=== PATIENT | female | born 1945 | race Caucasian/White ===

== ENCOUNTER → 2017-04-03 | Outpatient (CLI) | payer OTHER ==
[~2017-04-03] MED LIST: AMLO2.5T PO; ASCO10003 PO; ASPI81TA21 PO; ATOR-26 PO; CHOL20005 PO; CLOP1TAB15 PO; DOCU1TAB6 PO; FERR325T51 PO; IBAN150T7 PO; ISOS60TA25 PO; LEVO88TA3 PO; LINA1CAP PO; LISI-461 PO; MAGN250T8 PO; METF500T PO; METO25TA56 PO; NTRGSL/4 UT; OMEG10007 PO; OXYC5TAB PO; POTA20TA16 PO; PRLSR20 PO; QUET1TAB32 PO; SERT50TA PO; SUCR5SUS PO
[2017-04-03 13:03] LABS: ESTIMATED AVERAGE GLUCOSE 108 mg/dl; HA1C FLAG Normal (Normal)
[2017-04-03 13:04] LABS: CALCIUM 10.3 mg/dl (8.5-10.1)
[2017-04-03 13:05] LABS: ALT/SGPT 24 U/L (12-78); AST/SGOT 9 U/L (15-37); BLOOD UREA NITROGEN 41 mg/dl (7-18); BUN/CREATININE RATIO 31.5 (10-20); CARBON DIOXIDE 23 mmol/L (21-32); CHLORIDE 112 mmol/L (98-107); GLUCOSE 104 mg/dl (70-99); POTASSIUM 4.4 mmol/L (3.5-5.1); SODIUM 146 mmol/L (136-145)
[2017-04-03 13:15] LABS: ALB/GLOB RATIO 1.2 (0.9-2); ALKALINE PHOSPHATASE 47 U/L (45-117); THYROID STIMULATING HORMONE 0.936 uIu/ml (0.300-4.500)
== END | disposition home or self-care (01) ==
LOC: C.LABBFT 08:43
PROVIDERS: ATTEND Family Medicine
DX: E11.9 Type 2 diabetes mellitus without complications (principal); E83.42 Hypomagnesemia; E03.9 Hypothyroidism, unspecified; I10 Essential (primary) hypertension

== ENCOUNTER → 2017-12-10 | Outpatient (CLI) | payer OTHER ==
[2017-12-10 17:47] LABS: BASO % 0.4 %; BASO ABS # 0.04 K/uL (0-0.2); EOS % 11.1 %; EOS ABS # 1.12 K/uL (0-0.5); HEMATOCRIT 36.9 % (37-47); HEMOGLOBIN 12.4 g/dL (12.0-16.0); IG# 0.03 K/uL (0.00-0.02); LYMPH % 29.4 %; LYMPH ABS # 2.97 K/uL (1.2-3.4); MEAN CELL VOLUME 88.9 fL (80-100); MEAN CORPUSCULAR HEMOGLOBIN 29.9 pg (25-34); MEAN CORPUSCULAR HGB CONC 33.6 g/dl (32-36); MEAN PLATELET VOLUME 9.9 fL (7.4-10.4); MONO % 5.8 %; MONO ABS # 0.59 K/uL (0.11-0.59); NEUT ABS # 5.34 K/uL (1.4-6.5); PLATELET COUNT 264 K/uL (130-400); RED CELL DISTRIBUTION WIDTH CV 13.9 % (11.5-14.5); RED CELL DISTRIBUTION WIDTH SD 45.3 fL (36.4-46.3); WHITE BLOOD COUNT 10.09 K/uL (4.8-10.8)
[2017-12-10 18:03] LABS: ALBUMIN 3.6 gm/dl (3.4-5.0); ALT/SGPT 23 U/L (12-78); AST/SGOT 11 U/L (15-37); BLOOD UREA NITROGEN 26 mg/dl (7-18); CALCIUM 10.3 mg/dl (8.5-10.1); CARBON DIOXIDE 25 mmol/L (21-32); CREATININE 1.33 mg/dl (0.60-1.20); GLUCOSE 106 mg/dl (70-99); POTASSIUM 4.5 mmol/L (3.5-5.1); SODIUM 144 mmol/L (136-145)
[2017-12-10 18:13] LABS: ALKALINE PHOSPHATASE 67 U/L (45-117); CHOLESTEROL 165 mg/dl (0-200); LDL CHOLESTEROL CALCULATED 69 mg/dl; TOTAL PROTEIN 7.2 gm/dl (6.4-8.2)
[2017-12-11 06:15] LABS: HEMOGLOBIN A1C 5.4 % (4.5-5.6)
== END | disposition home or self-care (01) ==
LOC: C.LABBFT 12:27
PROVIDERS: ATTEND Internal Medicine
DX: G47.33 Obstructive sleep apnea (adult) (pediatric) (principal); E83.52 Hypercalcemia; D64.9 Anemia, unspecified; E11.9 Type 2 diabetes mellitus without complications; M81.0 Age-related osteoporosis without current pathological fracture; E78.5 Hyperlipidemia, unspecified; E83.42 Hypomagnesemia

== ENCOUNTER → 2017-12-11 | Outpatient (CLI) | payer OTHER | LOC: C.LABBFT 07:27 | PROVIDERS: ATTEND Internal Medicine | DX: E11.9 Type 2 diabetes mellitus without complications (principal) ==

== ENCOUNTER → 2017-12-26 | Outpatient (CLI) | payer OTHER ==
--- NOTE | 2017-12-26 16:08 | DIAGNOSTIC IMAGING REPORT ---
CHEST 2 VIEWS ROUTINE CLINICAL HISTORY: Shortness of breath. Dyspnea on exertion. COMPARISON STUDY: January 19, 2016 FINDINGS: The cardiac and mediastinal contours are normal. There is no evidence of focal pulmonary consolidation. There is no evidence of failure. No pleural effusions are visualized.[ Surgical clips are again identified at the left anteromedial base. IMPRESSION: No active disease in the chest. Electronically signed by: Casey Brown M.D. 12/26/2017 4:06 PM Dictated Date/Time: 12/26/2017 4:06 PM
== END | disposition home or self-care (01) ==
LOC: C.RAD1850 15:49
PROVIDERS: ATTEND Internal Medicine
DX: R06.09 Other forms of dyspnea (principal)

== ENCOUNTER → 2018-03-04 | Outpatient (CLI) | payer OTHER ==
[~2018-03-04] MED LIST changes: +ASPI-319 PO; -ASPI81TA21 PO; +POTA-639 PO; -POTA20TA16 PO
== END | disposition home or self-care (01) ==
LOC: C.LABBFT 13:45
PROVIDERS: ATTEND Internal Medicine Endocrinology, Diabetes & Metabolism
DX: E83.52 Hypercalcemia (principal)

== ENCOUNTER → 2018-03-11 | Outpatient (CLI) | payer OTHER | END | disposition home or self-care (01) | LOC: C.LABBFT 12:36 | PROVIDERS: ATTEND Internal Medicine Endocrinology, Diabetes & Metabolism | DX: E83.52 Hypercalcemia (principal) ==

== ENCOUNTER → 2018-03-18 | Outpatient (CLI) | payer OTHER | END | disposition home or self-care (01) | LOC: C.LABBFT 12:42 | PROVIDERS: ATTEND Internal Medicine Endocrinology, Diabetes & Metabolism | DX: E83.52 Hypercalcemia (principal) ==

== ENCOUNTER → 2018-05-20 | Outpatient (CLI) | payer OTHER ==
--- NOTE | 2018-05-20 11:37 | DIAGNOSTIC IMAGING REPORT ---
RENAL ULTRASOUND CLINICAL HISTORY: Stage III chronic kidney disease. COMPARISON STUDY: CT of the abdomen and pelvis January 19, 2016. TECHNIQUE: Sonography of the kidneys and the urinary bladder was performed. FINDINGS: The right kidney measures 10.1 x 4.8 x 4.3 cm and the left measures 9 x 4.5 x 4.3 cm. There is no hydronephrosis. No calculi or masses are identified by sonography. A few subcentimeter bilateral renal cysts are noted. There is mild renal cortical thinning. Neither ureteral jet was identified. IMPRESSION: 1. No hydronephrosis. 2. Mild renal cortical thinning. Electronically signed by: Jason Cooper M.D. 05/20/2018 11:35 AM Dictated Date/Time: 05/20/2018 11:34 AM
== END | disposition home or self-care (01) ==
LOC: C.ULTR 10:55
PROVIDERS: ATTEND Internal Medicine
DX: N18.3 Chronic kidney disease, stage 3 (moderate) (principal)

== ENCOUNTER → 2018-05-22 | Outpatient (CLI) | payer OTHER | END | disposition home or self-care (01) | LOC: C.LABSPEC 10:51 | PROVIDERS: ATTEND Internal Medicine | DX: N18.3 Chronic kidney disease, stage 3 (moderate) (principal) ==

== ENCOUNTER 2020-01-12 12:19 | Inpatient (IN) ==
[2020-01-12] MEDS ORDERED: DEXAMETHASONE SOD PHOSPHATE 10 MG in SYRINGE 0 ML IV STA (12:52)
[2020-01-12] MEDS ORDERED: ALBUT/IPRATROP 3MG/0.5MG NEB 3 ML VIAL NEB ONE (12:52)
[2020-01-12] MEDS ORDERED: PIPERACILLIN/TAZOBACTAM 4.5 GM/120 ML BAG IV ONE (12:55)
[2020-01-12] MEDS ORDERED: PIPERACILL/TAZOBAC CONSULT ACTIVE PRN (12:55)
--- NOTE | 2020-01-12 13:03 | Emergency Department Note ---
ED Provider Note NAME: NIRAJ WILKINSON AGE: 74 SEX: F ARRIVES VIA: Ambulance INFORMANT: [Patient][, ] ED PROVIDER(S): Teodoro Delgadillo MD CHIEF COMPLAINT: Cough, SOB, feverish MEDICAL DECISION MAKING: The patient is a pleasant 74-year-old woman with a past medical history of CKD, diabetes, hypothyroidism, CAD who presents emergency department from her [facility] at [facility] with cough congestion and shortness of breath with feverishness with yellow sputum over the past week progressively worsening found to be significantly short of breath by visiting friend who called EMS. On arrival the patient is ill-appearing with increased work of breathing on BiPAP by EMS. She is hypertensive 200s/100s, tachypneic in the upper 20s and tachycardic with heart rate in the 100s. On exam the patient has scattered rhonchi with underlying wheezes. She appears clinically dry. EKG without overt acute ischemia. Chest x-ray negative for focal infiltrates. WBC within normal limits. Platelets within normal limits. H/H 11.9/35.0 approxim ately prior range of values. Chemistry without acidosis. Lactate 1.6. Magnesium 1.0 with repletion provided. LFTs unremarkable. Troponin negative/undetectable. BNP within normal limits. Procalcitonin undetectable. Influenza A positive. Given the patient's ill appearance upon arrival she was treated empirically with IV Zosyn. Upon flu PCR results order for Tamiflu. Upon re-evaluation respiratory status was improved on BiPAP with steroids, DuoNeb. However given the patient's respiratory failure we will proceed with admission. Patient is agreeable with this. Case was discussed with Dr. Clarke, [facility] hospitalist, who evaluate the patient for admission. Triage Nursing notes reviewed and agree them. [Additional history obtained from] [] [Prior medical records reviewed] [] Vital Signs: reviewed and remarkable for hypertension, tachypnea, tachycardia Differential diagnosis: Reactive airway disease, pneumonia, pneumothorax, COPD, CHF, infections, cardiac ischemia, pulmonary embolism, musculoskeletal, gastrointestinal, as well as other pathologies. ER treatment provided: See below. Diagnostics interpreted by me: ECG: EKG demonstrates sinus rhythm at 76 with evidence of right ventricular conduction delay. ST and T wave abnormality similar to prior, April 04, 2016. No overt ST elevations. QTc 454, QRS 90. Cardiac Monitoring: Normal sinus rhythm, 76 bpm. No ectopy. Laboratory studies: [See below] [] Imaging studies: [See below] [] Consultation(s): [none] HPI: The patient is a pleasant 74-year-old woman with a past medical history of CKD, diabetes, hypothyroidism, CAD who presents emergency department from her independent living facility at [facility] with gradual progression of cough congestion and shortness of breath with feverishness with yellow sputum over the past week progressively worsening found to be significantly short of breath by visiting friend who called EMS. Reports bodyaches and n/v this morning where she vomited her BP medications. Denies diarrhea or urinary symptoms. ROS: See above HPI for pertinent positives & negatives. A total of [10] systems reviewed and were otherwise negative. PAST MEDICAL HISTORY:[See Below] PAST SURGICAL HISTORY:[See Below] FAMILY HISTORY:[See Below] SOCIAL HISTORY:[See Below] HOME MEDICATIONS:[See Below] ALLERGIES:[See Below] VITALS:[See Below] PHYSICAL EXAMINATION: GENERAL: Awake, alert, Ill-appearing, in no distress HENT: Normocephalic, atraumatic. Oropharynx with dry mucous membranes and otherwise unremarkable. EYES: Normal conjunctiva. Sclera non-icteric. NECK: Supple. No nuchal rigidity. FROM. No JVD. RESPIRATORY: Increased work of breathing and tachypneic with scattered rhonchi and underlying wheezes. CARDIAC: Tachycardic rate, normal rhythm. Extremities warm and well perfused. Pulses equal. ABDOMEN: Soft, non-distended. No tenderness to palpation. No rebound or guarding. No masses. RECTAL: Deferred. MUSCULOSKELETAL: Chest examination reveals no tenderness. The back is symmetrical on inspection without obvious abnormality. There is no CVA tenderness to palpation. No joint edema. LOWER EXTREMITIES: Calves are equal size bilaterally and non-tender. No edema. No discoloration. NEURO: Normal sensorium. No sensory or motor deficits noted. SKIN: No rash or jaundice noted. ED COURSE: [Critical Care:] I have personally spent greater than 65 minutes of critical care time in the direct management of this patient. This includes bedside care, interpretation of diagnostic studies, and testing, discussion with consultants, patient, and family members, and other required patient management activities. This 65 minutes is in excess of all separately billable procedures. Teodoro Delgadillo MD Impression & Plan Acute respiratory failure with hypoxia, Influenza A, Hypomagnesemia, Hypertension, Acute hypokalemia Past Med/Surg History Medical History Asthma (Inactive) Coronary artery disease (Inactive) DKA (diabetic ketoacidosis) (Resolved) DM (diabetes mellitus) (Chronic) History of heart disease Hypothyroidism (Chronic) Urinary incontinence Surgical History History of hysterectomy (Resolved) S/P CABG x 4 (Resolved) Family History Denies family history of Kidney disease Social History Current Living Situation: Other Current Living Situation Comment: [facility] Independent living Other Information That Helps Us Care for You: No Feels Safe at Home: Yes Safety Concerns: Feels Safe At This Time Smoking Status: Unknown if ever smoked Hx Alcohol Use: No Hx Substance Use: No Results & Data Vital Signs Vital Signs - 24 hr 01/12/20 12:41 01/12/20 12:52 01/12/20 13:04 Temperature 37.3 C Temperature Source Oral Pulse Rate 105 H 78 Pulse Rate [Left] 78 Respiratory Rate 29 H 26 H Respiratory Effort / Characteristics Labored Short of Breath SOB on Exertion Spontaneous Labored Respiratory Depth Normal Respiratory Pattern Regular Blood Pressure 209/104 H Blood Pressure [Right Arm] Blood Pressure Mean 139 Blood Pressure Mean [Right Arm] Pulse Oximetry 99 98 Oxygen Delivery Method BiPAP BiPAP BiPAP Oxygen Flow Rate 10 Fraction of Inspired Oxygen 40 40 Sepsis Recent Fever Within 48 Hours Yes Sepsis New/Unexplained Change in Mental Status No Sepsis Action Taken by Nursing No Action Required 01/12/20 13:34 01/12/20 14:19 Temperature Temperature Source Pulse Rate Pulse Rate [Left] 92 H 120 H Respiratory Rate 22 28 H Respiratory Effort / Characteristics SOB on Exertion Respiratory Depth Respiratory Pattern Blood Pressure Blood Pressure [Right Arm] 205/80 H Blood Pressure Mean Blood Pressure Mean [Right Arm] 121 Pulse Oximetry 100 94 Oxygen Delivery Method BiPAP BiPAP Oxygen Flow Rate Fraction of Inspired Oxygen Sepsis Recent Fever Within 48 Hours Sepsis New/Unexplained Change in Mental Status Sepsis Action Taken by Nursing Laboratory Data Result diagrams: 01/12/20 12:25 01/12/20 12:25 Lab Results 01/12/20 01/12/20 01/12/20 Range/Units 12:10 12:25 12:25 WBC 10.16 (4.8-10.8) K/uL RBC 3.92 L (4.2-5.4) M/uL Hgb 11.9 L (12.0-16.0) g/dL Hct 35.0 L (37-47) % MCV 89.3 (80-100) fL MCH 30.4 (25-34) pg MCHC 34.0 (32-36) g/dL RDW Std Deviation 45.6 (36.4-46.3) fL RDW Coeff of Nathan 13.8 (11.5-14.5) % Plt Count 156 (130-400) K/uL MPV 10.2 (7.4-10.4) fL Immature Gran % (Auto) 0.2 % Neut % (Auto) 71.5 % Lymph % (Auto) 18.5 % Zavala % (Auto) 9.3 % Eos % (Auto) 0.3 % Baso % (Auto) 0.2 % Immature Gran # (Auto) 0.02 (0.00-0.02) K/uL Neut # (Auto) 7.27 H (1.4-6.5) K/uL Lymph # (Auto) 1.88 (1.2-3.4) K/uL Zavala # (Auto) 0.94 H (0.11-0.59) K/uL Eos # (Auto) 0.03 (0-0.5) K/uL Baso # (Auto) 0.02 (0-0.2) K/uL PT 11.0 (9.0-12.0) Seconds INR 1.0 (0.9-1.1) APTT 34.2 H (21.0-31.0) Seconds PTT Ratio 1.2 VBG pH (7.36-7.41) VBG pCO2 (38-50) mmHg VBG pO2 mmHg VBG HCO3 mmol/L VBG O2 Saturation % VBG Base Excess mEq/L Barometric Pressure mm/Hg Sodium (136-145) mmol/L Potassium (3.5-5.1) mmol/L Chloride (98-107) mmol/L Carbon Dioxide (21-32) mmol/L Anion Gap (3-11) BUN (7-18) mg/dl Creatinine (0.6-1.2) mg/dl Est Cr Clr Drug Dosing ml/min Est GFR ( Amer) Est GFR (Non-Af Amer) BUN/Creatinine Ratio (10-20) Glucose (70-99) mg/dl Lactate (0.4-2.0) mmol/L Calcium (8.5-10.1) mg/dl Phosphorus (2.5-4.9) mg/dl Magnesium (1.8-2.4) mg/dl Total Bilirubin (0.2-1) mg/dl AST (15-37) U/L ALT (12-78) U/L Alkaline Phosphatase (45-117) U/L Troponin I (0-0.045) ng/ml NT-Pro-B Natriuret Pep (0-900) pg/ml Total Protein (6.4-8.2) gm/dl Albumin (3.4-5.0) gm/dl Globulin (2.5-4.0) gm/dl Albumin/Globulin Ratio (0.9-2) Procalcitonin (0-0.5) ng/ml Influenza Type A (PCR) Pos for Influ A A* (Neg) Influenza Type B (PCR) Neg for Influ B (Neg) 01/12/20 01/12/20 01/12/20 Range/Units 12:25 12:25 13:05 WBC (4.8-10.8) K/uL RBC (4.2-5.4) M/uL Hgb (12.0-16.0) g/dL Hct (37-47) % MCV (80-100) fL MCH (25-34) pg MCHC (32-36) g/dL RDW Std Deviation (36.4-46.3) fL RDW Coeff of Nathan (11.5-14.5) % Plt Count (130-400) K/uL MPV (7.4-10.4) fL Immature Gran % (Auto) % Neut % (Auto) % Lymph % (Auto) % Zavala % (Auto) % Eos % (Auto) % Baso % (Auto) % Immature Gran # (Auto) (0.00-0.02) K/uL Neut # (Auto) (1.4-6.5) K/uL Lymph # (Auto) (1.2-3.4) K/uL Zavala # (Auto) (0.11-0.59) K/uL Eos # (Auto) (0-0.5) K/uL Baso # (Auto) (0-0.2) K/uL PT (9.0-12.0) Seconds INR (0.9-1.1) APTT (21.0-31.0) Seconds PTT Ratio VBG pH (7.36-7.41) VBG pCO2 (38-50) mmHg VBG pO2 mmHg VBG HCO3 mmol/L VBG O2 Saturation % VBG Base Excess mEq/L Barometric Pressure mm/Hg Sodium 141 (136-145) mmol/L Potassium 3.4 L (3.5-5.1) mmol/L Chloride 110 H (98-107) mmol/L Carbon Dioxide 23 (21-32) mmol/L Anion Gap 8.0 (3-11) BUN 14 (7-18) mg/dl Creatinine 1.15 (0.6-1.2) mg/dl Est Cr Clr Drug Dosing 38.4 ml/min Est GFR ( Amer) 54.7 Est GFR (Non-Af Amer) 47.2 BUN/Creatinine Ratio 11.9 (10-20) Glucose 118 H (70-99) mg/dl Lactate 1.6 (0.4-2.0) mmol/L Calcium 8.4 L (8.5-10.1) mg/dl Phosphorus 2.4 L (2.5-4.9) mg/dl Magnesium 1.0 L (1.8-2.4) mg/dl Total Bilirubin 0.4 (0.2-1) mg/dl AST 13 L (15-37) U/L ALT 20 (12-78) U/L Alkaline Phosphatase 60 (45-117) U/L Troponin I < 0.015 (0-0.045) ng/ml NT-Pro-B Natriuret Pep 741 (0-900) pg/ml Total Protein 7.1 (6.4-8.2) gm/dl Albumin 3.5 (3.4-5.0) gm/dl Globulin 3.6 (2.5-4.0) gm/dl Albumin/Globulin Ratio 1.0 (0.9-2) Procalcitonin < 0.05 (0-0.5) ng/ml Influenza Type A (PCR) (Neg) Influenza Type B (PCR) (Neg) 01/12/20 Range/Units 13:05 WBC (4.8-10.8) K/uL RBC (4.2-5.4) M/uL Hgb (12.0-16.0) g/dL Hct (37-47) % MCV (80-100) fL MCH (25-34) pg MCHC (32-36) g/dL RDW Std Deviation (36.4-46.3) fL RDW Coeff of Nathan (11.5-14.5) % Plt Count (130-400) K/uL MPV (7.4-10.4) fL Immature Gran % (Auto) % Neut % (Auto) % Lymph % (Auto) % Zavala % (Auto) % Eos % (Auto) % Baso % (Auto) % Immature Gran # (Auto) (0.00-0.02) K/uL Neut # (Auto) (1.4-6.5) K/uL Lymph # (Auto) (1.2-3.4) K/uL [place]ala # (Auto) (0.11-0.59) K/uL Eos # (Auto) (0-0.5) K/uL Baso # (Auto) (0-0.2) K/uL PT (9.0-12.0) Seconds INR (0.9-1.1) APTT (21.0-31.0) Seconds PTT Ratio VBG pH 7.51 H (7.36-7.41) VBG pCO2 32 L (38-50) mmHg VBG pO2 24 mmHg VBG HCO3 25 mmol/L VBG O2 Saturation < 60.0 % VBG Base Excess 2.7 mEq/L Barometric Pressure 734.5 mm/Hg Sodium (136-145) mmol/L Potassium (3.5-5.1) mmol/L Chloride (98-107) mmol/L Carbon Dioxide (21-32) mmol/L Anion Gap (3-11) BUN (7-18) mg/dl Creatinine (0.6-1.2) mg/dl Est Cr Clr Drug Dosing ml/min Est GFR ( Amer) Est GFR (Non-Af Amer) BUN/Creatinine Ratio (10-20) Glucose (70-99) mg/dl Lactate (0.4-2.0) mmol/L Calcium (8.5-10.1) mg/dl Phosphorus (2.5-4.9) mg/dl Magnesium (1.8-2.4) mg/dl Total Bilirubin (0.2-1) mg/dl AST (15-37) U/L ALT (12-78) U/L Alkaline Phosphatase (45-117) U/L Troponin I (0-0.045) ng/ml NT-Pro-B Natriuret Pep (0-900) pg/ml Total Protein (6.4-8.2) gm/dl Albumin (3.4-5.0) gm/dl Globulin (2.5-4.0) gm/dl Albumin/Globulin Ratio (0.9-2) Procalcitonin (0-0.5) ng/ml Influenza Type A (PCR) (Neg) Influenza Type B (PCR) (Neg) Administered Medications Ascorbic Acid (Vitamin C) 1,000 mg PO PM JANELLE Stop: 02/11/20 20:59 Last Admin: 01/12/20 20:04 Dose: 1,000 mg Documented by: [id number] Atorvastatin Calcium (Lipitor) 80 mg PO HS JANELLE Stop: 02/11/20 20:59 Last Admin: 01/12/20 20:04 Dose: 80 mg Documented by: [id number] Clopidogrel Bisulfate (Plavix) 75 mg PO PM JANELLE Stop: 02/11/20 20:59 Last Admin: 01/12/20 20:05 Dose: 75 mg Documented by: [id number] Enoxaparin Sodium (Lovenox) 40 mg SQ Q24H JANELLE Stop: 02/11/20 20:59 Last Admin: 01/12/20 20:05 Dose: 40 mg Documented by: [id number] Ferrous Sulfate (Feosol) 325 mg PO HS JANELLE Stop: 02/11/20 20:59 Last Admin: 01/12/20 20:07 Dose: 325 mg Documented by: [id number] Fish Oil ([place]-3 (Purified Fish Oil)) 1 gm PO BID JANELLE Stop: 02/11/20 20:59 Last Admin: 01/12/20 20:06 Dose: 1 gm Documented by: [id number] Sodium Chloride (Nss 1000ml) 1,000 mls @ 100 mls/hr IV .Q10H [facility] Stop: 02/11/20 18:59 Last Admin: 01/12/20 19:58 Dose: 100 mls/hr Documented by: [id number] Piperacillin Sod/Tazobactam (Sod 3.375 gm/ Dextrose) 115 mls @ 28.75 mls/hr IV Q8H [facility] [place]; Protocol Stop: 01/19/20 19:59 Last Admin: 01/12/20 19:59 Dose: 28.8 mls/hr Documented by: [id number] Lisinopril (Zestril) 20 mg PO [facility] Stop: 02/11/20 20:59 Last Admin: 01/12/20 20:05 Dose: 20 mg Documented by: [id number] Magnesium Oxide (Mag-Ox) 200 mg PO [facility] Stop: 02/11/20 20:59 Last Admin: 01/12/20 20:05 Dose: 200 mg Documented by: [id number] Oseltamivir Phosphate (Tamiflu) 30 mg PO BID [facility] [place]; Protocol Stop: 01/17/20 20:59 Last Admin: 01/12/20 20:03 Dose: 30 mg Documented by: [id number] Pantoprazole Sodium (Protonix) 40 mg PO BID [facility] Stop: 02/11/20 20:59 Last Admin: 01/12/20 20:07 Dose: 40 mg Documented by: [id number] Potassium Chloride (Klor-Con M20) 20 meq PO [facility] Stop: 02/11/20 20:59 Last Admin: 01/12/20 20:06 Dose: 20 meq Documented by: [id number] Trazodone HCl (Desyrel) 150 mg PO [facility] Stop: 02/11/20 20:59 Last Admin: 01/12/20 20:06 Dose: 150 mg Documented by: [id number] Discontinued Medications Albuterol (Duoneb) 12 ml NEB ONE ONE Stop: 01/12/20 12:53 Last Admin: 01/12/20 13:02 Dose: 12 ml Documented by: [id number] Dexamethasone Sodium Phosphate (Decadron Pf) Confirm Administered Dose 10 mg .ROUTE .STK-MED ONE Stop: 01/12/20 13:26 Last Admin: 03/17/20 13:30 Dose: 10 mg Documented by: [id number] Hydralazine HCl (Hydralazine Hcl) 10 mg IV NOW STA Stop: 01/12/20 16:11 Last Admin: 01/12/20 17:08 Dose: 10 mg Documented by: [id number] Dexamethasone Sodium Phosphate (10 mg/ Syringe) 2.5 mls @ 1 mls/min IV NOW STA Stop: 01/12/20 12:54 Last Admin: 01/12/20 13:30 Dose: Not Given Documented by: [id number] Piperacillin Sod/Tazobactam Sod (Zosyn) 4.5 gm in 120 mls @ 240 mls/hr IV NOW ONE Stop: 01/12/20 13:24 Last Infusion: 01/12/20 14:30 Dose: 0 mls/hr Documented by: [id number] Admin: 01/12/20 13:30 Dose: 240 mls/hr Documented by: [id number] Magnesium Sulfate/Dextrose (Magnesium Sulfate / D5w) 1 gm in 100 mls @ 100 mls/hr IV Q1H JANELLE Stop: 01/12/20 16:14 Last Infusion: 01/12/20 17:04 Dose: 0 mls/hr Documented by: [id number] Admin: 01/12/20 16:03 Dose: 100 mls/hr Documented by: [id number] Infusion: 01/12/20 16:00 Dose: 0 mls/hr Documented by: [id number] Admin: 01/12/20 14:32 Dose: 100 mls/hr Documented by: [id number] Sodium Chloride (Nss) 500 mls @ 999 mls/hr IV .Q31M ONE Stop: 01/12/20 14:34 Last Infusion: 01/12/20 14:40 Dose: 0 mls/hr Documented by: [id number] Admin: 01/12/20 14:32 Dose: 999 mls/hr Documented by: [id number] Isosorbide Mononitrate (Imdur Extended Rel) 120 mg PO NOW ONE Stop: 01/12/20 14:41 Last Admin: 01/12/20 15:05 Dose: 120 mg Documented by: [id number] Metoprolol Tartrate (Lopressor) 12.5 mg PO NOW STA Stop: 01/12/20 14:41 Last Admin: 01/12/20 15:06 Dose: 12.5 mg Documented by: [id number] Oseltamivir Phosphate (Tamiflu) 75 mg PO NOW STA; Protocol Stop: 01/12/20 14:48 Last Admin: 01/12/20 15:06 Dose: 75 mg Documented by: [id number] Imaging Data Radiologist's Impression: XR chest 1V portable CLINICAL HISTORY: SEPSIS dyspnea COMPARISON STUDY: 01/19/2016 FINDINGS: The bones soft tissues and hemidiaphragms are normal. The cardiomediastinal silhouette is normal. The lungs are clear. The pulmonary vasculature is normal. IMPRESSION: Negative chest. Blood Pressure Blood Pressure Findings: Elevated blood pressure Blood Pressure Disposition: further management by hospitalist Discharge Plan Visit Data *Final* Discharge Date/Time: 01/12/20 18:58 Chief Complaint: Cough Stated Complaint: COUGH ED Provider: Teodoro Delgadillo Discharge Problem: Acute respiratory failure with hypoxia, Influenza A, Hypomagnesemia, Hypertension, Acute hypokalemia Patient Disposition: Admitted As Inpatient Discharge Instructions Interventions: ED Discharge Assessment Last Done: 01/12/20 18:57 Meds Home Medications and Allergies Home Medications Medication Instructions Recorded Confirmed Type albuterol sulfate 90 mcg/actuation 2 puffs INHALATION .COMPLEX gm 06/18/19 01/12/20 History aerosol inhaler ascorbic acid (vitamin C) 1,000 mg 1 gm PO PM tab 06/18/19 01/12/20 History tablet cinacalcet 60 mg tablet 60 mg PO QAM #90 tab 06/18/19 01/12/20 History magnesium 250 mg tablet 250 mg PO HS 06/18/19 01/12/20 History nitroglycerin 0.4 mg sublingual 0.4 mg SL Q5M PRN #25 tab 06/18/19 01/12/20 History tablet omega-3 acid ethyl esters 1 gram 1 cap PO BID cap 06/18/19 01/12/20 History capsule potassium chloride 20 mEq 20 meq PO HS #30 tab 06/18/19 01/12/20 History tablet,extended release omeprazole 20 mg capsule,delayed 20 mg PO BID cap 07/08/19 01/12/20 History release cetirizine 10 mg tablet 5 mg PO QAM 09/07/19 01/12/20 History melatonin 10 mg capsule 10 mg PO HS cap 10/16/19 01/12/20 History aspirin 81 mg PO QAM 01/12/20 01/12/20 History atorvastatin 80 mg PO HS 01/12/20 01/12/20 History calcitriol 0.25 mcg PO QAM 01/12/20 01/12/20 History cholecalciferol (vitamin D3) 4,000 units PO QAM 01/12/20 01/12/20 History clopidogrel 75 mg PO PM 01/12/20 01/12/20 History ferrous sulfate 325 mg PO HS 01/12/20 01/12/20 History isosorbide mononitrate 120 mg PO QAM 01/12/20 01/12/20 History levothyroxine 75 mcg PO QAM 01/12/20 01/12/20 History lisinopril 20 mg PO HS 01/12/20 01/12/20 History metoprolol succinate 12.5 mg PO QAM 01/12/20 01/12/20 History sertraline 100 mg PO QAM 01/12/20 01/12/20 History trazodone 150 mg PO HS 01/12/20 01/12/20 History Allergies Allergy/AdvReac Type Severity Reaction Status Date / Time nickel Allergy Unknown RASH Verified 01/12/20 13:05 salicylates AdvReac Mild GI UPSET Verified 01/12/20 13:05 adhesive AdvReac Unknown ITCHING Verified 01/12/20 13:05 Discharge Problem: Hypertension Qualifiers: Hypertension type: unspecified Qualified Code(s): I10 - Essential (primary) hypertension
[2020-01-12 13:14] LABS: Hemoglobin 11.9 g/dL (12.0-16.0); Mean Corpuscular Hemoglobin 30.4 pg (25-34); Mean Corpuscular Volume 89.3 fL (80-100); Mean Platelet Volume 10.2 fL (7.4-10.4); Platelet Count 156 K/uL (130-400); RDW Coefficient of Variation 13.8 % (11.5-14.5); RDW Standard Deviation 45.6 fL (36.4-46.3); Red Blood Count 3.92 M/uL (4.2-5.4); White Blood Count 10.16 K/uL (4.8-10.8)
[2020-01-12 13:16] LABS: Base Excess VBG 2.7 mEq/L; HCO3 VBG 25 mmol/L; PCO2 VBG 32 mmHg (38-50); PO2 VBG 24 mmHg; pH VBG 7.51 (7.36-7.41)
[2020-01-12 13:17] LABS: Oxygen Saturation VBG < 60.0 %
--- NOTE | 2020-01-12 13:18 | XRay Report ---
XR chest 1V portable CLINICAL HISTORY: SEPSIS dyspnea COMPARISON STUDY: 01/19/2016 FINDINGS: The bones soft tissues and hemidiaphragms are normal. The cardiomediastinal silhouette is n ormal. The lungs are clear. The pulmonary vasculature is normal. IMPRESSION: Negative chest. ACT 112: Negative or not required by law. The above report was generated using voice recognition software. It may contain grammatical, syntax or spelling errors. Electronically signed by: Gokul Reese M.D. 01/12/2020 1:17 PM
[2020-01-12 13:23] LABS: Alanine Aminotransferase 20 U/L (12-78); Albumin Level 3.5 gm/dl (3.4-5.0); Aspartate Aminotransferase 13 U/L (15-37); BUN Creatinine Ratio 11.9 (10-20); Blood Urea Nitrogen 14 mg/dl (7-18); Calcium 8.4 mg/dl (8.5-10.1); Carbon Dioxide 23 mmol/L (21-32); Chloride 110 mmol/L (98-107); Creatinine Clr Calc Pharmacy 38.4 ml/min; Est GFR (African American) 54.7; Est GFR (Non-African American) 47.2; Glucose 118 mg/dl (70-99); Potassium 3.4 mmol/L (3.5-5.1); Sodium 141 mmol/L (136-145)
[2020-01-12 13:25] LABS: Partial Thromboplastin Ratio 1.2; Partial Thromboplastin Time 34.2 Seconds (21.0-31.0)
[2020-01-12] MEDS ORDERED: DEXAMETHASONE **PF** INJ 10 MG/ML VIAL ONE (13:25)
[2020-01-12 13:26] LABS: Influenza B virus by PCR Neg for Influ B (Neg)
[2020-01-12 13:28] LABS: Alkaline Phosphatase 60 U/L (45-117); Bilirubin,Total 0.4 mg/dl (0.2-1); Globulin 3.6 gm/dl (2.5-4.0); NT Pro B Type Natriuretic Pept 741 pg/ml (0-900); Phosphorus 2.4 mg/dl (2.5-4.9); Total Protein 7.1 gm/dl (6.4-8.2); Troponin I < 0.015 ng/ml (0-0.045)
[2020-01-12 13:36] LABS: Basophils # (auto) 0.02 K/uL (0-0.2); Basophils % (auto) 0.2 %; Eosinophils # (auto) 0.03 K/uL (0-0.5); Eosinophils % (auto) 0.3 %; Immature Granulocytes # (auto) 0.02 K/uL (0.00-0.02); Immature Granulocytes % (auto) 0.2 %; Lymphocytes # (auto) 1.88 K/uL (1.2-3.4); Lymphocytes % (auto) 18.5 %; Monocytes # (auto) 0.94 K/uL (0.11-0.59); Monocytes % (auto) 9.3 %; Neutrophils # (auto) 7.27 K/uL (1.4-6.5); Neutrophils % (auto) 71.5 %
[2020-01-12] MEDS ORDERED: SODIUM CHLORIDE 0.9% 500 ML IV ONE (14:04)
[2020-01-12] MEDS: MAGNESIUM SULFATE / D5W 1 GM/100 ML BAG IV SCH ×2 (14:32→16:03)
[2020-01-12] MEDS ORDERED: ISOSORBIDE MONO EXTENDED REL 30 MG TABCR PO ONE (14:40)
[2020-01-12] MEDS ORDERED: METOPROLOL TARTRATE 50 MG TAB PO STA (14:40)
[2020-01-12] MEDS ORDERED: OSELTAMIVIR PHOSPHATE 75 MG CAP PO STA (14:47)
--- NOTE | 2020-01-12 15:58 | History & Physical Report ---
Date of Service January 12, 2020 Assessment & Plan (1) Influenza A: Patient likely has viral pneumonia secondary to influenza A. Patient was started on Tamiflu in the emergency room and now has been on BiPAP with good results. Zosyn was also administered but I do not feel this needs to be co ntinued. Check blood and sputum cultures for evidence of bacterial infection. Symptomatic relief as tolerated including Zofran for nausea. Wean BiPAP as able. We will ask pulmonology to evaluate for further recommendations. (2) DM (diabetes mellitus): Diabetic medications noted patient medication was. She did receive steroids in the emergency room, will place on a sliding scale with an ADA diet once patient is back to taking p.o.'s. (3) Coronary artery disease: Patient is on aspirin and Plavix along with high intensity atorvastatin. We will continue his as per outpatient regimen. (4) Hypomagnesemia: Patient was given 1 g magnesium IV in the emergency room, I will recheck levels and replete further as necessary. (5) Hypertension: Patient's blood pressure significantly uncontrolled., Patient was given Lopressor 12.5 mg p.o. along with Imdur PO 120 mg x 1 now. If blood pressure remains elevated, will give hydralazine 10 mg IV x1. Patient may need further IV medications depending on if she can tolerate p.o. medications. History of Present Illness Primary Care Provider: Tye Sneed MD There is a 74-year-old female with past medical history of CAD, diabetes, CKD that presents today complaining of significant fever and shortness of breath. Patient is limited historian as she is currently on BiPAP with difficulty with understand. Patient apparently started having symptoms on 01/06, this started with mild cough and some myalgias. It progressed into dyspnea on exertion and shortness of breath at rest. Patient slowly worsening, was eventually seen by a friend earlier today and EMS was called to bring the patient to the emergency room. Of note, patient says that her appetite is been poor but she had no nausea or vomiting until earlier today. Currently she took her antihypertensive and vomited up the pills. At time of presentation, patient was on BiPAP per EMS. She is responded well with O2 sat in the 94-100% range. Blood pressures been extremely elevated at 205/80 with a heart rate of 120. Patient was afebrile at presentation. Allergies Allergy/AdvReac Type Severity Reaction Status Date / Time nickel Allergy Unknown RASH Verified 01/12/20 13:05 salicylates AdvReac Mild GI UPSET Verified 01/12/20 13:05 adhesive AdvReac Unknown ITCHING Verified 01/12/20 13:05 Home Medications Home Medications Medication Instructions Recorded Confirmed Type albuterol sulfate 90 mcg/actuation 2 puffs INHALATION .COMPLEX gm 06/18/19 01/12/20 History aerosol inhaler ascorbic acid (vitamin C) 1,000 mg 1 gm PO PM tab 06/18/19 01/12/20 History tablet cinacalcet 60 mg tablet 60 mg PO QAM #90 tab 06/18/19 01/12/20 History magnesium 250 mg tablet 250 mg PO HS 06/18/19 01/12/20 History nitroglycerin 0.4 mg sublingual 0.4 mg SL Q5M PRN #25 tab 06/18/19 01/12/20 History tablet omega-3 acid ethyl esters 1 gram 1 cap PO BID cap 06/18/19 01/12/20 History capsule potassium chloride 20 mEq 20 meq PO HS #30 tab 06/18/19 01/12/20 History tablet,extended release omeprazole 20 mg capsule,delayed 20 mg PO BID cap 07/08/19 01/12/20 History release cetirizine 10 mg tablet 5 mg PO QAM 09/07/19 01/12/20 History ondansetron 4 mg disintegrating 4 mg TRANSLINGUAL TID PRN #60 tab 10/05/19 01/12/20 Rx tablet melatonin 10 mg capsule 10 mg PO HS cap 10/16/19 01/12/20 History aspirin 81 mg PO QAM 01/12/20 01/12/20 History atorvastatin 80 mg PO HS 01/12/20 01/12/20 History calcitriol 0.25 mcg PO QAM 01/12/20 01/12/20 History cholecalciferol (vitamin D3) 4,000 units PO QAM 01/12/20 01/12/20 History clopidogrel 75 mg PO PM 01/12/20 01/12/20 History ferrous sulfate 325 mg PO HS 01/12/20 01/12/20 History isosorbide mononitrate 120 mg PO QAM 01/12/20 01/12/20 History levothyroxine 75 mcg PO QAM 01/12/20 01/12/20 History lisinopril 20 mg PO HS 01/12/20 01/12/20 History metoprolol succinate 12.5 mg PO QAM 01/12/20 01/12/20 History sertraline 100 mg PO QAM 01/12/20 01/12/20 History trazodone 150 mg PO HS 01/12/20 01/12/20 History Past Med/Surg History Social History Feels Safe at Home: Yes Smoking Status: Former smoker Tobacco Type: cigarettes ; Age Started Using Tobacco: 31 ; Age Quit Using Tobacco: 54 ; packs per day: 4 ; Cigarettes Per Day: 80 ; Number of Years Since Quit: 20 ; Second Hand Exposure: No ; Review of Systems Constitutional: + fever, + chills, + body aches and + weakness; no weight loss and no weight gain Eyes: as per Subjective / HPI Respiratory: + cough, + chest congestion, + dyspnea and + dyspnea on exertion; no hemoptysis and no wheezing Cardiovascular: no chest pain, no orthopnea, no palpitations, no lightheadedness and no edema Gastrointestinal: + nausea and + vomiting; no abdominal pain, no constipation and no diarrhea/loose stools Genitourinary: no dysuria, no difficulty urinating, no urinary frequency, no urinary hesitancy, no urinary urgency and no flank pain Musculoskeletal: + stiffness; no back pain, no neck pain, no joint pain, no myalgia and no muscle weakness Integumentary: no rash Neurologic: no gait abnormality, no unsteadiness, no falls and no generalized weakness Physical Exam Constitutional: cooperative; no acute distress On BiPAP Neck: trachea midline, no thyromegaly Respiratory: normal respiratory effort Auscultation: + diminished lung sounds and + rhonchi; no crackles, no rales and no wheezes Cardiovascular: Rate/Rhythm: regular rhythm and + tachycardic Heart Sounds: normal S1 and normal S2 Gastrointestinal (Abdomen): Inspection/Auscultation: abdomen normal to inspection Percussion/Palpation: abdomen soft; abdomen nontender, no guarding, abdomen not rigid and no hepatosplenomegaly Skin: no rashes, warm and dry Results & Data Vital Signs (Past 12 Hours) Vital Signs Temp Pulse Pulse Resp BP BP Pulse Ox 01/12/20 14:19 120 H 28 H 205/80 H 94 01/12/20 13:34 92 H 22 100 01/12/20 13:04 78 78 26 H 98 01/12/20 12:41 37.3 C 105 H 29 H 209/104 H 99 Laboratory Results WBCs of 10.1, hemoglobin 11.9, hematocrit 35, platelets 156. INR is 1. VBG shows a CO2 of 32 with a pH of 7.51. Sodium 141, potassium 3.4 chloride of 110, dioxide 23 BUN is 14 and creatinine is 1.15 which appears to be her baseline. Glucose of 118. Calcium is 8.4, phosphorus 2.4, mag of 1. Procalcitonin is nondetectable. Influenza swab is positive for influenza A. Diagnostic Findings XR chest 1V portable CLINICAL HISTORY: SEPSIS dyspnea COMPARISON STUDY: 01/19/2016 FINDINGS: The bones soft tissues and hemidiaphragms are normal. The cardiomediastinal silhouette is normal. The lungs are clear. The pulmonary vasculature is normal. IMPRESSION: Negative chest. PG Care Time/CCT Total # of Minutes Spent Total Time Spent with Patient: Total time spent is greater than 50% in coordination of care (as documented) at patient's floor/unit and/or counseling patient: Coding Level of Care Code 25382 Initial Inpt Care Lvl 3 Diagnoses Influenza A J10.1 DM (diabetes mellitus) E11.9 Coronary artery disease I25.10 Hypomagnesemia E83.42 Hypertension I10
[2020-01-12] MEDS ORDERED: HydrALAZINE HCL 20 MG/ML VIAL IV STA (16:10)
[2020-01-12] MEDS ORDERED: ALBUTEROL 0.5% NEB SOLN 2.5 MG/0.5 ML VIAL NEB PRN (17:56)
[2020-01-12] MEDS: SODIUM CHLORIDE 0.9% 1000ML 1,000 ML IV SCH (19:58)
[2020-01-12] MEDS: PIPERACILLIN/TAZOBACTAM 3.375 GM in DEXTROSE 5% 100 ML IV SCH (19:59)
[2020-01-12] MEDS: OSELTAMIVIR PHOSPHATE SUSP 30 MG/5 ML UDP PO SCH (20:03)
[2020-01-12] MEDS: ASCORBIC ACID 500 MG TAB PO SCH (20:04)
[2020-01-12] MEDS: ATORVASTATIN 40 MG TAB PO SCH (20:04)
[2020-01-12] MEDS: ENOXAPARIN INJ 40 MG/0.4 ML SYR SQ SCH (20:05)
[2020-01-12] MEDS: CLOPIDOGREL BISULFATE 75 MG TAB PO SCH (20:05)
[2020-01-12] MEDS: lisinopriL 20 MG TAB PO SCH (20:05)
[2020-01-12] MEDS: MAGNESIUM OXIDE 400 MG TAB PO SCH (20:05)
[2020-01-12] MEDS: POTASSIUM CHLORIDE 20 MEQ TABCR PO SCH (20:06)
[2020-01-12] MEDS: OMEGA-3 (PURIFIED FISH OIL) 1 GM CAP PO SCH (20:06)
[2020-01-12] MEDS: TRAZODONE HCL 100 MG TAB PO SCH (20:06)
[2020-01-12] MEDS: PANTOprazole 40 MG TAB PO SCH (20:07)
[2020-01-12] MEDS: FERROUS SULFATE 325 MG TAB PO SCH (20:07)
--- NOTE | 2020-01-12 23:02 | Electrocardiogram Report ---
Test Reason : Blood Pressure : / mmHG Vent. Rate : 076 BPM Atrial Rate : 076 BPM P-R Int : 168 ms QRS Dur : 090 ms QT Int : 404 ms P-R-T Axes : 064 061 106 degrees QTc Int : 454 ms Poor data quality, interpretation may be adversely affected Normal sinus rhythm RSR' or QR pattern in V1 suggests right ventricular conduction delay Abnormal ECG When compared with ECG of 04-APR-2016 16:06, QT has lengthened Confirmed by Kenneth Pastrana ([id number]) on 01/12/2020 11:02:23 PM Referred By: REFERRED SELF Confirmed By:Kenneth Pastrana
[2020-01-13] MEDS: CINACALCET: ORDER AWAITING ACTION SCH ×4 (00:13→23:01)
[2020-01-13] MEDS: PIPERACILLIN/TAZOBACTAM 3.375 GM in DEXTROSE 5% 100 ML IV SCH (04:55)
[2020-01-13] MEDS: LEVOTHYROXINE SODIUM 75 MCG TABLET PO SCH (06:31)
[2020-01-13] MEDS: SODIUM CHLORIDE 0.9% 1000ML 1,000 ML IV SCH (06:31)
[2020-01-13 07:22] LABS: Hematocrit (blood only) 32.2 % (37-47); Hemoglobin 10.8 g/dL (12.0-16.0); Mean Corpuscular Hemoglobin 30.5 pg (25-34); Mean Corpuscular Hgb Conc 33.5 g/dL (32-36); Platelet Count 150 K/uL (130-400); RDW Standard Deviation 47.4 fL (36.4-46.3); Red Blood Count 3.54 M/uL (4.2-5.4); White Blood Count 10.66 K/uL (4.8-10.8)
[2020-01-13 07:54] LABS: BUN Creatinine Ratio 14.5 (10-20); Calcium 8.1 mg/dl (8.5-10.1); Creatinine Clr Calc Pharmacy 39.7 ml/min; Est GFR (African American) 62.5; Est GFR (Non-African American) 53.9; Magnesium 1.6 mg/dl (1.8-2.4); Potassium 3.6 mmol/L (3.5-5.1)
[2020-01-13 08:01] LABS: Immature Granulocytes # (auto) 0.03 K/uL (0.00-0.02); Immature Granulocytes % (auto) 0.3 %; Lymphocytes # (auto) 1.56 K/uL (1.2-3.4); Lymphocytes % (auto) 14.6 %; Monocytes # (auto) 0.87 K/uL (0.11-0.59); Monocytes % (auto) 8.2 %; Neutrophils % (auto) 76.9 %
[2020-01-13] MEDS: ASPIRIN 81 MG ECTAB PO SCH (08:47)
[2020-01-13] MEDS: MAGNESIUM SULFATE / D5W 1 GM/100 ML BAG IV SCH ×2 (08:47→09:59)
[2020-01-13] MEDS: CHOLECALCIFEROL 1,000 UNITS 25 MCG TAB PO SCH (08:48)
[2020-01-13] MEDS: SERTRALINE HCL 100 MG TABLET PO SCH (08:48)
[2020-01-13] MEDS: ISOSORBIDE MONO EXTENDED REL 60 MG TABCR PO SCH (08:48)
[2020-01-13] MEDS: PANTOprazole 40 MG TAB PO SCH ×2 (08:48→20:28)
[2020-01-13] MEDS: CALCITRIOL 0.25 MCG CAPSULE PO SCH (08:48)
[2020-01-13] MEDS: CETIRIZINE HCL 10 MG TABLET PO SCH (08:48)
[2020-01-13] MEDS: OMEGA-3 (PURIFIED FISH OIL) 1 GM CAP PO SCH ×2 (08:49→20:28)
[2020-01-13] MEDS ORDERED: METOPROLOL SUCC 25MG EXT REL TAB PO SCH (09:00)
[2020-01-13] MEDS: OSELTAMIVIR PHOSPHATE SUSP 30 MG/5 ML UDP PO SCH ×2 (09:03→20:27)
[2020-01-13] MEDS: ONDANSETRON INJ 2 MG/ML 2 ML VIAL IV PRN (09:12)
[2020-01-13] MEDS: LACTATED RINGER'S 1,000 ML IV SCH ×2 (09:59→23:49)
[2020-01-13] MEDS ORDERED: guaiFENesin 600 MG TABCR PO ONE (10:00)
[2020-01-13] MEDS: ALBUT/IPRATROP 3MG/0.5MG NEB 3 ML VIAL NEB SCH ×4 (11:01→22:29)
--- NOTE | 2020-01-13 15:32 | Electrocardiogram Report ---
Test Reason : Blood Pressure : / mmHG Vent. Rate : 099 BPM Atrial Rate : 099 BPM P-R Int : 190 ms QRS Dur : 096 ms QT Int : 388 ms P-R-T Axes : 059 065 120 degrees QTc Int : 497 ms Normal sinus rhythm Incomplete right bundle branch block Septal infarct , age undetermined Abnormal ECG When compared with ECG of 12-JAN-2020 12:36, Septal infarct is now Present Confirmed by Kenneth Pastrana ([id number]) on 01/13/2020 3:32:11 PM Referred By: REFERRED SELF Confirmed By:Kenneth Pastrana
[2020-01-13] MEDS: HydrALAZINE HCL 20 MG/ML VIAL IV PRN (17:00)
--- NOTE | 2020-01-13 18:14 | Hospitalist Progress Note ---
Date of Service January 13, 2020 Assessment & Plan (1) Influenza A: Tamiflu 30mg BID renal dosing for 5 day course. Procalcitonin negative. No evidence of PNA on CXR or auscultation therefore antibiotics discontinued at this time. (2) Asthma exacerbation: Albuterol PRN only as outpatient but suspect she has undertreated persistent asthma given how much she requires this. Therefore will start Breo Ellipta. Duonebs QID while here. If still wheezing despite this will start her back on steroids given in the ER however given risk of secondary bacterial PNA in setting of influenza will avoid for now. (3) Coronary artery disease: Patient is on aspirin and Plavix along with high intensity atorvastatin. We will continue his as per outpatient regimen. Troponins serial negative. (4) Hypomagnesemia: Patient was given 1 g magnesium IV in the emergency room, I will recheck levels and replete further as necessary. (5) Hypertension: Unclear if uncontrolled chronically or due to acute illness. Increase home dose metoprolol to 25mg PO daily Continue Imdur 120mg daily Added Hydralazine 10mg IV q6H PRN for sBP > 180. (6) Sinus tachycardia: Dehydration in setting of albuterol use. Will continue LR. Low risk of PE given alternative etiology. Well's core 1.5. (7) Hypothyroidism: TSH WNL in March. No need to repeat during acute illness as not practice representative of baseline. Continue levothyroxine 75 mcg PO daily (8) CKD (chronic kidney disease): Stable. Monitor BMP with IV fluids. (9) DVT prophylaxis: Lovenox 40mg SQ daily Admission and Anticipated Discharge Date Admission Date: January 12, 2020 Subjective Patient reports improvement since admission of her shortness of breath. No fever or chills. Still significantly short of breath. Audibly wheezing. Chest tightness which was helped by nebulizer on admission but now starting to get worse again. She did get her influenza vaccination. She reports recent introduction of albuterol PRN has helped her exercise tolerance and chest tightness significantly. She uses albuterol usually every other day when well. No prior PFTs but presumed asthma diagnosis. Not on any maintenance inhalers. She reports her appetite has decreased a lot and she has not been eating or drinking well. Review of Systems Review of Systems: All systems reviewed & are unremarkable except as noted in HPI & below Physical Exam Constitutional: well developed; no acute distress Eyes: + anicteric sclerae; normal pupil size ENMT: external ear and nose normal, oropharynx normal Neck: trachea midline Respiratory: + respiratory distress, + uses accessory muscles and + audible wheezes; + not able to speak in complete sentence, normal respiratory pattern and not tachypneic Auscultation: + wheezes (b/l moderate exp); no diminished lung sounds, no crackles, no rales and no rhonchi Cardiovascular: Rate/Rhythm: regular rhythm and + tachycardic Heart Sounds: no murmur Extremities: normal capillary refill; no calf tenderness and no pedal edema Gastrointestinal (Abdomen): Inspection/Auscultation: normal bowel sounds Percussion/Palpation: abdomen soft; abdomen nontender, no guarding and abdomen not rigid Musculoskeletal: no cyanosis or clubbing, extremities motor strength 5/5 Skin: no rashes, warm and dry Neurologic: moves all extremities and awake; no focal motor deficits and not confused Psychiatric: A+Ox3, euthymic affect Lymphatic: no cervical or axillary lymphadenopathy Results & Data ([facility]) Vital Signs (Past 12 Hours) Vital Signs Temp Pulse Pulse Resp BP Pulse Ox 01/13/20 15:49 96 H 194/80 H 01/13/20 15:32 37.0 C 108 H 20 205/75 H 96 01/13/20 15:30 96 H 01/13/20 15:22 94 H 18 97 01/13/20 11:50 37.0 C 111 H 22 168/74 H 94 01/13/20 11:06 92 H 18 96 01/13/20 08:00 91 H 01/13/20 07:41 36.5 C 100 H 18 129/74 97 PG Care Time/CCT Total # of Minutes Spent Total Time Spent with Patient: Total time spent is greater than 50% in coordination of care (as documented) at patient's floor/unit and/or counseling patient: Coding Level of Care Code 05469 Subseq Hosp Care Lvl 3 Diagnoses Influenza A J10.1 Asthma exacerbation J45.31 Asthma severity: mild Asthma persistence: persistent Coronary artery disease I25.10 Coronary Disease-Associated Artery/Lesion type: deering artery [place] vs. transplanted heart: deering heart Associated angina: without angina Hypomagnesemia E83.42 Hypertension I10 Hypertension type: unspecified Sinus tachycardia R00.0 Hypothyroidism E03.9 Hypothyroidism type: acquired CKD (chronic kidney disease) N18.3 Chronic kidney disease stage: stage 3 (moderate) DVT prophylaxis Z29.9 (1) Asthma exacerbation Asthma severity: mild Asthma persistence: persistent Qualified Code(s): J45.31 - Mild persistent asthma with (acute) exacerbation (2) Coronary artery disease Coronary Disease-Associated Artery/Lesion type: de[place] artery [place] vs. transplanted heart: deering heart Associated angina: without angina Qualified Code(s): I25.10 - Atherosclerotic heart disease of de[place] coronary artery without angina pectoris (3) Hypertension Hypertension type: unspecified Qualified Code(s): I10 - Essential (primary) hypertension (4) Hypothyroidism Hypothyroidism type: acquired Qualified Code(s): E03.9 - Hypothyroidism, uns pecified (5) CKD (chronic kidney disease) Chronic kidney disease stage: stage 3 (moderate) Qualified Code(s): N18.3 - Chronic kidney disease, stage 3 (moderate)
[2020-01-13] MEDS: MAGNESIUM OXIDE 400 MG TAB PO SCH (20:25)
[2020-01-13] MEDS: ENOXAPARIN INJ 40 MG/0.4 ML SYR SQ SCH (20:26)
[2020-01-13] MEDS: POTASSIUM CHLORIDE 20 MEQ TABCR PO SCH (20:26)
[2020-01-13] MEDS: ASCORBIC ACID 500 MG TAB PO SCH (20:27)
[2020-01-13] MEDS: TRAZODONE HCL 100 MG TAB PO SCH (20:27)
[2020-01-13] MEDS: ATORVASTATIN 40 MG TAB PO SCH (20:27)
[2020-01-13] MEDS: guaiFENesin 600 MG TABCR PO SCH (20:28)
[2020-01-13] MEDS: CLOPIDOGREL BISULFATE 75 MG TAB PO SCH (20:28)
[2020-01-13] MEDS: FERROUS SULFATE 325 MG TAB PO SCH (20:28)
[2020-01-13] MEDS: lisinopriL 20 MG TAB PO SCH (20:28)
[2020-01-13] MEDS: FLUTICASONE/VILANTEROL 200/25MCG 14 PUFFS/INHALER INH SCH (20:47)
[2020-01-13] MEDS: ACETAMINOPHEN 325 MG TAB PO PRN (20:47)
[2020-01-13] MEDS ORDERED: OPTIRAY 320 125ml IV PRN (21:23)
--- NOTE | 2020-01-13 22:07 | CT Scan Report ---
CT angio chest PE protocol CT DOSE: 251.99 mGy.cm HISTORY: 74 years-old Female with Concern for PE. Acute shortness of breath with concern for pulmon kathleen embolus TECHNIQUE: Multiple CTA images of the chest were obtained after the intravenous administration of 119 ml Optiray 320. Coronal and sagittal MIPS were obtained from the axial data set and were submitted for review. All measurements were obtained according to NASCET criteria. A dose lowering technique w as utilized adhering to the principles of ALARA. COMPARISON: Chest radiograph of same day, CTA chest 06/27/2015 FINDINGS: CTA: Mild to moderate cardiomegaly. No pericardial effusion. Prior median sternotomy and CABG. Extensive n ative coronary artery calcifications. No thoracic aortic aneurysm or dissection. Moderate to extensiv e mixed plaque of the thoracic aorta and proximal great vessels which appear patent. The pulmonary ar terial tree is opacified to the level of the subsegmental branches and demonstrates no filling defect s to suggest pulmonary thromboembolic disease. Respiratory motion artifact mildly limits evaluation o f the lung bases. CT CHEST: Unremarkable thyroid. No adenopathy by CT size criteria. No pneumothorax or pleural effusion. Depende nt bibasilar consolidation is noted with mild biapical pleural-parenchymal scarring. Patchy groundgla ss opacities are also noted within a multilobar distribution bilaterally. A nondependent 1.8 cm groun dglass opacity involves the apical segment right upper lobe, image 182 series 4. Central airways appe ar patent. Layering hyperdense material is noted within the stomach. Partially imaged hypodense 2.8 cm lesion of the left hepatic lobe suggestive of cyst. Additional scattered hepatic hypodensities are indetermina te and appear similar from comparison and possibly may reflect additional cysts. Calcifications are n oted throughout the bilateral breasts, left greater than right. Degenerative changes of the shoulders and spine. IMPRESSION: 1. Cardiomegaly without acute aortic pathology or evidence of pulmonary thromboembolic disease. 2. Dependent bibasilar predominantly linear consolidative opacities suggest probable atelectasis. Add itionally, there are patchy multilobar groundglass densities bilaterally which may reflect additional atelectasis versus a nonspecific infectious or inflammatory pneumonitis. 3. Nondependent 1.8 cm groundglass nodular opacity of the apical segment right upper lobe. 3 month fo llow-up chest CT recommended to exclude a groundglass pulmonary nodule. 4. No adenopathy. Please refer to below summary of Fleischner criteria recommendations for follow-up of incidental CT n odules (Polly Carmona, Guidelines for management of small pulmonary nodules detected on CT scans: A sta tement from the Fleischner Society, Radiology 237: [phone].) Note: newly detected indeterminate nodule in persons 35 years of age or older. * Low risk patients: minimal or absent history of smoking and/or other known risk factors * high risk patients: history of smoking or of other known risk factors (e.g. first degree relative with lung cancer, or exposure to asbestos, radon, uranium) * if a nodule up to 8 mm is partly solid or is ground glass further follow-up is required after 24 m onths to exclude possible slow growing adenocarcinoma (VINCE) SUBSOLID NODULES Solitary pure ground-glass nodule * nodule size <6 mm - no CT follow-up required * nodule size >=6 mm - follow-up CT at 6-12 months, then every 2 years until 5 years ACT 112: Negative or not required by law. The above report was generated using voice recognition software. It may contain grammatical, syntax o r spelling errors. Electronically signed by: Trell Ortiz M.D. 01/13/2020 10:06 PM
[2020-01-13] MEDS ORDERED: METOPROLOL SUCC 50MG EXT REL TAB PO STA (23:25)
[2020-01-14] MEDS: ALBUT/IPRATROP 3MG/0.5MG NEB 3 ML VIAL NEB SCH ×6 (03:31→23:33)
[2020-01-14 04:22] LABS: Appearance Urine Clear (Clear); Bacteria Urine Automated Negative (Negative); Bilirubin Urine Negative (Negative); Blood Urine 1+ (Negative); Cast Urine Automated 0 /lpf (0-5); Color Urine Yellow; Glucose Urine UA Negative (Negative); Ketones Urine Negative (Negative); Leukocyte Esterase Urine Negative (Negative); Nitrite Urine Negative (Negative); Protein Urine Trace (Negative); Urobilinogen Urine Negative (Negative)
[2020-01-14] MEDS: LEVOTHYROXINE SODIUM 75 MCG TABLET PO SCH (05:59)
[2020-01-14 06:05] LABS: Basophils # (auto) 0.01 K/uL (0-0.2); Basophils % (auto) 0.1 %; Hemoglobin 10.1 g/dL (12.0-16.0); Immature Granulocytes # (auto) 0.06 K/uL (0.00-0.02); Immature Granulocytes % (auto) 0.6 %; Lymphocytes # (auto) 1.77 K/uL (1.2-3.4); Mean Corpuscular Hemoglobin 29.6 pg (25-34); Mean Corpuscular Hgb Conc 32.6 g/dL (32-36); Mean Corpuscular Volume 90.9 fL (80-100); Mean Platelet Volume 10.2 fL (7.4-10.4); Monocytes # (auto) 0.74 K/uL (0.11-0.59); Monocytes % (auto) 7.9 %; Neutrophils # (auto) 6.76 K/uL (1.4-6.5); Neutrophils % (auto) 72.4 %; Platelet Count 145 K/uL (130-400); RDW Coefficient of Variation 14.3 % (11.5-14.5); RDW Standard Deviation 47.7 fL (36.4-46.3); Red Blood Count 3.41 M/uL (4.2-5.4); White Blood Count 9.34 K/uL (4.8-10.8)
[2020-01-14 06:39] LABS: BUN Creatinine Ratio 11.4 (10-20); Calcium 8.2 mg/dl (8.5-10.1); Creatinine Clr Calc Pharmacy 45.4 ml/min; Est GFR (African American) 73.5; Est GFR (Non-African American) 63.4; Magnesium 1.7 mg/dl (1.8-2.4); Potassium 3.5 mmol/L (3.5-5.1)
[2020-01-14] MEDS: ONDANSETRON INJ 2 MG/ML 2 ML VIAL IV PRN (08:06)
[2020-01-14] MEDS: MAGNESIUM OXIDE 400 MG TAB PO SCH ×3 (08:09→20:33)
[2020-01-14] MEDS: MAGNESIUM SULFATE / D5W 1 GM/100 ML BAG IV SCH ×2 (08:09→10:09)
[2020-01-14] MEDS: FLUTICASONE/VILANTEROL 200/25MCG 14 PUFFS/INHALER INH SCH (08:09)
[2020-01-14] MEDS: CINACALCET: ORDER AWAITING ACTION SCH ×2 (08:09→16:38)
[2020-01-14] MEDS: CHOLECALCIFEROL 1,000 UNITS 25 MCG TAB PO SCH (08:10)
[2020-01-14] MEDS: CETIRIZINE HCL 10 MG TABLET PO SCH (08:10)
[2020-01-14] MEDS: ASPIRIN 81 MG ECTAB PO SCH (08:11)
[2020-01-14] MEDS: OMEGA-3 (PURIFIED FISH OIL) 1 GM CAP PO SCH ×2 (08:12→20:34)
[2020-01-14] MEDS: ISOSORBIDE MONO EXTENDED REL 60 MG TABCR PO SCH (08:13)
[2020-01-14] MEDS: PANTOprazole 40 MG TAB PO SCH ×2 (08:13→20:34)
[2020-01-14] MEDS: SERTRALINE HCL 100 MG TABLET PO SCH (08:13)
[2020-01-14] MEDS: guaiFENesin 600 MG TABCR PO SCH ×2 (08:13→20:34)
[2020-01-14] MEDS: CALCITRIOL 0.25 MCG CAPSULE PO SCH (08:13)
[2020-01-14] MEDS: OSELTAMIVIR PHOSPHATE SUSP 30 MG/5 ML UDP PO SCH ×2 (08:36→21:47)
[2020-01-14] MEDS ORDERED: METOPROLOL SUCC 25MG EXT REL TAB PO SCH (09:00)
--- NOTE | 2020-01-14 09:40 | Electrocardiogram Report ---
Test Reason : Blood Pressure : / mmHG Vent. Rate : 127 BPM Atrial Rate : 127 BPM P-R Int : 122 ms QRS Dur : 094 ms QT Int : 338 ms P-R-T Axes : 058 070 103 degrees QTc Int : 491 ms Sinus tachycardia Incomplete right bundle branch block Septal infarct (cited on or before 12-JAN-2020) Abnormal ECG When compared with ECG of 12-JAN-2020 18:26, No significant change was found Confirmed by Kenneth Pastrana ([id number]) on 01/14/2020 9:39:57 AM Referred By: REFERRED SELF Confirmed By:Kenneth Pastrana
[2020-01-14] MEDS: D5W AND 1/2NSS + 20MEQ KCL 20 MEQ/1,000 ML BAG IV SCH ×3 (11:40→23:27)
[2020-01-14] MEDS ORDERED: AZITHROMYCIN 250 MG TAB PO ONE (15:12)
[2020-01-14] MEDS: cefTRIAXone SODIUM 2,000 MG in DEXTROSE 5% 50 ML IV SCH (15:57)
[2020-01-14] MEDS: METOPROLOL SUCC 25MG EXT REL TAB PO SCH (16:39)
--- NOTE | 2020-01-14 17:12 | Hospitalist Progress Note ---
Date of Service January 14, 2020 Assessment & Plan (1) Influenza A: Tamiflu 30mg BID renal dosing for 5 day course. (2) Community acquired pneumonia: Based on CT findings, lack of improvement, chills, bibasal crackles on auscultation. Start ceftriaxone + azithromycin (3) Asthma exacerbation: Albuterol PRN only as outpatient but suspect she has undertreated persistent asthma given how much she requires this. No wheezing today therefore will avoid steroids in setting of asthma. Continue duonebs QID (4) Coronary artery disease: Patient is on aspirin and Plavix along with high intensity atorvastatin. We will continue his as per outpatient regimen. Troponins serial negative. (5) Hypomagnesemia: Mg. 1.7 - replace as necessary (6) Hypertension: Unclear if uncontrolled chronically or due to acute illness. Increase home dose metoprolol to 25mg PO daily Continue Imdur 120mg daily Added Hydralazine 10mg IV q6H PRN for sBP > 180. (7) Sinus tachycardia: Dehydration in addition to albuterol use. Will continue LR. Low risk of PE given alternative etiology. Well's core 1.5. (8) Hypothyroidism: TSH WNL in March. No need to repeat during acute illness as not software support representative of baseline. Continue levothyroxine 75 mcg PO daily (9) CKD (chronic kidney disease): Stable. Monitor BMP with IV fluids. (10) DVT prophylaxis: Lovenox 40mg SQ daily Admission and Anticipated Discharge Date Admission Date: January 12, 2020 Subjective No significant improvement since yesterday. No measured fever but patient noted to be having chills. Ongoing shortness of breath. No cough. Having some diarrhea but not watery. Review of Systems Review of Systems: All systems reviewed & are unremarkable except as noted in HPI & below Physical Exam Constitutional: well developed; no acute distress Eyes: + anicteric sclerae; normal pupil size ENMT: external ear and nose normal, oropharynx normal Neck: trachea midline Respiratory: + respiratory distress, + uses accessory muscles and + audible wheezes; + not able to speak in complete sentence, normal respiratory pattern and not tachypneic Auscultation: + wheezes (b/l moderate exp); no diminished lung sounds, no crackles, no rales and no rhonchi Cardiovascular: Rate/Rhythm: regular rhythm and + tachycardic Heart Sounds: no murmur Extremities: normal capillary refill; no calf tenderness and no pedal edema Gastrointestinal (Abdomen): Inspection/Auscultation: normal bowel sounds Percussion/Palpation: abdomen soft; abdomen nontender, no guarding and abdomen not rigid Musculoskeletal: no cyanosis or clubbing, extremities motor strength 5/5 Skin: no rashes, warm and dry Neurologic: moves all extremities and awake; no focal motor deficits and not confused Psychiatric: A+Ox3, euthymic affect Lymphatic: no cervical or axillary lymphadenopathy Results & Data ([facility]) Vital Signs (Past 12 Hours) Vital Signs Temp Pulse Pulse Pulse Resp BP Pulse Ox 01/14/20 15:40 37.0 C 85 18 152/73 H 96 01/14/20 15:00 85 01/14/20 14:56 86 18 95 01/14/20 12:07 36.7 C 85 20 154/77 H 95 01/14/20 10:55 93 H 20 97 01/14/20 08:00 109 H 01/14/20 07:10 110 H 20 95 01/14/20 07:05 36.6 C 109 H 22 191/83 H 97 01/14/20 06:00 103 H 172/80 H PG Care Time/CCT Total # of Minutes Spent Total Time Spent with Patient: Total time spent is greater than 50% in coordination of care (as documented) at patient's floor/unit and/or counseling patient: Coding Level of Care Code 14581 Subseq Hosp Care Lvl 2 Diagnoses Influenza A J10.1 Community acquired pneumonia J18.9 Laterality: unspecified laterality Asthma exacerbation J45.31 Asthma persistence: persistent Asthma severity: mild Coronary artery disease I25.10 Associated angina: without angina Coronary Disease-Associated Artery/Lesion type: eek artery [place] vs. transplanted heart: eek heart Hypomagnesemia E83.42 Hypertension I10 Hypertension type: unspecified Sinus tachycardia R00.0 Hypothyroidism E03.9 Hypothyroidism type: acquired CKD (chronic kidney disease) N18.3 Chronic kidney disease stage: stage 3 (moderate) DVT prophylaxis Z29.9 (1) Asthma exacerbation Asthma persistence: persistent Asthma severity: mild Qualified Code(s): J45.31 - Mild persistent asthma with (acute) exacerbation (2) Coronary artery disease Associated angina: without angina Coronary Disease-Associated Artery/Lesion type: eek artery [place] vs. transplanted heart: eek heart Qualified Code(s): I25.10 - Atherosclerotic heart disease of eek coronary artery without angina pectoris (3) Hypothyroidism Hypothyroidism type: acquired Qualified Code(s): E03.9 - Hypothyroidism, unspecified (4) Community acquired pneumonia Laterality: unspecified laterality Qualified Code(s): J18.9 - Pneumonia, unspecified organism (5) CKD (chronic kidney disease) Chronic kidney disease stage: stage 3 (moderate) Qualified Code(s): N18.3 - Chronic kidney disease, stage 3 (moderate) (6) Hypertension Hypertension type: unspecified Qualified Code(s): I10 - Essential (primary) hypertension
[2020-01-14] MEDS: FERROUS SULFATE 325 MG TAB PO SCH (20:31)
[2020-01-14] MEDS: TRAZODONE HCL 100 MG TAB PO SCH (20:31)
[2020-01-14] MEDS: ENOXAPARIN INJ 40 MG/0.4 ML SYR SQ SCH (20:32)
[2020-01-14] MEDS: ATORVASTATIN 40 MG TAB PO SCH (20:32)
[2020-01-14] MEDS: POTASSIUM CHLORIDE 20 MEQ TABCR PO SCH (20:32)
[2020-01-14] MEDS: lisinopriL 20 MG TAB PO SCH (20:34)
[2020-01-14] MEDS: CLOPIDOGREL BISULFATE 75 MG TAB PO SCH (20:34)
[2020-01-14] MEDS: ASCORBIC ACID 500 MG TAB PO SCH (20:34)
[2020-01-14] MEDS: ACETAMINOPHEN 325 MG TAB PO PRN (23:24)
[2020-01-14] MEDS: HydrALAZINE HCL 20 MG/ML VIAL IV PRN (23:24)
[2020-01-15] MEDS: CINACALCET: ORDER AWAITING ACTION SCH ×3 (00:24→16:04)
[2020-01-15] MEDS: ALBUT/IPRATROP 3MG/0.5MG NEB 3 ML VIAL NEB SCH ×5 (03:17→19:04)
[2020-01-15] MEDS: HydrALAZINE HCL 20 MG/ML VIAL IV PRN ×2 (05:57→16:30)
[2020-01-15] MEDS: LEVOTHYROXINE SODIUM 75 MCG TABLET PO SCH (05:58)
[2020-01-15] MEDS: D5W AND 1/2NSS + 20MEQ KCL 20 MEQ/1,000 ML BAG IV SCH (05:58)
[2020-01-15] MEDS: ACETAMINOPHEN 325 MG TAB PO PRN (05:58)
[2020-01-15 06:35] LABS: Calcium 8.9 mg/dl (8.5-10.1); Creatinine Clr Calc Pharmacy 49.8 ml/min; Est GFR (African American) 82.3; Magnesium 1.8 mg/dl (1.8-2.4); Potassium 4.1 mmol/L (3.5-5.1)
[2020-01-15] MEDS: cefTRIAXone SODIUM 2,000 MG in DEXTROSE 5% 50 ML IV SCH (07:53)
[2020-01-15] MEDS: FLUTICASONE/VILANTEROL 200/25MCG 14 PUFFS/INHALER INH SCH (10:43)
[2020-01-15] MEDS: ISOSORBIDE MONO EXTENDED REL 60 MG TABCR PO SCH (10:45)
[2020-01-15] MEDS: ASPIRIN 81 MG ECTAB PO SCH (10:45)
[2020-01-15] MEDS: guaiFENesin 600 MG TABCR PO SCH ×2 (10:46→20:03)
[2020-01-15] MEDS: MAGNESIUM OXIDE 400 MG TAB PO SCH ×3 (10:46→20:04)
[2020-01-15] MEDS: METOPROLOL SUCC 25MG EXT REL TAB PO SCH (10:47)
[2020-01-15] MEDS: PANTOprazole 40 MG TAB PO SCH ×2 (10:47→20:03)
[2020-01-15] MEDS: CHOLECALCIFEROL 1,000 UNITS 25 MCG TAB PO SCH (10:47)
[2020-01-15] MEDS: AZITHROMYCIN 250 MG TAB PO SCH (10:47)
[2020-01-15] MEDS: OMEGA-3 (PURIFIED FISH OIL) 1 GM CAP PO SCH ×2 (10:47→20:03)
[2020-01-15] MEDS: CALCITRIOL 0.25 MCG CAPSULE PO SCH (10:47)
[2020-01-15] MEDS: SERTRALINE HCL 100 MG TABLET PO SCH (10:48)
[2020-01-15] MEDS: CETIRIZINE HCL 10 MG TABLET PO SCH (10:48)
[2020-01-15] MEDS: OSELTAMIVIR PHOSPHATE SUSP 30 MG/5 ML UDP PO SCH ×2 (10:48→20:13)
[2020-01-15] MEDS: ONDANSETRON INJ 2 MG/ML 2 ML VIAL IV PRN (14:07)
[2020-01-15] MEDS: TRAZODONE HCL 100 MG TAB PO SCH (20:01)
[2020-01-15] MEDS: ENOXAPARIN INJ 40 MG/0.4 ML SYR SQ SCH (20:02)
[2020-01-15] MEDS: ASCORBIC ACID 500 MG TAB PO SCH (20:03)
[2020-01-15] MEDS: POTASSIUM CHLORIDE 20 MEQ TABCR PO SCH (20:03)
[2020-01-15] MEDS: lisinopriL 20 MG TAB PO SCH (20:03)
[2020-01-15] MEDS: ATORVASTATIN 40 MG TAB PO SCH (20:04)
[2020-01-15] MEDS: CLOPIDOGREL BISULFATE 75 MG TAB PO SCH (20:04)
[2020-01-15] MEDS: FERROUS SULFATE 325 MG TAB PO SCH (20:05)
--- NOTE | 2020-01-15 23:59 | Hospitalist Progress Note ---
Date of Service January 15, 2020 Assessment & Plan (1) Influenza A: Continue Tamiflu 30mg BID renal dosing for 5 day course. (2) Community acquired pneumonia: Based on CT findings, lack of improvement, chills, bibasal crackles on auscultation. Continue ceftriaxone + azithromycin (3) Asthma exacerbation: Albuterol PRN only as outpatient but suspect she has undertreated persistent asthma given how much she requires this. Started on Breo Ellipta BID. No wheezing today therefore will continue to avoid steroids in setting of asthma. Continue duonebs QID (4) Coronary artery disease: Patient is on aspirin and Plavix along with high intensity atorvastatin. We will continue his as per outpatient regimen. Troponins serial negative. (5) Hypomagnesemia: Mg. 1.8 - continue Mg Ox 400mg BID (6) Hypertension: Unclear if uncontrolled chronically or due to acute illness. Increase home dose metoprolol to 25mg PO daily Continue Imdur 120mg daily Added Hydralazine 10mg IV q6H PRN for sBP > 180. (7) Sinus tachycardia: Dehydration in addition to albuterol use. Stop IV fluids as patient appears much improved. (8) Hypothyroidism: TSH WNL in March. No need to repeat during acute illness as not market survey representative of baseline. Continue levothyroxine 75 mcg PO daily (9) CKD (chronic kidney disease): Stable. Monitor BMP. (10) Diarrhea: ?antibiotic associated vs. magnesium replacement vs. c. diff C. diff pending. (11) DVT prophylaxis: Lovenox 40mg SQ daily Admission and Anticipated Discharge Date Admission Date: January 12, 2020 Initially planned on discharge but patient now wishes for rehab at [facility] but unable to take until off of Tamiflu. Subjective No significant improvement since yesterday. No measured fever but patient noted to be having chills. Ongoing shortness of breath. Review of Systems Review of Systems: All systems reviewed & are unremarkable except as noted in HPI & below Physical Exam Constitutional: well developed; no acute distress Eyes: + anicteric sclerae; normal pupil size ENMT: external ear and nose normal, oropharynx normal Neck: trachea midline Respiratory: normal respiratory effort; does not use accessory muscles, + not able to speak in complete sentence, normal respiratory pattern, not tachypneic and no audible wheezes Auscultation: + crackles (bibasal); no diminished lung sounds, no rales, no rhonchi and no wheezes Cardiovascular: Rate/Rhythm: regular rhythm and + tachycardic Heart Sounds: no murmur Extremities: normal capillary refill and + pedal edema (trace b/l); no calf tenderness Gastrointestinal (Abdomen): Inspection/Auscultation: normal bowel sounds Percussion/Palpation: abdomen soft; abdomen nontender, no guarding and abdomen not rigid Musculoskeletal: no cyanosis or clubbing, extremities motor strength 5/5 Skin: no rashes, warm and dry Neurologic: moves all extremities and awake; no focal motor deficits and not confused Psychiatric: A+Ox3, euthymic affect Results & Data ([facility]) Vital Signs (Past 12 Hours) Vital Signs Temp Pulse Resp BP BP Pulse Ox 01/15/20 23:48 37.3 C 99 H 25 H 194/70 H 92 01/15/20 19:12 104 H 18 94 01/15/20 18:45 175/73 H 01/15/20 15:49 37.1 C 103 H 20 186/91 H 94 01/15/20 15:29 98 H 18 94 PG Care Time/CCT Total # of Minutes Spent Total Time Spent with Patient: Total time spent is greater than 50% in coordination of care (as documented) at patient's floor/unit and/or counseling patient: Coding Level of Care Code 57816 Subseq Hosp Care Lvl 2 Diagnoses Influenza A J10.1 Community acquired pneumonia J18.9 Laterality: unspecified laterality Asthma exacerbation J45.31 Asthma severity: mild Asthma persistence: persistent Coronary artery disease I25.10 Coronary Disease-Associated Artery/Lesion type: [place] artery [place] vs. transplanted heart: [place] heart Associated angina: without angina Hypomagnesemia E83.42 Hypertension I10 Hypertension type: unspecified Sinus tachycardia R00.0 Hypothyroidism E03.9 Hypothyroidism type: acquired CKD (chronic kidney disease) N18.3 Chronic kidney disease stage: stage 3 (moderate) Diarrhea R19.7 Diarrhea type: unspecified type DVT prophylaxis Z29.9 (1) Community acquired pneumonia Laterality: unspecified laterality Qualified Code(s): J18.9 - Pneumonia, unspecified organism (2) Asthma exacerbation Asthma severity: mild Asthma persistence: persistent Qualified Code(s): J45.31 - Mild persistent asthma with (acute) exacerbation (3) Coronary artery disease Coronary Disease-Associated Artery/Lesion type: [place] artery [place] vs. transplanted heart: [place] heart Associated angina: without angina Qualified Code(s): I25.10 - Atherosclerotic heart disease of [place] coronary artery without angina pectoris (4) Hypertension Hypertension type: unspecified Qualified Code(s): I10 - Essential (primary) hypertension (5) Hypothyroidism Hypothyroidism type: acquired Qualified Code(s): E03.9 - Hypothyroidism, unspecified (6) CKD (chronic kidney disease) Chronic kidney disease stage: stage 3 (moderate) Qualified Code(s): N18.3 - Chronic kidney disease, stage 3 (moderate) (7) Diarrhea Diarrhea type: unspecified type Qualified Code(s): R19.7 - Diarrhea, unspecified
[2020-01-16] MEDS: HydrALAZINE HCL 20 MG/ML VIAL IV PRN (00:02)
[2020-01-16] MEDS: ALBUT/IPRATROP 3MG/0.5MG NEB 3 ML VIAL NEB SCH ×7 (00:04→23:25)
[2020-01-16] MEDS: CINACALCET: ORDER AWAITING ACTION SCH ×3 (00:59→15:08)
[2020-01-16] MEDS ORDERED: HydrALAZINE HCL 20 MG/ML VIAL IV STA (03:08)
[2020-01-16] MEDS: LEVOTHYROXINE SODIUM 75 MCG TABLET PO SCH (05:40)
[2020-01-16] MEDS: ONDANSETRON INJ 2 MG/ML 2 ML VIAL IV PRN (05:54)
[2020-01-16] MEDS: ACETAMINOPHEN 325 MG TAB PO PRN (08:22)
[2020-01-16] MEDS: cefTRIAXone SODIUM 2,000 MG in DEXTROSE 5% 50 ML IV SCH (08:23)
[2020-01-16] MEDS: OSELTAMIVIR PHOSPHATE SUSP 30 MG/5 ML UDP PO SCH ×2 (08:23→20:23)
[2020-01-16] MEDS: PANTOprazole 40 MG TAB PO SCH ×2 (08:23→20:21)
[2020-01-16] MEDS: MAGNESIUM OXIDE 400 MG TAB PO SCH ×3 (08:24→20:20)
[2020-01-16] MEDS: METOPROLOL SUCC 25MG EXT REL TAB PO SCH (08:24)
[2020-01-16] MEDS: ASPIRIN 81 MG ECTAB PO SCH (08:24)
[2020-01-16] MEDS: ISOSORBIDE MONO EXTENDED REL 60 MG TABCR PO SCH (08:26)
[2020-01-16] MEDS: AZITHROMYCIN 250 MG TAB PO SCH (08:26)
[2020-01-16] MEDS: CETIRIZINE HCL 10 MG TABLET PO SCH (08:26)
[2020-01-16] MEDS: CALCITRIOL 0.25 MCG CAPSULE PO SCH (08:26)
[2020-01-16] MEDS: CHOLECALCIFEROL 1,000 UNITS 25 MCG TAB PO SCH (08:26)
[2020-01-16] MEDS: FLUTICASONE/VILANTEROL 200/25MCG 14 PUFFS/INHALER INH SCH (08:27)
[2020-01-16] MEDS: SERTRALINE HCL 100 MG TABLET PO SCH (08:27)
[2020-01-16] MEDS: OMEGA-3 (PURIFIED FISH OIL) 1 GM CAP PO SCH ×2 (08:27→20:20)
[2020-01-16] MEDS: guaiFENesin 600 MG TABCR PO SCH ×2 (08:27→20:19)
[2020-01-16 08:32] LABS: Hemoglobin 11.3 g/dL (12.0-16.0); Mean Corpuscular Hemoglobin 30.2 pg (25-34); Mean Corpuscular Hgb Conc 33.2 g/dL (32-36); Mean Corpuscular Volume 90.9 fL (80-100); Mean Platelet Volume 9.7 fL (7.4-10.4); Platelet Count 205 K/uL (130-400); RDW Coefficient of Variation 14.2 % (11.5-14.5); RDW Standard Deviation 47.4 fL (36.4-46.3); Red Blood Count 3.74 M/uL (4.2-5.4)
[2020-01-16 08:53] LABS: Basophils # (auto) 0.03 K/uL (0-0.2); Basophils % (auto) 0.3 %; Eosinophils # (auto) 0.04 K/uL (0-0.5); Eosinophils % (auto) 0.4 %; Immature Granulocytes % (auto) 2.1 %; Lymphocytes # (auto) 1.96 K/uL (1.2-3.4); Lymphocytes % (auto) 20.2 %; Monocytes # (auto) 0.74 K/uL (0.11-0.59); Monocytes % (auto) 7.6 %; Neutrophils # (auto) 6.73 K/uL (1.4-6.5); Neutrophils % (auto) 69.4 %
[2020-01-16 09:04] LABS: Albumin Level 2.7 gm/dl (3.4-5.0); BUN Creatinine Ratio 8.4 (10-20); Calcium 9.7 mg/dl (8.5-10.1); Creatinine Clr Calc Pharmacy 48.1 ml/min; Est GFR (African American) 78.8; Magnesium 1.5 mg/dl (1.8-2.4); Potassium 4.1 mmol/L (3.5-5.1)
[2020-01-16 09:06] LABS: Albumin Globulin Ratio 0.8 (0.9-2); Bilirubin,Total 0.4 mg/dl (0.2-1); Globulin 3.6 gm/dl (2.5-4.0); Phosphorus 2.2 mg/dl (2.5-4.9); Total Protein 6.3 gm/dl (6.4-8.2)
[2020-01-16] MEDS ORDERED: AMLODIPINE BESYLATE 5 MG TAB PO ONE (11:15)
--- NOTE | 2020-01-16 11:38 | XRay Report ---
XR chest 1V portable HISTORY: shortness of breath COMPARISON: Chest 01/12/2020. Chest CTA 01/13/2020. FINDINGS: No pneumothorax. Suspect trace bilateral pleural effusions. Patchy bibasilar densities pers ist. There is mild central pulmonary vascular congestion without overt edema. The heart remains mildl y enlarged. IMPRESSION: 1. No significant change from the recent chest CTA. 2. Cardiomegaly with mild central pulmonary vascular congestion. 3. Patchy bibasilar densities persist. This could represent atelectasis or pneumonia. ACT 112: Negative or not required by law. Electronically signed by: Quentin Caldwell M.D. 01/16/2020 11:37 AM
[2020-01-16] MEDS ORDERED: FUROSEMIDE 20 MG in SYRINGE 0 ML IV ONE (13:00)
[2020-01-16] MEDS: MAGNESIUM SULFATE / D5W 1 GM/100 ML BAG IV SCH ×2 (13:35→16:26)
[2020-01-16] MEDS: ENOXAPARIN INJ 40 MG/0.4 ML SYR SQ SCH (20:18)
[2020-01-16] MEDS: CLOPIDOGREL BISULFATE 75 MG TAB PO SCH (20:20)
[2020-01-16] MEDS: TRAZODONE HCL 100 MG TAB PO SCH (20:21)
[2020-01-16] MEDS: POTASSIUM CHLORIDE 20 MEQ TABCR PO SCH (20:21)
[2020-01-16] MEDS: ASCORBIC ACID 500 MG TAB PO SCH (20:21)
[2020-01-16] MEDS: ATORVASTATIN 40 MG TAB PO SCH (20:21)
[2020-01-16] MEDS: lisinopriL 40 MG TAB PO SCH (20:23)
[2020-01-16] MEDS: FERROUS SULFATE 325 MG TAB PO SCH (21:17)
[2020-01-17] MEDS: CINACALCET: ORDER AWAITING ACTION SCH ×3 (00:02→16:39)
[2020-01-17] MEDS: ALBUT/IPRATROP 3MG/0.5MG NEB 3 ML VIAL NEB SCH ×5 (03:34→19:25)
[2020-01-17] MEDS: HydrALAZINE HCL 20 MG/ML VIAL IV PRN (04:24)
[2020-01-17] MEDS: LEVOTHYROXINE SODIUM 75 MCG TABLET PO SCH (06:00)
[2020-01-17] MEDS: ACETAMINOPHEN 325 MG TAB PO PRN (06:12)
[2020-01-17] MEDS ORDERED: FUROSEMIDE 20 MG in SYRINGE 0 ML IV ONE (07:30)
[2020-01-17 08:29] LABS: BUN Creatinine Ratio 12.6 (10-20); Calcium 10.2 mg/dl (8.5-10.1); Creatinine Clr Calc Pharmacy 41.7 ml/min; Est GFR (African American) 66.3; Est GFR (Non-African American) 57.2; Magnesium 1.7 mg/dl (1.8-2.4)
--- NOTE | 2020-01-17 08:40 | Hospitalist Progress Note ---
Date of Service January 16, 2020 Assessment & Plan (1) Influenza A: Continue Tamiflu 30mg BID renal dosing for 5 day course. (2) Community acquired pneumonia: Based on CT findings, lack of improvement, chills, continued bibasal crackles on auscultation. Continue ceftriaxone + azithromycin (3) Asthma exacerbation: Albuterol PRN only as outpatient but suspect she has undertreated persistent asthma given how much she requires this. Continue Breo Ellipta BID (newly started this admission). No wheezing today therefore will continue to avoid steroids in setting of asthma. Continue duonebs QID. (4) Coronary artery disease: Patient is on aspirin and Plavix along with high intensity atorvastatin. We will continue his as per outpatient regimen. Troponins serial negative. (5) Hypomagnesemia: Mg. 1.5 - continue Mg Ox 400mg BID Additional Mg sulphate 2g IV (6) Hypertension: Continues to be uncontrolled with frequent hydralazine use Continue on increased dose metoprolol Given IV fluids given earlier in the admission and mildly hypervolemia on exam will give lasix to see if this helps her blood pressure in addition to amlodipine 5mg ONE dose now. Continue Imdur 120mg daily Increase lisinopril from 20 -> 40 mg HS Continue PRN Hydralazine 10mg IV q6H for sBP > 180. (7) Sinus tachycardia: Suspect secondary to albuterol use given intermittent (8) Hypothyroidism: TSH WNL in March. 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 Continue levothyroxine 75 mcg PO daily (9) CKD (chronic kidney disease): Stable. Monitor BMP. (10) Diarrhea: ?antibiotic associated vs. magnesium replacement vs. c. diff C. diff uncollected, although only having a few BM a day therefore c. diff unlikely. (11) DVT prophylaxis: Lovenox 40mg SQ daily Admission and Anticipated Discharge Date Admission Date: January 12, 2020 Subjective Generalized muscles aches and fatigue this morning in relation to fever. No more shortness of breath but she is generally feeling much worse. No chest pain. No orthopnea, PND or palpitations. Review of Systems Review of Systems: All systems reviewed & are unremarkable except as noted in HPI & below Physical Exam Constitutional: well developed; no acute distress Eyes: + anicteric sclerae; normal pupil size ENMT: external ear and nose normal, oropharynx normal Neck: trachea midline Respiratory: normal respiratory effort; no respiratory distress Auscu ltation: + crackles (bibasal); no diminished lung sounds, no rales, no rhonchi and no wheezes Cardiovascular: Rate/Rhythm: regular rhythm and + tachycardic Heart Sounds: no murmur Extremities: normal capillary refill and + pedal edema (1+ b/l); no calf tenderness Gastrointestinal (Abdomen): Inspection/Auscultation: normal bowel sounds Percussion/Palpation: abdomen soft; abdomen nontender, no guarding and abdomen not rigid Musculoskeletal: no cyanosis or clubbing, extremities motor strength 5/5 Skin: no rashes, warm and dry Neurologic: moves all extremities and awake; no focal motor deficits and not confused Psychiatric: A+Ox3, euthymic affect Results & Data ([facility]) Vital Signs (Past 12 Hours) Vital Signs Temp Pulse Resp BP BP Pulse Ox 01/17/20 07:43 89 16 95 01/17/20 07:39 37.4 C 94 H 18 154/78 H 93 01/17/20 06:00 167/73 H 01/17/20 05:04 187/73 H 01/17/20 04:00 37.3 C 99 H 20 203/92 H 1 L 01/16/20 23:36 36.9 C 92 H 23 168/74 H 92 01/16/20 23:27 100 H 18 92 01/16/20 21:15 20 93 01/16/20 21:00 24 88 L PG Care Time/CCT Total # of Minutes Spent Total Time Spent with Patient: Total time spent is greater than 50% in coordination of care (as documented) at patient's floor/unit and/or counseling patient: Coding Level of Care Code 05722 Subseq Hosp Care Lvl 2 Diagnoses Influenza A J10.1 Community acquired pneumonia J18.9 Laterality: unspecified laterality Asthma exacerbation J45.31 Asthma severity: mild Asthma persistence: persistent Coronary artery disease I25.10 Coronary Disease-Associated Artery/Lesion type: [place] artery [place] vs. transplanted heart: [place] heart Associated angina: without angina Hypomagnesemia E83.42 Hypertension I10 Hypertension type: unspecified Sinus tachycardia R00.0 Hypothyroidism E03.9 Hypothyroidism type: acquired CKD (chronic kidney disease) N18.3 Chronic kidney disease stage: stage 3 (moderate) Diarrhea R19.7 Diarrhea type: unspecified type DVT prophylaxis Z29.9 (1) Community acquired pneumonia Laterality: unspecified laterality Qualified Code(s): J18.9 - Pneumonia, unspecified organism (2) Asthma exacerbation Asthma severity: mild Asthma persistence: persistent Qualified Code(s): J45.31 - Mild persistent asthma with (acute) exacerbation (3) Coronary artery disease Coronary Disease-Associated Artery/Lesion type: [place] artery [place] vs. transplanted heart: [place] heart Associated angina: without angina Qualified Code(s): I25.10 - Atherosclerotic heart disease of [place] coronary artery without angina pectoris (4) Hypertension Hypertension type: unspecified Qualified Code(s): I10 - Essential (primary) hypertension (5) Hypothyroidism Hypothyroidism type: acquired Qualified Code(s): E03.9 - Hypothyroidism, unspecified (6) CKD (chronic kidney disease) Chronic kidney disease stage: stage 3 (moderate) Qualified Code(s): N18.3 - Chronic kidney disease, stage 3 (moderate) (7) Diarrhea Diarrhea type: unspecified type Qualified Code(s): R19.7 - Diarrhea, unspecified
[2020-01-17] MEDS: FLUTICASONE/VILANTEROL 200/25MCG 14 PUFFS/INHALER INH SCH (08:48)
[2020-01-17] MEDS: SERTRALINE HCL 100 MG TABLET PO SCH (08:48)
[2020-01-17] MEDS: ASPIRIN 81 MG ECTAB PO SCH (08:49)
[2020-01-17] MEDS: guaiFENesin 600 MG TABCR PO SCH ×2 (08:49→20:20)
[2020-01-17] MEDS: CHOLECALCIFEROL 1,000 UNITS 25 MCG TAB PO SCH (08:49)
[2020-01-17] MEDS: OMEGA-3 (PURIFIED FISH OIL) 1 GM CAP PO SCH ×2 (08:49→20:16)
[2020-01-17] MEDS: ISOSORBIDE MONO EXTENDED REL 60 MG TABCR PO SCH (08:50)
[2020-01-17] MEDS: AZITHROMYCIN 250 MG TAB PO SCH (08:50)
[2020-01-17] MEDS: PANTOprazole 40 MG TAB PO SCH ×2 (08:50→20:19)
[2020-01-17] MEDS: MAGNESIUM OXIDE 400 MG TAB PO SCH (08:51)
[2020-01-17] MEDS: CETIRIZINE HCL 10 MG TABLET PO SCH (08:51)
[2020-01-17] MEDS: CALCITRIOL 0.25 MCG CAPSULE PO SCH (08:53)
[2020-01-17] MEDS: OSELTAMIVIR PHOSPHATE SUSP 30 MG/5 ML UDP PO SCH (08:56)
[2020-01-17] MEDS: AMLODIPINE BESYLATE 5 MG TAB PO SCH (09:57)
[2020-01-17] MEDS: CEFDINIR 300 MG CAP PO SCH ×2 (09:57→20:15)
[2020-01-17] MEDS: carvediloL 12.5 MG TAB PO SCH ×2 (09:57→20:18)
[2020-01-17] MEDS: MAGNESIUM CHLORIDE 64MG DELAYED REL TAB PO SCH ×2 (09:59→20:18)
[2020-01-17] MEDS ORDERED: predniSONE 20 MG TAB PO STA (11:36)
--- NOTE | 2020-01-17 11:39 | Hospitalist Progress Note ---
Date of Service January 17, 2020 Assessment & Plan (1) Influenza A: Continue Tamiflu 30mg BID renal dosing for 5 day course (last dose today). (2) Community acquired pneumonia: Based on CT findings, lack of improvement, chills (now resolved), continu ed bibasal crackles on auscultation. Continue azithromycin, switched ceftriaxone to cefdinir to complete 7 day course. (3) Asthma exacerbation: Albuterol PRN only as outpatient but suspect she has undertreated persistent asthma given how much she requires this. Continue Breo Ellipta BID (newly started this admission). At this point with continued cough and chest tightness will start prednisone course for 5 days as she is not having significant improvement. Unclear if lack of improvement from hypercalcemia or chest tightness but will treat for both. Continue duonebs QID. (4) Coronary artery disease: Patient is on aspirin and Plavix along with high intensity atorvastatin. We will continue his as per outpatient regimen. Troponins serial negative. (5) Hypomagnesemia: Mg. 1.5 - switch Mg Ox to Slow-Mg 256mg BID (6) Hypertension: Switch metoprolol to carvedilol for better BP control Additional dose of lasix 20mg IV although if anything she appears a little dry on exam this morning therefore will carefully watch renal function. Continue Imdur 120mg daily Increased lisinopril from 20 -> 40 mg HS Hydralazine this morning for BP 203/92. Continue PRN Hydralazine 10mg IV q6H for sBP > 180. (7) Sinus tachycardia: Suspect secondary to albuterol use given intermittent (8) Hypothyroidism: TSH WNL in March. No need to repeat during acute illness as not territory representative of baseline. Continue levothyroxine 75 mcg PO daily (9) CKD (chronic kidney disease): Stable. Monitor BMP. (10) Diarrhea: ?antibiotic associated vs. magnesium replacement c. diff now cancelled as no further watery BM Mg Ox swiched to low Mg (11) Hyperparathyroidism: Patient has not been receiving Sensipar since admission as not available on hospital formulary. Corrected calcium today is 11.2 and given trending up with fatigue suspect this may be the cause. Given dry mouth today she may be somewhat dry in addition. Will try to get her Sensipar from how but otherwise will give dose of IV pamidronate. (12) DVT prophylaxis: Lovenox 40mg SQ daily Admission and Anticipated Discharge Date Admission Date: January 12, 2020 Subjective Patient reports very feeling very tired today. Woken up multiple times last night for vital signs due to hypertension. Continued cough but feels mucus deep down she is unable to cough up. Denies significant shortness of breath. Continues to feel better with duonebs Review of Systems Review of Systems: All systems reviewed & are unremarkable except as noted in HPI & below Physical Exam Constitutional: well developed; no acute distress Eyes: + anicteric sclerae; normal pupil size ENMT: Mouth: + dry oral mucous membranes Neck: trachea midline Respiratory: normal respiratory effort; no respiratory distress Auscultation: + crackles (bibasal); no diminished lung sounds, no rales, no rhonchi and no wheezes Cardiovascular: Rate/Rhythm: regular rate and regular rhythm Heart Sounds: no murmur Extremities: normal capillary refill and + pedal edema (trace b/l); no calf tenderness Gastrointestinal (Abdomen): Inspection/Auscultation: normal bowel sounds Percussion/Palpation: abdomen soft; abdomen nontender, no guarding and abdomen not rigid Skin: no rashes, warm and dry Neurologic: moves all extremities and awake; no focal motor deficits and not confused Psychiatric: A+Ox3, euthymic affect Results & Data ([facility]) Vital Signs (Past 12 Hours) Vital Signs Temp Pulse Resp BP BP Pulse Ox 01/17/20 11:22 90 18 96 01/17/20 07:43 89 16 95 01/17/20 07:39 37.4 C 94 H 18 154/78 H 93 01/17/20 06:00 167/73 H 01/17/20 05:04 187/73 H 01/17/20 04:00 37.3 C 99 H 20 203/92 H 1 L PG Care Time/CCT Total # of Minutes Spent Total Time Spent with Patient: Total time spent is greater than 50% in coordination of care (as documented) at patient's floor/unit and/or counseling patient: Coding Level of Care Code 96895 Subseq Hosp Care Lvl 3 Diagnoses Influenza A J10.1 Community acquired pneumonia J18.9 Laterality: unspecified laterality Asthma exacerbation J45.31 Asthma persistence: persistent Asthma severity: mild Coronary artery disease I25.10 Associated angina: without angina Coronary Disease-Associated Artery/Lesion type: [place] artery [place] vs. transplanted heart: [place] heart Hypomagnesemia E83.42 Hypertension I10 Hypertension type: unspecified Sinus tachycardia R00.0 Hypothyroidism E03.9 Hypothyroidism type: acquired CKD (chronic kidney disease) N18.3 Chronic kidney disease stage: stage 3 (moderate) Diarrhea R19.7 Diarrhea type: unspecified type Hyperparathyroidism E21.3 DVT prophylaxis Z29.9 (1) Asthma exacerbation Asthma persistence: persistent Asthma severity: mild Qualified Code(s): J45.31 - Mild persistent asthma with (acute) exacerbation (2) Coronary artery disease Associated angina: without angina Coronary Disease-Associated Artery/Lesion type: [place] artery [place] vs. transplanted heart: [place] heart Qualified Code(s): I25.10 - Atherosclerotic heart disease of [place] coronary artery without angina pectoris (3) Diarrhea Diarrhea type: unspecified type Qualified Code(s): R19.7 - Diarrhea, unspecified (4) Hypothyroidism Hypothyroidism type: acquired Qualified Code(s): E03.9 - Hypothyroidism, unspecified (5) Community acquired pneumonia Laterality: unspecified laterality Qualified Code(s): J18.9 - Pneumonia, unspecified organism (6) CKD (chronic kidney disease) Chronic kidney disease stage: stage 3 (moderate) Qualified Code(s): N18.3 - Chronic kidney disease, stage 3 (moderate) (7) Hypertension Hypertension type: unspecified Qualified Code(s): I10 - Essential (primary) hypertension
[2020-01-17] MEDS ORDERED: PAMIDRONATE DISODIUM 60 MG in SODIUM CHLORIDE 0.9% 1000ML 1,000 ML IV ONE ×2 (12:44→13:30)
[2020-01-17] MEDS ORDERED: SODIUM CHLORIDE 0.9% 500 ML IV SCH (13:00)
[2020-01-17] MEDS ORDERED: Nursing to Pharmacy Communication ONE (16:07)
--- NOTE | 2020-01-17 18:28 | Electrocardiogram Report ---
Test Reason : Blood Pressure : / mmHG Vent. Rate : 092 BPM Atrial Rate : 092 BPM P-R Int : 154 ms QRS Dur : 090 ms QT Int : 376 ms P-R-T Axes : 054 037 105 degrees QTc Int : 464 ms Normal sinus rhythm RSR' or QR pattern in V1 suggests right ventricular conduction delay T wave abnormality, consider lateral ischemia Abnormal ECG Confirmed by Tye Sterling ([id number] on 01/17/2020 6:28:04 PM Referred By: REFERRED SELF Confirmed By:Mikhail Sterling
[2020-01-17] MEDS: FERROUS SULFATE 325 MG TAB PO SCH (20:15)
[2020-01-17] MEDS: POTASSIUM CHLORIDE 20 MEQ TABCR PO SCH (20:15)
[2020-01-17] MEDS: ATORVASTATIN 40 MG TAB PO SCH (20:15)
[2020-01-17] MEDS: TRAZODONE HCL 100 MG TAB PO SCH (20:16)
[2020-01-17] MEDS: CLOPIDOGREL BISULFATE 75 MG TAB PO SCH (20:16)
[2020-01-17] MEDS: lisinopriL 40 MG TAB PO SCH (20:18)
[2020-01-17] MEDS: ASCORBIC ACID 500 MG TAB PO SCH (20:19)
[2020-01-17] MEDS: ENOXAPARIN INJ 40 MG/0.4 ML SYR SQ SCH (20:20)
[2020-01-18] MEDS: HydrALAZINE HCL 20 MG/ML VIAL IV PRN (02:01)
[2020-01-18 05:37] LABS: Albumin Level 2.5 gm/dl (3.4-5.0); BUN Creatinine Ratio 18.3 (10-20); Calcium 10.3 mg/dl (8.5-10.1); Creatinine Clr Calc Pharmacy 42.1 ml/min; Est GFR (African American) 67.2; Est GFR (Non-African American) 57.9; Magnesium 1.5 mg/dl (1.8-2.4); Potassium 4.3 mmol/L (3.5-5.1)
[2020-01-18 05:40] LABS: Albumin Globulin Ratio 0.7 (0.9-2); Bilirubin,Total 0.5 mg/dl (0.2-1); Globulin 3.6 gm/dl (2.5-4.0); Total Protein 6.1 gm/dl (6.4-8.2)
[2020-01-18] MEDS: LEVOTHYROXINE SODIUM 75 MCG TABLET PO SCH (06:00)
[2020-01-18] MEDS: ACETAMINOPHEN 325 MG TAB PO PRN (06:18)
[2020-01-18] MEDS: ALBUT/IPRATROP 3MG/0.5MG NEB 3 ML VIAL NEB SCH ×4 (07:08→18:57)
[2020-01-18] MEDS: FLUTICASONE/VILANTEROL 200/25MCG 14 PUFFS/INHALER INH SCH (08:47)
[2020-01-18] MEDS: carvediloL 12.5 MG TAB PO SCH ×2 (08:48→20:30)
[2020-01-18] MEDS: ISOSORBIDE MONO EXTENDED REL 60 MG TABCR PO SCH (08:48)
[2020-01-18] MEDS: guaiFENesin 600 MG TABCR PO SCH ×2 (08:48→20:35)
[2020-01-18] MEDS: ASPIRIN 81 MG ECTAB PO SCH (08:48)
[2020-01-18] MEDS: CALCITRIOL 0.25 MCG CAPSULE PO SCH (08:49)
[2020-01-18] MEDS: CINACALCET 60 MG PO SCH (08:49)
[2020-01-18] MEDS: AMLODIPINE BESYLATE 5 MG TAB PO SCH (08:49)
[2020-01-18] MEDS: predniSONE 20 MG TAB PO SCH (08:49)
[2020-01-18] MEDS: CEFDINIR 300 MG CAP PO SCH ×2 (08:49→20:31)
[2020-01-18] MEDS: OMEGA-3 (PURIFIED FISH OIL) 1 GM CAP PO SCH ×2 (08:49→20:33)
[2020-01-18] MEDS: PANTOprazole 40 MG TAB PO SCH ×2 (08:49→20:34)
[2020-01-18] MEDS: CHOLECALCIFEROL 1,000 UNITS 25 MCG TAB PO SCH (08:50)
[2020-01-18] MEDS: AZITHROMYCIN 250 MG TAB PO SCH (08:50)
[2020-01-18] MEDS: MAGNESIUM CHLORIDE 64MG DELAYED REL TAB PO SCH ×2 (08:50→20:34)
[2020-01-18] MEDS: CETIRIZINE HCL 10 MG TABLET PO SCH (08:50)
[2020-01-18] MEDS: SERTRALINE HCL 100 MG TABLET PO SCH (08:50)
[2020-01-18] MEDS ORDERED: MAGNESIUM SULFATE / D5W 1 GM/100 ML BAG IV ONE (13:45)
[2020-01-18] MEDS: ONDANSETRON INJ 2 MG/ML 2 ML VIAL IV PRN (14:25)
--- NOTE | 2020-01-18 14:31 | Hospitalist Progress Note ---
Date of Service January 18, 2020 Assessment & Plan (1) Influenza A: Has now completed a 5-day course of Tamiflu 30mg BID at renal dosing -Remains with asthenia, fatigue, cough and mild hypoxia -Continue supportive care -Treatment for pneumonia and asthma as below -Can take off contact precautions at this time as she has completed her course of treatment and remains afebrile (2) Community acquired pneumonia: Based on CT findings, lack of improvement, chills (now resolved), with bibasal crackles on auscultation. Improving but remains on oxygen Continue azithromycin, and switched ceftriaxone to cefdinir to complete 7 day course. Follow chest x-ray to resolution in 2 to 3 weeks (3) Asthma exacerbation: Is on albuterol PRN only as outpatient but suspect she has undertreated persistent asthma given how much she requires this. Continue Breo Ellipta BID (newly started this admission). As she was having continued cough and chest tightness-she was started on prednisone 40 mg daily and continue for 5 days Continue duonebs QID. Seems to be improving today -Wean off oxygen as tolerated (4) Coronary artery disease: Patient is on aspirin and Plavix along with high intensity atorvastatin. We will continue his as per outpatient regimen. Troponins serial negative. (5) Hypomagnesemia: Mg. Continues to be low at 1.5 -Continue Mg Ox to Slow-Mg 256mg BID -Give magnesium 1 g IV x1 -Follow level in the morning (6) Hypertension: Switched metoprolol to carvedilol for better BP control-we will titrate up as tolerated Was given Lasix 20mg IV Continue Imdur 120mg daily Increased lisinopril from 20 -> 40 mg HS -Continue amlodipine 10 mg daily Continue PRN Hydralazine 10mg IV q6H for sBP > 180. (7) Sinus tachycardia: Suspect secondary to albuterol use given intermittent Improved (8) Hypothyroidism: TSH WNL in March. No need to repeat during acute illness as not quality control representative of baseline. Continue levothyroxine 75 mcg PO daily (9) CKD (chronic kidney disease): Stable. Monitor BMP. (10) Diarrhea: ?antibiotic associated vs. magnesium replacement Having 1-2 loose stools today c. diff now cancelled as no further watery BM Mg Ox switched to slow Mg (11) Hyperparathyroidism: Patient has not been receiving Sensipar since admission as not available on hospital formulary. She is now back on it as of 01/17 Corrected calcium was trending up and could have been due to to not receiving her Sensipar plus mild dehydration Calcium now improving today after receiving IV pamidronate. -Follow calcium and albumin in the morning (12) Nausea: Could be secondary to prednisone use -Continue Protonix 40 mg p.o. twice daily and add famotidine 20 mg p.o. twice daily today (13) DVT prophylaxis: Lovenox 40mg SQ daily Disposition-remain hospitalized, ongoing treatment for asthma exacerbation, pneumonia, nausea Now off precautions for influenza and can be accepted at senior care in 48 hours Admission and Anticipated Discharge Date Admission Date: January 12, 2020 Anticipated date of discharge: 01/20/20 Subjective Patient reports feeling very nauseated today, no abdominal pain. She has not vomited. She did move her bowels earlier today and feels like she has to move them again now. Still feeling very fatigued and just wants to sleep. Still coughing and feels short of breath at times. Remains on oxygen. Denies chest pain Review of Systems Review of Systems: All systems reviewed & are unremarkable except as noted in HPI & below Physical Exam Constitutional: + ill appearing and average body habitus; no acute distress Eyes: + anicteric sclerae Neck: trachea midline, no thyromegaly Respiratory: Auscultation: + wheezes (Some scattered expiratory wheezes bilaterally); no crackles and no rhonchi Cardiovascular: RRR, no murmur, no edema Chest (Breasts): Chest: normal inspection of chest Gastrointestinal (Abdomen): normal bowel sounds, soft, nontender, no hepatosplenomegaly Musculoskeletal: Extremities: extremities normal to inspection; no cyanosis and no clubbing Skin: no rashes, warm and dry Neurologic: moves all extremities and awake; no focal motor deficits Psychiatric: Orientation: alert, oriented to person, oriented to place, oriented to time and cooperative Affect: + flat affect Lymphatic: no lymphedema Results & Data ([facility]) Vital Signs (Past 12 Hours) Vital Signs Temp Pulse Resp BP Pulse Ox 01/18/20 11:28 89 20 91 01/18/20 07:10 91 H 18 97 01/18/20 06:21 37 C 95 H 20 169/77 H 93 01/18/20 05:13 85 22 91 01/18/20 04:24 82 157/74 H Laboratory Results 01/18/20 Range/Units 05:00 Sodium 139 (136-145) mmol/L Potassium 4.3 (3.5-5.1) mmol/L Chloride 108 H (98-107) mmol/L Carbon Dioxide 24 (21-32) mmol/L Anion Gap 7.0 (3-11) BUN 18 (7-18) mg/dl Creatinine 0.97 (0.6-1.2) mg/dl Est Cr Clr Drug Dosing 42.1 ml/min Est GFR ( Amer) 67.2 Est GFR (Non-Af Amer) 57.9 BUN/Creatinine Ratio 18.3 (10-20) Glucose 101 H (70-99) mg/dl Calcium 10.3 H (8.5-10.1) mg/dl Magnesium 1.5 L (1.8-2.4) mg/dl Total Bilirubin 0.5 (0.2-1) mg/dl AST 33 (15-37) U/L ALT 25 (12-78) U/L Alkaline Phosphatase 50 (45-117) U/L Total Protein 6.1 L (6.4-8.2) gm/dl Albumin 2.5 L (3.4-5.0) gm/dl Globulin 3.6 (2.5-4.0) gm/dl Albumin/Globulin Ratio 0.7 L (0.9-2) PG Care Time/CCT Total # of Minutes Spent Total Time Spent with Patient: Total time spent is greater than 50% in coordination of care (as documented) at patient's floor/unit and/or counseling patient: Coding Level of Care Code 77473 Subseq Hosp Care Lvl 3 Diagnoses Influenza A J10.1 Community acquired pneumonia J18.9 Laterality: unspecified laterality Asthma exacerbation J45.31 Asthma persistence: persistent Asthma severity: mild Coronary artery disease I25.10 Associated angina: without angina Coronary Disease-Associated Artery/Lesion type: [place] artery [place] vs. transplanted heart: [place] heart Hypomagnesemia E83.42 Hypertension I10 Hypertension type: unspecified Sinus tachycardia R00.0 Hypothyroidism E03.9 Hypothyroidism type: acquired CKD (chronic kidney disease) N18.3 Chronic kidney disease stage: stage 3 (moderate) Diarrhea R19.7 Diarrhea type: unspecified type Hyperparathyroidism E21.3 Nausea R11.0 DVT prophylaxis Z29.9 (1) Asthma exacerbation Asthma persistence: persistent Asthma severity: mild Qualified Code(s): J45.31 - Mild persistent asthma with (acute) exacerbation (2) Coronary artery disease Associated angina: without angina Coronary Disease-Associated Artery/Lesion type: [place] artery [place] vs. transplanted heart: [place] heart Qualified Code(s): I25.10 - Atherosclerotic heart disease of [place] coronary artery without angina pectoris (3) Diarrhea Diarrhea type: unspecified type Qualified Code(s): R19.7 - Diarrhea, unspecified (4) Hypothyroidism Hypothyroidism type: acquired Qualified Code(s): E03.9 - Hypothyroidism, unspecified (5) Community acquired pneumonia Laterality: unspecified laterality Qualified Code(s): J18.9 - Pneumonia, unspecified organism (6) CKD (chronic kidney disease) Chronic kidney disease stage: stage 3 (moderate) Qualified Code(s): N18.3 - Chronic kidney disease, stage 3 (moderate) (7) Hypertension Hypertension type: unspecified Qualified Code(s): I10 - Essential (primary) hypertension
[2020-01-18] MEDS: FAMOTIDINE 20 MG TAB PO SCH ×2 (15:10→20:36)
[2020-01-18] MEDS: TRAZODONE HCL 100 MG TAB PO SCH (20:30)
[2020-01-18] MEDS: ATORVASTATIN 40 MG TAB PO SCH (20:31)
[2020-01-18] MEDS: POTASSIUM CHLORIDE 20 MEQ TABCR PO SCH (20:31)
[2020-01-18] MEDS: lisinopriL 40 MG TAB PO SCH (20:32)
[2020-01-18] MEDS: ASCORBIC ACID 500 MG TAB PO SCH (20:33)
[2020-01-18] MEDS: FERROUS SULFATE 325 MG TAB PO SCH (20:35)
[2020-01-18] MEDS: CLOPIDOGREL BISULFATE 75 MG TAB PO SCH (20:35)
[2020-01-18] MEDS: ENOXAPARIN INJ 40 MG/0.4 ML SYR SQ SCH (20:36)
[2020-01-19] MEDS: HydrALAZINE HCL 20 MG/ML VIAL IV PRN ×2 (00:02→07:12)
[2020-01-19] MEDS: LEVOTHYROXINE SODIUM 75 MCG TABLET PO SCH (05:52)
[2020-01-19 06:49] LABS: Albumin Level 2.6 gm/dl (3.4-5.0); Creatinine Clr Calc Pharmacy 39.4 ml/min; Est GFR (Non-African American) 52.6; Magnesium 1.9 mg/dl (1.8-2.4); Potassium 4.1 mmol/L (3.5-5.1)
[2020-01-19 06:51] LABS: Albumin Globulin Ratio 0.8 (0.9-2); Bilirubin,Total 0.3 mg/dl (0.2-1); Globulin 3.3 gm/dl (2.5-4.0); Total Protein 5.9 gm/dl (6.4-8.2)
[2020-01-19] MEDS: ALBUT/IPRATROP 3MG/0.5MG NEB 3 ML VIAL NEB SCH ×4 (07:01→18:53)
[2020-01-19] MEDS: FLUTICASONE/VILANTEROL 200/25MCG 14 PUFFS/INHALER INH SCH (08:27)
[2020-01-19] MEDS: CETIRIZINE HCL 10 MG TABLET PO SCH (08:28)
[2020-01-19] MEDS: carvediloL 12.5 MG TAB PO SCH ×2 (08:29→20:48)
[2020-01-19] MEDS: ISOSORBIDE MONO EXTENDED REL 60 MG TABCR PO SCH (08:30)
[2020-01-19] MEDS: ASPIRIN 81 MG ECTAB PO SCH (08:30)
[2020-01-19] MEDS: guaiFENesin 600 MG TABCR PO SCH ×2 (08:31→20:55)
[2020-01-19] MEDS: CINACALCET 60 MG PO SCH (08:31)
[2020-01-19] MEDS: AMLODIPINE BESYLATE 5 MG TAB PO SCH (08:32)
[2020-01-19] MEDS: OMEGA-3 (PURIFIED FISH OIL) 1 GM CAP PO SCH ×2 (08:34→20:54)
[2020-01-19] MEDS: CEFDINIR 300 MG CAP PO SCH ×2 (08:34→20:55)
[2020-01-19] MEDS: predniSONE 20 MG TAB PO SCH (08:35)
[2020-01-19] MEDS: FAMOTIDINE 20 MG TAB PO SCH ×2 (08:35→21:00)
[2020-01-19] MEDS: CALCITRIOL 0.25 MCG CAPSULE PO SCH (08:35)
[2020-01-19] MEDS: PANTOprazole 40 MG TAB PO SCH ×2 (08:36→20:51)
[2020-01-19] MEDS: CHOLECALCIFEROL 1,000 UNITS 25 MCG TAB PO SCH (08:36)
[2020-01-19] MEDS: MAGNESIUM CHLORIDE 64MG DELAYED REL TAB PO SCH ×2 (08:36→20:52)
[2020-01-19] MEDS: SERTRALINE HCL 100 MG TABLET PO SCH (08:37)
[2020-01-19] MEDS ORDERED: carvediloL 6.25 MG TAB PO ONE (09:33)
--- NOTE | 2020-01-19 15:36 | Hospitalist Progress Note ---
Date of Service January 19, 2020 Assessment & Plan (1) Influenza A: Has now completed a 5-day course of Tamiflu 30mg BID at renal dosing -Remains with asthenia, fatigue, cough and mild hypoxia which is improving somewhat -Continue supportive care -Treatment for pneumonia and asthma as below -needs rehab, is severely deconditioned -fatigue also in part due to depressed mood (2) Community acquired pneumonia: Based on CT findings, lack of improvement, chills (now resolved), with bibasalar crackles on auscultation now improving Improving but remains on oxygen Continue azithromycin-today last day, and cefdinir to complete 7 day course. Follow chest x-ray to resolution in 2 to 3 weeks (3) Asthma exacerbation: Is on albuterol PRN only as outpatient but suspect she has undertreated persistent asthma given how much she requires this. Continue Breo Ellipta BID (newly started this admission). As she was having continued cough and chest tightness-she was started on prednisone 40 mg daily and continue for 5 days Continue duonebs QID. Seems to be improving today -Wean off oxygen as tolerated (4) Coronary artery disease: Patient is on aspirin and Plavix along with high intensity atorvastatin. Metoprolol changed to Coreg for improved BP control We will continue his as per outpatient regimen. Troponins serial negative. (5) Hypomagnesemia: Now resolved with replacement -Continue Slow-Mg 256mg BID (6) Hypertension: BPs continue to be quite elevated Switched metoprolol to carvedilol for better BP control-we will titrate up today to 18.75mg po bid Was given Lasix 20mg IV x 1 this admission Continue Imdur 120mg daily Increased lisinopril from 20 -> 40 mg HS -Continue amlodipine 10 mg daily Continue PRN Hydralazine 10mg IV q6H for sBP > 180. (7) Sinus tachycardia: Suspect secondary to albuterol use given intermittent Improved (8) Hypothyroidism: TSH WNL in March. No need to repeat during acute illness as not territory account representative of baseline. Continue levothyroxine 75 mcg PO daily (9) CKD (chronic kidney disease): Stable. Monitor BMP. (10) Diarrhea: ?antibiotic associated vs. magnesium replacement Having 1-2 loose stools today c. diff now cancelled as no further watery BM Mg Ox switched to slow Mg (11) Hyperparathyroidism: Patient had not been receiving Sensipar since admission as not available on hospital formulary. She is now back on it as of 01/17 Corrected calcium was trending up and could have been due to to not receiving her Sensipar plus mild dehydration Calcium now continues to be improving today after receiving IV pamidronate. -Follow calcium and albumin in the morning (12) Nausea: Could be secondary to prednisone use-now resolved with starting pepcid -Continue Protonix 40 mg p.o. twice daily and famotidine 20 mg p.o. twice daily (13) Depression: With mood worsened by acute illness and hospitalization, lack of ability to receive visitors due to COVID 19 pandemic -continue sertraline, trazadone follow, supportive care (14) DVT prophylaxis: Lovenox 40mg SQ daily Disposition-remain hospitalized, ongoing treatment for asthma exacerbation, pneumonia, nausea Now off precautions for influenza and can be accepted at senior care tomorrow at [facility] Admission and Anticipated Discharge Date Admission Date: January 12, 2020 Anticipated date of discharge: 01/20/20 Subjective Pt initially would not open her eyes to speak to me but would nod her head yes and no to questioning. Upon continued questioning, she did then open her eyes but was very depressed. Would not answer a lot of my questions but would follow all commands and moving all extremities. Did admit to feeling very sad and depressed about being in the hospital. Did request that I call her daughter to give an update. Her daughter reports she often gets very depressed especially in the hospital setting. Pt also not looking forward to going to rehab but is willing as per daughter. Pt reports cough is improved today. Not getting much rest at night. Denies CP or SOB, remains on O2 2L. Review of Systems Review of Systems: All systems reviewed & are unremarkable except as noted in HPI & below Physical Exam Constitutional: average body habitus; no acute distress Eyes: + anicteric sclerae ENMT: external ear and nose normal, oropharynx normal Neck: trachea midline, no thyromegaly Respiratory: Auscultation: lungs clear to auscultation bilaterally Cardiovascular: RRR, no murmur, no edema Chest (Breasts): Chest: normal inspection of chest Gastrointestinal (Abdomen): normal bowel sounds, soft, nontender, no hepatosplenomegaly Musculoskeletal: Extremities: extremities normal to inspection; no cyanosis and no clubbing Skin: no rashes, warm and dry Neurologic: moves all extremities and awake; no focal motor deficits Psychiatric: Orientation: alert and cooperative Affect: + flat affect Lymphatic: no lymphedema Results & Data ([facility]) Vital Signs (Past 12 Hours) Vital Signs Temp Pulse Resp BP BP Pulse Ox 01/19/20 15:27 36.4 C L 69 17 143/71 H 93 01/19/20 15:12 69 18 92 01/19/20 12:12 91 01/19/20 12:08 37.2 C 77 18 147/67 H 86 L 01/19/20 11:08 80 16 90 01/19/20 08:56 36.6 C 149/75 H 01/19/20 07:02 83 18 92 01/19/20 06:56 36.7 C 82 16 185/78 H 93 Laboratory Results 01/19/20 Range/Units 05:50 Sodium 140 (136-145) mmol/L Potassium 4.1 (3.5-5.1) mmol/L Chloride 109 H (98-107) mmol/L Carbon Dioxide 25 (21-32) mmol/L Anion Gap 6.0 (3-11) BUN 24 H (7-18) mg/dl Creatinine 1.05 (0.6-1.2) mg/dl Est Cr Clr Drug Dosing 39.4 ml/min Est GFR ( Amer) 61.0 Est GFR (Non-Af Amer) 52.6 BUN/Creatinine Ratio 23.0 H (10-20) Glucose 88 (70-99) mg/dl Calcium 10.0 (8.5-10.1) mg/dl Magnesium 1.9 (1.8-2.4) mg/dl Total Bilirubin 0.3 (0.2-1) mg/dl AST 26 (15-37) U/L ALT 25 (12-78) U/L Alkaline Phosphatase 42 L (45-117) U/L Total Protein 5.9 L (6.4-8.2) gm/dl Albumin 2.6 L (3.4-5.0) gm/dl Globulin 3.3 (2.5-4.0) gm/dl Albumin/Globulin Ratio 0.8 L (0.9-2) PG Care Time/CCT Total # of Minutes Spent Total Time Spent with Patient: Total time spent is greater than 50% in coordination of care (as documented) at patient's floor/unit and/or counseling patient: Coding Level of Care Code 06752 Subseq Hosp Care Lvl 2 Diagnoses Influenza A J10.1 Community acquired pneumonia J18.9 Laterality: unspecified laterality Asthma exacerbation J45.31 Asthma persistence: persistent Asthma severity: mild Coronary artery disease I25.10 Associated angina: without angina Coronary Disease-Associated Artery/Lesion type: [place] artery [place] vs. transplanted heart: [place] heart Hypomagnesemia E83.42 Hypertension I10 Hypertension type: unspecified Sinus tachycardia R00.0 Hypothyroidism E03.9 Hypothyroidism type: acquired CKD (chronic kidney disease) N18.3 Chronic kidney disease stage: stage 3 (moderate) Diarrhea R19.7 Diarrhea type: unspecified type Hyperparathyroidism E21.3 Nausea R11.0 Depression F32.9 DVT prophylaxis Z29.9 (1) Asthma exacerbation Asthma persistence: persistent Asthma severity: mild Qualified Code(s): J45.31 - Mild persistent asthma with (acute) exacerbation (2) Coronary artery disease Associated angina: without angina Coronary Disease-Associated Artery/Lesion type: [place] artery [place] vs. transplanted heart: [place] heart Qualified Code(s): I25.10 - Atherosclerotic heart disease of [place] coronary artery without angina pectoris (3) Diarrhea Diarrhea type: unspecified type Qualified Code(s): R19.7 - Diarrhea, unspecified (4) Hypothyroidism Hypothyroidism type: acquired Qualified Code(s): E03.9 - Hypothyroidism, unspecified (5) Community acquired pneumonia Laterality: unspecified laterality Qualified Code(s): J18.9 - Pneumonia, unspecified organism (6) CKD (chronic kidney disease) Chronic kidney disease stage: stage 3 (moderate) Qualified Code(s): N18.3 - Chronic kidney disease, stage 3 (moderate) (7) Hypertension Hypertension type: unspecified Qualified Code(s): I10 - Essential (primary) hypertension
[2020-01-19] MEDS: ACETAMINOPHEN 325 MG TAB PO PRN (20:47)
[2020-01-19] MEDS: ENOXAPARIN INJ 40 MG/0.4 ML SYR SQ SCH (20:50)
[2020-01-19] MEDS: ASCORBIC ACID 500 MG TAB PO SCH (20:51)
[2020-01-19] MEDS: lisinopriL 40 MG TAB PO SCH (20:52)
[2020-01-19] MEDS: POTASSIUM CHLORIDE 20 MEQ TABCR PO SCH (20:53)
[2020-01-19] MEDS: TRAZODONE HCL 100 MG TAB PO SCH (20:53)
[2020-01-19] MEDS: CLOPIDOGREL BISULFATE 75 MG TAB PO SCH (20:55)
[2020-01-19] MEDS: FERROUS SULFATE 325 MG TAB PO SCH (20:56)
[2020-01-19] MEDS: ATORVASTATIN 40 MG TAB PO SCH (20:56)
[2020-01-20] MEDS: LEVOTHYROXINE SODIUM 75 MCG TABLET PO SCH (05:59)
[2020-01-20 06:11] LABS: Albumin Level 2.5 gm/dl (3.4-5.0); BUN Creatinine Ratio 26.7 (10-20); Calcium 9.5 mg/dl (8.5-10.1); Creatinine Clr Calc Pharmacy 34.6 ml/min; Est GFR (African American) 52.4; Est GFR (Non-African American) 45.3; Potassium 4.2 mmol/L (3.5-5.1)
[2020-01-20 06:14] LABS: Albumin Globulin Ratio 0.8 (0.9-2); Bilirubin,Total 0.2 mg/dl (0.2-1); Total Protein 5.5 gm/dl (6.4-8.2)
[2020-01-20] MEDS: ALBUT/IPRATROP 3MG/0.5MG NEB 3 ML VIAL NEB SCH ×4 (07:01→19:10)
[2020-01-20] MEDS ORDERED: SODIUM CHLORIDE 0.9% 1000ML 1,000 ML IV SCH (07:15)
[2020-01-20] MEDS: HydrALAZINE HCL 20 MG/ML VIAL IV PRN (07:41)
[2020-01-20] MEDS: PANTOprazole 40 MG TAB PO SCH ×2 (08:13→20:22)
[2020-01-20] MEDS: FLUTICASONE/VILANTEROL 200/25MCG 14 PUFFS/INHALER INH SCH (08:13)
[2020-01-20] MEDS: AMLODIPINE BESYLATE 5 MG TAB PO SCH (08:14)
[2020-01-20] MEDS: carvediloL 12.5 MG TAB PO SCH ×2 (08:14→20:20)
[2020-01-20] MEDS: predniSONE 20 MG TAB PO SCH (08:14)
[2020-01-20] MEDS: CETIRIZINE HCL 10 MG TABLET PO SCH (08:15)
[2020-01-20] MEDS: ASPIRIN 81 MG ECTAB PO SCH (08:16)
[2020-01-20] MEDS: OMEGA-3 (PURIFIED FISH OIL) 1 GM CAP PO SCH ×2 (08:16→20:22)
[2020-01-20] MEDS: ISOSORBIDE MONO EXTENDED REL 60 MG TABCR PO SCH (08:16)
[2020-01-20] MEDS: CALCITRIOL 0.25 MCG CAPSULE PO SCH (08:16)
[2020-01-20] MEDS: guaiFENesin 600 MG TABCR PO SCH ×2 (08:16→20:22)
[2020-01-20] MEDS: FAMOTIDINE 20 MG TAB PO SCH ×2 (08:16→20:22)
[2020-01-20] MEDS: CINACALCET 60 MG PO SCH (08:16)
[2020-01-20] MEDS: CHOLECALCIFEROL 1,000 UNITS 25 MCG TAB PO SCH (08:17)
[2020-01-20] MEDS: MAGNESIUM CHLORIDE 64MG DELAYED REL TAB PO SCH ×2 (08:17→20:22)
[2020-01-20] MEDS: CEFDINIR 300 MG CAP PO SCH ×2 (08:17→20:22)
[2020-01-20] MEDS: SERTRALINE HCL 100 MG TABLET PO SCH (08:17)
[2020-01-20] MEDS: ONDANSETRON INJ 2 MG/ML 2 ML VIAL IV PRN (08:42)
--- NOTE | 2020-01-20 10:13 | Hospitalist Progress Note ---
Date of Service January 20, 2020 Assessment & Plan (1) Influenza A: Has now completed a 5-day course of Tamiflu 30mg BID at renal dosing -Improving asthenia, fatigue, cough and mild hypoxia now resolved -Continue supportive care -Treatment for pneumonia and asthma as below -needs rehab, is severely deconditioned -fatigue also in part due to depressed mood (2) Community acquired pneumonia: Based on CT findings, lack of improvement, chills (now resolved), with bibasilar crackles on auscultation now improving Continues to improve but remains on oxygen Completed course of azithromycin- and cefdinir continues for 1 more day Follow chest x-ray to resolution in 2 to 3 weeks (3) Asthma exacerbation: Is on albuterol PRN only as outpatient but suspect she has undertreated persistent asthma given how much she requires this. Continue Breo Ellipta BID (newly started this admission). As she was having continued cough and chest tightness-she was started on prednisone 40 mg daily --> wheezing resolved--> will now stop prednisone given worsening nausea and abd pains Continue duonebs QID. Asthma exacerbation much improved/resolved -Wean off oxygen as tolerated (4) Nausea: Persists and worsening today, with RUQ pain LFTs normal Could be secondary to prednisone use-continues and worse today with wretching despite starting pepcid and on PPI bid -Continue Protonix 40 mg p.o. twice daily and famotidine 20 mg p.o. twice daily -add Carafate 1 gm qid -continue Zofran prn -is moving bowels, no melena or hematochezia -check RUQ US--> cholelithiasis but no CBD dilation or pericholecystic fluid -follow and see if improves with IVFs hydration and carafate -will also dc home FeSO4, Vit C and see if helps -revert back to clears for diet (5) Coronary artery disease: Patient is on aspirin and Plavix along with high intensity atorvastatin. Metoprolol changed to Coreg for improved BP control We will continue his as per outpatient regimen. Troponins serial negative. (6) Hypomagnesemia: Now resolved with replacement -Continue Slow-Mg 256mg BID (7) Hypertension: BPs continue to be elevated but improved from previous since increasing Coreg dose Switched metoprolol to carvedilol for better BP control-continue 18.75mg po bid Was given Lasix 20mg IV x 1 this admission Continue Imdur 120mg daily Increased lisinopril from 20 -> 40 mg HS -Continue amlodipine 10 mg daily Continue PRN Hydralazine 10mg IV q6H for SBP > 180. (8) Sinus tachycardia: Suspect secondary to albuterol use given intermittent Improved (9) Hypothyroidism: TSH WNL in March. No need to repeat during acute illness as not senior outside sales representative of baseline. Continue levothyroxine 75 mcg PO daily (10) CKD (chronic kidney disease): Stable. Monitor BMP. BUN/Deaf Teacher slightly up today, lower UOP--> give 1L NS (11) Diarrhea: ?antibiotic associated vs. magnesium replacement Now resolved with changing to slow Mag (12) Hyperparathyroidism: Patient had not been receiving Sensipar since admission as not available on hospital formulary. She is now back on it as of 01/17 Corrected calcium was trending up and could have been due to to not receiving her Sensipar plus mild dehydration Calcium now continues to be improving today after receiving IV pamidronate. -Follow calcium and albumin in the morning (13) Depression: With mood worsened by acute illness and hospitalization, lack of ability to receive visitors due to COVID 19 pandemic -continue sertraline, trazadone follow, supportive care (14) Pancreas cyst: 9mm cyst in distal body of pancreas on RUQ US -follow as outpt (15) Cholelithiasis: asymptomatic, LFTs normal, no acute viky suspected -could consider elective lap viky in future but not necessary (16) DVT prophylaxis: Lovenox 40mg SQ daily Disposition-remain hospitalized, ongoing treatment for nausea and abd pain Now off precautions for influenza and can be accepted at half-way at [facility] once nausea is improved--> hopefully tomorrow Admission and Anticipated Discharge Date Admission Date: January 12, 2020 Anticipated date of discharge: 01/21/20 Subjective Pt reports she was feeling ok this AM and then after breakfast, she got up to walk to the bathroom and got very nauseated and had dry heaving. She does report some RUQ and epigastric pain, nonradiating. Has had a BM this AM and no melena or BRBPR as per RN and patient. Denies chest pain or SOB. Cough is much improved and she feels less congested in her chest. No h/o gallbladder issue sin the past but has had ulcers she thinks. Had low UOP overnight as per RN. Poor po intake Otherwise, pt's mood is improved today and much more awake and conversational Review of Systems 2 Review of Systems: All systems reviewed & are unremarkable except as noted in HPI & below Physical Exam Constitutional: average body habitus; no acute distress Eyes: + anicteric sclerae Neck: trachea midline, no thyromegaly Respiratory: Auscultation: lungs clear to auscultation bilaterally Cardiovascular: RRR, no murmur, no edema Chest (Breasts): Chest: normal inspection of chest Gastrointestinal (Abdomen): Inspection/Auscultation: abdomen normal to inspection and normal bowel sounds Percussion/Palpation: + abdomen tender (minimal in RUQ without guarding or rebound tenderness) and abdomen soft; abdomen not rigid and no abdominal mass Musculoskeletal: Extremities: extremities normal to inspection; no cyanosis a nd no clubbing Skin: no rashes, warm and dry Neurologic: moves all extremities and awake; no focal motor deficits Psychiatric: Orientation: alert, oriented x 3 and cooperative Affect: + flat affect Lymphatic: no lymphedema PG Care Time/CCT Total # of Minutes Spent Total Time Spent with Patient: Total time spent is greater than 50% in coordination of care (as documented) at patient's floor/unit and/or counseling patient: Coding Level of Care Code 43801 Subseq Hosp Care Lvl 3 Diagnoses Influenza A J10.1 Community acquired pneumonia J18.9 Laterality: unspecified laterality Asthma exacerbation J45.31 Asthma persistence: persistent Asthma severity: mild Nausea R11.0 Coronary artery disease I25.10 Associated angina: without angina Coronary Disease-Associated Artery/Lesion type: [place] artery [place] vs. transplanted heart: [place] heart Hypomagnesemia E83.42 Hypertension I10 Hypertension type: unspecified Sinus tachycardia R00.0 Hypothyroidism E03.9 Hypothyroidism type: acquired CKD (chronic kidney disease) N18.3 Chronic kidney disease stage: stage 3 (moderate) Diarrhea R19.7 Diarrhea type: unspecified type Hyperparathyroidism E21.3 Depression F32.9 Pancreas cyst K86.2 Cholelithiasis K80.20 DVT prophylaxis Z29.9 (1) Asthma exacerbation Asthma persistence: persistent Asthma severity: mild Qualified Code(s): J45.31 - Mild persistent asthma with (acute) exacerbation (2) Coronary artery disease Associated angina: without angina Coronary Disease-Associated Artery/Lesion type: [place] artery [place] vs. transplanted heart: [place] heart Qualified Code(s): I25.10 - Atherosclerotic heart disease of [place] coronary artery without angina pectoris (3) Diarrhea Diarrhea type: unspecified type Qualified Code(s): R19.7 - Diarrhea, unspecified (4) Hypothyroidism Hypothyroidism type: acquired Qualified Code(s): E03.9 - Hypothyroidism, unspecified (5) Community acquired pneumonia Laterality: unspecified laterality Qualified Code(s): J18.9 - Pneumonia, unspecified organism (6) CKD (chronic kidney disease) Chronic kidney disease stage: stage 3 (moderate) Qualified Code(s): N18.3 - Chronic kidney disease, stage 3 (moderate) (7) Hypertension Hypertension type: unspecified Qualified Code(s): I10 - Essential (primary) hypertension
[2020-01-20] MEDS: SUCRALFATE 1 GM/10 ML UDC PO SCH ×4 (10:51→20:19)
--- NOTE | 2020-01-20 13:34 | Ultrasound Report ---
ULTRASOUND RIGHT UPPER QUADRANT ABDOMEN CLINICAL HISTORY: Right upper quadrant abdominal pain. COMPARISON STUDY: Abdominal CT dated 01/19/2016. TECHNIQUE: Real-time, grayscale, and color flow sonography of the right upper quadrant of the abdomen was performed. Images are reviewed in the transverse and longitudinal planes. FINDINGS: Liver: The liver is normal in size and echotexture. There is no intrahepatic biliary ductal dilatatio n. The main portal vein is patent. Scattered hepatic cysts measure up to 2.9 cm. Gallbladder: There are calcified shadowing gallstones. There is no gallbladder wall thickening or per icholecystic fluid. A sonographic Angel's sign is reportedly present. The common bile duct measures up to 0.5 cm in diameter. Pancreas: There is a 9 mm cystic focus identified in the distal pancreatic body. Visualized portions of the pancreatic head and body are otherwise normal in appearance. Right kidney: Survey images of the right kidney demonstrate cortical atrophy. There is no hydronephro sis. Ascites: None. Pleural space: There is a small right pleural effusion. IMPRESSION: 1. Cholelithiasis with an otherwise normal appearing gallbladder. Although a sonographic Angel's sig n is reportedly present, findings are considered low suspicion for acute cholecystitis. If there ther e is strong clinical concern for acute cholecystitis a nuclear hepatobiliary scan should be considere d. 2. There is an 8 mm simple appearing cystic focus identified in the distal pancreatic body. This is p athologically indeterminant but typical for a small sidebranch IPMN. Nonemergent/outpatient GI follow -up is recommended. 3. Small right pleural effusion. ACT 112: Negative or not required by law. Electronically signed by: Zeferino Paula M.D. 01/20/2020 1:49 PM
[2020-01-20 15:51] LABS: Hematocrit (blood only) 32.7 % (37-47); Hemoglobin 10.7 g/dL (12.0-16.0); Mean Corpuscular Hgb Conc 32.7 g/dL (32-36); Mean Corpuscular Volume 91.6 fL (80-100); Mean Platelet Volume 9.2 fL (7.4-10.4); Platelet Count 373 K/uL (130-400); RDW Coefficient of Variation 13.9 % (11.5-14.5); RDW Standard Deviation 46.8 fL (36.4-46.3); Red Blood Count 3.57 M/uL (4.2-5.4)
[2020-01-20 16:21] LABS: Basophils # (auto) 0.03 K/uL (0-0.2); Basophils % (auto) 0.2 %; Immature Granulocytes # (auto) 1.16 K/uL (0.00-0.02); Immature Granulocytes % (auto) 7.6 %; Lymphocytes # (auto) 1.89 K/uL (1.2-3.4); Lymphocytes % (auto) 12.4 %; Monocytes # (auto) 0.63 K/uL (0.11-0.59); Monocytes % (auto) 4.1 %; Neutrophils # (auto) 11.59 K/uL (1.4-6.5); Neutrophils % (auto) 75.7 %
[2020-01-20] MEDS: TRAZODONE HCL 100 MG TAB PO SCH (20:20)
[2020-01-20] MEDS: ENOXAPARIN INJ 40 MG/0.4 ML SYR SQ SCH (20:21)
[2020-01-20] MEDS: ATORVASTATIN 40 MG TAB PO SCH (20:21)
[2020-01-20] MEDS: POTASSIUM CHLORIDE 20 MEQ TABCR PO SCH (20:21)
[2020-01-20] MEDS: CLOPIDOGREL BISULFATE 75 MG TAB PO SCH (20:22)
[2020-01-20] MEDS: lisinopriL 40 MG TAB PO SCH (20:22)
[2020-01-21 05:29] LABS: Hematocrit (blood only) 30.9 % (37-47); Mean Corpuscular Hemoglobin 29.8 pg (25-34); Mean Corpuscular Hgb Conc 32.4 g/dL (32-36); Mean Platelet Volume 8.9 fL (7.4-10.4); Platelet Count 355 K/uL (130-400); Red Blood Count 3.36 M/uL (4.2-5.4)
[2020-01-21] MEDS: LEVOTHYROXINE SODIUM 75 MCG TABLET PO SCH (05:38)
[2020-01-21 05:55] LABS: Albumin Globulin Ratio 0.8 (0.9-2); Albumin Level 2.4 gm/dl (3.4-5.0); BUN Creatinine Ratio 27.4 (10-20); Bilirubin,Total 0.2 mg/dl (0.2-1); Calcium 8.7 mg/dl (8.5-10.1); Creatinine Clr Calc Pharmacy 41.6 ml/min; Est GFR (African American) 65.5; Est GFR (Non-African American) 56.5; Globulin 2.9 gm/dl (2.5-4.0); Magnesium 1.6 mg/dl (1.8-2.4); Total Protein 5.3 gm/dl (6.4-8.2)
[2020-01-21 05:57] LABS: ALC (manual) 3.45 K/uL (1.2-3.4); ANC (manual) 8.62 K/uL (1.4-6.5); Echinocytes 1+; Lymphocytes # (manual) 3.45 K/uL (1.2-3.4); Lymphocytes % (manual) 26.3 %; Metamyelocytes # (manual) 0.12 K/uL (0-0); Metamyelocytes % (manual) 0.9 %; Monocytes # (manual) 0.58 K/uL (0.11-0.59); Monocytes % (manual) 4.4 %; Myelocytes # (manual) 0.34 K/uL (0-0); Myelocytes % (manual) 2.6 %; Neutrophils # (manual) 8.62 K/uL (1.4-6.5); Neutrophils % (manual) 65.8 %; Ovalocytes 1+
[2020-01-21] MEDS: ALBUT/IPRATROP 3MG/0.5MG NEB 3 ML VIAL NEB SCH ×2 (06:48→11:23)
[2020-01-21] MEDS: SUCRALFATE 1 GM/10 ML UDC PO SCH ×2 (09:12→12:13)
[2020-01-21] MEDS: CETIRIZINE HCL 10 MG TABLET PO SCH (09:12)
[2020-01-21] MEDS: SERTRALINE HCL 100 MG TABLET PO SCH (09:14)
[2020-01-21] MEDS: FLUTICASONE/VILANTEROL 200/25MCG 14 PUFFS/INHALER INH SCH (09:14)
[2020-01-21] MEDS: MAGNESIUM CHLORIDE 64MG DELAYED REL TAB PO SCH (09:15)
[2020-01-21] MEDS: CHOLECALCIFEROL 1,000 UNITS 25 MCG TAB PO SCH (09:15)
[2020-01-21] MEDS: PANTOprazole 40 MG TAB PO SCH (09:15)
[2020-01-21] MEDS: CALCITRIOL 0.25 MCG CAPSULE PO SCH (09:15)
[2020-01-21] MEDS: guaiFENesin 600 MG TABCR PO SCH (09:16)
[2020-01-21] MEDS: ASPIRIN 81 MG ECTAB PO SCH (09:16)
[2020-01-21] MEDS: OMEGA-3 (PURIFIED FISH OIL) 1 GM CAP PO SCH (09:16)
[2020-01-21] MEDS: AMLODIPINE BESYLATE 5 MG TAB PO SCH (09:16)
[2020-01-21] MEDS: carvediloL 12.5 MG TAB PO SCH (09:17)
[2020-01-21] MEDS: CINACALCET 60 MG PO SCH (09:18)
[2020-01-21] MEDS: FAMOTIDINE 20 MG TAB PO SCH (09:21)
[2020-01-21] MEDS ORDERED: MAGNESIUM SULFATE / D5W 1 GM/100 ML BAG IV ONE (10:30)
[2020-01-21] MEDS: ISOSORBIDE MONO EXTENDED REL 60 MG TABCR PO SCH (11:11)
--- NOTE | 2020-01-21 11:27 | Discharge Summary ---
Date of Service January 21, 2020 Admission HPI Per Admitting Provider There is a 74-year-old female with past medical history of CAD, diabetes, CKD that presents today complaining of significant fever and shortness of breath. Patient is limited historian as she is currently on BiPAP with difficulty with understand. Patient apparently started having symptoms on 01/06, this started with mild cough and some myalgias. It progressed into dyspnea on exertion and shortness of breath at rest. Patient slowly worsening, was eventually seen by a friend earlier today and EMS was called to bring the patient to the emergency room. Of note, patient says that her appetite is been poor but she had no nausea or vomiting until earlier today. Currently she took her antihypertensive and vomited up the pills. At time of presentation, patient was on BiPAP per EMS. She is responded well with O2 sat in the 94-100% range. Blood pressures been extremely elevated at 205/80 with a heart rate of 120. Patient was afebrile at presentation. Principal Diagnosis Influenza A, Pneumonia, Acute respiratory failure with hypoxia, Dyspepsia Discharge Exam Constitutional average body habitus; no acute distress Eyes + anicteric sclerae ENMT external ear and nose normal, oropharynx normal Neck trachea midline, no thyromegaly Respiratory Auscultation: + crackles (minimal at right base); no rhonchi and no wheezes Cardiovascular RRR, no murmur, no edema Chest (Breasts) Chest: normal inspection of chest Gastrointestinal (Abdomen) normal bowel sounds, soft, nontender, no hepatosplenomegaly Inspection/Auscultation: abdomen normal to inspection Musculoskeletal Extremities: extremities normal to inspection; no cyanosis and no clubbing Skin no rashes, warm and dry Neurologic moves all extremities and awake; no focal motor deficits Psychiatric Orientation: alert, oriented x 3 and cooperative Affect: euthymic affect Lymphatic no lymphedema Discharge Data Allergies Allergy/AdvReac Type Severity Reaction Status Date / Time nickel Allergy Unknown RASH Verified 01/12/20 13:05 salicylates AdvReac Mild GI UPSET Verified 01/12/20 13:05 adhesive AdvReac Unknown ITCHING Verified 01/12/20 13:05 Consultations 01/12/20 14:47 ED Decision to Admit Stat Ordered Studies 01/13/20 20:49 CT angio chest PE protocol Urgent 01/20/20 13:00 US gallbladder Urgent CXR x 2 Hospital Course (1) Influenza A: Has now completed a 5-day course of Tamiflu 30mg BID at renal dosing -Improving asthenia, fatigue, cough and mild hypoxia all much improved -Continue supportive care -Treatment for pneumonia and asthma as below -needs rehab, is severely deconditioned -fatigue also in part due to depressed mood but this is improving also (2) Community acquired pneumonia: Based on CT findings, chills (now resolved), with bibasilar crackles on auscultation now improving Continues to improve but remains on oxygen, however feel this can likely be weaned off now Completed course of azithromycin and cefdinir Follow chest x-ray to resolution in 2 to 3 weeks (3) Asthma exacerbation: Is on albuterol PRN only as outpatient but suspect she has undertreated persistent asthma given how much she requires this. Continue Breo Ellipta BID (newly started this admission). As she was having continued cough and chest tightness-she was started on p rednisone 40 mg daily --> wheezing resolved--> then stopped prednisone given worsening nausea and abd pains Continue duonebs QID. Asthma exacerbation much improved/resolved -Wean off oxygen as tolerated (4) Nausea: Was persistent, with RUQ/epigastric pain LFTs normal RUQ US ---> cholelithiasis but no CBD dilation or pericholecystic fluid--> not cause of dyspepsia and pain -is moving bowels, no melena or hematochezia Could have been stress-induced gastritis or mild PUD due to prolonged illness/hospital course Could be secondary to prednisone use and iron tablet use -Continue Protonix 40 mg p.o. twice daily and added famotidine 20 mg p.o. twice daily, carafate 1 gm po qid and stopped prednisone, stopped ferrous sulfate and Vit C---> now completely resolved -now ranjit po -recommend continue pepcid and carafate x 1 more week then stop -dc home prilosec as is on Plavix (5) Coronary artery disease: Patient is on aspirin and Plavix along with high intensity atorvastatin. Metoprolol changed to Coreg for improved BP control We will continue his as per outpatient regimen. Troponins serial negative. (6) Hypomagnesemia: Now improved with replacement and increased po intake -Continue Slow-Mg 256mg BID (changed from home mag oxide due to frequent loose stools) -check Mag level in 1 week (7) Hypertension: BPs continued to be elevated but improved from previous since increasing Coreg dose and increased home lisinopril dose Switched metoprolol to carvedilol for better BP control-continue 18.75mg po bid Was given Lasix 20mg IV x 1 this admission Continue Imdur 120mg daily Increased lisinopril from 20 -> 40 mg HS -Continue amlodipine 10 mg daily Follow after discharge (8) Sinus tachycardia: Suspect secondary to albuterol use given intermittent Resolved (9) Hypothyroidism: TSH WNL in March. No need to repeat during acute illness as not equal opportunity representative of baseline. Continue levothyroxine 75 mcg PO daily (10) CKD (chronic kidney disease): Stable. Monitor BMP. 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 magnesium replacement Now resolved with changing to slow Mag (12) Hyperparathyroidism: With mild hypercalcemia Patient had not been receiving Sensipar since admission as not available on hospital formulary. She is now back on it as of 01/17 Corrected calcium was trending up and could have been due to to not receiving her Sensipar plus mild dehydration Calcium now continues to be improving today after receiving IV pamidronate. -Follow calcium level in one week with BMP at rehab (13) Depression: With mood worsened by acute illness and hospitalization, lack of ability to receive visitors due to COVID 19 pandemic -continue sertraline, trazadone follow, supportive care (14) Pancreas cyst: 9mm cyst in distal body of pancreas on RUQ US -follow as outpt with imaging-discussed this finding with pt and daughter on phone (15) Cholelithiasis: asymptomatic, LFTs normal, no acute viky suspected -could consider elective lap viky in future but not necessary (16) DVT prophylaxis: Lovenox 40mg SQ daily was given Disposition-much improved, stable for ma to [facility] for rehab today Total Time Total Time Spent Total Time Spent (In Minutes): 45 min Total Time Includes: Examination of the Patient, Discharge Planning and Medication Reconciliation Discharge Plan Discharge Items Patient Disposition: Transfer Inpatient Rehab Fac Reason For Visit: INFLUENZA Discharge Diagnosis: Influenza A, Pneumonia, Nausea and suspected gastritis Condition on Discharge: Good Activity: As commented below Lifting: Gradually increase as tolerated Bathing: No limitations Exercise/Sports: Gradually increase as tolerated Exercise Comment: with rehab Non-emergency contact: Primary Care Provider Call non-emergency contact if: you have any medication questions, your symptoms worsen, you have a fever and your temperature is above 101 Follow-up/Referrals: Jerald Sneed MD [Primary Care Provider] - Diet: Heart Healthy Addtl Attending Provider Instructions: Ms. Bui was admitted for influenza A and developed community acquired Pneumonia and acute respiratory failure with hypoxia. She was treated with Tamiflu and a course of antibiotics for her pneumonia-both are now completed and she is off all precautions, remains afebrile for many days. She had some persistent nausea which was relieved with starting Protonix, Pep licha, and carafate, as well as with discontinuing her ferrous sulfate and Vit C supplements. The carafate and pepcid can be continued for another week and then weaned off. She should be weaned off her oxygen as well. Needs rehab. Please check CBC, BMP, and magnesium level in 3-5 days. Pending Studies at Discharge: No Stand-Alone Forms: My [facility] Skilled Items Patient informed of condition?: Yes DNR: No Discharge Level of Care: Acute rehab Communicable Disease: No Discharge Prognosis: Improving Lines: None Urinary Catheter: No Medications and DC Order Prescriptions: New lisinopril [Zestril] 40 mg Tablet 40 mg PO HS Qty: 30 RF: 0 amlodipine 10 mg tablet 10 mg PO DAILY Qty: 30 RF: 0 carvedilol 12.5 mg Tablet 18.75 mg PO BID Qty: 90 RF: 0 famotidine 20 mg Tablet 20 mg PO BID 7 Days Qty: 14 RF: 0 magnesium chloride [Mag 64] 64 mg Tablet,Delayed Release (Dr/Ec) 256 mg PO BID Qty: 60 RF: 0 sucralfate 100 mg/mL Suspension 1 gm PO QID 7 Days Qty: 280 RF: 0 Breo Ellipta 200-25 mcg/dose Blister With Device 1 puffs inhalation DAILY Qty: 28 RF: 0 guaifenesin [Mucinex] 600 mg Tablet Extended Release 12hr 600 mg PO Q12 Qty: 14 RF: 0 Continued ondansetron 4 mg tablet,disintegrating 4 mg translingual TID PRN (Reason: nausea and vomiting) Qty: 60 RF: 1 cetirizine [Zyrtec] 10 mg tablet 5 mg PO QAM RF: 0 omega-3 acid ethyl esters 1 gram capsule 1 cap PO BID RF: 0 nitroglycerin 0.4 mg tablet, sublingual 0.4 mg SL Q5M PRN (Reason: chest pain) Qty: 25 RF: 0 potassium chloride 20 mEq tablet extended release 20 meq PO HS Qty: 30 RF: 0 cinacalcet 60 mg tablet 60 mg PO QAM Qty: 90 RF: 0 omeprazole 20 mg capsule,delayed release(DR/EC) 20 mg PO BID RF: 0 melatonin 10 mg capsule 10 mg PO HS RF: 0 atorvastatin 80 mg tablet 80 mg PO HS RF: 0 sertraline 100 mg tablet 100 mg PO QAM RF: 0 clopidogrel 75 mg tablet 75 mg PO PM RF: 0 aspirin 81 mg tablet,delayed release (DR/EC) 81 mg PO QAM RF: 0 isosorbide mononitrate 120 mg tablet extended release 24 hr 120 mg PO QAM RF: 0 levothyroxine 75 mcg tablet 75 mcg PO QAM RF: 0 trazodone 150 mg tablet 150 mg PO HS RF: 0 calcitriol 0.25 mcg capsule 0.25 mcg PO QAM RF: 0 cholecalciferol (vitamin D3) 2,000 unit capsule 4,000 units PO QAM RF: 0 Changed albuterol sulfate 90 mcg/actuation HFA aerosol inhaler 2 puffs inhalation Q6 PRN (Reason: shortness of breath or wheezing) Qty: 18 RF: 0 Discontinued ascorbic acid (vitamin C) 1,000 mg tablet 1 gm PO PM RF: 0 magnesium 250 mg tablet 250 mg PO HS RF: 0 lisinopril 20 mg tablet 20 mg PO HS RF: 0 ferrous sulfate 325 mg (65 mg iron) tablet 325 mg PO HS RF: 0 metoprolol succinate 25 mg tablet extended release 24 hr 12.5 mg PO QAM RF: 0 Discharge Orders: Discharge Order (Routine); Ordered 01/21/20 Ordered By: Opal Arellano Admission Data Admit Date/Time: 01/12/20 16:10 Attending Provider: Opal Arellano Admit Provider: Phill Clarke Primary Care Provider: Jerald Sneed Other Providers: Phill Clarke ; [facility] Coding Level of Care Code D/C Day Management >30 mins Diagnoses Influenza A J10.1 Community acquired pneumonia J18.9 Laterality: unspecified laterality Asthma exacerbation J45.31 Asthma severity: mild Asthma persistence: persistent Nausea R11.0 Coronary artery disease I25.10 Coronary Disease-Associated Artery/Lesion type: minto artery [place] vs. transplanted heart: minto heart Associated angina: without angina Hypomagnesemia E83.42 Hypertension I10 Hypertension type: unspecified Sinus tachycardia R00.0 Hypothyroidism E03.9 Hypothyroidism type: acquired CKD (chronic kidney disease) N18.3 Chronic kidney disease stage: stage 3 (moderate) Diarrhea R19.7 Diarrhea type: unspecified type Hyperparathyroidism E21.3 Depression F32.9 Pancreas cyst K86.2 Cholelithiasis K80.20 DVT prophylaxis Z29.9
--- NOTE | 2020-01-25 12:07 | Coding Query ---
PRESENT ON ADMISSION QUERY To promote full compliance with coding requirements relating to pateint care, physician participation is requested in all cases of medical biller/coder uncertainty. Please assist us with the question(s) below: Please place an X within the parenthesis (x). The following diagnosis(es) listed in this patient's medical record require physician assistance to determine if they were present on admission (POA) or not. Please advise for each diagnosis whether it was present on admission, not present on admission, or if it was clinically undetermined. 1. ACUTE RESPIRATORY FAILURE WITH HYPOXIA (documented on Discharge Summary Principal Diagnosis area) ( x) Present On Admission ( ) Not Present On Admission ( ) Clinically Undetermined 2. ASTHMA EXACERBATION (documentation begins on first Progress Note on 01/13/20) ( ) Present On Admission (x ) Not Present On Admission ( ) Clinically Undetermined Thank you Emili Summers *Definition of the present on admission (POA)-Present on admission is defined as present at the time the order for inpatient admission occurs. Conditions that develop during an outpatient encounter prior to a written order for inpatient admission (including emergency department, observation, or outpatient surgery) are considered present on admission. FLOR
== END 2020-01-21 12:50 | DRG 193 ==
LOC: ED 12:19 → SUATTDRO 16:10 → 2S 16:10 → 4W 01-14 15:15 → 3E 01-18 21:05

== ENCOUNTER 2022-03-12 08:03 | Inpatient (IN) ==
[2022-03-12] MEDS ORDERED: SODIUM CHLORIDE 0.9% 500 ML IV SCH (08:30)
--- NOTE | 2022-03-12 08:35 | Emergency Department Note ---
Impression & Plan Weakness, Abdominal pain, CAROLINA (acute kidney injury), GIB (gastrointestinal bleeding) ED Provider Note NAME: NIRAJ WILKINSON AGE: 77 SEX: F : 1945 ARRIVES VIA: Ambulance INFORMANT: Patient, ED PROVIDER(S): Joel Terrazas DO CHIEF COMPLAINT: Generalized weakness HPI: The patient is a 77-year-old female who presented to the emergency department for an evaluation of generalized weakness. The patient states that she has had abdominal discomfort as well as diarrhea for the last 3 to 4 weeks. She states her symptoms have been constant and slowly worsening. She states she is scheduled for stool studies this week but they have not been done as of yet. She denies having any chest pain. She has had no difficulty breathing but states that she has generalized weakness that worsens with any exertion. She has had no recent trauma. She states she has had some loose bowel movements about 3-4 times a day and they have recently started to become mixed with blood. She denies having any fever. She denies having any changes to her medications. She states that she has been compliant with her usual outpatient medications. ROS: See above HPI for pertinent positives & negatives. A total of 10 systems reviewed and were otherwise negative. PAST MEDICAL HISTORY: See Below PAST SURGICAL HISTORY: See Below FAMILY HISTORY: See Below SOCIAL HISTORY: See Below HOME MEDICATIONS: See Below ALLERGIES: See Below VITALS: See Below PHYSICAL EXAMINATION: GENERAL: The patient is awake and alert. She is somewhat listless appearing. EYES: The conjunctivae are clear. The pupils are round and reactive. EARS, NOSE, MOUTH AND THROAT: The nose is without any evidence of any deformity. Mucous membranes are dry. NECK: The neck is nontender and supple. RESPIRATORY: Normal respiratory effort is noted there is no evidence of wheezing rhonchi or rales CARDIOVASCULAR: Regular rate and rhythm noted there no murmurs rubs or gallops normal S1 normal S2. GASTROINTESTINAL: The abdomen is soft and mildly distended. There is no specific tenderness guarding rigidity. Rectal exam revealed brown stool which was heme positive. MUSCULOSKELETAL/EXTREMITIES: There is no evidence of gross deformity full range of motion is noted in the hips and shoulders. SKIN: There is no obvious evidence of any rash. There are no petechiae, pallor or cyanosis noted. NEUROLOGIC: Patient is awake alert and oriented x3. Strength is diminished but symmetric. MEDICAL DECISION MAKING: The patient is a 77-year-old female who presented to the emergency department for evaluation of diarrhea and abdominal pain. The patient was treated with IV fluids in the emergency department. She was reevaluated multiple times. I discussed the patient's laboratory and radiographic studies with her. She was found to have signs of GI bleeding on rectal exam. For this reason I discussed her case with the on-call [facility] hospitalist. They have agreed to evaluate the patient in the emergency department for further management and disposition. The patient was not hypotensive or tachycardic. Triage Nursing notes reviewed. Prior medical records reviewed Vital Signs: reviewed and remarkable for no significant abnormalities Differential diagnosis: Diverticulosis, AVM, coagulopathy, colitis, inflammatory bowel disease, malignancy, Adriana-Lozada tear, esophagitis, peptic ulcer disease, variceal bleed, gastritis, epistaxis, fissure, hemorrhoids, as well as other pathologies. ER treatment provided: See below Diagnostics interpreted by me: ECG: EKG was obtained in the emergency department. My interpretation is sinus bradycardia 48 beats per minute. No PVCs were noted. Diffuse T wave inversions were noted. Diffuse ST segment abnormalities were noted. This was compared to a tracing from May 05, 2020. The rate has slowed however otherwise there is no significant changes. Cardiac Monitoring: An order was placed for continuous cardiac monitoring. The monitor shows a rate of 72 bpm with sinus rhythm. Laboratory studies: As stated above and show below. Imaging studies: See below Consultation(s): I discussed this case with Dr. Granger who is on-call for the [facility]. Past Med/Surg History Medical History Asthma Cholelithiasis Coronary artery disease Depression DKA (diabetic ketoacidosis) DM (diabetes mellitus) History of heart disease Hypertension Hypothyroidism Pancreas cyst Urinary incontinence Surgical History History of appendectomy History of bilateral salpingo-oophorectomy (BSO) History of hysterectomy History of tubal ligation S/P bypass graft of extremity S/P CABG x 4 S/P cataract surgery Family History Sister Myocardial infarction Emphysema, unspecified Brother Myocardial infarction Diabetes Father Cerebral artery occlusion with cerebral infarction Mother Cerebral artery occlusion with cerebral infarction Diabetes Denies family history of Ovarian cancer Prostate cancer Kidney disease Breast cancer Colorectal cancer Social History Smoking Status: Never smoker Tobacco Type: Cigarettes Age Started Using Tobacco: 31; Age Quit Using Tobacco: 54; packs per day: 4; Years Smoked: 23; Number of Years Since Quit: 20; Second Hand Exposure: No; Hx 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) Hx Substance Use: No Preferred Language: Swedish Communication Ability: Effective Visual Impairment: No Limitations Hearing Ability: Use of Hearing Aid marital status: Current Living Situation: Alone Current Living Situation Comment: [facility] current occupational status: retired 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, 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, 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 [employer] Feels Safe at Home: Yes Safety Concerns Comment: Patient is afraid of falling while home alone, has railings on bed Childhood Exposure to Second-Hand Smoke: Yes caffeine: Yes (mixes decaf and reg coffee) Dental Care, Regularly: No Physical Activity Frequency: Does not Exercise Physical Activity Frequency Comment: Exercise limited by physical condition Seatbelt Use: always Sunscreen Use: No (doesn't go outside ) Assistive Devices: Glasses, Hearing Aid - Bilateral, Walker and Wheelchair Allergies Allergies Allergy/AdvReac Type Severity Reaction Status Date / Time nickel Allergy Unknown RASH Verified 03/12/22 11:43 rosuvastatin AdvReac Mild Pain Verified 03/12/22 11:43 salicylates AdvReac Mild GI UPSET Verified 03/12/22 11:43 adhesive AdvReac Unknown ITCHING Verified 03/12/22 11:43 Home Meds Home Medications Medication Instructions Recorded Confirmed omega-3 acid ethyl esters 1 gram 1 cap PO BID cap 06/18/19 03/12/22 capsule cetirizine 10 mg tablet (Zyrtec) 5 mg PO QAM 09/07/19 03/12/22 atorvastatin 80 mg tablet 80 mg PO HS 03/12/22 03/12/22 calcitriol 0.25 mcg capsule 0.25 mcg PO Q2D 03/12/22 03/12/22 cinacalcet 60 mg tablet (Sensipar) 60 mg PO QAM 03/12/22 03/12/22 clopidogrel 75 mg tablet 75 mg PO QAM 03/12/22 03/12/22 Previous Rx's Medication Instructions Recorded hydrocortisone 2.5 % topical cream 1 appln ME DAILY PRN #30 gm 05/17/20 with perineal applicator nitroglycerin 0.4 mg sublingual 0.4 mg SL Q5M PRN #25 tab 02/10/21 tablet metoprolol succinate 25 mg 12.5 mg PO DAILY #45 tab 04/05/21 tablet,extended release 24 hr trazodone 150 mg tablet 150 mg PO HS #90 tab 04/27/21 potassium chloride 20 mEq 20 meq PO DAILY #90 tab 05/17/21 tablet,extended release(part/cryst) (Klor-Con M) ondansetron 4 mg disintegrating 4 mg TRANSLINGUAL TID PRN #60 tab 05/23/21 tablet omeprazole 20 mg capsule,delayed 20 mg PO BID #180 cap 06/16/21 release fluticasone furoate 200 1 inh INHALATION DAILY #28 ea 09/04/21 mcg-vilanterol 25 mcg/dose inhalation powder (Breo Ellipta) aspirin 81 mg tablet,delayed 81 mg PO DAILY #90 tab 09/19/21 release isosorbide mononitrate 120 mg 120 mg PO QAM #90 tab 09/26/21 tablet,extended release 24 hr sertraline 100 mg tablet 100 mg PO DAILY #90 tab MDD 150mg 11/09/21 sertraline 50 mg tablet 50 mg PO DAILY #90 tab MDD 150mg 11/09/21 cholecalciferol (vitamin D3) 50 2,000 unit PO QAM #90 cap 11/10/21 mcg (2,000 unit) capsule amlodipine 10 mg tablet 5 mg PO DAILY #30 tab 11/20/21 albuterol sulfate 90 mcg/actuation 2 puff INHALATION Q6 PRN #18 gm 12/04/21 aerosol inhaler sucralfate 1 gram tablet 1 g PO TID #90 tab 12/25/21 levothyroxine 100 mcg tablet 100 mcg PO DAILY #90 tab 01/26/22 famotidine 20 mg tablet 20 mg PO BID #60 tab 02/14/22 lisinopril 40 mg tablet (Zestril) 40 mg PO HS #90 tab 02/14/22 magnesium oxide 250 mg PO TID #180 tab 02/16/22 Results & Data (ED) Vital Signs Vital Signs - 24 hr 03/12/22 08:03 03/12/22 08:14 03/12/22 08:30 Temperature 36.5 C Temperature Source Oral Pulse Rate 50 L 48 L 52 L Pulse Rate [Apical] Pulse Rate from SpO2 Sensor 49 L Respiratory Rate 19 18 17 Respiratory Effort / Characteristics Non-Labored Respiratory Depth Normal Respiratory Pattern Regular Blood Pressure 162/51 H Blood Pressure [Left Arm] Blood Pressure Mean 88 Blood Pressure Mean [Left Arm] Pulse Oximetry 96 96 Oxygen Delivery Method Room Air Sepsis Recent Fever Within 48 Hours No Sepsis New/Unexplained Change in Mental Status No Sepsis Action Taken by Nursing No Action Required 03/12/22 08:33 03/12/22 09:00 03/12/22 09:30 Temperature Temperature Source Pulse Rate 52 L 58 L Pulse Rate [Apical] 56 L Pulse Rate from SpO2 Sensor 58 L 61 Respiratory Rate 20 14 Respiratory Effort / Characteristics Non-Labored Spontaneous Respiratory Depth Normal Respiratory Pattern Regular Blood Pressure 160/55 H Blood Pressure [Left Arm] 162/51 H Blood Pressure Mean 90 Blood Pressure Mean [Left Arm] 88 Pulse Oximetry 94 96 99 Oxygen Delivery Method Room Air Sepsis Recent Fever Within 48 Hours Sepsis New/Unexplained Change in Mental Status Sepsis Action Taken by Nursing 03/12/22 10:02 03/12/22 10:30 03/12/22 11:00 Temperature Temperature Source Pulse Rate 69 62 65 Pulse Rate [Apical] Pulse Rate from SpO2 Sensor 67 63 65 Respiratory Rate 15 16 19 Respiratory Effort / Characteristics Respiratory Depth Respiratory Pattern Blood Pressure 185/68 H 199/66 H 195/73 H Blood Pressure [Left Arm] Blood Pressure Mean 107 110 113 Blood Pressure Mean [Left Arm] Pulse Oximetry 93 98 94 Oxygen Delivery Method Room Air Room Air Sepsis Recent Fever Within 48 Hours Sepsis New/Unexplained Change in Mental Status Sepsis Action Taken by Nursing 03/12/22 11:30 03/12/22 12:00 03/12/22 12:34 Temperature Temperature Source Pulse Rate 69 70 78 Pulse Rate [Apical] Pulse Rate from SpO2 Sensor 69 70 78 Respiratory Rate 18 13 22 Respiratory Effort / Characteristics Respiratory Depth Respiratory Pattern Blood Pressure 198/105 H 205/118 H Blood Pressure [Left Arm] Blood Pressure Mean 136 147 Blood Pressure Mean [Left Arm] Pulse Oximetry 97 97 96 Oxygen Delivery Method Sepsis Recent Fever Within 48 Hours Sepsis New/Unexplained Change in Mental Status Sepsis Action Taken by Nursing 03/12/22 12:48 Temperature Temperature Source Pulse Rate 72 Pulse Rate [Apical] Pulse Rate from SpO2 Sensor 72 Respiratory Rate 17 Respiratory Effort / Characteristics Respiratory Depth Respiratory Pattern Blood Pressure 168/59 H Blood Pressure [Left Arm] Blood Pressure Mean 95 Blood Pressure Mean [Left Arm] Pulse Oximetry 98 Oxygen Delivery Method Sepsis Recent Fever Within 48 Hours Sepsis New/Unexplained Change in Mental Status Sepsis Action Taken by Residential Medications Current Medication List: was personally reviewed by me Laboratory Data Attestation: I reviewed the patient's lab results. Result diagrams: 03/12/22 08:36 03/12/22 08:36 Lab Results 03/12/22 03/12/22 03/12/22 Range/Units 08:36 08:36 08:36 WBC 11.07 H (4.8-10.8) K/uL RBC 3.90 L (4.2-5.4) M/uL Hgb 11.5 L (12.0-16.0) g/dL Hct 35.0 L (37-47) % MCV 89.7 (80-100) fL MCH 29.5 (25-34) pg MCHC 32.9 (32-36) g/dL RDW Std Deviation 52.9 H (36.4-46.3) fL RDW Coeff of Nathan 16.0 H (11.5-14.5) % Plt Count 216 (130-400) K/uL MPV 10.1 (7.4-10.4) fL Immature Gran % (Auto) 0.4 % Neut % (Auto) 77.4 % Lymph % (Auto) 14.7 % [place] % (Auto) 6.3 % Eos % (Auto) 1.1 % Baso % (Auto) 0.1 % Neut # (Auto) 8.57 H (1.4-6.5) K/uL Lymph # (Auto) 1.63 (1.2-3.4) K/uL [place] # (Auto) 0.70 H (0.11-0.59) K/uL Eos # (Auto) 0.12 (0-0.5) K/uL Baso # (Auto) 0.01 (0-0.2) K/uL Immature Gran # (Auto) 0.04 H (0.00-0.02) K/uL PT 10.2 (9.0-12.0) Seconds INR 1.0 (0.9-1.1) APTT 23.6 (21.0-31.0) Seconds PTT Ratio 0.9 Sodium 139 (136-145) mmol/L Potassium 4.5 (3.5-5.1) mmol/L Chloride 105 (98-107) mmol/L Carbon Dioxide 26 (21-32) mmol/L Anion Gap 8 (3-11) BUN 30 H (6-23) mg/dl Creatinine 1.47 H (0.6-1.2) mg/dl Est Cr Clr Drug Dosing 24.5 ml/min Est GFR ( Amer) 39.8 ml/min Est GFR (Non-Af Amer) 34.3 ml/min BUN/Creatinine Ratio 20.4 H (10-20) Glucose 108 H (70-99(Fasting)) mg/dl Calcium 8.8 (8.5-10.1) mg/dl Phosphorus Magnesium 1.8 (1.7-2.4) mg/dl Total Bilirubin 0.3 (0.2-1.0) mg/dl AST 13 (13-39) U/L ALT 10 (7-52) U/L Alkaline Phosphatase 55 (34-104) U/L Total Creatine Kinase 29 (26-192) U/L Troponin I High Sens 5.6 (0-14) pg/ml C-Reactive Protein (0-0.5) mg/dl Total Protein 6.3 (6.0-8.3) gm/dl Albumin 4.0 (3.4-5.0) gm/dl Globulin 2.3 L (2.5-4.0) gm/dl Albumin/Globulin Ratio 1.7 (0.9-2) TSH (0.300-4.500) uIu/ml Free T4 (0.61-1.60) ng/dl SARS-CoV-2, RNA, NAAT (NEGATIVE) 03/12/22 03/12/22 03/12/22 Range/Units 08:36 08:36 08:36 WBC (4.8-10.8) K/uL RBC (4.2-5.4) M/uL Hgb (12.0-16.0) g/dL Hct (37-47) % MCV (80-100) fL MCH (25-34) pg MCHC (32-36) g/dL RDW Std Deviation (36.4-46.3) fL RDW Coeff of Nathan (11.5-14.5) % Plt Count (130-400) K/uL MPV (7.4-10.4) fL Immature Gran % (Auto) % Neut % (Auto) % Lymph % (Auto) % [place] % (Auto) % Eos % (Auto) % Baso % (Auto) % Neut # (Auto) (1.4-6.5) K/uL Lymph # (Auto) (1.2-3.4) K/uL [place] # (Auto) (0.11-0.59) K/uL Eos # (Auto) (0-0.5) K/uL Baso # (Auto) (0-0.2) K/uL Immature Gran # (Auto) (0.00-0.02) K/uL PT (9.0-12.0) Seconds INR (0.9-1.1) APTT (21.0-31.0) Seconds PTT Ratio Sodium (136-145) mmol/L Potassium (3.5-5.1) mmol/L Chloride (98-107) mmol/L Carbon Dioxide (21-32) mmol/L Anion Gap (3-11) BUN (6-23) mg/dl Creatinine (0.6-1.2) mg/dl Est Cr Clr Drug Dosing ml/min Est GFR ( Amer) ml/min Est GFR (Non-Af Amer) ml/min BUN/Creatinine Ratio (10-20) Glucose (70-99(Fasting)) mg/dl Calcium (8.5-10.1) mg/dl Phosphorus Cancelled 4.6 Magnesium (1.7-2.4) mg/dl Total Bilirubin (0.2-1.0) mg/dl AST (13-39) U/L ALT (7-52) U/L Alkaline Phosphatase (34-104) U/L Total Creatine Kinase (26-192) U/L Troponin I High Sens (0-14) pg/ml C-Reactive Protein < 0.50 (0-0.5) mg/dl Total Protein (6.0-8.3) gm/dl Albumin (3.4-5.0) gm/dl Globulin (2.5-4.0) gm/dl Albumin/Globulin Ratio (0.9-2) TSH 5.458 H (0.300-4.500) uIu/ml Free T4 1.32 (0.61-1.60) ng/dl SARS-CoV-2, RNA, NAAT (NEGATIVE) 03/12/22 Range/Units 12:45 WBC (4.8-10.8) K/uL RBC (4.2-5.4) M/uL Hgb (12.0-16.0) g/dL Hct (37-47) % MCV (80-100) fL MCH (25-34) pg MCHC (32-36) g/dL RDW Std Deviation (36.4-46.3) fL RDW Coeff of Nathan (11.5-14.5) % Plt Count (130-400) K/uL MPV (7.4-10.4) fL Immature Gran % (Auto) % Neut % (Auto) % Lymph % (Auto) % [place] % (Auto) % Eos % (Auto) % Baso % (Auto) % Neut # (Auto) (1.4-6.5) K/uL Lymph # (Auto) (1.2-3.4) K/uL [place] # (Auto) (0.11-0.59) K/uL Eos # (Auto) (0-0.5) K/uL Baso # (Auto) (0-0.2) K/uL Immature Gran # (Auto) (0.00-0.02) K/uL PT (9.0-12.0) Seconds INR (0.9-1.1) APTT (21.0-31.0) Seconds PTT Ratio Sodium (136-145) mmol/L Potassium (3.5-5.1) mmol/L Chloride (98-107) mmol/L Carbon Dioxide (21-32) mmol/L Anion Gap (3-11) BUN (6-23) mg/dl Creatinine (0.6-1.2) mg/dl Est Cr Clr Drug Dosing ml/min Est GFR ( Amer) ml/min Est GFR (Non-Af Amer) ml/min BUN/Creatinine Ratio (10-20) Glucose (70-99(Fasting)) mg/dl Calcium (8.5-10.1) mg/dl Phosphorus Magnesium (1.7-2.4) mg/dl Total Bilirubin (0.2-1.0) mg/dl AST (13-39) U/L ALT (7-52) U/L Alkaline Phosphatase (34-104) U/L Total Creatine Kinase (26-192) U/L Troponin I High Sens (0-14) pg/ml C-Reactive Protein (0-0.5) mg/dl Total Protein (6.0-8.3) gm/dl Albumin (3.4-5.0) gm/dl Globulin (2.5-4.0) gm/dl Albumin/Globulin Ratio (0.9-2) TSH (0.300-4.500) uIu/ml Free T4 (0.61-1.60) ng/dl SARS-CoV-2, RNA, NAAT NEGATIVE (NEGATIVE) Administered Medications Magnesium Sulfate/Dextrose (Magnesium Sulfate / D5w) 1 gm in 100 mls @ 50 mls/hr IV Q2H JANELLE Stop: 03/12/22 17:29 Last Admin: 03/12/22 13:54 Dose: 50 mls/hr Documented by: [id number] Discontinued Medications Amlodipine Besylate (Amlodipine Besylate 5 Mg Tab) 5 mg PO NOW STA Stop: 03/12/22 12:22 Last Admin: 03/12/22 13:54 Dose: 5 mg Documented by: [id number] Sodium Chloride (Nss) 500 mls @ 999 mls/hr IV .Q31M JANELLE Stop: 03/12/22 09:00 Last Infusion: 03/12/22 09:20 Dose: 0 mls/hr Documented by: [id number] Admin: 03/12/22 08:32 Dose: 999 mls/hr Documented by: [id number] Ioversol (Optiray 320 100ml) 95 ml IV ONCE ONE Stop: 03/12/22 12:31 Last Admin: 03/12/22 12:31 Dose: 95 ml Documented by: [id number] Imaging Data Radiologist's Impression: Chest X-Ray 03/12/22 08:22 XR chest 1V portable CLINICAL HISTORY: Weakness. COMPARISON STUDY: Chest CT July 18, 2021. FINDINGS: Lung volumes are normal. Lungs are clear. There is no pneumothorax or pleural effusion. Cardiac size is stable. Mediastinal contours are normal. There is no evidence for pulmonary edema. IMPRESSION: No acute cardiopulmonary findings. No change in appearance of the chest. ACT 112: Negative or not required by law. Electronically signed by: Jason Cooper M.D. 03/12/2022 9:07 AM KUB X-Ray 03/12/22 08:22 KUB CLINICAL HISTORY: GI bleeding. FINDINGS: 2 AP supine abdominal radiographs are correlated with abdominal CT dated 01/19/2016. There is a nonobstructed abdominal bowel gas pattern. No evidence of intraperitoneal free air is seen on these supine images. There are no abnormal abdominal calcifications. Numerous phleboliths are seen in the pelvis. Surgical clips project over the right groin. The skeletal structures are osteopenic and appear intact. There is moderate lumbosacral spondylosis. IMPRESSION: No acute abnormality is identified. Electronically signed by: Zeferino Paula M.D. 03/12/2022 9:03 AM Abdomen/Pelvis CT 03/12/22 12:[address] WITH IV CONTRAST CT DOSE: 365.94 mGy.cm HISTORY: Acute right lower quadrant abdominal pain RLQ pain, diarrhea, fecal occult positive TECHNIQUE: Multiaxial CT images of the abdomen and pelvis were performed following the IV administration of 95 cc of Optiray, A dose lowering technique was utilized adhering to the principles of ALARA. COMPARISON STUDY: CT abdomen and pelvis 01/19/2016 FINDINGS: Surgical clips within the left anterior lower chest are redemonstrated. The heart is mildly enlarged. Mild subsegmental bibasilar atelectasis. No p neumatosis or pneumoperitoneum. The spleen and right adrenal gland are unremarkable. 11 mm left adrenal gland adenoma. There are a few cystic foci noted within the pancreatic body and tail measuring up to 10 mm which are indeterminate and may represent a sidebranch IPMN's, new from 2016. No pancreatic ductal dilation. Probable adenomyomatosis of the gallbladder fundus. There are numerous water attenuating lesions noted throughout the liver measuring up to 3.1 cm and the left hepatic lobe suggestive of probable cysts. Several of the foci are too small to characterize. Patency of the hepatic and portal veins. Cortical thinning of the kidneys. There are a few left-sided renal vascular calcifications noted. There is no hydronephrosis. Partial distention of the urinary bladder with moderate anterior wall thickening and mild mucosal hyperemia. Hysterectomy. No adnexal mass lesions. Extensive atherosclerosis of the abdominal aorta which appears to result in multifocal stenosis of the branch vessels. No lymphadenopathy is identified. Colonic diverticulosis without acute diverticulitis. No bowel obstruction or bow el wall thickening. The appendix is reportedly surgically absent. No ascites or mesenteric inflammation. Unremarkable soft tissues. Grade 1 anterolisthesis L4 on L5 is likely on a degenerative basis. Degenerative changes of the spine, pelvis and hips. IMPRESSION: 1. No bowel obstruction or bowel wall thickening. 2. Colonic diverticulosis without acute diverticulitis. 3. Partial distention of the urinary bladder with nonspecific wall thickening. Correlate with urinalysis. 4. Prior hysterectomy and appendectomy. 5. Additional findings as above. ACT 112: Negative or not required by law. The above report was generated using voice recognition software. It may contain grammatical, syntax or spelling errors. Electronically signed by: Sawyer Ortiz M.D. 03/12/2022 12:41 PM Discharge Plan Visit Data Chief Complaint: Weakness Stated Complaint: weakness ED Provider: Joel Terrazas Discharge Problem: Weakness, Abdominal pain, CAROLINA (acute kidney injury), GIB (gastrointestinal bleeding) Patient Disposition: Being Evaluated by Hospitalist Forms Stand Alone Forms: My [facility] [place] [employer] Prescriptions Prescriptions: No Action nitroglycerin 0.4 mg tablet, sublingual 0.4 mg SL Q5M PRN (Reason: chest pain) Qty: 25 RF: 0 metoprolol succinate 25 mg tablet extended release 24 hr 12.5 mg PO DAILY Qty: 45 RF: 3 potassium chloride [Klor-Con M20] 20 mEq tablet,ER particles/crystals 20 meq PO DAILY Qty: 90 RF: 3 ondansetron 4 mg tablet,disintegrating 4 mg translingual TID PRN (Reason: nausea and vomiting) Qty: 60 RF: 1 omeprazole 20 mg capsule,delayed release(DR/EC) 20 mg PO BID Qty: 180 RF: 3 Breo Ellipta 200-25 mcg/dose blister with device 1 inh inhalation DAILY Qty: 28 RF: 11 aspirin 81 mg tablet,delayed release (DR/EC) 81 mg PO DAILY Qty: 90 RF: 3 isosorbide mononitrate 120 mg tablet extended release 24 hr 120 mg PO QAM Qty: 90 RF: 3 sertraline 100 mg tablet 100 mg PO DAILY MDD 150mg Qty: 90 RF: 3 sertraline 50 mg tablet 50 mg PO DAILY MDD 150mg Qty: 90 RF: 3 cholecalciferol (vitamin D3) 50 mcg (2,000 unit) capsule 2,000 unit PO QAM Qty: 90 RF: 3 amlodipine 10 mg tablet 5 mg PO DAILY Qty: 30 RF: 11 albuterol sulfate 90 mcg/actuation HFA aerosol inhaler 2 puff inhalation Q6 PRN (Reason: shortness of breath or wheezing) Qty: 18 RF: 0 sucralfate 1 gram tablet 1 g PO TID Qty: 90 RF: 5 levothyroxine 100 mcg tablet 100 mcg PO DAILY Qty: 90 RF: 1 famotidine 20 mg tablet 20 mg PO BID Qty: 60 RF: 5 lisinopril [Zestril] 40 mg tablet 40 mg PO HS Qty: 90 RF: 3 magnesium oxide 250 mg magnesium tablet 250 mg PO TID Qty: 180 RF: 3 cetirizine [Zyrtec] 10 mg tablet 5 mg PO QAM RF: 0 hydrocortisone 2.5 % cream with perineal applicator 1 appln ME DAILY PRN (Reason: hemorrhoids) Qty: 30 RF: 2 omega-3 acid ethyl esters 1 gram capsule 1 cap PO BID RF: 0 trazodone 150 mg tablet 150 mg PO HS Qty: 90 RF: 3 atorvastatin 80 mg tablet 80 mg PO HS RF: 0 clopidogrel 75 mg tablet 75 mg PO QAM RF: 0 calcitriol 0.25 mcg capsule 0.25 mcg PO Q2D RF: 0 cinacalcet [Sensipar] 60 mg tablet 60 mg PO QAM RF: 0 Referrals Referrals: Tye Sneed MD [Primary Care Provider] -
[2022-03-12 08:50] LABS: Basophils # (auto) 0.01 K/uL (0-0.2); Basophils % (auto) 0.1 %; Eosinophils # (auto) 0.12 K/uL (0-0.5); Eosinophils % (auto) 1.1 %; Hemoglobin 11.5 g/dL (12.0-16.0); Immature Granulocytes # (auto) 0.04 K/uL (0.00-0.02); Immature Granulocytes % (auto) 0.4 %; Lymphocytes # (auto) 1.63 K/uL (1.2-3.4); Lymphocytes % (auto) 14.7 %; Mean Corpuscular Hemoglobin 29.5 pg (25-34); Mean Corpuscular Hgb Conc 32.9 g/dL (32-36); Mean Corpuscular Volume 89.7 fL (80-100); Mean Platelet Volume 10.1 fL (7.4-10.4); Monocytes % (auto) 6.3 %; Neutrophils # (auto) 8.57 K/uL (1.4-6.5); Neutrophils % (auto) 77.4 %; Platelet Count 216 K/uL (130-400); RDW Standard Deviation 52.9 fL (36.4-46.3); White Blood Count 11.07 K/uL (4.8-10.8)
[2022-03-12 09:01] LABS: Partial Thromboplastin Ratio 0.9; Partial Thromboplastin Time 23.6 Seconds (21.0-31.0); Prothrombin Time 10.2 Seconds (9.0-12.0)
--- NOTE | 2022-03-12 09:05 | XRay Report ---
KUB CLINICAL HISTORY: GI bleeding. FINDINGS: 2 AP supine abdominal radiographs are correlated with abdominal CT dated 01/19/2016. There i s a nonobstructed abdominal bowel gas pattern. No evidence of intraperitoneal free air is seen on the se supine images. There are no abnormal abdominal calcifications. Numerous phleboliths are seen in th e pelvis. Surgical clips project over the right groin. The skeletal structures are osteopenic and fifi ear intact. There is moderate lumbosacral spondylosis. IMPRESSION: No acute abnormality is identified. Electronically signed by: Zeferino Paula M.D. 03/12/2022 9:03 AM
--- NOTE | 2022-03-12 09:08 | XRay Report ---
XR chest 1V portable CLINICAL HISTORY: Weakness. COMPARISON STUDY: Chest CT July 18, 2021. FINDINGS: Lung volumes are normal. Lungs are clear. There is no pneumothorax or pleural effusion. Car diac size is stable. Mediastinal contours are normal. There is no evidence for pulmonary edema. IMPRESSION: No acute cardiopulmonary findings. No change in appearance of the chest. ACT 112: Negative or not required by law. Electronically signed by: Jason Cooper M.D. 03/12/2022 9:07 AM
[2022-03-12 09:19] LABS: Troponin I High Sensitivity 5.6 pg/ml (0-14)
[2022-03-12 09:20] LABS: Albumin Globulin Ratio 1.7 (0.9-2); BUN Creatinine Ratio 20.4 (10-20); Bilirubin,Total 0.3 mg/dl (0.2-1.0); Calcium 8.8 mg/dl (8.5-10.1); Creatinine Clr Calc Pharmacy 24.5 ml/min; Est GFR (African American) 39.8 ml/min; Est GFR (Non-African American) 34.3 ml/min; Globulin 2.3 gm/dl (2.5-4.0); Magnesium 1.8 mg/dl (1.7-2.4); Potassium 4.5 mmol/L (3.5-5.1); Total Protein 6.3 gm/dl (6.0-8.3)
[2022-03-12 09:27] LABS: Thyroid Stimulating Hormone 5.458 uIu/ml (0.300-4.500)
[2022-03-12 09:58] LABS: T4 Free Thyroxine 1.32 ng/dl (0.61-1.60)
[2022-03-12] MEDS ORDERED: PANTOprazole 40 MG in SYRINGE 0 ML IV ONE (11:33)
[2022-03-12] MEDS ORDERED: amLODIPine BESYLATE 5 MG TAB PO STA (12:21)
[2022-03-12] MEDS ORDERED: ISOSORBIDE MONO EXTENDED REL 60 MG TABCR PO STA (12:21)
[2022-03-12] MEDS ORDERED: OPTIRAY 320 100ml IV ONE (12:30)
--- NOTE | 2022-03-12 12:43 | CT Scan Report ---
ABDOMEN AND PELVIS CT WITH IV CONTRAST CT DOSE: 365.94 mGy.cm HISTORY: Acute right lower quadrant abdominal pain RLQ pain, diarrhea, fecal occult positive TECHNIQUE: Multiaxial CT images of the abdomen and pelvis were performed following the IV administrat ion of 95 cc of Optiray, A dose lowering technique was utilized adhering to the principles of ALARA. COMPARISON STUDY: CT abdomen and pelvis 01/19/2016 FINDINGS: Surgical clips within the left anterior lower chest are redemonstrated. The heart is mildly enlarged. Mild subsegmental bibasilar atelectasis. No pneumatosis or pneumoperitoneum. The spleen and right adrenal gland are unremarkable. 11 mm left adrenal gland adenoma. There are a fe w cystic foci noted within the pancreatic body and tail measuring up to 10 mm which are indeterminate and may represent a sidebranch IPMN's, new from 2016. No pancreatic ductal dilation. Probable adenom yomatosis of the gallbladder fundus. There are numerous water attenuating lesions noted throughout th e liver measuring up to 3.1 cm and the left hepatic lobe suggestive of probable cysts. Several of the foci are too small to characterize. Patency of the hepatic and portal veins. Cortical thinning of the kidneys. There are a few left-sided renal vascular calcifications noted. The re is no hydronephrosis. Partial distention of the urinary bladder with moderate anterior wall thicke xiang and mild mucosal hyperemia. Hysterectomy. No adnexal mass lesions. Extensive atherosclerosis of the abdominal aorta which appears to result in multifocal stenosis of the branch vessels. No lymphade nopathy is identified. Colonic diverticulosis without acute diverticulitis. No bowel obstruction or bowel wall thickening. T he appendix is reportedly surgically absent. No ascites or mesenteric inflammation. Unremarkable soft tissues. Grade 1 anterolisthesis L4 on L5 is likely on a degenerative basis. Degenerative changes of the spine, pelvis and hips. IMPRESSION: 1. No bowel obstruction or bowel wall thickening. 2. Colonic diverticulosis without acute diverticulitis. 3. Partial distention of the urinary bladder with nonspecific wall thickening. Correlate with urinaly sis. 4. Prior hysterectomy and appendectomy. 5. Additional findings as above. ACT 112: Negative or not required by law. The above report was generated using voice recognition software. It may contain grammatical, syntax o r spelling errors. Electronically signed by: Sawyer Ortiz M.D. 03/12/2022 12:41 PM
--- NOTE | 2022-03-12 13:07 | Electrocardiogram Report ---
Test Reason : Blood Pressure : / mmHG Vent. Rate : 048 BPM Atrial Rate : 048 BPM P-R Int : 184 ms QRS Dur : 104 ms QT Int : 514 ms P-R-T Axes : 043 043 102 degrees QTc Int : 459 ms Sinus bradycardia Incomplete right bundle branch block Abnormal ECG When compared with ECG of 05-MAY-2020 18:24, No significant change was found Confirmed by Tye Sterling ([id number]) on 03/12/2022 1:06:56 PM Referred By: Confirmed By:Mikhail Sterling
--- NOTE | 2022-03-12 13:29 | History & Physical Report ---
Date of Service March 12, 2022 Assessment & Plan (1) Diarrhea: Plan: Acute lasting more than a a month- with some relief in between - not associated with abdominal pain, fevers, blood in stool - with normal Bowel movements - possible IBD - infectious workup negative in January - Patient still has gallbladder with normal biliary labs- noting adenomyomatosis of gallbladder no other ambl. - liver lesions- interpreted as probably cyts - Will place on low fat and bland diet- follow symptoms- continue PPI - GI consult appreciated - was originally referred [place] [facility] [place] (2) Abdominal pain: Plan: As above- epigastric in nature following food ingestion - Hx of PUD - Remains on Carafate and PPI- continue - HGB within her baseline - GI consult for evaluation (3) Hypothyroidism: Plan: Continue with synthroid- 100mcg daily (4) CKD (chronic kidney disease): Plan: BROOK II on CKD IIIa - With diarrhea- will replete with 1 liter of ringers at 80ml/hr - Follow daily BMP - avoid further nephrotoxic medications as able (5) Coronary artery disease: Plan: Stable without symptoms endorsed - continue BB, ASA, Statin, EFE - Continue prn Nitroglycerine (6) Hypomagnesemia: Plan: Replete magnesium 2 GM IV (7) Hypertension: Plan: Follow- did not take oral medicaitons this morning- ordered am medications now- administered (8) Hyperparathyroidism: Plan: Continue cincalcet (9) Depression: Plan: Continue sertraline (10) Carotid artery stenosis: Plan: Noted in July with 70% stenosis - serial imaging was to have office visit last week with ultrasound but was cancelled - follow up in March - No Nuerological symptoms on exam or endorsed- continue asa/plavix/statin History of Present Illness Primary Care Provider: Tye Sneed MD 77 YOF with medical history of: CAD, CABG x4 (NETTLES/LAD, SVG/RI, SVG/Om2, SVG/RCA), PAD with b/l fem-pop bypass, Carotid artery stenosis, DM II, HTN, HLD, COPD, Dementia, hyperparathyroidism, obesity, hemorrhoids, LULI(non compliant- returned her CPAP). Patient comes to the EMD today for complaint of diarrhea and fatigue. The patient has been having diarrhea episodes on and off for over the past month. She was originally seeing her PCP for this, where she had a C. Diff and Ova/parasites and Shigella testing performed in January. This was all negative. The diarrhea started to improve, and patient reports that she actually had a formed stool yesterday but this morning was back with diarrhea and weakness. The patient denies any abdominal pain with this, no fevers, no chills. The stools are noted to be yellow in nature without any blood in the toilet but occasionally on the toilet paper. She reports 1-3 episodes of this daily. Reportedly she had her PPI stopped secondary to this in the past, and has resumed this but is unable to correlate symptoms. When further questioning, patient notes that she is not having much oral intake at times secondary to pain in her epigastrium that causes nausea and decrease in appetite. The patient states that after she eats, she will have onset of epigastric pain that is sharp in nature followed by nausea and then diarrhea. This pain occurs 45min to 1 hour following meals. The patient had been followed by [facility] in the past. Will admit patient, start on bland diet, follow lab markers as her biliary labs are normal. Follow H/H, consult GI for evaluation of symptoms and consider imaging as she has not had these updated. CT of the abdomen and pelvis did no reveal acute GI process although she is tender epigastrium and RLQ, cystitis- will start empiric Rocephin in light of mild elevated WBC and elevated NLR. Patient COVID test on admission is: NEGATIVE CODE: DNR/DNI Allergies Allergy/AdvReac Type Severity Reaction Status Date / Time nickel Allergy Unknown RASH Verified 03/12/22 11:43 rosuvastatin AdvReac Mild Pain Verified 03/12/22 11:43 salicylates AdvReac Mild GI UPSET Verified 03/12/22 11:43 adhesive AdvReac Unknown ITCHING Verified 03/12/22 11:43 Home Medications Medication Instructions Recorded Confirmed Type omega-3 acid ethyl esters 1 gram 1 cap PO BID cap 06/18/19 03/12/22 History capsule cetirizine 10 mg tablet (Zyrtec) 5 mg PO QAM 09/07/19 03/12/22 History hydrocortisone 2.5 % topical cream 1 appln DC DAILY PRN #30 gm 05/17/20 03/12/22 Rx with perineal applicator nitroglycerin 0.4 mg sublingual 0.4 mg SL Q5M PRN #25 tab 02/10/21 03/12/22 Rx tablet metoprolol succinate 25 mg 12.5 mg PO DAILY #45 tab 04/05/21 03/12/22 Rx tablet,extended release 24 hr trazodone 150 mg tablet 150 mg PO HS #90 tab 04/27/21 03/12/22 Rx potassium chloride 20 mEq 20 meq PO DAILY #90 tab 05/17/21 03/12/22 Rx tablet,extended release(part/cryst) (Klor-Con M) ondansetron 4 mg disintegrating 4 mg TRANSLINGUAL TID PRN #60 tab 05/23/21 03/12/22 Rx tablet omeprazole 20 mg capsule,delayed 20 mg PO BID #180 cap 06/16/21 03/12/22 Rx release fluticasone furoate 200 1 inh INHALATION DAILY #28 ea 09/04/21 03/12/22 Rx mcg-vilanterol 25 mcg/dose inhalation powder (Breo Ellipta) aspirin 81 mg tablet,delayed 81 mg PO DAILY #90 tab 09/19/21 03/12/22 Rx release isosorbide mononitrate 120 mg 120 mg PO QAM #90 tab 09/26/21 03/12/22 Rx tablet,extended release 24 hr sertraline 100 mg tablet 100 mg PO DAILY #90 tab MDD 150mg 11/09/21 03/12/22 Rx sertraline 50 mg tablet 50 mg PO DAILY #90 tab MDD 150mg 11/09/21 03/12/22 Rx cholecalciferol (vitamin D3) 50 2,000 unit PO QAM #90 cap 11/10/21 03/12/22 Rx mcg (2,000 unit) capsule amlodipine 10 mg tablet 5 mg PO DAILY #30 tab 11/20/21 03/12/22 Rx albuterol sulfate 90 mcg/actuation 2 puff INHALATION Q6 PRN #18 gm 12/04/21 03/12/22 Rx aerosol inhaler sucralfate 1 gram tablet 1 g PO TID #90 tab 12/25/21 03/12/22 Rx levothyroxine 100 mcg tablet 100 mcg PO DAILY #90 tab 01/26/22 03/12/22 Rx famotidine 20 mg tablet 20 mg PO BID #60 tab 02/14/22 03/12/22 Rx lisinopril 40 mg tablet (Zestril) 40 mg PO HS #90 tab 02/14/22 03/12/22 Rx magnesium oxide 250 mg PO TID #180 tab 02/16/22 03/12/22 Rx atorvastatin 80 mg tablet 80 mg PO HS 03/12/22 03/12/22 History calcitriol 0.25 mcg capsule 0.25 mcg PO Q2D 03/12/22 03/12/22 History cinacalcet 60 mg tablet (Sensipar) 60 mg PO QAM 03/12/22 03/12/22 History clopidogrel 75 mg tablet 75 mg PO QAM 03/12/22 03/12/22 History Past Med/Surg History Medical History Asthma Cholelithiasis Coronary artery disease Depression DKA (diabetic ketoacidosis) DM (diabetes mellitus) History of heart disease Hypertension Hypothyroidism Pancreas cyst Urinary incontinence Surgical History History of appendectomy History of bilateral salpingo-oophorectomy (BSO) History of hysterectomy History of tubal ligation S/P bypass graft of extremity S/P CABG x 4 S/P cataract surgery Family History Sister Myocardial infarction Emphysema, unspecified Brother Myocardial infarction Diabetes Father Cerebral artery occlusion with cerebral infarction Mother Cerebral artery occlusion with cerebral infarction Diabetes Denies family history of Ovarian cancer Prostate cancer Kidney disease Breast cancer Colorectal cancer Social History Smoking Status: Former smoker Tobacco Type: Cigarettes Age Started Using Tobacco: 31; Age Quit Using Tobacco: 54; packs per day: 4; Years Smoked: 23; Number of Years Since Quit: 20; Second Hand Exposure: No; Do You Dip or Chew Tobacco: No; Tobacco Cessation Education Requested by Patient: No Hx Alcohol Use: No Hx Substance Use: No Preferred Language: Sinhala Communication Ability: Effective Visual Impairment: No Limitations Hearing Ability: Use of Hearing Aid Bin Cleaner Required: No Beliefs That Will Affect Care: None marital status: Current Living Situation: Alone Current Living Situation Comment: [facility] current occupational status: retired 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, 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, 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 [employer] Other Information That Helps Us Care for You: No Feels Safe at Home: Yes Safety Concerns: Feels Safe At This Time Safety Concerns Comment: Patient is afraid of falling while home alone, has railings on bed Childhood Exposure to Second-Hand Smoke: Yes caffeine: Yes (mixes decaf and reg coffee) Dental Care, Regularly: No Physical Activity Frequency: Does not Exercise Physical Activity Frequency Comment: Exercise limited by physical condition Seatbelt Use: always Sunscreen Use: No (doesn't go outside ) Assistive Devices: Cane, Walker and Wheelchair Assistive Devices Comment: reading glasses Review of Systems Review of Systems: REVIEW OF SYSTEMS: Constitutional: (+) weak feeling without energy, No fever, sweats or chills Eyes: No diplopia, no worsening or blurred vision ENT: normal hearing, no trouble swallowing Respiratory: No cough, sputum, dyspnea at rest or on exertion Cardiovascular: No chest pain, tightness or palpitations Abdomen: (+) pain, nausea, diarrhea, NO vomiting, or constipation Musculoskeletal: No joint pain, calf pain, swelling Neurologic: No weakness, numbness/tingling, or balance problems Psychiatric: No anxiety or depression Skin: No rash or itch Physical Exam Physical Exam: PHYSICAL EXAM: General: awake, alert, no apparent distress Head: Normocephalic, atraumatic ENT: PERRL, EOMI, no pharyngeal exudate, mucous membranes moist Neuro: AAO x 3, speech clear and appropriate, strength intact bilaterally 5/5, sensation intact and equal all extremities and dermatomes, no pronator drift Chest: equal rise and fall of the chest, no accessory muscle use, no heaves or thrills, Clear to auscultation, on room air, Cardiac: Regular rate and rhythm, telemetry reviewed, skin warm dry, cap refill <3 seconds, peripheral pulses +2 no JVD, no murmur, no edema GI: NABS x 4 quadrants, soft, tender to palpation-epigastric and RLQ, no rebound, guarding or tenderness : Spontaneously voiding, no pain, no CVA tenderness, Extremities: Normal inspection, no peripheral edema or erythema, calfs nontender to palpation Psych: Normal mood and affect Skin: no rash or erythema Results & Data Results & Data ([facility]) Vital Signs (Past 12 Hours) Vital Signs Temp Pulse Pulse Resp BP BP Pulse Ox 03/12/22 12:48 72 17 168/59 H 98 03/12/22 12:34 78 22 96 03/12/22 12:00 70 13 205/118 H 97 03/12/22 11:30 69 18 198/105 H 97 03/12/22 11:00 65 19 195/73 H 94 03/12/22 10:30 62 16 199/66 H 98 03/12/22 10:02 69 15 185/68 H 93 03/12/22 09:30 99 03/12/22 09:00 58 L 14 160/55 H 96 03/12/22 08:33 52 L 56 L 20 162/51 H 94 03/12/22 08:30 52 L 17 03/12/22 08:14 48 L 18 96 03/12/22 08:03 36.5 C 50 L 19 162/51 H 96 Laboratory Results Abnormal lab results 03/12/22 03/12/22 03/12/22 Range/Units 08:36 08:36 08:36 WBC 11.07 H (4.8-10.8) K/uL RBC 3.90 L (4.2-5.4) M/uL Hgb 11.5 L (12.0-16.0) g/dL Hct 35.0 L (37-47) % RDW Std Deviation 52.9 H (36.4-46.3) fL RDW Coeff of Nathan 16.0 H (11.5-14.5) % Neut # (Auto) 8.57 H (1.4-6.5) K/uL [place] # (Auto) 0.70 H (0.11-0.59) K/uL Immature Gran # (Auto) 0.04 H (0.00-0.02) K/uL BUN 30 H (6-23) mg/dl Creatinine 1.47 H (0.6-1.2) mg/dl BUN/Creatinine Ratio 20.4 H (10-20) Glucose 108 H (70-99(Fasting)) mg/dl Globulin 2.3 L (2.5-4.0) gm/dl TSH 5.458 H (0.300-4.500) uIu/ml Diagnostic Findings Chest X-Ray 03/12/22 08:22 XR chest 1V portable CLINICAL HISTORY: Weakness. COMPARISON STUDY: Chest CT July 18, 2021. FINDINGS: Lung volumes are normal. Lungs are clear. There is no pneumothorax or pleural effusion. Cardiac size is stable. Mediastinal contours are normal. There is no evidence for pulmonary edema. IMPRESSION: No acute cardiopulmonary findings. No change in appearance of the chest. ACT 112: Negative or not required by law. Electronically signed by: Jason Cooper M.D. 03/12/2022 9:07 AM KUB X-Ray 03/12/22 08:22 KUB CLINICAL HISTORY: GI bleeding. FINDINGS: 2 AP supine abdominal radiographs are correlated with abdominal CT dated 01/19/2016. There is a nonobstructed abdominal bowel gas pattern. No evidence of intraperitoneal free air is seen on these supine images. There are no abnormal abdominal calcifications. Numerous phleboliths are seen in the pelvis. Surgical clips project over the right groin. The skeletal structures are osteopenic and appear intact. There is moderate lumbosacral spondylosis. IMPRESSION: No acute abnormality is identified. Electronically signed by: Zeferino Paula M.D. 03/12/2022 9:03 AM Abdomen/Pelvis CT 03/12/22 12:[address] WITH IV CONTRAST CT DOSE: 365.94 mGy.cm HISTORY: Acute right lower quadrant abdominal pain RLQ pain, diarrhea, fecal occult positive TECHNIQUE: Multiaxial CT images of the abdomen and pelvis were performed following the IV administration of 95 cc of Optiray, A dose lowering technique was utilized adhering to the principles of ALARA. COMPARISON STUDY: CT abdomen and pelvis 01/19/2016 FINDINGS: Surgical clips within the left anterior lower chest are redemonstrated. The heart is mildly enlarged. Mild subsegmental bibasilar atelectasis. No pneumatosis or pneumoperitoneum. The spleen and right adrenal gland are unremarkable. 11 mm left adrenal gland adenoma. There are a few cystic foci noted within the pancreatic body and tail measuring up to 10 mm which are indeterminate and may represent a sidebranch IPMN's, new from 2016. No pancreatic ductal dilation. Probable adenomyomatosis of the gallbladder fundus. There are numerous water attenuating lesions noted throughout the liver measuring up to 3.1 cm and the left hepatic lobe suggestive of probable cysts. Several of the foci are too small to characterize. Patency of the hepatic and portal veins. Cortical thinning of the kidneys. There are a few left-sided renal vascular c alcifications noted. There is no hydronephrosis. Partial distention of the urinary bladder with moderate anterior wall thickening and mild mucosal hyperemia. Hysterectomy. No adnexal mass lesions. Extensive atherosclerosis of the abdominal aorta which appears to result in multifocal stenosis of the branch vessels. No lymphadenopathy is identified. Colonic diverticulosis without acute diverticulitis. No bowel obstruction or bowel wall thickening. The appendix is reportedly surgically absent. No ascites or mesenteric inflammation. Unremarkable soft tissues. Grade 1 anterolisthesis L4 on L5 is likely on a degenerative basis. Degenerative changes of the spine, pelvis and hips. IMPRESSION: 1. No bowel obstruction or bowel wall thickening. 2. Colonic diverticulosis without acute diverticulitis. 3. Partial distention of the urinary bladder with nonspecific wall thickening. Correlate with urinalysis. 4. Prior hysterectomy and appendectomy. 5. Additional findings as above. ACT 112: Negative or not required by law. The above report was generated using voice recognition software. It may contain grammatical, syntax or spelling errors. Electronically signed by: Sawyer Ortiz M.D. 03/12/2022 12:41 PM Medications Administered Home Medications omega-3 acid ethyl esters 1 gram capsule 1 cap PO BID cap 06/18/19 [History Confirmed 03/12/22] cetirizine 10 mg tablet (Zyrtec) 5 mg PO QAM 09/07/19 [History Confirmed 03/12/22] hydrocortisone 2.5 % topical cream with perineal applicator 1 appln DC DAILY PRN #30 gm 05/17/20 [Rx Confirmed 03/12/22] nitroglycerin 0.4 mg sublingual tablet 0.4 mg SL Q5M PRN #25 tab 02/10/21 [Rx Confirmed 03/12/22] metoprolol succinate 25 mg tablet,extended release 24 hr 12.5 mg PO DAILY #45 tab 04/05/21 [Rx Confirmed 03/12/22] trazodone 150 mg tablet 150 mg PO HS #90 tab 04/27/21 [Rx Confirmed 03/12/22] potassium chloride 20 mEq tablet,extended release(part/cryst) (Klor-Con M) 20 meq PO DAILY #90 tab 05/17/21 [Rx Confirmed 03/12/22] ondansetron 4 mg disintegrating tablet 4 mg TRANSLINGUAL TID PRN #60 tab 05/23/21 [Rx Confirmed 03/12/22] omeprazole 20 mg capsule,delayed release 20 mg PO BID #180 cap 06/16/21 [Rx Confirmed 03/12/22] fluticasone furoate 200 mcg-vilanterol 25 mcg/dose inhalation powder (Breo Ellipta) 1 inh INHALATION DAILY #28 ea 09/04/21 [Rx Confirmed 03/12/22] aspirin 81 mg tablet,delayed release 81 mg PO DAILY #90 tab 09/19/21 [Rx Confirmed 03/12/22] isosorbide mononitrate 120 mg tablet,extended release 24 hr 120 mg PO QAM #90 tab 09/26/21 [Rx Confirmed 03/12/22] sertraline 100 mg tablet 100 mg PO DAILY #90 tab MDD 150mg 11/09/21 [Rx Confirmed 03/12/22] sertraline 50 mg tablet 50 mg PO DAILY #90 tab MDD 150mg 11/09/21 [Rx Confirmed 03/12/22] cholecalciferol (vitamin D3) 50 mcg (2,000 unit) capsule 2,000 unit PO QAM #90 cap 11/10/21 [Rx Confirmed 03/12/22] amlodipine 10 mg tablet 5 mg PO DAILY #30 tab 11/20/21 [Rx Confirmed 03/12/22] albuterol sulfate 90 mcg/actuation aerosol inhaler 2 puff INHALATION Q6 PRN #18 gm 12/04/21 [Rx Confirmed 03/12/22] sucralfate 1 gram tablet 1 g PO TID #90 tab 12/25/21 [Rx Confirmed 03/12/22] levothyroxine 100 mcg tablet 100 mcg PO DAILY #90 tab 01/26/22 [Rx Confirmed 03/12/22] famotidine 20 mg tablet 20 mg PO BID #60 tab 02/14/22 [Rx Confirmed 03/12/22] lisinopril 40 mg tablet (Zestril) 40 mg PO HS #90 tab 02/14/22 [Rx Confirmed 03/12/22] magnesium oxide 250 mg PO TID #180 tab 02/16/22 [Rx Confirmed 03/12/22] atorvastatin 80 mg tablet 80 mg PO HS 03/12/22 [History Confirmed 03/12/22] calcitriol 0.25 mcg capsule 0.25 mcg PO Q2D 03/12/22 [History Confirmed 03/12/22] cinacalcet 60 mg tablet (Sensipar) 60 mg PO QAM 03/12/22 [History Confirmed 03/12/22] clopidogrel 75 mg tablet 75 mg PO QAM 03/12/22 [History Confirmed 03/12/22] Active Medications Magnesium Sulfate/Dextrose (Magnesium Sulfate / D5w) 1 gm in 100 mls @ 50 mls/hr IV Q2H JANELLE Stop: 03/12/22 17:29 Ceftriaxone Sodium (Rocephin) 1,000 mg in 50 mls @ 100 mls/hr IV NOW STA Stop: 03/12/22 14:13 Ceftriaxone Sodium 1,000 mg/ (Dextrose) 60 mls @ 100 mls/hr IV DAILY JANELLE; Protocol Stop: 03/18/22 08:59 Discontinued Medications Sodium Chloride (Nss) 500 mls @ 999 mls/hr IV .Q31M JANELLE Stop: 03/12/22 09:00 Last Infusion: 03/12/22 09:20 Dose: 0 mls/hr Documented by: [id number] Admin: 03/12/22 08:32 Dose: 999 mls/hr Documented by: [id number] Ioversol (Optiray 320 100ml) 95 ml IV ONCE ONE Stop: 03/12/22 12:31 Last Admin: 03/12/22 12:31 Dose: 95 ml Documented by: [id number] ECG Additional Comments: Sinus bradycardia Incomplete right bundle branch block Abnormal ECG When compared with ECG of 05-MAY-2020 18:24, No significant change was found Confirmed by Tye Sterling ([id number]) on 03/12/2022 1:06:56 PM Code Status & VTE Plan Code Status CODE: DNR/DNI VTE: SCDS, Plavix, ASA, ambulation VTE Prophylaxis Plan VTE Prophylaxis will be ordered: Yes Supervising Physician Co-Signing Physician Notes I personally saw and examined the patient. I verified all lance points and agree with THOMAS Alejo with the following exceptions and/or additions: 77 year old female admission for diarrhea and fatigue. O/E HS1+2, RRR, no murmurs, Chest CTAB, RLQ pain on palpation without guarding or rebound tenderness A/P Diarrhea - Stool PCR pending. Consult GI for consideration of colonoscopy. Fatigue - TSH mildly elevated (doubtful contributing). Non focal neurological exam. Suspect generalized deconditioning. PT/OT. PG Care Time/CCT Total # of Minutes Spent Total Time Spent with Patient: Total time spent is greater than 50% in coordination of care (as documented) at patient's floor/unit and/or counseling patient: Coding Level of Care Code 97138 Initial Inpt Care Lvl 3 Diagnoses Diarrhea R19.7 Abdominal pain R10.9 Hypothyroidism E03.9 Hypothyroidism type: acquired CKD (chronic kidney disease) N18.3 Chronic kidney disease stage: stage 3 (moderate) Coronary artery disease I25.10 Associated angina: without angina Coronary Disease-Associated Artery/Lesion type: [place] artery [place] vs. transplanted heart: [place] heart Hypomagnesemia E83.42 Hypertension I10 Hypertension type: unspecified Hyperparathyroidism E21.3 Depression F32.9 Carotid artery stenosis I65.29 (1) Coronary artery disease Associated angina: without angina Coronary Disease-Associated Artery/Lesion type: [place] artery [place] vs. transplanted heart: [place] heart Qualified Code(s): I25.10 - Atherosclerotic heart disease of [place] coronary artery without angina pectoris (2) Hypothyroidism Hypothyroidism type: acquired Qualified Code(s): E03.9 - Hypothyroidism, unspecified (3) CKD (chronic kidney disease) Chronic kidney disease stage: stage 3 (moderate) Qualified Code(s): N18.3 - Chronic kidney disease, stage 3 (moderate) (4) Hypertension Hypertension type: unspecified Qualified Code(s): I10 - Essential (primary) hypertension
[2022-03-12] MEDS ORDERED: cefTRIAXone SODIUM 1,000 MG/50 ML BAG IV STA (13:44)
[2022-03-12] MEDS: MAGNESIUM SULFATE / D5W 1 GM/100 ML BAG IV SCH ×2 (13:54→16:14)
[2022-03-12] MEDS ORDERED: LACTATED RINGER'S 1,000 ML IV STA (14:07)
[2022-03-12 14:12] LABS: C Reactive Protein < 0.50 mg/dl (0-0.5); Phosphorus 4.6 mg/dl (2.5-4.9)
[2022-03-12 18:29] LABS: Appearance Urine Cloudy (Clear); Bacteria Urine Automated Negative (Negative); Bilirubin Urine Negative (Negative); Blood Urine Negative (Negative); Color Urine Yellow; Glucose Urine UA Negative (Negative); Ketones Urine Trace (Negative); Leukocyte Esterase Urine Negative (Negative); Nitrite Urine Negative (Negative); Protein Urine Negative (Negative); RBC Urine Automated 0-4 /hpf (0-4); Specific Gravity Urine > 1.045 (1.000-1.030); Urobilinogen Urine Negative (Negative)
[2022-03-12] MEDS ORDERED: NITROGLYCERIN SL 0.4 MG/TAB TAB SL PRN (20:17)
[2022-03-12] MEDS ORDERED: ONDANSETRON 4 MG OD TAB SL PRN (20:17)
[2022-03-12] MEDS ORDERED: ALBUTEROL HFA 8 GM INHALER INH PRN (20:17)
[2022-03-12] MEDS: ACETAMINOPHEN 325 MG TAB PO PRN (20:54)
[2022-03-12] MEDS: lisinopril 40 MG TAB PO SCH (21:54)
[2022-03-12] MEDS: SUCRALFATE 1 GM TAB PO SCH (21:55)
[2022-03-12] MEDS: PANTOprazole 40 MG TAB PO SCH (21:55)
[2022-03-12] MEDS: traZODone HCL 50 MG TAB PO SCH (21:55)
[2022-03-12] MEDS: ATORVASTATIN 40 MG TAB PO SCH (22:46)
[2022-03-13] MEDS: LEVOTHYROXINE SODIUM 100 MCG TABLET PO SCH (05:44)
[2022-03-13 07:37] LABS: Basophils # (auto) 0.01 K/uL (0-0.2); Basophils % (auto) 0.2 %; Eosinophils # (auto) 0.22 K/uL (0-0.5); Eosinophils % (auto) 3.5 %; Hematocrit (blood only) 31.7 % (37-47); Hemoglobin 10.4 g/dL (12.0-16.0); Immature Granulocytes # (auto) 0.01 K/uL (0.00-0.02); Immature Granulocytes % (auto) 0.2 %; Lymphocytes % (auto) 36.7 %; Mean Corpuscular Hemoglobin 29.3 pg (25-34); Mean Corpuscular Hgb Conc 32.8 g/dL (32-36); Mean Corpuscular Volume 89.3 fL (80-100); Monocytes # (auto) 0.43 K/uL (0.11-0.59); Monocytes % (auto) 6.9 %; Neutrophils % (auto) 52.5 %; Platelet Count 200 K/uL (130-400); RDW Coefficient of Variation 16.1 % (11.5-14.5); RDW Standard Deviation 52.8 fL (36.4-46.3); Red Blood Count 3.55 M/uL (4.2-5.4); White Blood Count 6.27 K/uL (4.8-10.8)
[2022-03-13 08:14] LABS: Calcium 8.2 mg/dl (8.5-10.1); Creatinine Clr Calc Pharmacy 40.1 ml/min; Est GFR (Non-African American) 62.1 ml/min; Magnesium 1.8 mg/dl (1.7-2.4); Potassium 3.7 mmol/L (3.5-5.1)
--- NOTE | 2022-03-13 08:57 | Hospitalist Progress Note ---
Date of Service March 13, 2022 Assessment & Plan (1) Diarrhea: Plan: Acute lasting more than a a month- with some relief in between. Prior c-scope [facility] 2 years ago, polyps, was done for routine screening Patient states watery/loose and alternating habits She was recently treated for a UTI with amoxicillin x 7 days at the end of January At that time complaints of UTI sx and diarrhea with urinary frequency/incontinence and odor (of note, had leg/back weakness and fell prior to that, reportedly hit head but refused to go to the ER at that time. Denies BRANDT/visual changes). No well water, drinks bottled water. Daughter Alexus does her medications, no new meds except abx for UTI. Stool/ova as outpatient earlier this month negative LFTs wnl Ordered stool PCR, given recent abx however requency does not indicate likely cdiff, however chart does have hx cdiff colitis listed as prior problem Continue low fat diet GI on consult -- agrees w/ stool studies, added metamucil 1tbsp daily. pending PCR, may require outpt c-scope Did have [place] on admission, likely 2nd to dehydration --> resolved following 1L IV repletion and tolerating diet without issue. Encouraged PO fluid intake at this time WBC wnl, afebrile --Of note, was given ceftriaxone x 1 for possible cystitis on admission, since discontinued as UA negative (as above, recent tx for UTI w/ amoxicillin). Monitor. Denied increased urinary symptoms at this time PT/OT consulted -- reported weakness, lives alone, may require rehab. CM following (2) Abdominal pain: Plan: As above- epigastric in nature following food ingestion with a history of PUD Reported discomfort but no need for medication at this time and had been tolerating low fat diet at lunch time during examination without issue Continued on PPI BID, carafate Hgb stable and got 1L IVF Stool PCR ordered as above GI on consult Give reports of fatigue, generalized abdominal pain, low appetite, weakness, fatigue, hypokalemia will check Cortisol in AM of note, CTAP does note 11mm L adrenal gland adenoma (3) Hypothyroidism: Plan: TSH elevated to 5.48 -- on Synthroid 100mcg daily --> consideration increase dose vs repeat with PCP outpatient in next 4-6 weeks as patient reports she does take prior to her other pills in the morning (checking cortisol level in AM as well) (4) CKD (chronic kidney disease): Plan: Acute kidney injury on CKD IIIa ,Cr was 1.47 on admission 2nd to diarrhea, 1L LR ordered Cr improved to 0.9 on repeat avoid further nephrotoxic medications as able Follow BMP in AM (5) Coronary artery disease: Plan: Stable without symptoms endorsed - continue BB, ASA, Statin, EFE - Continue prn Nitroglycerine (6) Hypomagnesemia: Plan: Mag 1.8 on admission, 2gm ordered Mag remains 1.8 on repeat -- monitor while on PPI BID (7) Hypertension: Plan: BP elevated, asymptomatic -- on metoprolol 12.5mg daily, lisinopril 40mg HS Given 1L IVF overnight Monitor (8) Hyperparathyroidism: Plan: Continue cincalcet (9) Depression: Plan: Continue sertraline (10) Carotid artery stenosis: Plan: Noted in July with 70% stenosis - serial imaging was to have office visit last week with ultrasound but was cancelled - follow up in March - No Nuerological symptoms on exam or endorsed- continue asa/plavix/statin Plan: continued inpatient stay Admission and Anticipated Discharge Date Admission Date: March 12, 2022 Supervising Physician Co-Signing Physician Notes PA Supervision Note: I did not personally see or examine the patient today, but I verified all lance points of CHANCE Cuevas's assessment and plan with the following exceptions/additions: None Subjective eval this afternoon doing well having some epigastric and lower abdominal discomfort but just finishing meal -- ate half her fish, some fruits, and some of her vegetables. Denies increase in abdominal discomfort with eating. Has some occasional blood on toilet paper when whipping but she states her butt is so raw from all the diarrhea that it is also from that. No blood in toilet bowel or dark tarry stools noted. She notes diarrhea had been ongoing for what she believes is about 5 weeks now. Watery. She buys her water bottled. Denies any sick contacts, lives alone. Daughter Alexus does her medications and she notes she does take one pill thirty minutes prior to the rest but unable to give the name of the medication. States she had one episode of loose stool this morning. Awaiting PCR stool sample, unable to be collected as was mixed with urine initially. Discussed next time she goes would like to collect sample. She notes this may be not until later tonight or the morning which is reassuring against cdiff, as she does admit she had recently taken antibiotics for a UTI. No fever/chills. No chest pain or shortness of breath. No nausea at present time. Questions/concerns addressed. Review of Systems Review of Systems: All systems reviewed & are unremarkable except as noted in HPI & below Physical Exam Physical Exam: General: WD/WN elderly female sitting up in bed eating lunch, NAD HEENT; head normocephalic, atraumatic, mmm, trachea midline without deviation Resp: CTAB, no w/c/r, on room air CV: RRR, no m/r/g, no edema or calf tenderness, cap refill wnl GI: +BS throughout, slightly tender to palpation epigastric/lower abdomen, but reports pain throughout, no guarding or rigidity, no rebound : no jon MSK/Neuro: answering questions appropriately, no facial droop or slurred speech, CN intact grossly, strength equal throughout but decreased Skin: warm, dry Psych: AOx3, pleasant and cooperative Results & Data Results & Data ([facility]) Vital Signs (Past 12 Hours) Vital Signs Temp Pulse Pulse Resp BP Pulse Ox 03/13/22 07:26 36.5 C 75 18 185/78 H 95 03/12/22 22:53 36.3 C L 58 L 18 129/71 92 Laboratory Results 03/13/22 03/13/22 03/13/22 Range/Units 07:01 07:01 07:01 WBC 6.27 (4.8-10.8) K/uL RBC 3.55 L (4.2-5.4) M/uL Hgb 10.4 L (12.0-16.0) g/dL Hct 31.7 L (37-47) % MCV 89.3 (80-100) fL MCH 29.3 (25-34) pg MCHC 32.8 (32-36) g/dL RDW Std Deviation 52.8 H (36.4-46.3) fL RDW Coeff of Nathan 16.1 H (11.5-14.5) % Plt Count 200 (130-400) K/uL MPV 10.0 (7.4-10.4) fL Immature Gran % (Auto) 0.2 % Neut % (Auto) 52.5 % Lymph % (Auto) 36.7 % [place] % (Auto) 6.9 % Eos % (Auto) 3.5 % Baso % (Auto) 0.2 % Neut # (Auto) 3.30 (1.4-6.5) K/uL Lymph # (Auto) 2.30 (1.2-3.4) K/uL [place] # (Auto) 0.43 (0.11-0.59) K/uL Eos # (Auto) 0.22 (0-0.5) K/uL Baso # (Auto) 0.01 (0-0.2) K/uL Immature Gran # (Auto) 0.01 (0.00-0.02) K/uL Sodium 140 (136-145) mmol/L Potassium 3.7 (3.5-5.1) mmol/L Chloride 107 (98-107) mmol/L Carbon Dioxide 24 (21-32) mmol/L Anion Gap 9 (3-11) BUN 18 (6-23) mg/dl Creatinine 0.90 D (0.6-1.2) mg/dl Est Cr Clr Drug Dosing 40.1 ml/min Est GFR ( Amer) 72.0 ml/min Est GFR (Non-Af Amer) 62.1 ml/min BUN/Creatinine Ratio 20.0 (10-20) Glucose 80 (70-99(Fasting)) mg/dl Calcium 8.2 L (8.5-10.1) mg/dl Magnesium 1.8 (1.7-2.4) mg/dl Lipase 6 L (11-82) U/L Urine Color Urine Appearance (Clear) Urine pH (4.5-7.5) Ur Specific [place] (1.000-1.030) Urine Protein (Negative) Urine Glucose (UA) (Negative) Urine Ketones (Negative) Urine Blood (Negative) Urine Nitrite (Negative) Urine Bilirubin (Negative) Urine Urobilinogen (Negative) Ur Leukocyte Esterase (Negative) Urine WBC (Auto) (0-5) /hpf Urine RBC (Auto) (0-4) /hpf U Hyaline Cast (Auto) (0-5) /lpf U Epithel Cells (Auto) (0-5) /lpf Urine Bacteria (Auto) (Negative) 03/12/22 Range/Units 17:45 WBC (4.8-10.8) K/uL RBC (4.2-5.4) M/uL Hgb (12.0-16.0) g/dL Hct (37-47) % MCV (80-100) fL MCH (25-34) pg MCHC (32-36) g/dL RDW Std Deviation (36.4-46.3) fL RDW Coeff of Nathan (11.5-14.5) % Plt Count (130-400) K/uL MPV (7.4-10.4) fL Immature Gran % (Auto) % Neut % (Auto) % Lymph % (Auto) % [place] % (Auto) % Eos % (Auto) % Baso % (Auto) % Neut # (Auto) (1.4-6.5) K/uL Lymph # (Auto) (1.2-3.4) K/uL [place] # (Auto) (0.11-0.59) K/uL Eos # (Auto) (0-0.5) K/uL Baso # (Auto) (0-0.2) K/uL Immature Gran # (Auto) (0.00-0.02) K/uL Sodium (136-145) mmol/L Potassium (3.5-5.1) mmol/L Chloride (98-107) mmol/L Carbon Dioxide (21-32) mmol/L Anion Gap (3-11) BUN (6-23) mg/dl Creatinine (0.6-1.2) mg/dl Est Cr Clr Drug Dosing ml/min Est GFR ( Amer) ml/min Est GFR (Non-Af Amer) ml/min BUN/Creatinine Ratio (10-20) Glucose (70-99(Fasting)) mg/dl Calcium (8.5-10.1) mg/dl Magnesium (1.7-2.4) mg/dl Lipase (11-82) U/L Urine Color Yellow Urine Appearance Cloudy A (Clear) Urine pH 5.0 (4.5-7.5) Ur Specific [place] > 1.045 H (1.000-1.030) Urine Protein Negative (Negative) Urine Glucose (UA) Negative (Negative) Urine Ketones Trace H (Negative) Urine Blood Negative (Negative) Urine Nitrite Negative (Negative) Urine Bilirubin Negative (Negative) Urine Urobilinogen Negative (Negative) Ur Leukocyte Esterase Negative (Negative) Urine WBC (Auto) 1-5 (0-5) /hpf Urine RBC (Auto) 0-4 (0-4) /hpf U Hyaline Cast (Auto) 5-10 H (0-5) /lpf U Epithel Cells (Auto) 10-20 H (0-5) /lpf Urine Bacteria (Auto) Negative (Negative) Diagnostic Findings Chest X-Ray 03/12/22 08:22 XR chest 1V portable CLINICAL HISTORY: Weakness. COMPARISON STUDY: Chest CT July 18, 2021. FINDINGS: Lung volumes are normal. Lungs are clear. There is no pneumothorax or pleural effusion. Cardiac size is stable. Mediastinal contours are normal. There is no evidence for pulmonary edema. IMPRESSION: No acute cardiopulmonary findings. No change in appearance of the chest. ACT 112: Negative or not required by law. Electronically signed by: Jason Cooper M.D. 03/12/2022 9:07 AM KUB X-Ray 03/12/22 08:22 KUB CLINICAL HISTORY: GI bleeding. FINDINGS: 2 AP supine abdominal radiographs are correlated with abdominal CT dated 01/19/2016. There is a nonobstructed abdominal bowel gas pattern. No evidence of intraperitoneal free air is seen on these supine images. There are no abnormal abdominal calcifications. Numerous phleboliths are seen in the pelvis. Surgical clips project over the right groin. The skeletal structures are osteopenic and appear intact. There is moderate lumbosacral spondylosis. IMPRESSION: No acute abnormality is identified. Electronically signed by: Zeferino Paula M.D. 03/12/2022 9:03 AM Abdomen/Pelvis CT 03/12/22 12:[address] WITH IV CONTRAST CT DOSE: 365.94 mGy.cm HISTORY: Acute right lower quadrant abdominal pain RLQ pain, diarrhea, fecal occult positive TECHNIQUE: Multiaxial CT images of the abdomen and pelvis were performed following the IV administration of 95 cc of Optiray, A dose lowering technique was utilized adhering to the principles of ALARA. COMPARISON STUDY: CT abdomen and pelvis 01/19/2016 FINDINGS: Surgical clips within the left anterior lower chest are redemonstrated. The heart is mildly enlarged. Mild subsegmental bibasilar atelectasis. No pneumatosis or pneumoperitoneum. The spleen and right adrenal gland are unremarkable. 11 mm left adrenal gland adenoma. There are a few cystic foci noted within the pancreatic body and tail measuring up to 10 mm which are indeterminate and may represent a sidebranch IPMN's, new from 2016. No pancreatic ductal dilation. Probable adenomyomatosis of the gallbladder fundus. There are numerous water attenuating lesions noted throughout the liver measuring up to 3.1 cm and the left hepatic lobe suggestive of probable cysts. Several of the foci are too small to characterize. Patency of the hepatic and portal veins. Cortical thinning of the kidneys. There are a few left-sided renal vascular calcifications noted. There is no hydronephrosis. Partial distention of the urinary bladder with moderate anterior wall thickening and mild mucosal hyperemia. Hysterectomy. No adnexal mass lesions. Extensive atherosclerosis of the abdominal aorta which appears to result in multifocal stenosis of the branch vessels. No lymphadenopathy is identified. Colonic diverticulosis without acute diverticulitis. No bowel obstruction or bowel wall thickening. The appendix is reportedly surgically absent. No ascites or mesenteric inflammation. Unremarkable soft tissues. Grade 1 anterolisthesis L4 on L5 is likely on a degenerative basis. Degenerative changes of the spine, pelvis and hips. IMPRESSION: 1. No bowel obstruction or bowel wall thickening. 2. Colonic diverticulosis without acute diverticulitis. 3. Partial distention of the urinary bladder with nonspecific wall thickening. Correlate with urinalysis. 4. Prior hysterectomy and appendectomy. 5. Additional findings as above. ACT 112: Negative or not required by law. The above report was generated using voice recognition software. It may contain grammatical, syntax or spelling errors. Electronically signed by: Sawyer Ortiz M.D. 03/12/2022 12:41 PM PG Care Time/CCT Total # of Minutes Spent Total Time Spent with Patient: Total time spent is greater than 50% in coordination of care (as documented) at patient's floor/unit and/or counseling patient: Coding Level of Care Code 33332 Subseq Hosp Care Lvl 2 Diagnoses Diarrhea R19.7 Abdominal pain R10.9 Hypothyroidism E03.9 Hypothyroidism type: acquired CKD (chronic kidney disease) N18.3 Chronic kidney disease stage: stage 3 (moderate) Coronary artery disease I25.10 Associated angina: without angina Coronary Disease-Associated Artery/Lesion type: [place] artery [place] vs. transplanted heart: [place] heart Hypomagnesemia E83.42 Hypertension I10 Hypertension type: unspecified Hyperparathyroidism E21.3 Depression F32.9 Carotid artery stenosis I65.29 (1) Coronary artery disease Associated angina: without angina Coronary Disease-Associated Artery/Lesion type: [place] artery [place] vs. transplanted heart: [place] heart Qualified Code(s): I25.10 - Atherosclerotic heart disease of [place] coronary artery without angina pectoris (2) Hypothyroidism Hypothyroidism type: acquired Qualified Code(s): E03.9 - Hypothyroidism, unspecified (3) CKD (chronic kidney disease) Chronic kidney disease stage: stage 3 (moderate) Qualified Code(s): N18.3 - Chronic kidney disease, stage 3 (moderate) (4) Hypertension Hypertension type: unspecified Qualified Code(s): I10 - Essential (primary) hypertension
[2022-03-13] MEDS: ASPIRIN 81 MG ECTAB PO SCH (09:43)
[2022-03-13] MEDS: CINACALCET HCL 30 MG TAB PO SCH (09:43)
[2022-03-13] MEDS: FAMOTIDINE 20 MG TAB PO SCH (09:43)
[2022-03-13] MEDS: CETIRIZINE HCL 10 MG TABLET PO SCH (09:43)
[2022-03-13] MEDS: amLODIPine BESYLATE 5 MG TAB PO SCH (09:43)
[2022-03-13] MEDS: CHOLECALCIFEROL 1,000 UNITS 25 MCG TAB PO SCH (09:43)
[2022-03-13] MEDS: CALCITRIOL 0.25 MCG CAPSULE PO SCH (09:43)
[2022-03-13] MEDS: CLOPIDOGREL BISULFATE 75 MG TAB PO SCH (09:43)
[2022-03-13] MEDS: FLUTICASONE/VILANTEROL 200/25MCG 14 PUFFS/INHALER INH SCH (09:44)
[2022-03-13] MEDS: ISOSORBIDE MONO EXTENDED REL 60 MG TABCR PO SCH (09:44)
[2022-03-13] MEDS: SERTRALINE HCL 100 MG TABLET PO SCH (09:44)
[2022-03-13] MEDS: POTASSIUM CHLORIDE CRTAB 20 MEQ TABCR PO SCH (09:44)
[2022-03-13] MEDS: SUCRALFATE 1 GM TAB PO SCH ×3 (09:44→21:06)
[2022-03-13] MEDS: SERTRALINE HCL 50 MG TABLET PO SCH (09:44)
[2022-03-13] MEDS: METOPROLOL SUCC 25MG EXT REL TAB PO SCH (09:44)
[2022-03-13] MEDS: PANTOprazole 40 MG TAB PO SCH ×2 (09:44→21:06)
--- NOTE | 2022-03-13 11:04 | Gastrointestinal Consultation ---
Date of Consultation March 13, 2022 Assessment & Plan (1) Diarrhea: Potential etiologies include overflow diarrhea vs infectious diarrhea vs microscopic colitis vs other. -Obtain biofire stool panel -Add Metamucil 1 TBSP daily -Pending results, may require outpatient colonoscopy -Supportive care per primary team Supervising Physician Co-Signing Physician Notes Agree with FABY Hurley as above She has had only 1 BM today thusfar. She denies any abdominal pain, blood in stools, fevers, chills, nausea or vomiting. Gen: A+Ox3, Cooperative, NAD Chest: CTA B/L, -w/r/r CVS: RRR Abd: Soft, mild tenderness RUQ, ND, +BS, -HSM Ext: -c/c/e Check stool studies now No plans for invasive workup during this hospitalization Outpatient colonoscopy, though she did just have one performed 2 years ago Discussed case with Josiane Cuevas of Hospitalist team. History of Present Illness Reason for Consultation: Diarrhea Attending Physician: Opal Arellano MD History of Present Illness Patient is a 77 yo female with PMH of carotid artery stenosis, DM2, hypothyroidism, CKD, CAD, HTN, hyperparathyroidism, depression, bilateral carotid artery stenosis & HLD. GI has been consulted for diarrhea. Patient notes that she wakes up every morning with lower abdominal cramping & an episode of diarrhea/loose stool without bleeding. She notes that it is difficult to clean up after a bowel movement. She has a history of hemorrhoids. She notes she may have one other episode during the day. Electrolytes are unremarkable. CT imaging shows diverticulosis but no acute GI concerns. No pertinent family history. She notes a history of a colonoscopy in 2019 at [facility]. Allergies Allergy/AdvReac Type Severity Reaction Status Date / Time nickel Allergy Unknown RASH Verified 03/12/22 11:43 rosuvastatin AdvReac Mild Pain Verified 03/12/22 11:43 salicylates AdvReac Mild GI UPSET Verified 03/12/22 11:43 adhesive AdvReac Unknown ITCHING Verified 03/12/22 11:43 Home Medications Medication Instructions Recorded Confirmed Type omega-3 acid ethyl esters 1 gram 1 cap PO BID cap 06/18/19 03/12/22 History capsule cetirizine 10 mg tablet (Zyrtec) 5 mg PO QAM 09/07/19 03/12/22 History hydrocortisone 2.5 % topical cream 1 appln IA DAILY PRN #30 gm 05/17/20 03/12/22 Rx with perineal applicator nitroglycerin 0.4 mg sublingual 0.4 mg SL Q5M PRN #25 tab 02/10/21 03/12/22 Rx tablet metoprolol succinate 25 mg 12.5 mg PO DAILY #45 tab 04/05/21 03/12/22 Rx tablet,extended release 24 hr trazodone 150 mg tablet 150 mg PO HS #90 tab 04/27/21 03/12/22 Rx potassium chloride 20 mEq 20 meq PO DAILY #90 tab 05/17/21 03/12/22 Rx tablet,extended release(part/cryst) (Klor-Con M) ondansetron 4 mg disintegrating 4 mg TRANSLINGUAL TID PRN #60 tab 05/23/21 03/12/22 Rx tablet omeprazole 20 mg capsule,delayed 20 mg PO BID #180 cap 06/16/21 03/12/22 Rx release fluticasone furoate 200 1 inh INHALATION DAILY #28 ea 09/04/21 03/12/22 Rx mcg-vilanterol 25 mcg/dose inhalation powder (Breo Ellipta) aspirin 81 mg tablet,delayed 81 mg PO DAILY #90 tab 09/19/21 03/12/22 Rx release isosorbide mononitrate 120 mg 120 mg PO QAM #90 tab 09/26/21 03/12/22 Rx tablet,extended release 24 hr sertraline 100 mg tablet 100 mg PO DAILY #90 tab MDD 150mg 11/09/21 03/12/22 Rx sertraline 50 mg tablet 50 mg PO DAILY #90 tab MDD 150mg 11/09/21 03/12/22 Rx cholecalciferol (vitamin D3) 50 2,000 unit PO QAM #90 cap 11/10/21 03/12/22 Rx mcg (2,000 unit) capsule amlodipine 10 mg tablet 5 mg PO DAILY #30 tab 11/20/21 03/12/22 Rx albuterol sulfate 90 mcg/actuation 2 puff INHALATION Q6 PRN #18 gm 12/04/21 03/12/22 Rx aerosol inhaler sucralfate 1 gram tablet 1 g PO TID #90 tab 02/28/22 05/16/22 Rx levothyroxine 100 mcg tablet 100 mcg PO DAILY #90 tab 01/26/22 03/12/22 Rx famotidine 20 mg tablet 20 mg PO BID #60 tab 02/14/22 03/12/22 Rx lisinopril 40 mg tablet (Zestril) 40 mg PO HS #90 tab 02/14/22 03/12/22 Rx magnesium oxide 250 mg PO TID #180 tab 02/16/22 03/12/22 Rx atorvastatin 80 mg tablet 80 mg PO HS 03/12/22 03/12/22 History calcitriol 0.25 mcg capsule 0.25 mcg PO Q2D 03/12/22 03/12/22 History cinacalcet 60 mg tablet (Sensipar) 60 mg PO QAM 03/12/22 03/12/22 History clopidogrel 75 mg tablet 75 mg PO QAM 03/12/22 03/12/22 History Patient History Medical History Asthma Cholelithiasis Coronary artery disease Depression DKA (diabetic ketoacidosis) DM (diabetes mellitus) History of heart disease Hypertension Hypothyroidism Pancreas cyst Urinary incontinence Surgical History History of appendectomy History of bilateral salpingo-oophorectomy (BSO) History of hysterectomy History of tubal ligation S/P bypass graft of extremity S/P CABG x 4 S/P cataract surgery Family History Sister Myocardial infarction Emphysema, unspecified Brother Myocardial infarction Diabetes Father Cerebral artery occlusion with cerebral infarction Mother Cerebral artery occlusion with cerebral infarction Diabetes Denies family history of Ovarian cancer Prostate cancer Kidney disease Breast cancer Colorectal cancer Social History Smoking Status: Former smoker Tobacco Type: Cigarettes Age Started Using Tobacco: 31; Age Quit Using Tobacco: 54; packs per day: 4; Years Smoked: 23; Number of Years Since Quit: 20; Second Hand Exposure: No; Do You Dip or Chew Tobacco: No; Tobacco Cessation Education Requested by Patient: No Hx Alcohol Use: No Hx Substance Use: No Preferred Language: Uzbek Communication Ability: Effective Visual Impairment: No Limitations Hearing Ability: Use of Hearing Aid Honey Processor Required: No Beliefs That Will Affect Care: None marital status: Current Living Situation: Alone Current Living Situation Comment: [place] current occupational status: retired 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, 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, 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 [employer] Other Information That Helps Us Care for You: No Feels Safe at Home: Yes Safety Concerns: Feels Safe At This Time Safety Concerns Comment: Patient is afraid of falling while home alone, has railings on bed Childhood Exposure to Second-Hand Smoke: Yes caffeine: Yes (mixes decaf and reg coffee) Dental Care, Regularly: No Physical Activity Frequency: Does not Exercise Physical Activity Frequency Comment: Exercise limited by physical condition Seatbelt Use: always Sunscreen Use: No (doesn't go outside ) Assistive Devices: Cane, Walker and Wheelchair Assistive Devices Comment: reading glasses Review of Systems Constitutional: no fever and no chills Gastrointestinal: + abdominal pain, + change in bowel habits and + diarrhea/loose stools Musculoskeletal: + back pain Integumentary: no rash Psychiatric: no problem reported Hematologic / Lymphatic: no unexplained weight loss Physical Exam Constitutional: well developed Neck: normal visual inspection Respiratory: normal respiratory effort Cardiovascular: Rate/Rhythm: regular rate Gastrointestinal (Abdomen): Inspection/Auscultation: abdomen normal to inspection Percussion/Palpation: abdomen soft; abdomen nontender Psychiatric: Orientation: alert and oriented x 3 Results & Data ([facility]) Vital Signs (Past 12 Hours) Vital Signs Temp Pulse Resp BP Pulse Ox 03/13/22 07:26 36.5 C 75 18 185/78 H 95 PG Care Time/CCT Total # of Minutes Spent Total Time Spent with Patient: Total time spent is greater than 50% in coordination of care (as documented) at patient's floor/unit and/or counseling patient: Coding Level of Care Code 54153 Initial Inpt Care Lvl 3 Diagnoses Diarrhea R19.7
[2022-03-13] MEDS: PSYLLIUM or GUAR GUM FIBER POWDER PACKET PO SCH (13:43)
[2022-03-13] MEDS ORDERED: cefTRIAXone SODIUM 1,000 MG in DEXTROSE 5% 50 ML IV SCH (14:00)
[2022-03-13 16:40] LABS: Influenza A virus by PCR Negative (Negative); Influenza B virus by PCR Negative (Negative)
[2022-03-13] MEDS: ATORVASTATIN 40 MG TAB PO SCH (21:06)
[2022-03-13] MEDS: lisinopril 40 MG TAB PO SCH (21:06)
[2022-03-13] MEDS: traZODone HCL 50 MG TAB PO SCH (21:06)
--- NOTE | 2022-03-14 02:45 | Communication Note ---
Date of Service: March 14, 2022 Notified by RN that patient complaining of lower abdominal discomfort and inability to void. Has not voided overnight. Bladder scanned for 748 mL. Order for straight cath -- subsequent 975 mL urine output.
[2022-03-14] MEDS: ACETAMINOPHEN 325 MG TAB PO PRN ×2 (03:15→08:00)
[2022-03-14] MEDS: LEVOTHYROXINE SODIUM 100 MCG TABLET PO SCH (05:41)
[2022-03-14] MEDS: amLODIPine BESYLATE 5 MG TAB PO SCH (08:02)
[2022-03-14] MEDS: METOPROLOL SUCC 25MG EXT REL TAB PO SCH (08:02)
[2022-03-14] MEDS: ISOSORBIDE MONO EXTENDED REL 60 MG TABCR PO SCH (08:02)
[2022-03-14 08:03] LABS: Basophils # (auto) 0.01 K/uL (0-0.2); Basophils % (auto) 0.1 %; Eosinophils # (auto) 0.21 K/uL (0-0.5); Eosinophils % (auto) 3.1 %; Hematocrit (blood only) 30.7 % (37-47); Hemoglobin 10.2 g/dL (12.0-16.0); Immature Granulocytes # (auto) 0.03 K/uL (0.00-0.02); Immature Granulocytes % (auto) 0.4 %; Lymphocytes # (auto) 2.95 K/uL (1.2-3.4); Lymphocytes % (auto) 43.1 %; Mean Corpuscular Hemoglobin 28.9 pg (25-34); Mean Corpuscular Hgb Conc 33.2 g/dL (32-36); Mean Platelet Volume 9.9 fL (7.4-10.4); Monocytes # (auto) 0.54 K/uL (0.11-0.59); Monocytes % (auto) 7.9 %; Neutrophils % (auto) 45.4 %; Platelet Count 217 K/uL (130-400); RDW Coefficient of Variation 16.6 % (11.5-14.5); RDW Standard Deviation 52.8 fL (36.4-46.3); Red Blood Count 3.53 M/uL (4.2-5.4); White Blood Count 6.84 K/uL (4.8-10.8)
[2022-03-14 08:23] LABS: BUN Creatinine Ratio 14.9 (10-20); Calcium 8.5 mg/dl (8.5-10.1); Creatinine Clr Calc Pharmacy 38.4 ml/min; Est GFR (African American) 68.3 ml/min; Est GFR (Non-African American) 58.9 ml/min; Magnesium 1.4 mg/dl (1.7-2.4); Potassium 3.7 mmol/L (3.5-5.1)
--- NOTE | 2022-03-14 08:58 | Hospitalist Progress Note ---
Date of Service March 14, 2022 Assessment & Plan (1) Diarrhea: Plan: Acute lasting more than a a month- with some relief in between. Prior c-scope [facility] 2 years ago, polyps, was done for routine screening Patient states watery/loose and alternating habits She was recently treated for a UTI with amoxicillin x 7 days at the end of January At that time complaints of UTI sx and diarrhea with urinary frequency/incontinence and odor (of note, had leg/back weakness and fell prior to that, reportedly hit head but refused to go to the ER at that time. Denies BRANDT/visual changes). No well water, drinks bottled water. Daughter Alexus does her medications, no new meds except abx for UTI. Stool/ova as outpatient earlier this month negative LFTs wnl Continue low fat diet -Did check lipase given epigastric discomfort. Low, 6. ?benefit from creon for insufficiency. Discussed with GI and unlikely. Monitor GI on consult -Stool PCR NEGATIVE -Metamucil 1tbsp daily -- continue, hollie while on mag ox supplementation to prevent continued diarrhea WBC wnl, afebrile Of note, was given ceftriaxone x 1 for possible cystitis on admission, since discontinued as UA negative (as above, recent tx for UTI w/ amoxicillin) --> episode of urinary retention evening 03/13, st cath for ~900cc Repeat UA/tx if needed PT/OT consulted -- reported weakness, lives alone, may require rehab. CM following (2) Abdominal pain: Plan: As above - epigastric in nature following food ingestion with a history of PUD Continued on PPI BID, carafate (likely contributing to underlying low magnesium level) Stool PCR negative GI consulted as above Cortisol level not low (CTAP noted 11mm L adrenal gland adenoma) Monitor, ?benefit from creon for low lipse level if any continued issues Improved per patient, only mild cramping , however with urinary retention last evening and repeat UA (3) Hypothyroidism: Plan: TSH elevated to 5.48 -- on Synthroid 100mcg daily --> consideration increase dose vs repeat with PCP outpatient in next 4-6 weeks as patient reports she does take prior to her other pills in the morning (checking cortisol level in AM as well) (4) CKD (chronic kidney disease): Plan: Acute kidney injury on CKD IIIa ,Cr was 1.47 on admission 2nd to diarrhea, 1L LR ordered with improvement and Cr stable 0.94 avoid further nephrotoxic medications as able Encourage PO intake BMP in AM (5) Coronary artery disease: Plan: Stable without symptoms endorsed - continue BB, ASA, Statin, EFE - Continue prn Nitroglycerine (6) Hypomagnesemia: Plan: Mag 1.8 on admission, 2gm ordered Mag low 1.4 this morning -- did report 3 episodes diarrhea --> IV replacement ordered --> review of medications with patient on Mag Ox TID, resumed --> Could be contributing to her chronic issue as well Monitor in AM (7) Hypertension: Plan: BP elevated this morning with slight headache (similar to prior headaches), improved with Tylenol BP currently 150/80 Continues on metoprolol 12.5mg daily, lisinopril 40mg HS Monitor (8) Hyperparathyroidism: Plan: Continue cincalcet (9) Depression: Plan: Continue sertraline (10) Carotid artery stenosis: Plan: Noted in July with 70% stenosis - serial imaging was to have office visit last week with ultrasound but was cancelled - follow up in March - No Neurological symptoms on exam or endorsed - continue asa/Plavix/statin Given headache, and HTN will check carotid doppler to r/o any worsening stenosis Plan: continued inpatient stay PT/OT consults pending for possible need for short term rehab. CM following Admission and Anticipated Discharge Date Admission Date: March 12, 2022 Supervising Physician Co-Signing Physician Notes CHANCE Supervision Note: I did not personally see or examine the patient today, but I verified all lance points of CHANCE Cuevas's assessment and plan with the following exceptions/additions: None Subjective Patient evaluated this afternoon. Doing well. Had three BM this morning but not diarrhea. Looser Some cramping but no abdominal pain. No nausea or vomiting. had slight headache this morning, frontal, similar to prior and improving with tylenol Discussed negative stool studies. She had episode of urinary retention overnight. Never had issues with such in the past. St cath for ~900cc. Has voided small amount since then but not feeling like she is retaining currently. Will bladder/scan/monitor. Discussed repeating UA (recently tx for UTI w/ amoxicillin last month). Discussed low magnesium and replacement -- she again conferees daughter does medications. She is to be on mag ox three times daily. Discussed this could be contributing to looser stools as well and to expect additional BMs with IV replacement. Resumed home PO dosing and will monitor. No fever/chills, no chest pain. Breathing at baseline. Has not worked with therapy yet. Review of Systems Review of Systems: All systems reviewed & are unremarkable except as noted in HPI & below Physical Exam Physical Exam: General: WD/WN elderly female sitting up, NAD HEENT; head normocephalic, atraumatic, mmm, trachea midline without deviation, +carotid bruit Resp: CTAB, diminished in the bases, no w/c/r, on room air CV: RRR, no m/r/g, no edema or calf tenderness, cap refill wnl GI: +BS throughout, non-tender (but reported cramping sensation), no guarding or rigidity : no jon MSK/Neuro: answering questions appropriately, no facial droop or slurred speech, CN intact grossly, strength equal throughout but decreased Skin: warm, dry Psych: alert and oriented to person/place/time but not regarding her medications, pleasant and cooperative Results & Data Results & Data ([facility]) Vital Signs (Past 12 Hours) Vital Signs Temp Pulse Pulse Resp BP Pulse Ox 03/14/22 07:14 36.7 C 68 18 186/80 H 91 03/14/22 04:10 66 158/76 H 03/13/22 22:49 37.0 C 69 18 175/92 H 90 03/13/22 21:05 86 171/74 H Laboratory Results 03/14/22 03/14/22 03/14/22 Range/Units 09:22 07:29 07:29 WBC (4.8-10.8) K/uL RBC (4.2-5.4) M/uL Hgb (12.0-16.0) g/dL Hct (37-47) % MCV (80-100) fL MCH (25-34) pg MCHC (32-36) g/dL RDW Std Deviation (36.4-46.3) fL RDW Coeff of Nathan (11.5-14.5) % Plt Count (130-400) K/uL MPV (7.4-10.4) fL Immature Gran % (Auto) % Neut % (Auto) % Lymph % (Auto) % [place] % (Auto) % Eos % (Auto) % Baso % (Auto) % Neut # (Auto) (1.4-6.5) K/uL Lymph # (Auto) (1.2-3.4) K/uL [place] # (Auto) (0.11-0.59) K/uL Eos # (Auto) (0-0.5) K/uL Baso # (Auto) (0-0.2) K/uL Immature Gran # (Auto) (0.00-0.02) K/uL Sodium 140 (136-145) mmol/L Potassium 3.7 (3.5-5.1) mmol/L Chloride 108 H (98-107) mmol/L Carbon Dioxide 25 (21-32) mmol/L Anion Gap 7 (3-11) BUN 14 (6-23) mg/dl Creatinine 0.94 (0.6-1.2) mg/dl Est Cr Clr Drug Dosing 38.4 ml/min Est GFR ( Amer) 68.3 ml/min Est GFR (Non-Af Amer) 58.9 ml/min BUN/Creatinine Ratio 14.9 (10-20) Glucose 81 (70-99(Fasting)) mg/dl Calcium 8.5 (8.5-10.1) mg/dl Magnesium 1.4 L (1.7-2.4) mg/dl Lipase (11-82) U/L Cortisol AM Sample 12.28 (6.2-22.6) mcg/dl Stl C. cayetanensis PCR Not Detected (NotDetected) Stool Rotavirus A PCR Not Detected (NotDetected) Stl Adenov F 40/41 PCR Not Detected (NotDetected) Stool Astrovirus (PCR) Not Detected (NotDetected) Stool Campylobacter PCR Not Detected (NotDetected) Stl C. diff Tox A/B PCR Not Detected (NotDetected) Stool Cryptosporidium PCR Not Detected (NotDetected) Stl E.coli Shiga Tox PCR Not Detected (NotDetected) Stl Enterotoxigenic E PCR Not Detected (NotDetected) Stool EPEC (PCR) Not Detected (NotDetected) Stool EAEC (PCR) Not Detected (NotDetected) Stl E. histolytica PCR Not Detected (NotDetected) Stool Giardia Lamblia PCR Not Detected (NotDetected) Stool Salmonella PCR Not Detected (NotDetected) Stool Sapovirus (PCR) Not Detected (NotDetected) Stl P. shigelloides PCR Not Detected (NotDetected) Stl Shigella/EIEC PCR Not Detected (NotDetected) St Y.enterocolitica PCR Not Detected (NotDetected) Stool Vibrio (PCR) Not Detected (NotDetected) Stl Vibrio cholerae PCR Not Detected (NotDetected) Stl Norovirus GI/GII PCR Not Detected (NotDetected) Influ A Molecular Assay (Negative) Influ B Molecular Assay (Negative) 03/14/22 03/13/22 03/13/22 Range/Units 07:29 16:15 07:01 WBC 6.84 (4.8-10.8) K/uL RBC 3.53 L (4.2-5.4) M/uL Hgb 10.2 L (12.0-16.0) g/dL Hct 30.7 L (37-47) % MCV 87.0 (80-100) fL MCH 28.9 (25-34) pg MCHC 33.2 (32-36) g/dL RDW Std Deviation 52.8 H (36.4-46.3) fL RDW Coeff of Nathan 16.6 H (11.5-14.5) % Plt Count 217 (130-400) K/uL MPV 9.9 (7.4-10.4) fL Immature Gran % (Auto) 0.4 % Neut % (Auto) 45.4 % Lymph % (Auto) 43.1 % [place] % (Auto) 7.9 % Eos % (Auto) 3.1 % Baso % (Auto) 0.1 % Neut # (Auto) 3.10 (1.4-6.5) K/uL Lymph # (Auto) 2.95 (1.2-3.4) K/uL [place] # (Auto) 0.54 (0.11-0.59) K/uL Eos # (Auto) 0.21 (0-0.5) K/uL Baso # (Auto) 0.01 (0-0.2) K/uL Immature Gran # (Auto) 0.03 H (0.00-0.02) K/uL Sodium (136-145) mmol/L Potassium (3.5-5.1) mmol/L Chloride (98-107) mmol/L Carbon Dioxide (21-32) mmol/L Anion Gap (3-11) BUN (6-23) mg/dl Creatinine (0.6-1.2) mg/dl Est Cr Clr Drug Dosing ml/min Est GFR ( Amer) ml/min Est GFR (Non-Af Amer) ml/min BUN/Creatinine Ratio (10-20) Glucose (70-99(Fasting)) mg/dl Calcium (8.5-10.1) mg/dl Magnesium (1.7-2.4) mg/dl Lipase 6 L (11-82) U/L Cortisol AM Sample (6.2-22.6) mcg/dl Stl C. cayetanensis PCR (NotDetected) Stool Rotavirus A PCR (NotDetected) Stl Adenov F 40/41 PCR (NotDetected) Stool Astrovirus (PCR) (NotDetected) Stool Campylobacter PCR (NotDetected) Stl C. diff Tox A/B PCR (NotDetected) Stool Cryptosporidium PCR (NotDetected) Stl E.coli Shiga Tox PCR (NotDetected) Stl Enterotoxigenic E PCR (NotDetected) Stool EPEC (PCR) (NotDetected) Stool EAEC (PCR) (NotDetected) Stl E. histolytica PCR (NotDetected) Stool Giardia Lamblia PCR (NotDetected) Stool Salmonella PCR (NotDetected) Stool Sapovirus (PCR) (NotDetected) Stl P. shigelloides PCR (NotDetected) Stl Shigella/EIEC PCR (NotDetected) St Y.enterocolitica PCR (NotDetected) Stool Vibrio (PCR) (NotDetected) Stl Vibrio cholerae PCR (NotDetected) Stl Norovirus GI/GII PCR (NotDetected) Influ A Molecular Assay Negative (Negative) Influ B Molecular Assay Negative (Negative) PG Care Time/CCT Total # of Minutes Spent Total Time Spent with Patient: Total time spent is greater than 50% in coordination of care (as documented) at patient's floor/unit and/or counseling patient: Coding Level of Care Code 78491 Subseq Hosp Care Lvl 2 Diagnoses Diarrhea R19.7 Abdominal pain R10.9 Hypothyroidism E03.9 Hypothyroidism type: acquired CKD (chronic kidney disease) N18.3 Chronic kidney disease stage: stage 3 (moderate) Coronary artery disease I25.10 Associated angina: without angina Coronary Disease-Associated Artery/Lesion type: [place] artery [place] vs. transplanted heart: [place] heart Hypomagnesemia E83.42 Hypertension I10 Hypertension type: unspecified Hyperparathyroidism E21.3 Depression F32.9 Carotid artery stenosis I65.29 (1) Coronary artery disease Associated angina: without angina Coronary Disease-Associated Artery/Lesion type: [place] artery [place] vs. transplanted heart: [place] heart Qualified Code(s): I25.10 - Atherosclerotic heart disease of [place] coronary artery without angina pectoris (2) Hypothyroidism Hypothyroidism type: acquired Qualified Code(s): E03.9 - Hypothyroidism, unspecified (3) CKD (chronic kidney disease) Chronic kidney disease stage: stage 3 (moderate) Qualified Code(s): N18.3 - Chronic kidney disease, stage 3 (moderate) (4) Hypertension Hypertension type: unspecified Qualified Code(s): I10 - Essential (primary) hypertension
[2022-03-14] MEDS: FAMOTIDINE 20 MG TAB PO SCH (09:48)
[2022-03-14] MEDS: SERTRALINE HCL 100 MG TABLET PO SCH (09:48)
[2022-03-14] MEDS: POTASSIUM CHLORIDE CRTAB 20 MEQ TABCR PO SCH (09:49)
[2022-03-14] MEDS: ASPIRIN 81 MG ECTAB PO SCH (09:49)
[2022-03-14] MEDS: CHOLECALCIFEROL 1,000 UNITS 25 MCG TAB PO SCH (09:50)
[2022-03-14] MEDS: CINACALCET HCL 30 MG TAB PO SCH (09:50)
[2022-03-14] MEDS: CLOPIDOGREL BISULFATE 75 MG TAB PO SCH (09:50)
[2022-03-14] MEDS: PANTOprazole 40 MG TAB PO SCH ×2 (09:51→21:47)
[2022-03-14] MEDS: SERTRALINE HCL 50 MG TABLET PO SCH (09:51)
[2022-03-14] MEDS: SUCRALFATE 1 GM TAB PO SCH ×3 (09:51→21:47)
[2022-03-14] MEDS: PSYLLIUM or GUAR GUM FIBER POWDER PACKET PO SCH (09:53)
[2022-03-14] MEDS: FLUTICASONE/VILANTEROL 200/25MCG 14 PUFFS/INHALER INH SCH (09:53)
[2022-03-14 10:50] LABS: Adenovirus F 40/41 PCR Not Detected (NotDetected); Astrovirus PCR Not Detected (NotDetected); Campylobacter PCR Not Detected (NotDetected); Clostridium diff Toxin A/B PCR Not Detected (NotDetected); Cryptosporidium PCR Not Detected (NotDetected); Cyclospora cayetanensis PCR Not Detected (NotDetected); Entamoeba histolytica PCR Not Detected (NotDetected); Enteroaggregative E.coli(EAEC) Not Detected (NotDetected); Enteropathogenic E.coli (EPEC) Not Detected (NotDetected); Enterotoxigenic E.coli (ETEC) Not Detected (NotDetected); Giardia lamblia PCR Not Detected (NotDetected); Norovirus GI/GII PCR Not Detected (NotDetected); Plesiomonas shigelloides PCR Not Detected (NotDetected); Rotavirus A PCR Not Detected (NotDetected); Salmonella PCR Not Detected (NotDetected); Sapovirus PCR Not Detected (NotDetected); Shiga-like Toxin E.coli (STEC) Not Detected (NotDetected); Shigella/Enteroinvasive E.coli Not Detected (NotDetected); Vibrio cholerae PCR Not Detected (NotDetected); Vibrio species PCR Not Detected (NotDetected); Yersinia enterocolitica PCR Not Detected (NotDetected)
[2022-03-14] MEDS ORDERED: MAGNESIUM OXIDE 400 MG TAB PO SCH (11:30)
[2022-03-14] MEDS: CETIRIZINE HCL 10 MG TABLET PO SCH (11:37)
[2022-03-14 12:33] LABS: Appearance Urine Clear (Clear); Bilirubin Urine Negative (Negative); Blood Urine Negative (Negative); Color Urine Yellow; Glucose Urine UA Negative (Negative); Ketones Urine Negative (Negative); Leukocyte Esterase Urine Negative (Negative); Nitrite Urine Negative (Negative); Protein Urine Negative (Negative); Specific Gravity Urine 1.013 (1.000-1.030); Urobilinogen Urine Negative (Negative)
[2022-03-14] MEDS: MAGNESIUM SULFATE / D5W 1 GM/100 ML BAG IV SCH ×3 (13:14→17:15)
[2022-03-14] MEDS ORDERED: MAGNESIUM SULFATE / D5W 1 GM/100 ML BAG IV ONE (17:30)
--- NOTE | 2022-03-14 20:39 | Ultrasound Report ---
ULTRASOUND OF THE CAROTID ARTERIES CLINICAL HISTORY: Carotid artery stenosis. COMPARISON STUDY: CT angiogram of the neck dated 08/16/2021. TECHNIQUE: Real-time, grayscale, and color Doppler sonography of the carotid arteries is performed. I mages are reviewed in the transverse and longitudinal planes. FINDINGS: The carotid arteries are patent bilaterally and demonstrate antegrade flow. Atherosclerotic plaque is seen bilaterally. There is blunted upstroke within the distal internal carotid artery seen bilateral ly. Velocity measurements are listed below. Common carotid peak systolic velocity (cm/sec): RIGHT: 80 LEFT: 74 ICA proximal peak systolic velocity (cm/sec): RIGHT: 219 LEFT: 277 ICA mid peak systolic velocity (cm/sec): RIGHT: 207 LEFT: 92 ICA distal peak systolic velocity (cm/sec): RIGHT: 121 LEFT: 62 ICA/CC peak systolic ratio: RIGHT: 2.7 LEFT: 3.7 Antegrade flow was shown in the vertebral arteries. The external carotid arteries are patent. IMPRESSION: 1. Atherosclerotic plaque with evidence of 50-69% stenosis of the proximal right internal carotid art yoly by velocity criteria. 2. There is evidence of greater than 70% stenosis of the proximal left internal carotid artery by robinson ocity criteria. 3. Antegrade flow is shown in the vertebral arteries. ACT 112: Negative or not required by law. Electronically signed by: Zeferino Paula M.D. 03/14/2022 8:37 PM
[2022-03-14] MEDS: ATORVASTATIN 40 MG TAB PO SCH (21:47)
[2022-03-14] MEDS: traZODone HCL 50 MG TAB PO SCH (21:47)
[2022-03-14] MEDS: lisinopril 40 MG TAB PO SCH (21:47)
[2022-03-15] MEDS: LEVOTHYROXINE SODIUM 100 MCG TABLET PO SCH (05:48)
[2022-03-15] MEDS: FLUTICASONE/VILANTEROL 200/25MCG 14 PUFFS/INHALER INH SCH (08:27)
[2022-03-15] MEDS: SUCRALFATE 1 GM TAB PO SCH ×2 (08:27→13:16)
[2022-03-15] MEDS: ASPIRIN 81 MG ECTAB PO SCH (08:28)
[2022-03-15] MEDS: PANTOprazole 40 MG TAB PO SCH (08:28)
[2022-03-15 08:29] LABS: Basophils # (auto) 0.01 K/uL (0-0.2); Basophils % (auto) 0.1 %; Eosinophils # (auto) 0.26 K/uL (0-0.5); Eosinophils % (auto) 3.8 %; Hematocrit (blood only) 31.4 % (37-47); Hemoglobin 10.5 g/dL (12.0-16.0); Immature Granulocytes # (auto) 0.02 K/uL (0.00-0.02); Immature Granulocytes % (auto) 0.3 %; Lymphocytes # (auto) 2.21 K/uL (1.2-3.4); Mean Corpuscular Hemoglobin 29.2 pg (25-34); Mean Corpuscular Hgb Conc 33.4 g/dL (32-36); Mean Corpuscular Volume 87.2 fL (80-100); Mean Platelet Volume 10.2 fL (7.4-10.4); Monocytes # (auto) 0.59 K/uL (0.11-0.59); Monocytes % (auto) 8.5 %; Neutrophils # (auto) 3.82 K/uL (1.4-6.5); Neutrophils % (auto) 55.3 %; Platelet Count 207 K/uL (130-400); RDW Coefficient of Variation 16.3 % (11.5-14.5); RDW Standard Deviation 52.4 fL (36.4-46.3); White Blood Count 6.91 K/uL (4.8-10.8)
[2022-03-15] MEDS: METOPROLOL SUCC 25MG EXT REL TAB PO SCH (08:29)
[2022-03-15] MEDS: FAMOTIDINE 20 MG TAB PO SCH (08:29)
[2022-03-15] MEDS: SERTRALINE HCL 100 MG TABLET PO SCH (08:30)
[2022-03-15] MEDS: amLODIPine BESYLATE 5 MG TAB PO SCH (08:30)
[2022-03-15] MEDS: CINACALCET HCL 30 MG TAB PO SCH (08:31)
[2022-03-15] MEDS: CALCITRIOL 0.25 MCG CAPSULE PO SCH (08:31)
[2022-03-15] MEDS: SERTRALINE HCL 50 MG TABLET PO SCH (08:31)
[2022-03-15] MEDS: CLOPIDOGREL BISULFATE 75 MG TAB PO SCH (08:31)
[2022-03-15] MEDS: POTASSIUM CHLORIDE CRTAB 20 MEQ TABCR PO SCH (08:32)
[2022-03-15] MEDS: CETIRIZINE HCL 10 MG TABLET PO SCH (08:32)
[2022-03-15] MEDS: CHOLECALCIFEROL 1,000 UNITS 25 MCG TAB PO SCH (08:33)
[2022-03-15] MEDS: PSYLLIUM or GUAR GUM FIBER POWDER PACKET PO SCH (08:34)
[2022-03-15] MEDS: ISOSORBIDE MONO EXTENDED REL 60 MG TABCR PO SCH (08:34)
[2022-03-15 08:39] LABS: BUN Creatinine Ratio 13.3 (10-20); Calcium 8.5 mg/dl (8.5-10.1); Creatinine Clr Calc Pharmacy 40.1 ml/min; Est GFR (Non-African American) 62.1 ml/min; Potassium 3.8 mmol/L (3.5-5.1)
--- NOTE | 2022-03-15 08:40 | Hospitalist Progress Note ---
Date of Service March 15, 2022 Assessment & Plan (1) Diarrhea: Plan: Acute lasting more than a a month- with some relief in between. Prior c-scope [facility] 2 years ago, polyps, was done for routine screening Patient states watery/loose and alternating habits She was recently treated for a UTI with amoxicillin x 7 days at the end of January At that time complaints of UTI sx and diarrhea with urinary frequency/incontinence and odor (of note, had leg/back weakness and fell prior to that, reportedly hit head but refused to go to the ER at that time. Denies BRANDT/visual changes). No well water, drinks bottled water. Daughter Margarita does her medications, no new meds except abx for UTI. Stool/ova as outpatient earlier this month negative LFTs wnl Continue low fat diet -Did check lipase given epigastric discomfort. Low, 6. ?benefit from creon for insufficiency. Discussed with GI and unlikely. Monitor GI on consult -Stool PCR NEGATIVE -Metamucil 1tbsp daily -- continue, hollie while on mag ox supplementation to prevent continued diarrhea WBC wnl, afebrile Of note, was given ceftriaxone x 1 for possible cystitis on admission, since discontinued as UA negative (as above, recent tx for UTI w/ amoxicillin) --> episode of urinary retention evening 03/13, st cath for ~900cc Repeat UA/tx if needed PT/OT consulted -- reported weakness, lives alone, may require rehab. CM following (2) Abdominal pain: Plan: As above - epigastric in nature following food ingestion with a history of PUD Continued on PPI BID, carafate (likely contributing to underlying low magnesium level) Stool PCR negative GI consulted as above Cortisol level not low (CTAP noted 11mm L adrenal gland adenoma) Monitor, ?benefit from creon for low lipse level if any continued issues Improved per patient, only mild cramping , however with urinary retention last evening and repeat UA (3) Hypothyroidism: Plan: TSH elevated to 5.48 -- on Synthroid 100mcg daily --> consideration increase dose vs repeat with PCP outpatient in next 4-6 weeks as patient reports she does take prior to her other pills in the morning (checking cortisol level in AM as well) (4) CKD (chronic kidney disease): Plan: Acute kidney injury on CKD IIIa ,Cr was 1.47 on admission 2nd to diarrhea, 1L LR ordered with improvement and Cr stable 0.94 avoid further nephrotoxic medications as able Encourage PO intake BMP in AM (5) Coronary artery disease: Plan: Stable without symptoms endorsed - continue BB, ASA, Statin, EFE - Continue prn Nitroglycerine (6) Hypomagnesemia: Plan: Mag 1.8 on admission, 2gm ordered Mag low 1.4 this morning -- did report 3 episodes diarrhea --> IV replacement ordered --> review of medications with patient on Mag Ox TID, resumed --> Could be contributing to her chronic issue as well Monitor in AM (7) Hypertension: Plan: BP elevated this morning with slight headache (similar to prior headaches), improved with Tylenol BP currently 150/80 Continues on metoprolol 12.5mg daily, lisinopril 40mg HS Monitor (8) Hyperparathyroidism: Plan: Continue cincalcet (9) Depression: Plan: Continue sertraline (10) Carotid artery stenosis: Plan: Noted in July with 70% stenosis - serial imaging was to have office visit last week with ultrasound but was cancelled - follow up in March - No Nuerological symptoms on exam or endorsed - continue asa/Plavix/statin Given headache, and HTN will check carotid doppler to r/o any worsening stenosis Plan: continued inpatient stay PT/OT consults pending for possible need for short term rehab. CM following Admission and Anticipated Discharge Date Admission Date: March 12, 2022 Subjective evalauted this afternoon doing well eating/drinking but not liking the low fat diet, will change and monitor tolerance discussed mag supplementation, daughter margarita on phone. had seen PCP, mag low in past and upped from twice daily to three times daily. discussed likely culprit to ongoing diarrhea and will monitor off such/consider slow mag at d/c. awaiting bed at rehab. will touch base with CM. Patient denies any fever/chills, chest pain, shortness of breath, nausea, vomiting. Moving bowels, more formed. No diarrhea. Results & Data Results & Data ([facility]) Vital Signs (Past 12 Hours) Vital Signs Temp Pulse Pulse Resp BP BP Pulse Ox 03/15/22 07:16 36.5 C 59 L 16 167/66 H 92 03/14/22 22:54 36.6 C 80 16 173/70 H 97 03/14/22 21:45 80 170/67 H PG Care Time/CCT Total # of Minutes Spent Total Time Spent with Patient: Total time spent is greater than 50% in coordination of care (as documented) at patient's floor/unit and/or counseling patient: Coding Diagnoses Diarrhea R19.7 Abdominal pain R10.9 Hypothyroidism E03.9 Hypothyroidism type: acquired CKD (chronic kidney disease) N18.3 Chronic kidney disease stage: stage 3 (moderate) Coronary artery disease I25.10 Associated angina: without angina Coronary Disease-Associated Artery/Lesion type: [place] artery [place] vs. transplanted heart: [place] heart Hypomagnesemia E83.42 Hypertension I10 Hypertension type: unspecified Hyperparathyroidism E21.3 Depression F32.9 Carotid artery stenosis I65.29 (1) Coronary artery disease Associated angina: without angina Coronary Disease-Associated Artery/Lesion type: [place] artery [place] vs. transplanted heart: [place] heart Qualified Code(s): I25.10 - Atherosclerotic heart disease of [place] coronary artery without angina pectoris (2) Hypothyroidism Hypothyroidism type: acquired Qualified Code(s): E03.9 - Hypothyroidism, unspecified (3) CKD (chronic kidney disease) Chronic kidney disease stage: stage 3 (moderate) Qualified Code(s): N18.3 - Chronic kidney disease, stage 3 (moderate) (4) Hypertension Hypertension type: unspecified Qualified Code(s): I10 - Essential (primary) hypertension
--- NOTE | 2022-03-15 13:46 | Discharge Summary ---
Date of Service March 15, 2022 Admission HPI Per Admitting Provider 77 YOF with medical history of: CAD, CABG x4 (NETTLES/LAD, SVG/RI, SVG/Om2, SVG/RCA), PAD with b/l fem-pop bypass, Carotid artery stenosis, DM II, HTN, HLD, COPD, Dementia, hyperparathyroidism, obesity, hemorrhoids, LULI(non compliant- returned her CPAP). Patient comes to the EMD today for complaint of diarrhea and fatigue. The patient has been having diarrhea episodes on and off for over the past month. She was originally seeing her PCP for this, where she had a C. Diff and Ova/parasites and Shigella testing performed in January. This was all negative. The diarrhea started to improve, and patient reports that she actually had a formed stool yesterday but this morning was back with diarrhea and weakness. The patient denies any abdominal pain with this, no fevers, no chills. The stools are noted to be yellow in nature without any blood in the toilet but occasionally on the toilet paper. She reports 1-3 episodes of this daily. Reportedly she had her PPI stopped secondary to this in the past, and has resumed this but is unable to correlate symptoms. When further questioning, patient notes that she is not having much oral intake at times secondary to pain in her epigastrium that causes nausea and decrease in appetite. The patient states that after she eats, she will have onset of epigastric pain that is sharp in nature followed by nausea and then diarrhea. This pain occurs 45min to 1 hour following meals. The patient had been followed by [facility] in the past. Will admit patient, start on bland diet, follow lab markers as her biliary labs are normal. Follow H/H, consult GI for evaluation of symptoms and consider imaging as she has not had these updated. CT of the abdomen and pelvis did no reveal acute GI process although she is tender epigastrium and RLQ, cystitis- will start empiric Rocephin in light of mild elevated WBC and elevated NLR. Patient COVID test on admission is: NEGATIVE CODE: DNR/DNI Principal Diagnosis Diarrhea, Medication induced Discharge Exam General: WD/WN elderly female sitting up, NAD HEENT; head normocephalic, atraumatic, mmm, trachea midline without deviation, +carotid bruit Resp: CTAB, diminished in the bases, no w/c/r, on room air CV: RRR, no m/r/g, no edema or calf tenderness, cap refill wnl GI: +BS throughout, non-tender (but reported cramping sensation), no guarding or rigidity : no jon MSK/Neuro: answering questions appropriately, no facial droop or slurred speech, CN intact grossly, strength equal throughout but decreased Skin: warm, dry Psych: alert and oriented to person/place/time but not regarding her medications, pleasant and cooperative Discharge Data Allergies Allergy/AdvReac Type Severity Reaction Status Date / Time nickel Allergy Unknown RASH Verified 03/12/22 11:43 rosuvastatin AdvReac Mild Pain Verified 03/12/22 11:43 salicylates AdvReac Mild GI UPSET Verified 03/12/22 11:43 adhesive AdvReac Unknown ITCHING Verified 03/12/22 11:43 Consultations 03/12/22 11:42 ED Decision to Admit Stat 03/12/22 20:17 Consult Gastroenterology Routine Ordered Studies Chest X-Ray 03/12/22 08:22 XR chest 1V portable CLINICAL HISTORY: Weakness. COMPARISON STUDY: Chest CT July 18, 2021. FINDINGS: Lung volumes are normal. Lungs are clear. There is no pneumothorax or pleural effusion. Cardiac size is stable. Mediastinal contours are normal. There is no evidence for pulmonary edema. IMPRESSION: No acute cardiopulmonary findings. No change in appearance of the chest. ACT 112: Negative or not required by law. Electronically signed by: Jason Cooper M.D. 03/12/2022 9:07 AM KUB X-Ray 03/12/22 08:22 KUB CLINICAL HISTORY: GI bleeding. FINDINGS: 2 AP supine abdominal radiographs are correlated with abdominal CT dated 01/19/2016. There is a nonobstructed abdominal bowel gas pattern. No evidence of intraperitoneal free air is seen on these supine images. There are no abnormal abdominal calcifications. Numerous phleboliths are seen in the pelvis. Surgical clips project over the right groin. The skeletal structures are osteopenic and appear intact. There is moderate lumbosacral spondylosis. IMPRESSION: No acute abnormality is identified. Electronically signed by: Zeferino Paula M.D. 03/12/2022 9:03 AM Abdomen/Pelvis CT 03/12/22 12:[address] WITH IV CONTRAST CT DOSE: 365.94 mGy.cm HISTORY: Acute right lower quadrant abdominal pain RLQ pain, diarrhea, fecal occult positive TECHNIQUE: Multiaxial CT images of the abdomen and pelvis were performed following the IV administration of 95 cc of Optiray, A dose lowering technique was utilized adhering to the principles of ALARA. COMPARISON STUDY: CT abdomen and pelvis 01/19/2016 FINDINGS: Surgical clips within the left anterior lower chest are redemonstrated. The heart is mildly enlarged. Mild subsegmental bibasilar atelectasis. No pneumatosis or pneumoperitoneum. The spleen and right adrenal gland are unremarkable. 11 mm left adrenal gland adenoma. There are a few cystic foci noted within the pancreatic body and tail measuring up to 10 mm which are indeterminate and may represent a sidebranch IPMN's, new from 2016. No pancreatic ductal dilation. Probable adenomyomatosis of the gallbladder fundus. There are numerous water attenuating lesions noted throughout the liver measuring up to 3.1 cm and the left hepatic lobe suggestive of probable cysts. Several of the foci are too small to characterize. Patency of the hepatic and portal veins. Cortical thinning of the kidneys. There are a few left-sided renal vascular calcifications noted. There is no hydronephrosis. Partial distention of the urinary bladder with moderate anterior wall thickening and mild mucosal hyperemia. Hysterectomy. No adnexal mass lesions. Extensive atherosclerosis of the abdominal aorta which appears to result in multifocal stenosis of the branch vessels. No lymphadenopathy is identified. Colonic diverticulosis without acute diverticulitis. No bowel obstruction or bowel wall thickening. The appendix is reportedly surgically absent. No ascites or mesenteric inflammation. Unremarkable soft tissues. Grade 1 anterolisthesis L4 on L5 is likely on a degenerative basis. Degenerative changes of the spine, pelvis and hips. IMPRESSION: 1. No bowel obstruction or bowel wall thickening. 2. Colonic diverticulosis without acute diverticulitis. 3. Partial distention of the urinary bladder with nonspecific wall thickening. Correlate with urinalysis. 4. Prior hysterectomy and appendectomy. 5. Additional findings as above. ACT 112: Negative or not required by law. The above report was generated using voice recognition software. It may contain grammatical, syntax or spelling errors. Electronically signed by: Sawyer Ortiz M.D. 03/12/2022 12:41 PM Carotid Doppler Study 03/14/22 12:09 ULTRASOUND OF THE CAROTID ARTERIES CLINICAL HISTORY: Carotid artery stenosis. COMPARISON STUDY: CT angiogram of the neck dated 08/16/2021. TECHNIQUE: Real-time, grayscale, and color Doppler sonography of the carotid arteries is performed. Images are reviewed in the transverse and longitudinal planes. FINDINGS: The carotid arteries are patent bilaterally and demonstrate antegrade flow. Atherosclerotic plaque is seen bilaterally. There is blunted upstroke within the distal internal carotid artery seen bilaterally. Velocity measurements are listed below. Common carotid peak systolic velocity (cm/sec): RIGHT: 80 LEFT: 74 ICA proximal peak systolic velocity (cm/sec): RIGHT: 219 LEFT: 277 ICA mid peak systolic velocity (cm/sec): RIGHT: 207 LEFT: 92 ICA distal peak systolic velocity (cm/sec): RIGHT: 121 LEFT: 62 ICA/CC peak systolic ratio: RIGHT: 2.7 LEFT: 3.7 Antegrade flow was shown in the vertebral arteries. The external carotid arteries are patent. IMPRESSION: 1. Atherosclerotic plaque with evidence of 50-69% stenosis of the proximal right internal carotid artery by velocity criteria. 2. There is evidence of greater than 70% stenosis of the proximal left internal carotid artery by velocity criteria. 3. Antegrade flow is shown in the vertebral arteries. ACT 112: Negative or not required by law. Electronically signed by: Zeferino Paula M.D. 03/14/2022 8:37 PM Hospital Course (1) Diarrhea: Acute lasting more than a a month- with some relief in between. Prior c-scope [facility] 2 years ago, polyps, was done for routine screening Patient states watery/loose and alternating habits over the past 4-5 weeks She was recently treated for a UTI with amoxicillin x 7 days at the end of January At that time complaints of UTI sx and diarrhea with urinary frequency/inc ontinence and odor (of note, had leg/back weakness and fell prior to that, reportedly hit head but refused to go to the ER at that time. Denies BRANDT/visual changes). No well water, drinks bottled water. Daughter Alexus does her medications, no new meds except abx for UTI. Stool/ova as outpatient earlier this month negative LFTs wnl Stool PCR NEGATIVE (recent amoxicillin for UTI, urine negative during admission) GI on consult -Added Metamucil 1tbsp daily , continued. Formed stool reported Of note, discussed with daughter Alexus, given patient with dementia and doesn't do her medications and on mag oxide TID (held on admission) --> She had seen PCP last month and checked mag, low, and increased supplmentation from BID to TID during which time patient experienced worsening diarrhea/loose stools Discussed likely from oral magnesium Replacement ordered IV, 2.0 prior to discharge Stopped mag supplementation at discharge, [facility] to check mag level in 1-2 days and consider SLOW MAG in replacement to prevent any further issues Did check lipase given epigastric discomfort. Low, 6. ?benefit from creon for insufficiency. Discussed with GI and unlikely. Monitor --> can follow up with GI, given pancreatic cysts/pancreatic elastase outpatient/consider creon if any issues or concerns for pancreatic insufficiency. She does have IPMNs on CT on admission new from prior. Will need routine monitoring with GI PT/OT consulted give patient with weakness/month long diarrhea likely need for rehab short term --> arranged rehab at [facility]. (2) Abdominal pain: As above Epigastric in nature following food ingestion with a history of PUD -- no pain reported Continued PPI BID, carafate Stool PCR negative Eating/drinking without issue and having more formed stools Cortisol level wnl (CTAP noted 11mm L adrenal gland adenoma) Will need continued monitoring for pancreatic cysts as above with GI -- f/u to be arranged post-dc from rehab (3) Hypothyroidism: TSH elevated to 5.48 -- on Synthroid 100mcg daily --> consideration increase dose vs repeat with PCP outpatient in next 4-6 weeks as patient reports she does take prior to her other pills in the morning (4) CKD (chronic kidney disease): Acute kidney injury on CKD IIIa ,Cr was 1.47 on admission 2nd to diarrhea, 1L LR ordered with improvement and Cr stable 0.90 off of IVF (5) Coronary artery disease: Stable without symptoms endorsed - continued BB, ASA, Statin, EFE - Continued prn Nitroglycerin -- did not need (6) Hypomagnesemia: See above, recent increase in PO likely causing increased diarrhea Mag 2.0 prior to d/c (given IV replacement inpatient) (7) Hypertension: Stable Continued metoprolol 12.5mg daily, lisinopril 40mg HS Consider increasing metoprolol outpatient (8) Hyperparathyroidism: Continued cincalcet follows with nephrology as well (9) Depression: Continued sertraline (10) Carotid artery stenosis: Noted in July with 70% stenosis - serial imaging was to have office visit last week with ultrasound but was cancelled - follow up in March - No Nuerological symptoms on exam or endorsed - continue asa/Plavix/statin Carotid doppler checked given nasuea/headache day prior --> no change from prior Routine f/u with Dr Flores in March per daughter Alexus (11) Pancreas cyst: noted on CTAP, new from 2016 -- "There are a few cystic foci noted within the pancreatic body and tail measuring up to 10 mm which are indeterminate and may represent a sidebranch IPMN's, new from 2016. No pancreatic ductal dilation" GI on consult during inpatient stay, no comment Did not comment on relation, but rec f/u GI outpatient for routine monitoring/surveillance Total Time Total Time Spent Total Time Spent (In Minutes): 60 Discharge Plan Discharge Items Patient Disposition: Transfer Inpatient Rehab Fac Reason For Visit: DIARRHEA, WEAKNESS Discharge Diagnosis: Medication induced diarrheal illness Goals: You have been hospitalized for an acute medical problem. During your stay at [facility], we have made an effort to correct the problem that brought you to the hospital while keeping you as comfortable as possible. Medications were used to bring your condition under control and your discharge instructions will include directions for any medications you should take after leaving the hospital. Please make sure you see your Primary Care Provider as part of your follow up plan. Activity: As commented below Activity Comment: advance as tolerated with therapy Non-emergency contact: Primary Care Provider and [employer] Agent Call non-emergency contact if: you have any medication questions, your symptoms worsen and you have a fever Follow-up/Referrals: Juanito Russell DO [Physician] - Tye Sneed MD [Primary Care Provider] - Diet: Heart Healthy Addtl Attending Provider Instructions: You have been hospitalized for diarrhea. Stool studies and imaging have been negative for infectious etiology. As discussed, the increase in oral magnesium as an outpatient can cause diarrhe a, and increased diarrhea can lead to increased losses. This medication has been stopped while inpatient and you have received IV replacement. PT/OT was consulted and recommend you to inpatient rehab. This has been arranged to [facility]. You should have repeat magnesium level in the next 1-2 days to ensure this level is stable. If supplementation is still required, would recommend SLOW MAGNESIUM supplementations and start low, increase only as needed to prevent again vicious cycle. You have been started on daily metamucil to help bulk up your stools. Please take with full glass of water to prevent constipation. Your TSH was slightly elevated but could be from stress/diarrhea/illness/recent UTI (urine was negative during admission), and you should have repeat thyroid hormone testing with your PCP as an outpatient. Please follow up with your PCP in the next 7-10 days to monitor your progress. Please follow up with GI for routine monitoring and for pancreatic cysts seen on imaging, possible need for six month monitoring/surveillance. Please return to the ER with any fever/chills, chest pain, inability to keep up with oral intake or for any other symptoms concerning for you. Take care! Pending Studies at Discharge: No Stand-Alone Forms: [employer]ingo, Smoking Cessation Skilled Items Patient informed of condition?: Yes DNR: Yes Discharge Level of Care: Acute rehab Communicable Disease: No Discharge Prognosis: Stable Lines: None Urinary Catheter: No Medications and DC Order Prescriptions: New Psyllium Or Guar Gum Fiber Sup [Metamucil Or Nutrisource Fiber Supplement] 1 pkg PO QAM 14 Days RF: 0 Continued nitroglycerin 0.4 mg tablet, sublingual 0.4 mg SL Q5M PRN (Reason: chest pain) Qty: 25 RF: 0 metoprolol succinate 25 mg tablet extended release 24 hr 12.5 mg PO DAILY Qty: 45 RF: 3 potassium chloride [Klor-Con M20] 20 mEq tablet,ER particles/crystals 20 meq PO DAILY Qty: 90 RF: 3 ondansetron 4 mg tablet,disintegrating 4 mg translingual TID PRN (Reason: nausea and vomiting) Qty: 60 RF: 1 omeprazole 20 mg capsule,delayed release(DR/EC) 20 mg PO BID Qty: 180 RF: 3 Breo Ellipta 200-25 mcg/dose blister with device 1 inh inhalation DAILY Qty: 28 RF: 11 aspirin 81 mg tablet,delayed release (DR/EC) 81 mg PO DAILY Qty: 90 RF: 3 isosorbide mononitrate 120 mg tablet extended release 24 hr 120 mg PO QAM Qty: 90 RF: 3 sertraline 100 mg tablet 100 mg PO DAILY MDD 150mg Qty: 90 RF: 3 sertraline 50 mg tablet 50 mg PO DAILY MDD 150mg Qty: 90 RF: 3 cholecalciferol (vitamin D3) 50 mcg (2,000 unit) capsule 2,000 unit PO QAM Qty: 90 RF: 3 amlodipine 10 mg tablet 5 mg PO DAILY Qty: 30 RF: 11 albuterol sulfate 90 mcg/actuation HFA aerosol inhaler 2 puff inhalation Q6 PRN (Reason: shortness of breath or wheezing) Qty: 18 RF: 0 sucralfate 1 gram tablet 1 g PO TID Qty: 90 RF: 5 levothyroxine 100 mcg tablet 100 mcg PO DAILY Qty: 90 RF: 1 famotidine 20 mg tablet 20 mg PO BID Qty: 60 RF: 5 lisinopril [Zestril] 40 mg tablet 40 mg PO HS Qty: 90 RF: 3 cetirizine [Zyrtec] 10 mg tablet 5 mg PO QAM RF: 0 hydrocortisone 2.5 % cream with perineal applicator 1 appln IN DAILY PRN (Reason: hemorrhoids) Qty: 30 RF: 2 omega-3 acid ethyl esters 1 gram capsule 1 cap PO BID RF: 0 trazodone 150 mg tablet 150 mg PO HS Qty: 90 RF: 3 atorvastatin 80 mg tablet 80 mg PO HS RF: 0 clopidogrel 75 mg tablet 75 mg PO QAM RF: 0 calcitriol 0.25 mcg capsule 0.25 mcg PO Q2D RF: 0 cinacalcet [Sensipar] 60 mg tablet 60 mg PO QAM RF: 0 Discontinued magnesium oxide 250 mg magnesium tablet 250 mg PO TID Qty: 180 RF: 3 Discharge Orders: Discharge Order (Routine); Ordered 03/15/22 Ordered By: Josiane Cruz/Other Patient Handouts: ED Weakness (Uncertain Cause) Admission Data Admit Date/Time: 03/12/22 13:09 Attending Provider: Opal Arellano Admit Provider: Thuan Granger Primary Care Provider: Tye Sneed Other Providers: Thuan Granger ; Juanito Russell ; [facility] Supervising Physician Co-Signing Physician Notes PA Supervision Note: I personally saw and examined the patient. I verified all lance points and agree with PA Cuevas with the following exceptions and/or additions: S-Pt feelin gmuch better. Now having formed stools, no abd pain. No CP or SOB, no other concerns, feels ready to go to rehab O- Vitals reviewed Gen: [AAOx3, NAD] HEENT: [anicteric sclerae, EOMI] CV: [RRR no mgr nl S1S2] Pulm: [CTAB no wcr] Abd: [+BS soft NT ND no masses or hernias] Ext: [trace pitting edema legs bilat] Skin: [no rashes, warm/dry] Neuro: [full strength throughout] A/P-77 yo female here with diarrhea for a month, now improved with stopping po magnesium and starting fiber supplement. Is hydrated, having formed BMs, stool studies all negative. Seen by GI and may pursue colonoscopy as outpt Pancreatic cysts--> need f/u imaging in 6 months Stable for dc to rehab Coding Level of Care Code D/C DAY MANAGEMENT >30 MINS Diagnoses Diarrhea R19.7 Abdominal pain R10.9 Hypothyroidism E03.9 Hypothyroidism type: acquired CKD (chronic kidney disease) N18.3 Chronic kidney disease stage: stage 3 (moderate) Coronary artery disease I25.10 Associated angina: without angina Coronary Disease-Associated Artery/Lesion type: [place] artery [place] vs. transplanted heart: [place] heart Hypomagnesemia E83.42 Hypertension I10 Hypertension type: unspecified Hyperparathyroidism E21.3 Depression F32.9 Carotid artery stenosis I65.29 Pancreas cyst K86.2
== END 2022-03-15 15:19 | DRG 394 ==
LOC: ED 08:03 → 3W 13:09 → SUATTDRO 13:09 → 3W 18:25

== ENCOUNTER 2022-06-18 13:29 | Inpatient (IN) ==
--- NOTE | 2022-06-18 13:58 | Emergency Department Note ---
Impression & Plan AMS (altered mental status), Hypertension, COVID-19 ED Provider Note NAME: NIRAJ WILKINSON AGE: 77 SEX: F : 1945 ARRIVES VIA: Ambulance INFORMANT: Patient ED PROVIDER(S): Jose Palacios DO CHIEF COMPLAINT: confusion, cough HPI: Patient is a 77-year-old female with past medical history of diabetes, CKD, CAD, hypoxic respiratory failure, pancreatic cyst, dementia who presents the ER for altered mental status. Patient started with symptoms around the 12th. Other family members were sick with COVID. She started with cough and congestion. She still is having them. She was found to be very confused by the daughter today. Patient denies any headache or change in vision. She does admit to a cough but is not certain how long its been there for. Denies any belly pain. Daughter notes that she has been having about 1 loose bowel movement per day. No dysuria, urgency, or frequency. No other exacerbating or remitting factors. ROS: See above HPI for pertinent positives & negatives. A total of 10 systems reviewed and were otherwise negative. PAST MEDICAL HISTORY:See Below PAST SURGICAL HISTORY:See Below FAMILY HISTORY:See Below SOCIAL HISTORY:See Below HOME MEDICATIONS:See Below ALLERGIES:See Below VITALS:See Below PHYSICAL EXAMINATION: GENERAL: Sitting up in bed, alert, lightly appearing, disheveled EYE EXAM: normal conjunctiva. OROPHARYNX: Mucous membranes NECK: supple, no nuchal rigidity, no adenopathy, non-tender LUNGS: diminished Bilaterally. Normal chest wall mechanics HEART: no murmurs, S1 normal and S2 normal ABDOMEN: abdomen soft, non-tender, normo-active bowel sounds, no masses, no rebound or guarding. UPPER EXTREMITIES: upper extremities are grossly normal. LOWER EXTREMITIES: No pitting edema. NEURO EXAM: Oriented to person but not month or year, cranial nerves II-XII grossly intact, normal speech, no gross weakness of arms, no gross weakness of legs. MEDICAL DECISION MAKING: Patient is a 77-year-old female who presents the ER for confusion associate with upper respiratory symptoms IV was established blood work was obtained. Labs show leukopenia 4000. No significant anemia. BMP with a CO2 of 17. LFTs bilirubin was unremarkable. Troponin was negative. Lipase normal. UA was contaminated but without signs of infection. COVID positive. Chest x-ray was nondiagnostic. Patient was updated at bedside and discussed with hospitalist for further evaluation due to the confusion and COVID-positive. She was markedly hypertensive with systolic pressures in the 200s. She was given IV hydralazine as well. Triage Nursing notes reviewed. Limited review of prior medical records performed Vital Signs: reviewed and remarkable for HTN Differential diagnosis: Differential diagnoses includes but is not limited to toxic, metabolic, infectious, traumatic, cardiac, neurologic, hematologic, psychiatric and inflammatory etiologies. ER treatment provided: See below Diagnostics interpreted by me: ECG: Sinus rhythm rate of 73 Normal axis Right bundle branch block T wave inversion in V1 through V6 QTC 478 No significant change from previous on Mar 12 2022 Cardiac Monitoring: An order was placed for continuous cardiac monitoring. The monitor shows a rate of 70 with sinus rhythm. Laboratory studies: As stated above and show below. Imaging studies: Portable AP upright 1 view of the chest is unremarkable Consultation(s): Discussed with Dr. Johnny Guo for further evaluation Procedures: none Critical Care: None Past Med/Surg History Medical History (Updated 06/18/22 @ 16:53 by Jose Palacios DO) Adrenal adenoma Asthma Cholelithiasis CKD (chronic kidney disease) stage 3, GFR 30-59 ml/min Coronary artery disease Depression DKA (diabetic ketoacidosis) DM (diabetes mellitus) History of heart disease Hypertension Hypothyroidism IPMN (intraductal papillary mucinous neoplasm) Pancreas cyst SDAT (senile dementia of Alzheimer's type) Urinary incontinence Weakness Surgical History History of appendectomy History of bilateral salpingo-oophorectomy (BSO) History of hysterectomy History of tubal ligation S/P bypass graft of extremity S/P CABG x 4 S/P cataract surgery Family History Sister Myocardial infarction Emphysema, unspecified Brother Myocardial infarction Diabetes Father Cerebral artery occlusion with cerebral infarction Mother Cerebral artery occlusion with cerebral infarction Diabetes Denies family history of Ovarian cancer Prostate cancer Kidney disease Breast cancer Colorectal cancer Social History (Updated 05/22/22 @ 11:02 by Beata Zuñiga MA) Smoking Status: Unknown if ever smoked Tobacco Type: Cigarettes Age Started Using Tobacco: 31; Age Quit Using Tobacco: 54; packs per day: 4; Years Smoked: 23; Number of Years Since Quit: 20; Second Hand Exposure: No; Hx Alcohol Use: No Hx Substance Use: No Preferred Language: Greek Communication Ability: Effective Visual Impairment: No Limitations Hearing Ability: Use of Hearing Aid Sap Manager Required: No Beliefs That Will Affect Care: None marital status: Current Living Situation: Alone Current Living Situation Comment: [facility] current occupational status: retired 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, 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, 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 [employer] Feels Safe at Home: Yes Safety Concerns Comment: Patient is afraid of falling while home alone, has railings on bed Childhood Exposure to Second-Hand Smoke: Yes caffeine: Yes (mixes decaf and reg coffee) Dental Care, Regularly: No Physical Activity Frequency: Does not Exercise Physical Activity Frequency Comment: Exercise limited by physical condition Seatbelt Use: always Sunscreen Use: No (doesn't go outside ) Assistive Devices: Cane, Walker and Wheelchair Allergies Allergies Allergy/AdvReac Type Severity Reaction Status Date / Time nickel Allergy Unknown RASH Verified 05/22/22 10:50 rosuvastatin AdvReac Mild Pain Verified 05/22/22 10:50 salicylates AdvReac Mild GI UPSET Verified 05/22/22 10:50 adhesive AdvReac Unknown ITCHING Verified 05/22/22 10:50 Home Meds Home Medications Medication Instructions Recorded Confirmed omega-3 acid ethyl esters 1 gram 1 cap PO BID 06/18/19 05/22/22 capsule cetirizine 10 mg tablet (Zyrtec) 5 mg PO QAM 09/07/19 05/22/22 atorvastatin 80 mg tablet 80 mg PO HS 03/12/22 05/22/22 calcitriol 0.25 mcg capsule 0.25 mcg PO Q2D 03/12/22 05/22/22 cinacalcet 60 mg tablet (Sensipar) 60 mg PO QAM 03/12/22 05/22/22 clopidogrel 75 mg tablet 75 mg PO QAM 03/12/22 05/22/22 famotidine 20 mg tablet 20 mg PO DAILY 03/29/22 05/22/22 lidocaine 5 % topical patch 1 patch topical DAILY 03/29/22 05/22/22 (Lidoderm) lactobacillus combination no.4 3 3,000 mmu cells PO DAILY 03/30/22 05/22/22 billion cell capsule (Probiotic) Previous Rx's Medication Instructions Recorded hydrocortisone 2.5 % topical cream 1 appln ID DAILY PRN hemorrhoids 05/17/20 with perineal applicator #30 grams nitroglycerin 0.4 mg sublingual 0.4 mg sublingual Q5M PRN chest 02/10/21 tablet pain #25 tabs metoprolol succinate 25 mg 12.5 mg PO DAILY #45 tabs 04/05/21 tablet,extended release 24 hr fluticasone furoate 200 1 inh inhalation DAILY #28 ea 09/04/21 mcg-vilanterol 25 mcg/dose inhalation powder (Breo Ellipta) isosorbide mononitrate 120 mg 120 mg PO QAM #90 tabs 09/26/21 tablet,extended release 24 hr sertraline 100 mg tablet 100 mg PO DAILY #90 tabs 11/09/21 sertraline 50 mg tablet 50 mg PO DAILY #90 tabs 11/09/21 cholecalciferol (vitamin D3) 50 2,000 unit PO QAM #90 caps 11/10/21 mcg (2,000 unit) capsule amlodipine 10 mg tablet 5 mg PO DAILY #30 tabs 11/20/21 lisinopril 40 mg tablet (Zestril) 40 mg PO HS #90 tabs 02/14/22 levothyroxine 112 mcg tablet 112 mcg PO DAILY #90 tabs 04/09/22 trazodone 150 mg tablet 150 mg PO HS insomnia #90 tabs 05/01/22 magnesium chloride 71.5 mg 71.5 mg PO BID #180 tabs 05/04/22 (magnesium chloride) tablet,delayed release (Slow-Mag) potassium chloride 20 mEq 20 meq PO DAILY #90 tabs 05/14/22 tablet,extended release(part/cryst) (Klor-Con M) dexamethasone 1 mg tablet 1 mg PO ONCE #1 tab 05/25/22 omeprazole 20 mg capsule,delayed 20 mg PO BID #180 caps 06/13/22 release albuterol sulfate 90 mcg/actuation 2 puff inhalation Q6 PRN shortness 06/15/22 aerosol inhaler of breath or wheezing #18 grams aspirin 81 mg tablet,delayed 81 mg PO DAILY #90 tabs 06/15/22 release ondansetron 4 mg disintegrating 4 mg translingual TID PRN nausea 06/15/22 tablet and vomiting #60 tabs sucralfate 1 gram tablet 1 g PO TID #90 tabs 06/15/22 Results & Data (ED) Vital Signs Vital Signs - 24 hr 06/18/22 13:37 06/18/22 14:07 06/18/22 14:09 Temperature 36.6 C Temperature Source Oral Pulse Rate 71 71 72 Pulse Rate from SpO2 Sensor 72 Pulse Rhythm Regular Respiratory Rate 17 20 19 Blood Pressure 220/77 H Blood Pressure Mean 124 Pulse Oximetry 97 95 95 Oxygen Delivery Method Room Air Room Air Sepsis Recent Fever Within 48 Hours No Sepsis New/Unexplained Change in Mental Status N/A Sepsis Action Taken by Nursing No Action Required 06/18/22 14:30 06/18/22 15:00 06/18/22 15:15 Temperature Temperature Source Pulse Rate 66 73 Pulse Rate from SpO2 Sensor 67 73 Pulse Rhythm Respiratory Rate 19 20 Blood Pressure 201/108 H Blood Pressure Mean 139 Pulse Oximetry 97 94 Oxygen Delivery Method Sepsis Recent Fever Within 48 Hours Sepsis New/Unexplained Change in Mental Status Sepsis Action Taken by Nursing 06/18/22 15:15 06/18/22 15:17 06/18/22 15:17 Temperature Temperature Source Pulse Rate 70 73 Pulse Rate from SpO2 Sensor 71 72 Pulse Rhythm Respiratory Rate 20 21 Blood Pressure 201/119 H Blood Pressure Mean 146 Pulse Oximetry 94 95 Oxygen Delivery Method Sepsis Recent Fever Within 48 Hours Sepsis New/Unexplained Change in Mental Status Sepsis Action Taken by Nursing 06/18/22 15:20 Temperature Temperature Source Pulse Rate 81 Pulse Rate from SpO2 Sensor 86 Pulse Rhythm Respiratory Rate 18 Blood Pressure Blood Pressure Mean Pulse Oximetry 94 Oxygen Delivery Method Sepsis Recent Fever Within 48 Hours Sepsis New/Unexplained Change in Mental Status Sepsis Action Taken by Nursing Laboratory Data Result diagrams: 06/18/22 13:40 06/18/22 15:12 Lab Results 06/18/22 06/18/22 06/18/22 Range/Units 13:40 13:40 13:45 WBC 4.53 L (4.8-10.8) K/ul RBC 4.19 (3.93-5.22) M/uL Hgb 12.0 (12.0-16.0) g/dl Hct 36.7 (34.1-44.9) % MCV 87.6 (80.0-100.0) fL MCH 28.6 (25.0-34.0) pg MCHC 32.7 (32.0-36.0) g/dL RDW Std Deviation 48.0 H (36.4-46.3) fL RDW Coeff of Nathan 15.1 H (11.5-14.5) % Plt Count 223 (130-400) K/uL MPV 11.1 (9.4-12.3) fL Immature Gran % (Auto) 3.3 % Neut % (Auto) 39.4 % Lymph % (Auto) 41.7 % [place] % (Auto) 11.9 % Eos % (Auto) 3.3 % Baso % (Auto) 0.4 % Neut # (Auto) 1.78 (1.4-6.5) K/uL Lymph # (Auto) 1.89 (1.2-3.4) K/uL [place] # (Auto) 0.54 (0.24-0.82) K/uL Eos # (Auto) 0.15 (0-0.50) K/uL Baso # (Auto) 0.02 (0-0.2) K/uL Immature Gran # (Auto) 0.15 H (0.00-0.02) K/uL Sodium TNP Potassium TNP Chloride 111 H (98-107) mmol/L Carbon Dioxide 17 L (21-32) mmol/L Anion Gap TNP BUN 22 (6-23) mg/dl Creatinine 0.87 (0.6-1.2) mg/dl Est Cr Clr Drug Dosing Not Reportable Est GFR ( Amer) 75.0 ml/min Est GFR (Non-Af Amer) 64.7 ml/min BUN/Creatinine Ratio 25.3 H (10-20) Glucose 70 (70-99(Fasting)) mg/dl Calcium 9.4 (8.5-10.1) mg/dl Total Bilirubin 0.6 (0.2-1.0) mg/dl AST TNP ALT 10 (7-52) U/L Alkaline Phosphatase TNP Troponin I High Sens 8.8 (0-14) pg/ml Total Protein 6.3 (6.0-8.3) gm/dl Albumin TNP Globulin TNP Albumin/Globulin Ratio TNP Lipase 22 (11-82) U/L Urine Color Urine Appearance (Clear) Urine pH (4.5-7.5) Ur Specific [place] (1.000-1.030) Urine Protein (Negative) Urine Glucose (UA) (Negative) Urine Ketones (Negative) Urine Blood (Negative) Urine Nitrite (Negative) Urine Bilirubin (Negative) Urine Urobilinogen (Negative) Ur Leukocyte Esterase (Negative) Urine WBC (Auto) (0-5) /hpf Urine RBC (Auto) (0-4) /hpf U Hyaline Cast (Auto) (0-5) /lpf U Epithel Cells (Auto) (0-5) /lpf Urine Bacteria (Auto) (Negative) SARS-CoV-2, RNA, NAAT POSITIVE A* (NEGATIVE) 06/18/22 06/18/22 Range/Units 13:58 15:12 WBC (4.8-10.8) K/ul RBC (3.93-5.22) M/uL Hgb (12.0-16.0) g/dl Hct (34.1-44.9) % MCV (80.0-100.0) fL MCH (25.0-34.0) pg MCHC (32.0-36.0) g/dL RDW Std Deviation (36.4-46.3) fL RDW Coeff of Nathan (11.5-14.5) % Plt Count (130-400) K/uL MPV (9.4-12.3) fL Immature Gran % (Auto) % Neut % (Auto) % Lymph % (Auto) % [place] % (Auto) % Eos % (Auto) % Baso % (Auto) % Neut # (Auto) (1.4-6.5) K/uL Lymph # (Auto) (1.2-3.4) K/uL [place] # (Auto) (0.24-0.82) K/uL Eos # (Auto) (0-0.50) K/uL Baso # (Auto) (0-0.2) K/uL Immature Gran # (Auto) (0.00-0.02) K/uL Sodium 143 Potassium 4.5 Chloride (98-107) mmol/L Carbon Dioxide (21-32) mmol/L Anion Gap BUN (6-23) mg/dl Creatinine (0.6-1.2) mg/dl Est Cr Clr Drug Dosing Est GFR ( Amer) ml/min Est GFR (Non-Af Amer) ml/min BUN/Creatinine Ratio (10-20) Glucose (70-99(Fasting)) mg/dl Calcium (8.5-10.1) mg/dl Total Bilirubin (0.2-1.0) mg/dl AST 12 L ALT (7-52) U/L Alkaline Phosphatase 51 Troponin I High Sens (0-14) pg/ml Total Protein (6.0-8.3) gm/dl Albumin 3.9 Globulin Albumin/Globulin Ratio Lipase (11-82) U/L Urine Color Yellow Urine Appearance Clear (Clear) Urine pH 5.5 (4.5-7.5) Ur Specific [place] 1.019 (1.000-1.030) Urine Protein Trace H (Negative) Urine Glucose (UA) Negative (Negative) Urine Ketones 1+ H (Negative) Urine Blood Negative (Negative) Urine Nitrite Negative (Negative) Urine Bilirubin Negative (Negative) Urine Urobilinogen Negative (Negative) Ur Leukocyte Esterase Negative (Negative) Urine WBC (Auto) 1-5 (0-5) /hpf Urine RBC (Auto) 0-4 (0-4) /hpf U Hyaline Cast (Auto) 5-10 H (0-5) /lpf U Epithel Cells (Auto) 5-10 H (0-5) /lpf Urine Bacteria (Auto) Negative (Negative) SARS-CoV-2, RNA, NAAT (NEGATIVE) Administered Medications Discontinued Medications Hydralazine HCl (Hydralazine Hcl 20 Mg/Ml Vial) 10 mg IV NOW STA Stop: 06/18/22 14:43 Last Admin: 06/18/22 15:17 Dose: 10 mg Documented By: NOEL Imaging Data Radiologist's Impression: Chest X-Ray 06/18/22 13:50 XR chest 1V portable HISTORY: Atypical Chest Pain COMPARISON: Chest 03/12/2022. FINDINGS: No pneumothorax. No pleural effusions. The cardiac silhouette remains mildly enlarged. No new focal lung consolidations to suggest pneumonia. No evidence for pulmonary edema. Small hiatus hernia. Surgical clips noted within the left lower lung base and superior mediastinum. This remains unchanged. Calcifications within the aortic knob. IMPRESSION: No significant change compared to the prior study. No acute process. ACT 112: Negative or not required by law. Electronically signed by: Quentin Caldwell M.D. 06/18/2022 2:30 PM Discharge Plan Visit Data Chief Complaint: Altered Mental Status ED Provider: Jose Palacios Discharge Problem: AMS (altered mental status), Hypertension, COVID-19 Patient Disposition: Admitted As Inpatient Discharge Instructions Interventions: ED Discharge Assessment Last Done: 06/18/22 16:03
[2022-06-18 14:05] LABS: Basophils # (auto) 0.02 K/uL (0-0.2); Basophils % (auto) 0.4 %; Eosinophils # (auto) 0.15 K/uL (0-0.50); Eosinophils % (auto) 3.3 %; Hematocrit (blood only) 36.7 % (34.1-44.9); Immature Granulocytes # (auto) 0.15 K/uL (0.00-0.02); Immature Granulocytes % (auto) 3.3 %; Lymphocytes # (auto) 1.89 K/uL (1.2-3.4); Lymphocytes % (auto) 41.7 %; Mean Corpuscular Hemoglobin 28.6 pg (25.0-34.0); Mean Corpuscular Hgb Conc 32.7 g/dL (32.0-36.0); Mean Corpuscular Volume 87.6 fL (80.0-100.0); Mean Platelet Volume 11.1 fL (9.4-12.3); Monocytes # (auto) 0.54 K/uL (0.24-0.82); Monocytes % (auto) 11.9 %; Neutrophils # (auto) 1.78 K/uL (1.4-6.5); Neutrophils % (auto) 39.4 %; Platelet Count 223 K/uL (130-400); RDW Coefficient of Variation 15.1 % (11.5-14.5); Red Blood Count 4.19 M/uL (3.93-5.22); White Blood Count 4.53 K/ul (4.8-10.8)
[2022-06-18 14:31] LABS: Alanine Aminotransferase 10 U/L (7-52); BUN Creatinine Ratio 25.3 (10-20); Bilirubin,Total 0.6 mg/dl (0.2-1.0); Blood Urea Nitrogen 22 mg/dl (6-23); Calcium 9.4 mg/dl (8.5-10.1); Carbon Dioxide 17 mmol/L (21-32); Chloride 111 mmol/L (98-107); Est GFR (Non-African American) 64.7 ml/min; Glucose 70 mg/dl (70-99(Fasting)); Lipase 22 U/L (11-82); Total Protein 6.3 gm/dl (6.0-8.3); Troponin I High Sensitivity 8.8 pg/ml (0-14)
--- NOTE | 2022-06-18 14:31 | XRay Report ---
XR chest 1V portable HISTORY: Atypical Chest Pain COMPARISON: Chest 03/12/2022. FINDINGS: No pneumothorax. No pleural effusions. The cardiac silhouette remains mildly enlarged. No n ew focal lung consolidations to suggest pneumonia. No evidence for pulmonary edema. Small hiatus christoph ia. Surgical clips noted within the left lower lung base and superior mediastinum. This remains uncha nged. Calcifications within the aortic knob. IMPRESSION: No significant change compared to the prior study. No acute process. ACT 112: Negative or not required by law. Electronically signed by: Quentin Caldwell M.D. 06/18/2022 2:30 PM
[2022-06-18 14:35] LABS: Appearance Urine Clear (Clear); Bacteria Urine Automated Negative (Negative); Bilirubin Urine Negative (Negative); Blood Urine Negative (Negative); Color Urine Yellow; Glucose Urine UA Negative (Negative); Ketones Urine 1+ (Negative); Leukocyte Esterase Urine Negative (Negative); Nitrite Urine Negative (Negative); Protein Urine Trace (Negative); RBC Urine Automated 0-4 /hpf (0-4); Specific Gravity Urine 1.019 (1.000-1.030); Urobilinogen Urine Negative (Negative); pH Urine 5.5 (4.5-7.5)
[2022-06-18] MEDS ORDERED: hydrALAZINE HCL 20 MG/ML VIAL IV STA (14:42)
--- NOTE | 2022-06-18 15:06 | History & Physical Report ---
Date of Service June 18, 2022 Assessment & Plan (1) Altered mental state: Plan: -Admit to PCU/tele floor -At this time the patient's AMS appears most likely associated with acute Covid infection, poor oral intake, and deconditioning on top of her history of dementi a >Hypertensive emergency could also be contributing to her AMS -Patient has not had adequate oral intake for over a week and diarrhea at least once daily -Has not been able to take PO meds as prescribed -No focal neuro defects on exam, will hold off on CT head for now, if she would develop new neurologic symptoms would recommend STAT CT head -Patient needs supportive care for now with IV fluids and restarting COMPUTING ARCHITECT antihypertensives -No electrolyte abnormalities noted, monitor AM labs (2) Hypertension: Plan: -Noted to be on Amlodipine, metoprolol, lisinopril, outpatient, has not been able to take COMPUTING ARCHITECT antihypertensives for at least the past 24 hours -Given 1 dose, 10 mg IV hydralazine in the ED without improvement -Will give 5 mg IV metoprolol now, and her COMPUTING ARCHITECT PO amlodipine and lisinopril -Continue COMPUTING ARCHITECT antihypertensives as prescribed in the AM -Monitor on tele for now (3) COVID-19: Plan: -Stable on RA -Has a hx of COPD and LULI (non-compliant with Cpap), not vaccinated, patient is high risk for poor outcomes -Hold dexamethasone and remdesivir for now as she is not hypoxic -Monitor on tele and pulse ox for now -PRN O2 with goal between 89-92% -Incentive spirometry and prn albuterol ordered -Patient is a NO CODE as per discussions with she and her Daughter at bedside (4) Hypothyroidism: Plan: -COMPUTING ARCHITECT levothyroxine (5) DM (diabetes mellitus): Plan: -No on outpatient therapy -Will start with ACHS Accu checks -Start with 30 of correction factor and 10 of carb ratio (6) Coronary artery disease: Plan: -COMPUTING ARCHITECT aspirin, atorvastatin, -Continue COMPUTING ARCHITECT plavix (7) Depression: Plan: -COMPUTING ARCHITECT sertraline (8) Dementia: Plan: -Not on other meds besides sertraline (9) Hyperlipidemia: Plan: -COMPUTING ARCHITECT simvastatin Plan The patient was discussed with Dr. 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 The patient has a history of being chronically ill and needed rehab for ambulatory dysfunction, she was recently in [facility] for rehab as of 02/2022. At the time of the exam the patient was resting comfortably in bed in no acute distress with her daughter sitting bedside. History was obtained from the patient and her daughter. Her daughter states that her family has been dealing with covid recently, and the patient was recently exposed to multiple family members. The patient had been doing well after discharge from [facility] and lives alone. She started developing URI symptoms including non-productive cough, generalized weakness, poor appetite, one episode of diarrhea daily, and dysuria. Her daughter states that the patient started developing dysuria this AM and seemed more confused than her baseline. She states that the patient is normally oriented to person, place, month, and year. In the ED the patient was noted to be afebrile. hypertensive at 200/66, and stable on room air. She was found to be covid positive. The patient was given 10 mg IV hydralazine and a 500 mL NSS bolus. Allergies Allergy/AdvReac Type Severity Reaction Status Date / Time nickel Allergy Unknown RASH Verified 05/22/22 10:50 rosuvastatin AdvReac Mild Pain Verified 05/22/22 10:50 salicylates AdvReac Mild GI UPSET Verified 05/22/22 10:50 adhesive AdvReac Unknown ITCHING Verified 05/22/22 10:50 Home Medications Medication Instructions Recorded Confirmed Type omega-3 acid ethyl esters 1 gram 1 cap PO BID 06/18/19 05/22/22 History capsule cetirizine 10 mg tablet (Zyrtec) 5 mg PO QAM 09/07/19 05/22/22 History hydrocortisone 2.5 % topical cream 1 appln [place] DAILY PRN hemorrhoids 05/17/20 05/22/22 Rx with perineal applicator #30 grams nitroglycerin 0.4 mg sublingual 0.4 mg sublingual Q5M PRN chest 02/10/21 05/22/22 Rx tablet pain #25 tabs metoprolol succinate 25 mg 12.5 mg PO DAILY #45 tabs 04/05/21 05/22/22 Rx tablet,extended release 24 hr fluticasone furoate 200 1 inh inhalation DAILY #28 ea 09/04/21 05/22/22 Rx mcg-vilanterol 25 mcg/dose inhalation powder (Breo Ellipta) isosorbide mononitrate 120 mg 120 mg PO QAM #90 tabs 09/26/21 05/22/22 Rx tablet,extended release 24 hr sertraline 100 mg tablet 100 mg PO DAILY #90 tabs 11/09/21 05/22/22 Rx sertraline 50 mg tablet 50 mg PO DAILY #90 tabs 11/09/21 05/22/22 Rx cholecalciferol (vitamin D3) 50 2,000 unit PO QAM #90 caps 11/10/21 05/22/22 Rx mcg (2,000 unit) capsule amlodipine 10 mg tablet 5 mg PO DAILY #30 tabs 11/20/21 05/22/22 Rx lisinopril 40 mg tablet (Zestril) 40 mg PO HS #90 tabs 02/14/22 05/22/22 Rx atorvastatin 80 mg tablet 80 mg PO HS 03/12/22 05/22/22 History calcitriol 0.25 mcg capsule 0.25 mcg PO Q2D 03/12/22 05/22/22 History cinacalcet 60 mg tablet (Sensipar) 60 mg PO QAM 03/12/22 05/22/22 History clopidogrel 75 mg tablet 75 mg PO QAM 03/12/22 05/22/22 History famotidine 20 mg tablet 20 mg PO DAILY 03/29/22 05/22/22 History lidocaine 5 % topical patch 1 patch topical DAILY 03/29/22 05/22/22 History (Lidoderm) lactobacillus combination no.4 3 3,000 mmu cells PO DAILY 03/30/22 05/22/22 History billion cell capsule (Probiotic) levothyroxine 112 mcg tablet 112 mcg PO DAILY #90 tabs 04/09/22 05/22/22 Rx trazodone 150 mg tablet 150 mg PO HS insomnia #90 tabs 07/05/22 07/26/22 Rx magnesium chloride 71.5 mg 71.5 mg PO BID #180 tabs 05/04/22 05/22/22 Rx (magnesium chloride) tablet,delayed release (Slow-Mag) potassium chloride 20 mEq 20 meq PO DAILY #90 tabs 05/14/22 05/22/22 Rx tablet,extended release(part/cryst) (Klor-Con M) dexamethasone 1 mg tablet 1 mg PO ONCE #1 tab 05/25/22 05/25/22 Rx omeprazole 20 mg capsule,delayed 20 mg PO BID #180 caps 06/13/22 Rx release albuterol sulfate 90 mcg/actuation 2 puff inhalation Q6 PRN shortness 06/15/22 Rx aerosol inhaler of breath or wheezing #18 grams aspirin 81 mg tablet,delayed 81 mg PO DAILY #90 tabs 06/15/22 Rx release ondansetron 4 mg disintegrating 4 mg translingual TID PRN nausea 06/15/22 Rx tablet and vomiting #60 tabs sucralfate 1 gram tablet 1 g PO TID #90 tabs 06/15/22 Rx Past Med/Surg History Medical History (Updated 06/18/22 @ 16:19 by Brant Jaeger PA-C) Adrenal adenoma Asthma Cholelithiasis CKD (chronic kidney disease) stage 3, GFR 30-59 ml/min Coronary artery disease Depression DKA (diabetic ketoacidosis) DM (diabetes mellitus) History of heart disease Hypertension Hypothyroidism IPMN (intraductal papillary mucinous neoplasm) Pancreas cyst SDAT (senile dementia of Alzheimer's type) Urinary incontinence Weakness Surgical History History of appendectomy History of bilateral salpingo-oophorectomy (BSO) History of hysterectomy History of tubal ligation S/P bypass graft of extremity S/P CABG x 4 S/P cataract surgery Family History Sister Myocardial infarction Emphysema, unspecified Brother Myocardial infarction Diabetes Father Cerebral artery occlusion with cerebral infarction Mother Cerebral artery occlusion with cerebral infarction Diabetes Denies family history of Ovarian cancer Prostate cancer Kidney disease Breast cancer Colorectal cancer Social History (Updated 05/22/22 @ 11:02 by Beata Zuñiga MA) Smoking Status: Unknown if ever smoked Tobacco Type: Cigarettes Age Started Using Tobacco: 31; Age Quit Using Tobacco: 54; packs per day: 4; Years Smoked: 23; Number of Years Since Quit: 20; Second Hand Exposure: No; Hx Alcohol Use: No Hx Substance Use: No Preferred Language: [place]raini Communication Ability: Effective Visual Impairment: No Limitations Hearing Ability: Use of Hearing Aid Director Financial Planning Required: No Beliefs That Will Affect Care: None marital status: Current Living Situation: Alone Current Living Situation Comment: [place] current occupational status: retired 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, 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, 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 [employer] Feels Safe at Home: Yes Safety Concerns Comment: Patient is afraid of falling while home alone, has railings on bed Childhood Exposure to Second-Hand Smoke: Yes caffeine: Yes (mixes decaf and reg coffee) Dental Care, Regularly: No Physical Activity Frequency: Does not Exercise Physical Activity Frequency Comment: Exercise limited by physical condition Seatbelt Use: always Sunscreen Use: No (doesn't go outside ) Assistive Devices: Cane, Walker and Wheelchair Review of Systems Review of Systems: Denies current fever, chills, headache, changes in vision, hearing, taste, and smell, chest pain, SOB, abdominal pain, nausea, vomiting, hematemesis, melena, hematuria, and recent falls. Physical Exam Physical Exam: Physical Exam: General: In no acute distress, stated age, malnourished, chronically ill appearing HEENT: Normocephalic, atraumatic, no scleral icterus, pupils around round, symmetrical, and reactive to light, dry mucus membranes, trachea midline, no thyromegaly Chest/Pulm: No respiratory distress, symmetrical chest expansion, clear breath sounds throughout Cardiac: RRR, no murmurs noted Abdomen: Negative for ascites and bruising, normoactive bowel sounds, soft, non-tender to palpation throughout Musculoskeletal: Symmetrical and without signs of acute trauma, upper and lower extremities with full ROM, no atrophy, spasticity, or flaccidity Neuro: Alert and oriented to person, place, month, year, not oriented to president, no focal defects, CN II-XII tested and intact, finger to nose test negative, no tremors noted Psych: No acute distress, calm and cooperative during the exam Results & Data Results & Data ([facility]) Vital Signs (Past 12 Hours) Vital Signs Temp Pulse Resp BP Pulse Ox O2 Del Method 06/18/22 14:07 71 20 95 Room Air 06/18/22 13:37 36.6 C 71 17 220/77 H 97 Room Air Laboratory Results Abnormal lab results 06/18/22 06/18/22 06/18/22 Range/Units 13:40 13:40 13:45 WBC 4.53 L (4.8-10.8) K/ul RDW Std Deviation 48.0 H (36.4-46.3) fL RDW Coeff of Nathan 15.1 H (11.5-14.5) % Immature Gran # (Auto) 0.15 H (0.00-0.02) K/uL Chloride 111 H (98-107) mmol/L Carbon Dioxide 17 L (21-32) mmol/L BUN/Creatinine Ratio 25.3 H (10-20) AST (13-39) U/L Urine Protein (Negative) Urine Ketones (Negative) U Hyaline Cast (Auto) (0-5) /lpf U Epithel Cells (Auto) (0-5) /lpf SARS-CoV-2, RNA, NAAT POSITIVE A* (NEGATIVE) 06/18/22 06/18/22 Range/Units 13:58 15:12 WBC (4.8-10.8) K/ul RDW Std Deviation (36.4-46.3) fL RDW Coeff of Nathan (11.5-14.5) % Immature Gran # (Auto) (0.00-0.02) K/uL Chloride (98-107) mmol/L Carbon Dioxide (21-32) mmol/L BUN/Creatinine Ratio (10-20) AST 12 L (13-39) U/L Urine Protein Trace H (Negative) Urine Ketones 1+ H (Negative) U Hyaline Cast (Auto) 5-10 H (0-5) /lpf U Epithel Cells (Auto) 5-10 H (0-5) /lpf SARS-CoV-2, RNA, NAAT (NEGATIVE) Diagnostic Findings Chest X-Ray 06/18/22 13:50 XR chest 1V portable HISTORY: Atypical Chest Pain COMPARISON: Chest 03/12/2022. FINDINGS: No pneumothorax. No pleural effusions. The cardiac silhouette remains mildly enlarged. No new focal lung consolidations to suggest pneumonia. No evidence for pulmonary edema. Small hiatus hernia. Surgical clips noted within the left lower lung base and superior mediastinum. This remains unchanged. Calcifications within the aortic knob. IMPRESSION: No significant change compared to the prior study. No acute process. ACT 112: Negative or not required by law. Electronically signed by: Quentin Caldwell M.D. 06/18/2022 2:30 PM Code Status & VTE Plan Code Status No code VTE Prophylaxis Plan VTE Prophylaxis will be ordered: Yes Supervising Physician Co-Signing Physician Notes Patient seen and examined, chart reviewed, case discussed with Brant Jaeger PA-C and I agree with the assessment and plan as above except as otherwise noted Labs and images reviewed 77-year-old with a history of dementia, type 2 diabetes, hypertension, CKD, CAD CABG x4, COPD with chronic respiratory failure, LULI noncompliant with CPAP, IPMN suspected, adrenal adenoma, hypothyroidism, anemia who presents with worsened confusion, COVID+, and failure to thrive. Recently required rehab 02/2022. Initial ER assessment with white blood count 4.53, hemoglobin 12.0, creatinine 0.87 at baseline. Has not taken meds since yesterday. No hypoxia. CXR with no acute findings. Family at home has COVID. EKG with incomplete right bundle branch block, T wave inversions in lateral leads, no acute ST-T wave changes.At time of assessment patient is sitting with daughter present. Nondistressed. Answers questions appropriately. Lungs grossly clear, oriented to name and place. RRR. COVID, unvaccinated with failure to thrive. No indication for steroids/Decadron at this time. Follow. Anticipate patient will likely need rehab. Hypertension: Patient has not taken oral meds including metoprolol since yesterday due to poor p.o. and fatigue. Suspect combination of not having her medications, beta-westley withdrawal, and acute illness. Received 10 mg of hydralazine on arrival to ER. Will convert metoprolol to IV. Restart oral medications as able, give amlodipine and losartan now. Renal function is at baseline. Follow HTN. TSH pending, continue Synthroid PG Care Time/CCT Total # of Minutes Spent Total Time Spent with Patient: Total time spent is greater than 50% in coordination of care (as documented) at patient's floor/unit and/or counseling patient: [place] [address] Initial Inpt Care Lvl 2 Patient Type Established Medical Decision Making Moderate Complexity Diagnoses Altered mental state R41.82 Hypertension I10 Hypertension type: unspecified COVID-19 U07.1 Hypothyroidism E03.9 Hypothyroidism type: acquired DM (diabetes mellitus) E11.9 Coronary artery disease I25.10 Associated angina: without angina Coronary Disease-Associated Artery/Lesion type: [place] artery [place] vs. transplanted heart: [place] heart Depression F32.9 Dementia F03.90 Hyperlipidemia E78.5 (1) Coronary artery disease Associated angina: without angina Coronary Disease-Associated Artery/Lesion type: [place] artery [place] vs. transplanted heart: [place] heart Qualified Cod e(s): I25.10 - Atherosclerotic heart disease of [place] coronary artery without angina pectoris (2) Hypothyroidism Hypothyroidism type: acquired Qualified Code(s): E03.9 - Hypothyroidism, unspecified (3) Hypertension Hypertension type: unspecified Qualified Code(s): I10 - Essential (primary) hypertension
[2022-06-18] MEDS ORDERED: METOPROLOL TARTRATE 1 MG/ML VIAL IV STA (15:47)
[2022-06-18] MEDS ORDERED: amLODIPine BESYLATE 5 MG TAB PO ONE (15:50)
[2022-06-18] MEDS ORDERED: guaiFENesin SUGAR FREE 100 MG/5 ML UDC PO PRN (15:53)
[2022-06-18 15:54] LABS: Albumin Level 3.9 gm/dl (3.4-5.0); Potassium 4.5 mmol/L (3.5-5.1)
[2022-06-18] MEDS ORDERED: lisinopril 40 MG TAB PO ONE (16:00)
--- NOTE | 2022-06-18 16:17 | Electrocardiogram Report ---
Test Reason : Blood Pressure : / mmHG Vent. Rate : 073 BPM Atrial Rate : 073 BPM P-R Int : 158 ms QRS Dur : 102 ms QT Int : 434 ms P-R-T Axes : 066 060 051 degrees QTc Int : 478 ms Normal sinus rhythm Incomplete right bundle branch block Chronic T-wave inversion in Anterior leads Prolonged QT Abnormal ECG When compared with ECG of 12-MAR-2022 08:15, Vent. rate has increased BY 25 BPM Otherwise no significant change Confirmed by Rogers Lay ([id number]) on 06/18/2022 4:17:34 PM Referred By: REFERRED SELF Confirmed By:Rogers Lay
[2022-06-18] MEDS ORDERED: GLUCAGON FOR INJ 1 MG VIAL SQ PRN (17:17)
[2022-06-18] MEDS ORDERED: GLUCOSE 10 TAB/TUBE PO PRN (17:17)
[2022-06-18] MEDS ORDERED: DEXTROSE 50% 50 ML SYRINGE IV PRN (17:17)
[2022-06-18] MEDS ORDERED: ALBUTEROL HFA 8 GM INHALER INH PRN (17:17)
[2022-06-18] MEDS ORDERED: GLUCOSE 40% GEL 15 GM TUBE PO PRN (17:17)
[2022-06-18] MEDS ORDERED: ACETAMINOPHEN 325 MG TAB PO PRN (17:17)
[2022-06-18] MEDS: INSULIN ASPART PER UNIT SC SCH ×2 (18:00→22:30)
[2022-06-18] MEDS: ENOXAPARIN INJ 40 MG/0.4 ML SYR SQ SCH (18:28)
[2022-06-18] MEDS: CALCITRIOL 0.25 MCG CAPSULE PO SCH (18:28)
[2022-06-18] MEDS: CARBOHYDRATES FOR HYPOGLYCEMIA PO PRN ×2 (19:16→20:32)
[2022-06-18] MEDS: ALBUTEROL 0.5% NEB SOLN 2.5 MG/0.5 ML VIAL NEB SCH (19:23)
[2022-06-18] MEDS: lisinopril 40 MG TAB PO SCH (20:45)
[2022-06-18] MEDS: ATORVASTATIN 40 MG TAB PO SCH (20:45)
[2022-06-19] MEDS: ALBUTEROL 0.5% NEB SOLN 2.5 MG/0.5 ML VIAL NEB SCH ×4 (00:14→19:16)
[2022-06-19] MEDS ORDERED: METOPROLOL TARTRATE 1 MG/ML VIAL IV STA (03:00)
[2022-06-19] MEDS: SUCRALFATE 1 GM TAB PO SCH ×3 (06:15→16:18)
[2022-06-19] MEDS: LEVOTHYROXINE SODIUM 112 MCG TABLET PO SCH (06:15)
[2022-06-19 07:03] LABS: Hematocrit (blood only) 36.2 % (34.1-44.9); Hemoglobin 12.3 g/dl (12.0-16.0); Mean Corpuscular Hemoglobin 28.4 pg (25.0-34.0); Mean Corpuscular Volume 83.6 fL (80.0-100.0); Mean Platelet Volume 10.2 fL (9.4-12.3); Platelet Count 245 K/uL (130-400); RDW Coefficient of Variation 14.7 % (11.5-14.5); RDW Standard Deviation 44.7 fL (36.4-46.3); Red Blood Count 4.33 M/uL (3.93-5.22); White Blood Count 5.67 K/ul (4.8-10.8)
[2022-06-19 07:28] LABS: BUN Creatinine Ratio 23.1 (10-20); Calcium 10.2 mg/dl (8.5-10.1); Creatinine Clr Calc Pharmacy 45.9 ml/min; Est GFR (African American) 85.6 ml/min; Est GFR (Non-African American) 73.8 ml/min; Potassium 4.1 mmol/L (3.5-5.1)
[2022-06-19] MEDS: INSULIN ASPART PER UNIT SC SCH (09:02)
[2022-06-19] MEDS: METOPROLOL SUCC 25MG EXT REL TAB PO SCH (09:03)
[2022-06-19] MEDS: ASPIRIN 81 MG ECTAB PO SCH (09:03)
[2022-06-19] MEDS: CHOLECALCIFEROL 1,000 UNITS 25 MCG TAB PO SCH (09:03)
[2022-06-19] MEDS: FAMOTIDINE 20 MG TAB PO SCH (09:03)
[2022-06-19] MEDS: CINACALCET HCL 30 MG TAB PO SCH (09:04)
[2022-06-19] MEDS: CLOPIDOGREL BISULFATE 75 MG TAB PO SCH (09:04)
[2022-06-19] MEDS: amLODIPine BESYLATE 5 MG TAB PO SCH (09:04)
[2022-06-19] MEDS: SERTRALINE HCL 50 MG TABLET PO SCH (09:05)
[2022-06-19] MEDS: FLUTICASONE/VILANTEROL 200/25MCG 14 PUFFS/INHALER INH SCH (09:05)
[2022-06-19] MEDS: ISOSORBIDE MONO EXTENDED REL 60 MG TABCR PO SCH (09:05)
[2022-06-19] MEDS: SERTRALINE HCL 100 MG TABLET PO SCH (09:05)
[2022-06-19] MEDS: ONDANSETRON INJ 2 MG/ML 2 ML VIAL IV PRN (10:12)
--- NOTE | 2022-06-19 11:45 | Hospitalist Progress Note ---
Date of Service June 19, 2022 Assessment & Plan (1) Altered mental state: Plan: Likely metabolic/infectious encephalopathy with acute Covid infection, poor oral intake, and deconditioning on top of her history of dementia. - Appears to be closer to baseline today. Alert, able to have conversation. - Monitor (2) Hypertension: Plan: Noted to be on amlodipine, metoprolol, lisinopril as outpatient. BP today is 145/90. - Continue home amlodipine 5 mg, Imdur 120 mg, lisinopril 40 mg HS, Toprol 12.5mg daily (3) COVID-19: Plan: Stable on RA. Largely with symptoms of nausea and confusion. Has a hx of COPD and LULI (non-compliant with Cpap), not vaccinated, patient is high risk for poor outcomes. - Hold dexamethasone and remdesivir for now as she is not hypoxic - Monitor (4) Hypothyroidism: Plan: TSH was 5.8 in 03/2022. - Continue home levothyroxine 112mcg (5) DM (diabetes mellitus): Plan: A1c was 5.0% in 03/2022. Not on outpatient therapy. - Stop sliding scale insulin -> Sugars were actually low over yesterday evening. (6) Coronary artery disease: Plan: No chest pain or indication of ischemia. - Continue home aspirin/Plavix, atorvastatin (7) Depression: Plan: - Continue home sertraline (8) Dementia: Plan: Not on other meds besides sertraline. Unclear baseline. Will try to assess with family. (9) DVT prophylaxis: Plan: Lovenox 40 mg SQ daily Admission and Anticipated Discharge Date Admission Date: June 18, 2022 Subjective Stable today. Still feeling sick to her stomach, but otherwise ok. Reports no fevers/chills, chest pain, shortness of breath, abdominal pain, or vomiting. Physical Exam Constitutional: WD/WN, vitals as above + acute distress Eyes: EOM intact bilaterally; no conjunctival abnormality ENMT: external ear and nose normal, oropharynx normal Neck: trachea midline, no thyromegaly normal visual inspection Respiratory: normal respiratory effort, lungs clear to auscultation no respiratory distress Cardiovascular: RRR, no murmur, no edema Gastrointestinal (Abdomen): Inspection/Auscultation: abdomen normal to inspection; abdomen not distended Musculoskeletal: no cyanosis or clubbing, extremities motor strength 5/5 Skin: no rashes, warm and dry Neurologic: moves all extremities and awake Psychiatric: Orientation: alert, oriented to person and cooperative Results & Data Results & Data ([facility]) Vital Signs (Past 12 Hours) Vital Signs Temp Pulse Pulse Pulse Resp BP BP 06/19/22 10:14 72 18 145/90 H 06/19/22 08:45 73 06/19/22 08:32 185/101 H 188/98 H 06/19/22 08:00 36.7 C 80 18 185/101 H 06/19/22 07:06 72 18 06/19/22 04:05 178/71 H 06/19/22 03:03 91 H 06/19/22 02:56 36.5 C 97 H 16 193/82 H 06/19/22 00:15 76 18 06/18/22 23:48 36.9 C 80 20 183/78 H Pulse Ox O2 Del Method 06/19/22 10:14 92 Room Air 06/19/22 08:45 06/19/22 08:32 06/19/22 08:00 94 06/19/22 07:06 93 Room Air 06/19/22 04:05 06/19/22 03:03 06/19/22 02:56 95 Room Air 06/19/22 00:15 91 Room Air 06/18/22 23:48 92 Room Air PG Care Time/CCT Total # of Minutes Spent Total Time Spent with Patient: Total time spent is greater than 50% in coordination of care (as documented) at patient's floor/unit and/or counseling patient: Coding Level of Care Code 83248 Subseq Hosp Care Lvl 3 Diagnoses Altered mental state R41.82 Hypertension I10 COVID-19 U07.1 Hypothyroidism E03.9 Hypothyroidism type: acquired DM (diabetes mellitus) E11.9 Coronary artery disease I25.10 Coronary Disease-Associated Artery/Lesion type: [place] artery [place] vs. transplanted heart: [place] heart Associated angina: without angina Depression F32.9 Dementia F03.90 DVT prophylaxis Z29.9 (1) Hypothyroidism Hypothyroidism type: acquired Qualified Code(s): E03.9 - Hypothyroidism, unspecified (2) Coronary artery disease Coronary Disease-Associated Artery/Lesion type: [place] artery [place] vs. transplanted heart: [place] heart Associated angina: without angina Qualified Code(s): I25.10 - Atherosclerotic heart disease of [place] coronary artery without angina pectoris
[2022-06-19] MEDS: ENOXAPARIN INJ 40 MG/0.4 ML SYR SQ SCH (18:26)
[2022-06-19] MEDS: ATORVASTATIN 40 MG TAB PO SCH (20:07)
[2022-06-19] MEDS: lisinopril 40 MG TAB PO SCH (20:07)
[2022-06-20] MEDS: ALBUTEROL 0.5% NEB SOLN 2.5 MG/0.5 ML VIAL NEB SCH ×2 (00:15→07:11)
[2022-06-20] MEDS ORDERED: METOPROLOL TARTRATE 1 MG/ML VIAL IV STA (03:39)
[2022-06-20] MEDS: LEVOTHYROXINE SODIUM 112 MCG TABLET PO SCH (06:04)
[2022-06-20 06:46] LABS: Hematocrit (blood only) 33.8 % (34.1-44.9); Hemoglobin 11.3 g/dl (12.0-16.0); Mean Corpuscular Hemoglobin 28.2 pg (25.0-34.0); Mean Corpuscular Hgb Conc 33.4 g/dL (32.0-36.0); Mean Corpuscular Volume 84.3 fL (80.0-100.0); Mean Platelet Volume 10.7 fL (9.4-12.3); Platelet Count 211 K/uL (130-400); RDW Coefficient of Variation 14.7 % (11.5-14.5); RDW Standard Deviation 45.8 fL (36.4-46.3); Red Blood Count 4.01 M/uL (3.93-5.22); White Blood Count 5.47 K/ul (4.8-10.8)
[2022-06-20 07:19] LABS: BUN Creatinine Ratio 24.1 (10-20); Calcium 9.7 mg/dl (8.5-10.1); Creatinine Clr Calc Pharmacy 40.6 ml/min; Est GFR (Non-African American) 64.7 ml/min; Potassium 3.8 mmol/L (3.5-5.1)
[2022-06-20] MEDS: CINACALCET HCL 30 MG TAB PO SCH (08:21)
[2022-06-20] MEDS: amLODIPine BESYLATE 5 MG TAB PO SCH (08:21)
[2022-06-20] MEDS: SUCRALFATE 1 GM TAB PO SCH ×3 (08:21→15:51)
[2022-06-20] MEDS: ISOSORBIDE MONO EXTENDED REL 60 MG TABCR PO SCH (08:21)
[2022-06-20] MEDS: SERTRALINE HCL 100 MG TABLET PO SCH (08:22)
[2022-06-20] MEDS: ASPIRIN 81 MG ECTAB PO SCH (08:22)
[2022-06-20] MEDS: METOPROLOL SUCC 25MG EXT REL TAB PO SCH (08:22)
[2022-06-20] MEDS: CLOPIDOGREL BISULFATE 75 MG TAB PO SCH (08:23)
[2022-06-20] MEDS: CHOLECALCIFEROL 1,000 UNITS 25 MCG TAB PO SCH (08:23)
[2022-06-20] MEDS: FLUTICASONE/VILANTEROL 200/25MCG 14 PUFFS/INHALER INH SCH (08:24)
[2022-06-20] MEDS: SERTRALINE HCL 50 MG TABLET PO SCH (08:25)
[2022-06-20] MEDS ORDERED: ALBUTEROL 0.5% NEB SOLN 2.5 MG/0.5 ML VIAL NEB PRN (10:00)
[2022-06-20] MEDS: FAMOTIDINE 20 MG TAB PO SCH (10:16)
[2022-06-20] MEDS: ONDANSETRON INJ 2 MG/ML 2 ML VIAL IV PRN (11:24)
--- NOTE | 2022-06-20 14:02 | Hospitalist Progress Note ---
Date of Service June 20, 2022 Assessment & Plan (1) Altered mental state: Plan: Likely metabolic/infectious encephalopathy with acute Covid infection, poor oral intake, and deconditioning on top of her history of dementia. - Appears to be closer to baseline today. Alert, oriented x 3 (knows hospital, name, date/season, and why she's in the hospital), able to have conversation. Responds slowly, but appropriately. - Monitor (2) COVID-19: Plan: Stable on RA. Largely with symptoms of nausea and confusion. Has a hx of COPD and LULI (non-compliant with Cpap), not vaccinated, patient is high risk for poor outcomes. - Hold dexamethasone and remdesivir for now as she is not hypoxic - Encourage good oral intake as able. - Monitor (3) Hypertension: Plan: Noted to be on amlodipine, metoprolol, lisinopril as outpatient. BP today is 165/60. - Continue home amlodipine 5 mg, Imdur 120 mg, lisinopril 40 mg HS, Toprol 12.5mg daily (4) Hypothyroidism: Plan: TSH was 5.8 in 03/2022. - Continue home levothyroxine 112mcg (5) DM (diabetes mellitus): Plan: A1c was 5.0% in 03/2022. Not on outpatient therapy. - Stopped sliding scale insulin on 06/19 for low sugars (~60). -> Sugars have been ~100 in last 24 hours. (6) Coronary artery disease: Plan: No chest pain or indication of ischemia. - Continue home aspirin/Plavix, atorvastatin (7) Depression: Plan: - Continue home sertraline (8) Dementia: Plan: Not on other meds besides sertraline. Unclear baseline, but likely nearly there right now. Will try to assess with family. (9) DVT prophylaxis: Plan: Lovenox 40 mg SQ daily Admission and Anticipated Discharge Date Admission Date: June 18, 2022 Subjective Stable today. Low appetite. Just reports no appetite, so doesn't even want her family to bring anything in from home. Reports no fevers/chills, chest pain, shortness of breath, abdominal pain, or vomiting. Physical Exam Constitutional: WD/WN, vitals as above Eyes: EOM intact bilaterally; no conjunctival abnormality ENMT: external ear and nose normal, oropharynx normal Neck: trachea midline, no thyromegaly normal visual inspection Respiratory: normal respiratory effort, lungs clear to auscultation no respiratory distress Cardiovascular: RRR, no murmur, no edema Gastrointestinal (Abdomen): Inspection/Auscultation: abdomen normal to inspe ction; abdomen not distended Musculoskeletal: no cyanosis or clubbing, extremities motor strength 5/5 Skin: no rashes, warm and dry Neurologic: moves all extremities and awake Psychiatric: Orientation: alert, oriented x 3, oriented to person and cooperative Just slow to respond. Results & Data Results & Data ([facility]) Vital Signs (Past 12 Hours) Vital Signs Temp Pulse Pulse Resp BP BP Pulse Ox 06/20/22 12:56 06/20/22 11:48 36.7 C 69 18 166/58 H 95 06/20/22 09:03 60 06/20/22 08:59 06/20/22 08:01 37.0 C 75 16 162/72 H 93 06/20/22 07:11 61 16 90 06/20/22 04:23 62 169/95 H 06/20/22 03:51 68 180/86 H 06/20/22 03:12 37.1 C 89 16 180/86 H 95 Pulse Ox Pulse Ox Pulse Ox O2 Del Method O2 Flow Rate O2 Flow Rate O2 Flow Rate 06/20/22 12:56 95 92 91 0 0 06/20/22 11:48 Room Air 06/20/22 09:03 06/20/22 08:59 Nasal Cannula 2 06/20/22 08:01 Nasal Cannula 1 06/20/22 07:11 Room Air 06/20/22 04:23 06/20/22 03:51 06/20/22 03:12 Nasal Cannula 1 O2 Flow Rate 06/20/22 12:56 0 06/20/22 11:48 06/20/22 09:03 06/20/22 08:59 06/20/22 08:01 06/20/22 07:11 06/20/22 04:23 06/20/22 03:51 06/20/22 03:12 PG Care Time/CCT Total # of Minutes Spent Total Time Spent with Patient: Total time spent is greater than 50% in coordination of care (as documented) at patient's floor/unit and/or counseling patient: Coding Level of Care Code 99058 Subseq Hosp Care Lvl 2 Diagnoses Altered mental state R41.82 COVID-19 U07.1 Hypertension I10 Hypothyroidism E03.9 Hypothyroidism type: acquired DM (diabetes mellitus) E11.9 Coronary artery disease I25.10 Coronary Disease-Associated Artery/Lesion type: [place] artery [place] vs. transplanted heart: [place] heart Associated angina: without angina Depression F32.9 Dementia F03.90 DVT prophylaxis Z29.9 (1) Hypothyroidism Hypothyroidism type: acquired Qualified Code(s): E03.9 - Hypothyroidism, unspecified (2) Coronary artery disease Coronary Disease-Associated Artery/Lesion type: [place] artery [place] vs. transplanted heart: [place] heart Associated angina: without angina Qualified Code(s): I25.10 - Atherosclerotic heart disease of [place] coronary artery without angina pectoris
[2022-06-20] MEDS: MAGNESIUM SULFATE / D5W 1 GM/100 ML BAG IV SCH ×4 (17:30→23:22)
[2022-06-20] MEDS: CALCITRIOL 0.25 MCG CAPSULE PO SCH (17:35)
[2022-06-20] MEDS: ENOXAPARIN INJ 40 MG/0.4 ML SYR SQ SCH (17:35)
[2022-06-20] MEDS: lisinopril 40 MG TAB PO SCH (20:46)
[2022-06-20] MEDS: ATORVASTATIN 40 MG TAB PO SCH (20:47)
[2022-06-21] MEDS: LEVOTHYROXINE SODIUM 112 MCG TABLET PO SCH (05:46)
[2022-06-21 06:24] LABS: Hematocrit (blood only) 33.3 % (34.1-44.9); Hemoglobin 11.2 g/dl (12.0-16.0); Mean Corpuscular Hemoglobin 28.3 pg (25.0-34.0); Mean Corpuscular Hgb Conc 33.6 g/dL (32.0-36.0); Mean Corpuscular Volume 84.1 fL (80.0-100.0); Mean Platelet Volume 10.3 fL (9.4-12.3); Platelet Count 196 K/uL (130-400); RDW Coefficient of Variation 14.5 % (11.5-14.5); RDW Standard Deviation 44.7 fL (36.4-46.3); Red Blood Count 3.96 M/uL (3.93-5.22); White Blood Count 5.18 K/ul (4.8-10.8)
[2022-06-21 06:52] LABS: Calcium 9.2 mg/dl (8.5-10.1); Creatinine Clr Calc Pharmacy 48.1 ml/min; Est GFR (African American) 89.7 ml/min; Est GFR (Non-African American) 77.4 ml/min; Magnesium 2.1 mg/dl (1.7-2.4); Potassium 3.6 mmol/L (3.5-5.1)
[2022-06-21] MEDS: SUCRALFATE 1 GM TAB PO SCH ×3 (08:05→16:56)
[2022-06-21] MEDS: amLODIPine BESYLATE 5 MG TAB PO SCH (08:05)
[2022-06-21] MEDS: CHOLECALCIFEROL 1,000 UNITS 25 MCG TAB PO SCH (08:06)
[2022-06-21] MEDS: CINACALCET HCL 30 MG TAB PO SCH (08:06)
[2022-06-21] MEDS: ASPIRIN 81 MG ECTAB PO SCH (08:06)
[2022-06-21] MEDS: CLOPIDOGREL BISULFATE 75 MG TAB PO SCH (08:06)
[2022-06-21] MEDS: FAMOTIDINE 20 MG TAB PO SCH (08:07)
[2022-06-21] MEDS: FLUTICASONE/VILANTEROL 200/25MCG 14 PUFFS/INHALER INH SCH (08:07)
[2022-06-21] MEDS: ISOSORBIDE MONO EXTENDED REL 60 MG TABCR PO SCH (08:07)
[2022-06-21] MEDS: METOPROLOL SUCC 25MG EXT REL TAB PO SCH (08:08)
[2022-06-21] MEDS: SERTRALINE HCL 100 MG TABLET PO SCH (08:08)
[2022-06-21] MEDS: SERTRALINE HCL 50 MG TABLET PO SCH (08:08)
--- NOTE | 2022-06-21 15:55 | Hospitalist Progress Note ---
Date of Service June 21, 2022 Assessment & Plan (1) Altered mental state: Plan: Likely metabolic/infectious encephalopathy with acute Covid infection, poor oral intake, and deconditioning on top of her history of dementia. - Appears to be closer to baseline today. Alert, oriented x 3 (knows hospital, name, date/season, and why she's in the hospital), able to have conversation. Responds slowly, but appropriately. - Monitor (2) COVID-19: Plan: Stable on RA. Largely with symptoms of nausea and confusion. Has a hx of COPD and LULI (non-compliant with Cpap), not vaccinated, patient is high risk for poor outcomes. - Hold dexamethasone and remdesivir for now as she is not hypoxic - Encourage good oral intake as able. - Add Boost today, though despite repeated pressing, could get her to say she would drink it. (3) Hypertension: Plan: Noted to be on amlodipine, metoprolol, lisinopril as outpatient. BP today is 175/80. - Continue home amlodipine 5 mg, Imdur 120 mg, lisinopril 40 mg HS, Toprol 12.5mg daily (4) Hypothyroidism: Plan: TSH was 5.8 in 03/2022. - Continue home levothyroxine 112mcg (5) DM (diabetes mellitus): Plan: A1c was 5.0% in 03/2022. Not on outpatient therapy. - Stopped sliding scale insulin on 06/19 for low sugars (~60). -> Sugars have been ~100 in last 24 hours. (6) Coronary artery disease: Plan: No chest pain or indication of ischemia. - Continue home aspirin/Plavix, atorvastatin (7) Depression: Plan: - Continue home sertraline (8) Dementia: Plan: Discussed with daughter, and at baseline, she has some short-term memory deficits and seems slower to respond, but otherwise stable. (9) DVT prophylaxis: Plan: Lovenox 40 mg SQ daily Admission and Anticipated Discharge Date Admission Date: June 18, 2022 Subjective Stable today. Low appetite. Tried for several minutes to get her to choose a Boost flavor, and she really wouldn't. She again doesn't even want her family to bring anything in from home, only reports all the things on the tray from the kitchen that she does not like. Reports no fevers/chills, chest pain, shortness of breath, abdominal pain, or vomiting. Physical Exam Constitutional: WD/WN, vitals as above Eyes: EOM intact bilaterally; no conjunctival abnormality ENMT: external ear and nose normal, oropharynx normal Neck: trachea midline, no thyromegaly normal visual inspection Respiratory: normal respiratory effort, lungs clear to auscultation no respiratory distress Cardiovascular: RRR, no murmur, no edema Gastrointestinal (Abdomen): Inspection/Auscultation: abdomen normal to inspection; abdomen not distended Musculoskeletal: no cyanosis or clubbing, extremities motor strength 5/5 Skin: no rashes, warm and dry Neurologic: moves all extremities and awake Psychiatric: Orientation: alert, oriented x 3, oriented to person and cooperative Results & Data Results & Data ([facility]) Vital Signs (Past 12 Hours) Vital Signs Temp Pulse Resp BP BP Pulse Ox O2 Del Method 06/21/22 15:32 97 06/21/22 12:04 36.5 C 72 18 175/79 H 97 Nasal Cannula 06/21/22 08:00 Nasal Cannula 06/21/22 09:15 168/95 H 06/21/22 06:06 65 176/110 H 06/21/22 04:00 37 C 65 17 156/90 H 95 Nasal Cannula O2 Flow Rate 06/21/22 15:32 06/21/22 12:04 2 06/21/22 08:00 2 06/21/22 09:15 06/21/22 06:06 06/21/22 04:00 2 PG Care Time/CCT Total # of Minutes Spent Total Time Spent with Patient: Total time spent is greater than 50% in coordination of care (as documented) at patient's floor/unit and/or counseling patient: Coding Level of Care Code 15704 Subseq Hosp Care Lvl 2 Diagnoses Altered mental state R41.82 COVID-19 U07.1 Hypertension I10 Hypothyroidism E03.9 Hypothyroidism type: acquired DM (diabetes mellitus) E11.9 Coronary artery disease I25.10 Coronary Disease-Associated Artery/Lesion type: [place] artery [place] vs. transplanted heart: [place] heart Associated angina: without angina Depression F32.9 Dementia F03.90 DVT prophylaxis Z29.9 (1) Hypothyroidism Hypothyroidism type: acquired Qualified Code(s): E03.9 - Hypothyroidism, unspecified (2) Coronary artery disease Coronary Disease-Associated Artery/Lesion type: [place] artery [place] vs. transplanted heart: [place] heart Associated angina: without angina Qualified Code(s): I25.10 - Atherosclerotic heart disease of [place] coronary artery without angina pectoris
[2022-06-21] MEDS: ENOXAPARIN INJ 40 MG/0.4 ML SYR SQ SCH (17:07)
[2022-06-21] MEDS: ATORVASTATIN 40 MG TAB PO SCH (20:44)
[2022-06-21] MEDS: lisinopril 40 MG TAB PO SCH (20:44)
[2022-06-22] MEDS: LEVOTHYROXINE SODIUM 112 MCG TABLET PO SCH (05:43)
[2022-06-22 06:28] LABS: Hematocrit (blood only) 33.4 % (34.1-44.9); Hemoglobin 11.1 g/dl (12.0-16.0); Mean Corpuscular Hemoglobin 28.4 pg (25.0-34.0); Mean Corpuscular Hgb Conc 33.2 g/dL (32.0-36.0); Mean Corpuscular Volume 85.4 fL (80.0-100.0); Mean Platelet Volume 10.5 fL (9.4-12.3); Platelet Count 194 K/uL (130-400); RDW Coefficient of Variation 14.6 % (11.5-14.5); RDW Standard Deviation 45.1 fL (36.4-46.3); Red Blood Count 3.91 M/uL (3.93-5.22); White Blood Count 6.21 K/ul (4.8-10.8)
[2022-06-22 07:15] LABS: BUN Creatinine Ratio 25.3 (10-20); Calcium 9.1 mg/dl (8.5-10.1); Creatinine Clr Calc Pharmacy 39.5 ml/min; Est GFR (Non-African American) 61.3 ml/min; Magnesium 1.3 mg/dl (1.7-2.4); Potassium 3.8 mmol/L (3.5-5.1)
[2022-06-22] MEDS: ISOSORBIDE MONO EXTENDED REL 60 MG TABCR PO SCH (09:19)
[2022-06-22] MEDS: FAMOTIDINE 20 MG TAB PO SCH (09:20)
[2022-06-22] MEDS: SERTRALINE HCL 100 MG TABLET PO SCH (09:20)
[2022-06-22] MEDS: SUCRALFATE 1 GM TAB PO SCH ×2 (09:20→12:43)
[2022-06-22] MEDS: METOPROLOL SUCC 25MG EXT REL TAB PO SCH (09:20)
[2022-06-22] MEDS: CLOPIDOGREL BISULFATE 75 MG TAB PO SCH (09:20)
[2022-06-22] MEDS: ASPIRIN 81 MG ECTAB PO SCH (09:21)
[2022-06-22] MEDS: SERTRALINE HCL 50 MG TABLET PO SCH (09:21)
[2022-06-22] MEDS: amLODIPine BESYLATE 5 MG TAB PO SCH (09:21)
[2022-06-22] MEDS: CHOLECALCIFEROL 1,000 UNITS 25 MCG TAB PO SCH (09:21)
[2022-06-22] MEDS: CINACALCET HCL 30 MG TAB PO SCH (09:21)
[2022-06-22] MEDS: FLUTICASONE/VILANTEROL 200/25MCG 14 PUFFS/INHALER INH SCH (09:23)
[2022-06-22] MEDS: INSULIN ASPART PER UNIT SC SCH (09:32)
[2022-06-22] MEDS: MAGNESIUM SULFATE / D5W 1 GM/100 ML BAG IV SCH ×3 (10:18→13:56)
[2022-06-22 10:27] VITALS: BP 163/79; TEMP 97.7; O2SAT 94
--- NOTE | 2022-06-22 12:23 | Discharge Summary ---
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 The patient has a history of being chronically ill and needed rehab for ambulatory dysfunction, she was recently in [facility] for rehab as of 02/2022. At the time of the exam the patient was resting comfortably in bed in no acute distress with her daughter sitting bedside. History was obtained from the patient and her daughter. Her daughter states that her family has been dealing with covid recently, and the patient was recently exposed to multiple family members. The patient had been doing well after discharge from [facility] and lives alone. She started developing URI symptoms including non-productive cough, generalized wea kness, poor appetite, one episode of diarrhea daily, and dysuria. Her daughter states that the patient started developing dysuria this AM and seemed more confused than her baseline. She states that the patient is normally oriented to person, place, month, and year. In the ED the patient was noted to be afebrile. hypertensive at 200/66, and stable on room air. She was found to be covid positive. The patient was given 10 mg IV hydralazine and a 500 mL NSS bolus. Principal Diagnosis 1. AMS-metabolic encephalopathy secondary to covid infection, dehydration/poor oral intake and deconditioning 2. COVID-19 Discharge Exam GENERAL: 77 yo Well-developed, well-nourished elderly WF. NAD. LUNGS: Nonlabored. Bibasilar crackles (fine) no wheezes or rhonchi. CARDIOVASCULAR: Regular rate and rhythm. ABDOMEN: Soft, non-tender and non-distended. Bs normoactive x 4 quad. EXTREMITIES: No edema. Non-tender. Peripheral pulses +2/4. NEUROLOGIC: A&O x3. Nonfocal PSYCHIATRIC: Cooperative. Appropriate mood and affect. SKIN: Warm, dry, intact. No rashes or lesions. Discharge Data Allergies Allergy/AdvReac Type Severity Reaction Status Date / Time nickel Allergy Unknown RASH Verified 05/22/22 10:50 rosuvastatin AdvReac Mild Pain Verified 05/22/22 10:50 salicylates AdvReac Mild GI UPSET Verified 05/22/22 10:50 adhesive AdvReac Unknown ITCHING Verified 05/22/22 10:50 Consultations 06/18/22 14:42 ED Decision to Admit Stat Ordered Studies 06/22/22 06:14 06/22/22 06:14 Chest X-Ray 06/18/22 13:50 XR chest 1V portable HISTORY: Atypical Chest Pain COMPARISON: Chest 03/12/2022. FINDINGS: No pneumothorax. No pleural effusions. The cardiac silhouette remains mildly enlarged. No new focal lung consolidations to suggest pneumonia. No evidence for pulmonary edema. Small hiatus hernia. Surgical clips noted within the left lower lung base and superior mediastinum. This remains unchanged. Calcifications within the aortic knob. IMPRESSION: No significant change compared to the prior study. No acute process. ACT 112: Negative or not required by law. Electronically signed by: Quentin Caldwell M.D. 06/18/2022 2:30 PM Hospital Course (1) Altered mental state: Likely metabolic/infectious encephalopathy with acute Covid infection, poor oral intake, and deconditioning on top of her history of dementia. - Appears to be closer to baseline today. Alert, oriented x 3 (knows hospital, name, date/season, and why she's in the hospital), able to have conversation. Responds slowly, but appropriately. - seems back to baseline (2) COVID-19: Stable on RA. Largely with symptoms of nausea and confusion. Has a hx of COPD and LULI (non-compliant with Cpap), not vaccinated, patient is high risk for poor outcomes. - Hold dexamethasone and remdesivir for now as she is not hypoxic - Encourage good oral intake as able. - Add Boost today, though despite repeated pressing, could get her to say she would drink it (3) Hypertension: Noted to be on amlodipine, metoprolol, lisinopril as outpatient. BP today is 175/80. - Continue home amlodipine 5 mg, Imdur 120 mg, lisinopril 40 mg HS, Toprol 12.5mg daily - BP accelerated this AM at 210 systolic before meds, afterwhich her systolic is down to 163. Will increase her Metoprolol Succinate to 25mg daily - Further titration of meds can be done at [facility] (4) Hypothyroidism: TSH was 5.8 in 03/2022. - Continue home levothyroxine 112mcg (5) DM (diabetes mellitus): A1c was 5.0% in 03/2022. Not on outpatient therapy. - Stopped sliding scale insulin on 06/19 for low sugars (~60). -> Sugars have been ~100 in last 24 hours. (6) Coronary artery disease: No chest pain or indication of ischemia. - Continue home aspirin/Plavix, atorvastatin (7) Depression: - Continue home sertraline (8) Dementia: Discussed with daughter, and at baseline, she has some short-term memory deficits and seems slower to respond, but otherwise stable. Plan Magnesium level 1.3 this morning, replacement has been ordered. She is otherwise ready for d/c and medically/hemodynamically stable for such. She will be discharged to [facility] rehab to continue pt/ot prior to her return home. Plan has been d/w Dr. Norris Toscano who is in agreement with above. Total Time Total Time Spent Total Time Spent (In Minutes): >30 minutes Discharge Plan Discharge Items Patient Disposition: Transfer Inpatient Rehab Fac Reason For Visit: CONFUSION, COVID + Discharge Diagnosis: COVID-10 Activity: As commented below Activity Comment: As tolerated Non-emergency contact: Primary Care Provider Call non-emergency contact if: you have any medication questions and your symptoms worsen Follow-up/Referrals: Tye Sneed MD [Primary Care Provider] - Diet: Carb Consistent or DM2 Addtl Attending Provider Instructions: You were hospitalized due to confusion which was felt to be related to your infection with covid-19 as well as some dehydration/decreased food intake. However, with some encouraging to drink and eat and adding boost, your confusion has seemed to resolve. You have not required any treatment for covid with antivirals or steroids as you have been able to maintain a good oxygen level and have not needed supplemental oxygen. Your blood pressure has been high in the mornings but does seem to improve after receiving your medications. At this time, the only change being made to your blood pressure medications is that your Metoprolol Succinate is being increased to 25mg daily. Remaining medications can be resumed without change. You were seen by physical and occupational therapy who felt that you would bene fit from a stay in acute rehabilitation. Therefore, you will be discharged from the hospital today and your family will transport you to [facility]. You will be followed by the medical team at the facility until you are discharged. Once discharged, we advise close follow up with your family healthcare provider. In the event of any questions following your discharge, you may call the nonemergency number listed on your discharge paperwork. Pending Studies at Discharge: No Stand-Alone Forms: My [facility] Skilled Items Patient informed of condition?: Yes DNR: Yes Discharge Level of Care: Acute rehab Communicable Disease: Yes (covid-19) Discharge Prognosis: Stable Lines: None Urinary Catheter: No Medications and DC Order Prescriptions: New metoprolol succinate [Toprol XL] 25 mg tablet extended release 24 hr 25 mg PO DAILY Qty: 30 0RF Continued nitroglycerin 0.4 mg tablet, sublingual 0.4 mg SL Q5M PRN (Reason: chest pain) Qty: 25 0RF Breo Ellipta 200-25 mcg/dose blister with device 1 inh inhalation DAILY Qty: 28 11RF isosorbide mononitrate 120 mg tablet extended release 24 hr 120 mg PO QAM Qty: 90 3RF sertraline 100 mg tablet 100 mg PO DAILY MDD 150mg Qty: 90 3RF Rx Instructions: take with 50mg to equal 150mg daily sertraline 50 mg tablet 50 mg PO DAILY MDD 150mg Qty: 90 3RF Rx Instructions: take with 100mg to equal 150mg daily cholecalciferol (vitamin D3) 50 mcg (2,000 unit) capsule 2,000 unit PO QAM Qty: 90 3RF amlodipine 10 mg tablet 5 mg PO DAILY Qty: 30 11RF lisinopril [Zestril] 40 mg tablet 40 mg PO HS Qty: 90 3RF levothyroxine 112 mcg tablet 112 mcg PO DAILY Qty: 90 3RF trazodone 150 mg tablet 150 mg PO HS Qty: 90 3RF Slow-Mag 71.5 mg tablet,delayed release (DR/EC) 71.5 mg PO BID Qty: 180 3RF potassium chloride [Klor-Con M20] 20 mEq tablet,ER particles/crystals 20 meq PO DAILY Qty: 90 3RF omeprazole 20 mg capsule,delayed release(DR/EC) 20 mg PO BID Qty: 180 3RF aspirin 81 mg tablet,delayed release (DR/EC) 81 mg PO DAILY Qty: 90 3RF sucralfate 1 gram tablet 1 g PO TID Qty: 90 5RF albuterol sulfate 90 mcg/actuation HFA aerosol inhaler 2 puff inhalation Q6 PRN (Reason: shortness of breath or wheezing) Qty: 18 0RF Label Comments: 2 puff inhalation every 4-6 hours prn ondansetron 4 mg tablet,disintegrating 4 mg translingual TID PRN (Reason: nausea and vomiting) Qty: 60 1RF cinacalcet [Sensipar] 60 mg tablet 60 mg PO QAM Qty: 90 3RF calcitriol 0.25 mcg capsule 0.25 mcg PO Q2D Qty: 45 3RF cetirizine [Zyrtec] 10 mg tablet 5 mg PO QAM hydrocortisone 2.5 % cream with perineal applicator 1 appln GA DAILY PRN (Reason: hemorrhoids) Qty: 30 2RF dexamethasone 1 mg tablet 1 mg PO ONCE Qty: 1 0RF Rx Instructions: Take dexamethasone 1 mg orally with water at 11:00 p.m. Probiotic 3 billion cell capsule 3,000 mmu cells PO DAILY Rx Instructions: administer with a meal famotidine 20 mg tablet 20 mg PO DAILY lidocaine [Lidoderm] 5 % adhesive patch,medicated 1 patch topical DAILY Rx Instructions: leave on most painful area for up to 12 hrs omega-3 acid ethyl esters 1 gram capsule 1 cap PO BID atorvastatin 80 mg tablet 80 mg PO HS clopidogrel 75 mg tablet 75 mg PO QAM Discontinued metoprolol succinate 25 mg tablet extended release 24 hr 12.5 mg PO DAILY Qty: 45 3RF Discharge Orders: Discharge Order (Routine); Ordered 06/22/22 Ordered By: Jennifer Louis Admission Data Admit Date/Time: 06/18/22 15:24 Attending Provider: Norris Toscano Admit Provider: Johnny Yang Primary Care Provider: Tye Sneed Other Providers: Johnny Yang ; [facility] Other Interventions: Discharge Summary Assessment (RN) Last Done: 06/22/22 14:30 Supervising Physician Co-Signing Physician Notes I supervised Jennifer Louis PA-C on the care of this patient. I interviewed and examined the patient independently of her yesterday, within the last 24h of discharge. The plan is as written in her note except for any following changes/exceptions: None 77yo with some baseline memory issues and poor appetite who presented with Covid. Overall, she remains safe from a respiratory standpoint. BP somewhat elevated today, and will adjust BP meds. Plan for [facility] for rehab. Coding Level of Care Code D/C DAY MANAGEMENT >30 MINS Diagnoses Altered mental state R41.82 COVID-19 U07.1 Hypertension I10 Hypothyroidism E03.9 Hypothyroidism type: acquired DM (diabetes mellitus) E11.9 Coronary artery disease I25.10 Associated angina: without angina Coronary Disease-Associated Artery/Lesion type: [place] artery [place] vs. transplanted heart: [place] heart Depression F32.9 Dementia F03.90
[2022-06-22 15:44] VITALS: PULSE 73
== END 2022-06-22 15:52 | DRG 177 ==
LOC: ED 13:29 → 2E 15:24 → SUATTDRO 15:24 → 2E 16:03
DX: E03.9 Hypothyroidism, unspecified; E11.22 Type 2 diabetes mellitus with diabetic chronic kidney disease; I16.1 Hypertensive emergency; Z79.890 Hormone replacement therapy; Z91.19 Patient's noncompliance with other medical treatment and regimen; J96.11 Chronic respiratory failure with hypoxia; F03.90 Unspecified dementia, unspecified severity, without behavioral disturbance, psychotic disturbance, mood disturbance, and anxiety; U07.1 COVID-19; I12.9 Hypertensive chronic kidney disease with stage 1 through stage 4 chronic kidney disease, or unspecified chronic kidney disease; I45.10 Unspecified right bundle-branch block; N18.30 Chronic kidney disease, stage 3 unspecified; E78.5 Hyperlipidemia, unspecified; G93.41 Metabolic encephalopathy; J44.9 Chronic obstructive pulmonary disease, unspecified; F32.A Depression, unspecified; K86.2 Cyst of pancreas; Z28.310 Unvaccinated for COVID-19; Z95.1 Presence of aortocoronary bypass graft; G47.33 Obstructive sleep apnea (adult) (pediatric); E86.0 Dehydration; Z88.6 Allergy status to analgesic agent; I25.10 Atherosclerotic heart disease of native coronary artery without angina pectoris; R62.7 Adult failure to thrive; Z68.26 Body mass index [BMI] 26.0-26.9, adult

== ENCOUNTER 2022-09-25 18:16 | Inpatient (IN) ==
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
--- NOTE | 2022-09-25 18:56 | XRay Report ---
XR chest 1V portable CLINICAL HISTORY: weakness COMPARISON STUDY: Chest CT July 18, 2021. Chest radiograph June 18, 2022. FINDINGS: Mediastinal surgical clips are incidentally noted. Lung volumes are normal. Lungs are clear . There is no pneumothorax or pleural effusion. Cardiac size is normal. Mediastinal contours are norm al. There is no evidence for pulmonary edema. IMPRESSION: No acute cardiopulmonary findings. No change in appearance of the chest. ACT 112: Negative or not required by law. Electronically signed by: Jason Cooper M.D. 09/25/2022 6:55 PM
[2022-09-25 18:58] LABS: Basophils # (auto) 0.05 K/uL (0-0.2); Basophils % (auto) 0.5 %; Eosinophils # (auto) 0.16 K/uL (0-0.50); Eosinophils % (auto) 1.6 %; Hemoglobin 13.2 g/dl (12.0-16.0); Immature Granulocytes # (auto) 0.04 K/uL (0.00-0.02); Immature Granulocytes % (auto) 0.4 %; Lymphocytes # (auto) 3.22 K/uL (1.2-3.4); Lymphocytes % (auto) 32.4 %; Mean Corpuscular Hemoglobin 28.8 pg (25.0-34.0); Mean Corpuscular Hgb Conc 33.8 g/dL (32.0-36.0); Mean Corpuscular Volume 85.2 fL (80.0-100.0); Mean Platelet Volume 10.8 fL (9.4-12.3); Monocytes # (auto) 0.66 K/uL (0.24-0.82); Monocytes % (auto) 6.6 %; Neutrophils % (auto) 58.5 %; Platelet Count 252 K/uL (130-400); RDW Coefficient of Variation 15.3 % (11.5-14.5); RDW Standard Deviation 46.9 fL (36.4-46.3); Red Blood Count 4.58 M/uL (3.93-5.22); White Blood Count 9.93 K/ul (4.8-10.8)
--- NOTE | 2022-09-25 18:58 | XRay Report ---
XR humerus LT 2V CLINICAL HISTORY: fall, contusion COMPARISON: None FINDINGS: There is no acute fracture within the left humerus. No osseous lesion is noted. Moderate l eft AC joint osteoarthritis is present. IV within the left antecubital fossa is incidentally noted. IMPRESSION: No acute fracture within the left humerus. ACT 112: Negative or not required by law. Electronically signed by: Jason Cooper M.D. 09/25/2022 6:57 PM
[2022-09-25] MEDS ORDERED: SODIUM CHLORIDE 0.9% 500 ML IV ONE (19:00)
[2022-09-25 19:25] LABS: Albumin Globulin Ratio 1.6 (0.9-2); Albumin Level 3.9 gm/dl (3.4-5.0); BUN Creatinine Ratio 17.4 (10-20); Bilirubin,Total 0.5 mg/dl (0.2-1.0); Calcium 10.1 mg/dl (8.5-10.1); Creatinine Clr Calc Pharmacy 42.8 ml/min; Est GFR (African American) 76.1 ml/min; Est GFR (Non-African American) 65.6 ml/min; Globulin 2.4 gm/dl (2.5-4.0); Magnesium 1.1 mg/dl (1.7-2.4); Potassium 3.6 mmol/L (3.5-5.1); Total Protein 6.3 gm/dl (6.0-8.3)
--- NOTE | 2022-09-25 19:28 | CT Scan Report ---
CT OF THE HEAD WITHOUT CONTRAST CLINICAL HISTORY: weak, falls, confusion COMPARISON STUDY: Head CT January 14, 2014. MRI of the brain May 10, 2016. CT DOSE: 1074.96 mGy.cm TECHNIQUE: Helical axial images of the head were obtained without IV contrast. Automated exposure con trol was utilized for the study. A dose lowering technique was utilized adhering to the principles o f ALARA. FINDINGS: No acute intracranial hemorrhage, midline shift or mass effect is present. Ventricular syst em is unremarkable. White matter hypodensity suggests small vessel disease. There are no findings to suggest acute dural sinus thrombosis or acute territorial infarct. There is no acute calvarial fractu re. Sphenoid sinuses are partially opacified. IMPRESSION: No acute intracranial findings. ACT 112: Negative or not required by law. Electronically signed by: Jason Cooper M.D. 09/25/2022 7:27 PM
[2022-09-25 19:30] LABS: Troponin I High Sensitivity 16.8 pg/ml (0-14)
[2022-09-25] MEDS: MAGNESIUM SULFATE / D5W 1 GM/100 ML BAG IV SCH ×2 (19:36→20:17)
[2022-09-25 19:38] LABS: Thyroid Stimulating Hormone 0.121 uIu/ml (0.300-4.500)
[2022-09-25 20:11] LABS: T4 Free Thyroxine 1.43 ng/dl (0.61-1.60)
[2022-09-25 20:53] LABS: Base Excess VBG -6.2 mEq/L; HCO3 VBG 20 mmol/L; Oxygen Saturation VBG 82.8 %; PCO2 VBG 39 mmHg (38-50); PO2 VBG 52 mmHg; pH VBG 7.31 (7.36-7.41)
--- NOTE | 2022-09-25 21:35 | History & Physical Report ---
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 No infectious or anatomical cause has been identified at this time, however, urinalysis is still pending. Hypomagnesemia found through lab work. For now patient will be admitted to the hospital for magnesium repletion as well as PT/OT evaluation with likely SNF referral. Patient is hemodynamically stable and comfortable. -Likely secondary to poor p.o. intake in the setting of dementia -4 g of magnesium given IV in the emergency department -Recheck magnesium and phosphorus in the morning -Continue home magnesium supplement -Consult dietitian for nutrition assessment, appreciate recommendations -Regular diet to give patient as many options as possible to increase oral intake -NSS at 80 mL/h for maintenance fluid -Daily BMP (2) Altered mental state: Plan: - Given no infectious etiology, no abnormalities found on head CT, no metabolic disturbance, likely to be an ebb and flow of her dementia, do not suspect to be delirium given length of episode. -Seems to have had some improvement with IV fluids and magnesium -Likely multifactorial in the setting of baseline dementia, hypomagnesemia, and dehydration -Ideally patient should be in the hospital as little as possible to prevent hospital-acquired delirium -Frequent reorientation -PT and OT evaluation for possible placement, appreciate recommendations (3) Dementia: Plan: - See plan above (4) CKD (chronic kidney disease): Plan: - Stable at this time, avoid nephrotoxic agents (5) S/P CABG x 4: Plan: - Stable, continue ASA, Plavix, atorvastatin, Imdur, and nitroglycerin as needed for chest pain -Initial troponin mildly elevated at 16.8, repeat at 2 hours was pending at the time of writing this note -No real chest pain or shortness of breath on admission, unlikely to be ACS (6) Coronary artery disease: Plan: - See plan above (7) Hypertension: Plan: - Continue amlodipine, lisinopril, metoprolol succinate (8) Type 2 diabetes mellitus: Plan: - Unsure of this diagnosis, it is in her problems history -All of the A1c's that are in our record have never been diagnostic of diabetes -Given poor p.o. intake and no oral diabetic medications, will withhold giving insulin at this time -Hypoglycemic protocol in place given poor p.o. 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 Majority of the history is obtained from family and emergency department notes as patient is demented/confused. It seems that since , the family has noticed that her confusion has been worsening to the point where she had laid in bed all day today without speaking. Also noted by family that she has been more weak to the point that she has fallen 4 times today. There does seem to be a history of hallucinations as well which include seeing a cat yesterday in her home which she does not own a cat. Patient is also had a decreased appetite and not been eating regular amounts of food since this all started 5 days ago. Patient typically lives on her own. At this time patient does deny any fever, chills, chest pain, nausea, vomiting, shortness of breath, or headache. She does report that there is some left shoulder pain but family believes that this is from picking her up after she had fallen. Additionally it seems that the patient has not been taking her meds appropriately per discussion with the family. Discussed with family and she is a DNR/DNI. No other complaints at this time. ED course: Patient was transferred to the emergency department via ambulance. After initial evaluation, patient had blood work and imaging done. Blood work was significant for hypomagnesemia at 1.1. Otherwise COVID was negative, imaging was negative, and other blood work was grossly normal. Of note she did have a anion gap of 15 and a VBG consistent with mild acidemia at 7.31. Patient was started on IV fluids as well as given 4 g of magnesium in the ED. She has initially shown some improvement in her cognition with just this alone. Urinalysis was not obtained as of yet by the time I had arrived for consultation. Allergies Allergy/AdvReac Type Severity Reaction Status Date / Time nickel Allergy Unknown RASH Verified 09/25/22 20:18 rosuvastatin AdvReac Mild Pain Verified 09/25/22 20:18 salicylates AdvReac Mild GI UPSET Verified 09/25/22 20:18 adhesive AdvReac Unknown ITCHING Verified 09/25/22 20:18 Home Medications Medication Instructions Recorded Confirmed Type omega-3 acid ethyl esters 1 gram 1 cap PO BID 06/18/19 09/25/22 History capsule hydrocortisone 2.5 % topical cream 1 appln MT DAILY PRN hemorrhoids 05/17/20 09/25/22 Rx with perineal applicator #30 grams nitroglycerin 0.4 mg sublingual 0.4 mg sublingual Q5M PRN chest 02/10/21 09/25/22 Rx tablet pain #25 tabs fluticasone furoate 200 1 inh inhalation DAILY #28 ea 09/04/21 09/25/22 Rx mcg-vilanterol 25 mcg/dose inhalation powder (Breo Ellipta) lisinopril 40 mg tablet (Zestril) 40 mg PO HS #90 tabs 02/14/22 09/25/22 Rx atorvastatin 80 mg tablet 80 mg PO HS 03/12/22 09/25/22 History clopidogrel 75 mg tablet 75 mg PO QAM 03/12/22 09/25/22 History famotidine 20 mg tablet 20 mg PO QAM 03/29/22 09/25/22 History lidocaine 5 % topical patch 1 patch topical DAILY 03/29/22 09/25/22 History (Lidoderm) lactobacillus combination no.4 3 3,000 mmu cells PO DAILY 03/30/22 09/25/22 History billion cell capsule (Probiotic) levothyroxine 112 mcg tablet 112 mcg PO DAILY #90 tabs 04/09/22 09/25/22 Rx trazodone 150 mg tablet 150 mg PO HS insomnia #90 tabs 05/01/22 09/25/22 Rx magnesium chloride 71.5 mg 71.5 mg PO BID #180 tabs 05/04/22 09/25/22 Rx (magnesium chloride) tablet,delayed release (Slow-Mag) omeprazole 20 mg capsule,delayed 20 mg PO BID #180 caps 06/13/22 09/25/22 Rx release albuterol sulfate 90 mcg/actuation 2 puff inhalation Q6 PRN shortness 06/15/22 09/25/22 Rx aerosol inhaler of breath or wheezing #18 grams ondansetron 4 mg disintegrating 4 mg translingual TID PRN nausea 06/15/22 09/25/22 Rx tablet and vomiting #60 tabs sucralfate 1 gram tablet 1 g PO TID #90 tabs 06/15/22 09/25/22 Rx calcitriol 0.25 mcg capsule 0.25 mcg PO Q2D #45 caps 06/19/22 09/25/22 Rx cinacalcet 60 mg tablet (Sensipar) 60 mg PO QAM #90 tabs 06/19/22 09/25/22 Rx amlodipine 10 mg tablet 10 mg PO QAM 07/05/22 09/25/22 History cetirizine 10 mg tablet (Zyrtec) 10 mg PO QAM 07/05/22 09/25/22 History isosorbide mononitrate 120 mg 120 mg PO QAM #90 tabs 08/24/22 09/25/22 Rx tablet,extended release 24 hr metoprolol succinate 25 mg 50 mg PO DAILY #180 tabs 08/27/22 09/25/22 Rx tablet,extended release 24 hr (Toprol XL) sertraline 100 mg tablet 100 mg PO DAILY #90 tabs 09/05/22 09/25/22 Rx sertraline 50 mg tablet 50 mg PO DAILY #90 tabs 09/05/22 09/25/22 Rx cholecalciferol (vitamin D3) 50 2,000 unit PO QAM #90 caps 09/17/22 09/25/22 Rx mcg (2,000 unit) capsule aspirin 81 mg tablet,delayed 81 mg PO QAM 11/29/22 11/29/22 History release Past Med/Surg History Medical History Adrenal adenoma Asthma Cholelithiasis CKD (chronic kidney disease) stage 3, GFR 30-59 ml/min Coronary artery disease Depression DKA (diabetic ketoacidosis) DM (diabetes mellitus) History of heart disease Hypertension Hypothyroidism IPMN (intraductal papillary mucinous neoplasm) Pancreas cyst SDAT (senile dementia of Alzheimer's type) Urinary incontinence Weakness Surgical History History of appendectomy History of bilateral salpingo-oophorectomy (BSO) History of hysterectomy History of tubal ligation S/P bypass graft of extremity S/P CABG x 4 S/P cataract surgery Family History Sister Myocardial infarction Emphysema, unspecified Brother Myocardial infarction Diabetes Father Cerebral artery occlusion with cerebral infarction Mother Cerebral artery occlusion with cerebral infarction Diabetes Denies family history of Ovarian cancer Prostate cancer Kidney disease Breast cancer Colorectal cancer Social History Smoking Status: Former smoker Tobacco Type: Cigarettes Age Started Using Tobacco: 31; Age Quit Using Tobacco: 54; packs per day: 4; Second Hand Exposure: No; Hx Alcohol Use: No Hx Substance Use: No Preferred Language: Zambian Communication Ability: Effective Visual Impairment: No Limitations Hearing Ability: Use of Hearing Aid Gear Hobber Required: No Beliefs That Will Affect Care: None marital status: Current Living Situation: Alone Current Living Situation Comment: [facility] current occupational status: retired 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, 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, 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 [employer] Feels Safe at Home: Yes Safety Concerns Comment: Patient is afraid of falling while home alone, has railings on bed Childhood Exposure to Second-Hand Smoke: Yes caffeine: Yes (mixes decaf and reg coffee) Dental Care, Regularly: No Physical Activity Frequency: Does not Exercise Physical Activity Frequency Comment: Exercise limited by physical condition Seatbelt Use: always Sunscreen Use: No (doesn't go outside ) Assistive Devices: Cane, Walker and Wheelchair Review of Systems Review of Systems: All systems reviewed & are unremarkable except as noted in HPI & below Physical Exam Constitutional: well developed and + frail appearing; no acute distress Eyes: + anicteric sclerae Neck: trachea midline, no thyromegaly Respiratory: normal respiratory effort, lungs clear to auscultation Cardiovascular: RRR, no murmur, no edema Gastrointestinal (Abdomen): normal bowel sounds, soft, nontender, no hepatosplenomegaly Musculoskeletal: Head/Neck/Chest: normocephalic and head atraumatic Grossly weak with most muscle groups rating at 4/5 Skin: + turgor decreased Neurologic: moves all extremities Psychiatric: Orientation: alert, oriented to person, oriented to place and cooperative; + not oriented to time Eye Contact: + fair eye contact Lymphatic: no cervical or axillary lymphadenopathy Results & Data Results & Data ([facility]) Vital Signs (Past 12 Hours) Vital Signs Temp Pulse Resp BP Pulse Ox O2 Del Method 09/25/22 18:02 37.0 C 65 18 172/66 H 97 Room Air Code Status & VTE Plan VTE Prophylaxis Plan VTE Prophylaxis will be ordered: Yes Supervising Physician Co-Signing Physician Notes Patient seen and examined, chart reviewed, case discussed with Dr. Cope and I agree with the assessment and plan as above. In brief, patient is a 77yo female with history of DM, HTN, Hypothyroidism and dementia presenting with worsening balance, increased falls and possible hallucinations. Patient reports she has been seeing cats in her home and does not own a cat. No additional complaints On exam she is elderly and frail, resting comfortably in bed. Oriented to self, hospital and [facility]. Also knows who the President is Skin intact HEENT -MMM, Neck supple Heart - +S1/S2, regular, no m/r/g Lungs - CTA Abd - soft, NT/ND Labs and images reviewed UA resulted after resident note complete. It is suggestive of infection Assessment/Plan -Tx with Ceftriaxone -Mg repletion -PT/OT evaluation -Remainder as above (1) Coronary artery disease Associated angina: without angina Coronary Disease-Associated Artery/Lesion type: [place] artery [place] vs. transplanted heart: [place] heart Qualified Code(s): I25.10 - Atherosclerotic heart disease of [place] coronary artery witho ut angina pectoris (2) CKD (chronic kidney disease) Chronic kidney disease stage: stage 3 (moderate) Qualified Code(s): N18.3 - Chronic kidney disease, stage 3 (moderate)
[2022-09-25 22:05] LABS: Appearance Urine Clear (Clear); Bacteria Urine Automated 4+ (Negative); Bilirubin Urine Negative (Negative); Blood Urine Negative (Negative); Color Urine Yellow; Epithelial Cell Urine Auto 0-5 /lpf (0-5); Glucose Urine UA Negative (Negative); Ketones Urine 2+ (Negative); Leukocyte Esterase Urine 1+ (Negative); Nitrite Urine Positive (Negative); Protein Urine Trace (Negative); RBC Urine Automated 0-4 /hpf (0-4); Specific Gravity Urine 1.018 (1.000-1.030); Urobilinogen Urine Negative (Negative); WBC Urine Automated >30 /hpf (0-5); pH Urine 5.5 (4.5-7.5)
--- NOTE | 2022-09-25 23:42 | Billing Data ---
Date of Service September 25, 2022 Coding Level of Care Code 40699 Initial Inpt Care Lvl 3
[2022-09-25] MEDS ORDERED: cefTRIAXone SODIUM 1,000 MG/50 ML BAG IV STA (23:55)
[2022-09-26] MEDS ORDERED: ALBUTEROL HFA 8 GM INHALER INH PRN (00:19)
[2022-09-26] MEDS ORDERED: GLUCOSE 40% GEL 15 GM TUBE PO PRN (00:19)
[2022-09-26] MEDS ORDERED: ONDANSETRON INJ 2 MG/ML 2 ML VIAL IV PRN (00:19)
[2022-09-26] MEDS ORDERED: CARBOHYDRATES FOR HYPOGLYCEMIA PO PRN (00:19)
[2022-09-26] MEDS ORDERED: GLUCAGON FOR INJ 1 MG VIAL SQ PRN (00:19)
[2022-09-26] MEDS ORDERED: NITROGLYCERIN SL 0.4 MG/TAB TAB SL PRN (00:19)
[2022-09-26] MEDS ORDERED: GLUCOSE 10 TAB/TUBE PO PRN (00:19)
[2022-09-26] MEDS ORDERED: DEXTROSE 50% 50 ML SYRINGE IV PRN (00:19)
[2022-09-26] MEDS ORDERED: POLYETHYLENE (MIRALAX) 17 GM PACK PO PRN (00:19)
[2022-09-26 04:45] LABS: Basophils # (auto) 0.04 K/uL (0-0.2); Basophils % (auto) 0.5 %; Eosinophils # (auto) 0.27 K/uL (0-0.50); Eosinophils % (auto) 3.2 %; Hematocrit (blood only) 35.4 % (34.1-44.9); Hemoglobin 11.7 g/dl (12.0-16.0); Immature Granulocytes # (auto) 0.03 K/uL (0.00-0.02); Immature Granulocytes % (auto) 0.4 %; Lymphocytes # (auto) 2.96 K/uL (1.2-3.4); Lymphocytes % (auto) 34.8 %; Mean Corpuscular Hemoglobin 28.9 pg (25.0-34.0); Mean Corpuscular Hgb Conc 33.1 g/dL (32.0-36.0); Mean Corpuscular Volume 87.4 fL (80.0-100.0); Mean Platelet Volume 10.4 fL (9.4-12.3); Monocytes # (auto) 0.57 K/uL (0.24-0.82); Monocytes % (auto) 6.7 %; Neutrophils # (auto) 4.63 K/uL (1.4-6.5); Neutrophils % (auto) 54.4 %; Platelet Count 208 K/uL (130-400); RDW Coefficient of Variation 14.9 % (11.5-14.5); Red Blood Count 4.05 M/uL (3.93-5.22)
[2022-09-26 05:17] LABS: BUN Creatinine Ratio 19.1 (10-20); Calcium 8.6 mg/dl (8.5-10.1); Creatinine Clr Calc Pharmacy 54.1 ml/min; Est GFR (African American) 98.5 ml/min; Magnesium 1.5 mg/dl (1.7-2.4); Phosphorus 3.2 mg/dl (2.5-4.9); Potassium 3.3 mmol/L (3.5-5.1)
[2022-09-26] MEDS: ENOXAPARIN INJ 30 MG/0.3 ML SYR SQ SCH (06:07)
[2022-09-26] MEDS: SODIUM CHLORIDE 0.9% 1000ML 1,000 ML IV SCH ×2 (06:07→16:13)
[2022-09-26] MEDS ORDERED: LEVOTHYROXINE SODIUM 112 MCG TABLET PO SCH (06:30)
[2022-09-26] MEDS: CINACALCET HCL 30 MG TAB PO SCH (08:00)
[2022-09-26] MEDS: SERTRALINE HCL 50 MG TABLET PO SCH (08:01)
[2022-09-26] MEDS: MAGNESIUM CHLORIDE W/CALCIUM 64MG DELAYED REL TAB PO SCH ×2 (08:01→20:14)
[2022-09-26] MEDS: SERTRALINE HCL 100 MG TABLET PO SCH (08:01)
[2022-09-26] MEDS: SUCRALFATE 1 GM TAB PO SCH ×3 (08:01→16:25)
[2022-09-26] MEDS: PANTOprazole 40 MG TAB PO SCH ×2 (08:02→20:14)
[2022-09-26] MEDS: CHOLECALCIFEROL 1,000 UNITS 25 MCG TAB PO SCH (08:02)
[2022-09-26] MEDS: OMEGA-3 (PURIFIED FISH OIL) 1 GM CAP PO SCH ×2 (08:02→20:15)
[2022-09-26] MEDS: CLOPIDOGREL BISULFATE 75 MG TAB PO SCH (08:02)
[2022-09-26] MEDS: ISOSORBIDE MONO EXTENDED REL 60 MG TABCR PO SCH (08:02)
[2022-09-26] MEDS: METOPROLOL SUCC 50MG EXT REL TAB PO SCH (08:03)
[2022-09-26] MEDS: amLODIPine BESYLATE 5 MG TAB PO SCH (08:03)
[2022-09-26] MEDS: CETIRIZINE HCL 10 MG TABLET PO SCH (08:03)
[2022-09-26] MEDS: ASPIRIN 81 MG ECTAB PO SCH (08:03)
[2022-09-26] MEDS: FAMOTIDINE 20 MG TAB PO SCH (08:03)
[2022-09-26] MEDS: FLUTICASONE/VILANTEROL 200/25MCG 14 PUFFS/INHALER INH SCH (08:05)
[2022-09-26] MEDS ORDERED: INFLUENZA VACCINE HIGH DOSE PF 65+ 0.7 ML SYR IM ONE (09:36)
--- NOTE | 2022-09-26 12:57 | Electrocardiogram Report ---
Test Reason : Blood Pressure : / mmHG Vent. Rate : 068 BPM Atrial Rate : 068 BPM P-R Int : 144 ms QRS Dur : 092 ms QT Int : 450 ms P-R-T Axes : -04 071 114 degrees QTc Int : 478 ms Poor data quality, interpretation may be adversely affected Normal sinus rhythm Incomplete right bundle branch block Abnormal ECG Confirmed by Tye Sterling ([id number]) on 09/26/2022 12:57:04 PM Referred By: REFERRED SELF Confirmed By:Mikhail Sterling
--- NOTE | 2022-09-26 13:00 | Electrocardiogram Report ---
Test Reason : Blood Pressure : / mmHG Vent. Rate : 066 BPM Atrial Rate : 066 BPM P-R Int : 158 ms QRS Dur : 092 ms QT Int : 446 ms P-R-T Axes : 029 058 095 degrees QTc Int : 467 ms Poor data quality, interpretation may be adversely affected Normal sinus rhythm Incomplete right bundle branch block Nonspecific ST abnormality Abnormal ECG When compared with ECG of 25-SEP-2022 18:21, (unconfirmed) No significant change was found Confirmed by Tye Sterling ([id number]) on 09/26/2022 12:59:46 PM Referred By: REFERRED SELF Confirmed By:Mikhail Sterling
[2022-09-26] MEDS ORDERED: ACETAMINOPHEN 325 MG TAB PO STA (19:44)
[2022-09-26] MEDS: ATORVASTATIN 40 MG TAB PO SCH (20:14)
[2022-09-26] MEDS: lisinopril 40 MG TAB PO SCH (20:15)
[2022-09-26] MEDS ORDERED: POTASSIUM CHLORIDE CRTAB 20 MEQ TABCR PO STA (20:22)
--- NOTE | 2022-09-26 20:23 | Hospitalist Progress Note ---
Date of Service September 26, 2022 Assessment & Plan (1) Acute UTI: Plan: Has increased frequency. Urine culture growing gram-positive cocci. Ceftriaxone days day 0 (2) Dementia: Plan: Check B12 and folate (3) S/P CABG x 4: Plan: Stable aspirin, metoprolol, atorvastatin and Plavix (4) Recurrent falls: Plan: PT OT evaluation (5) DM (diabetes mellitus): Plan: Hypoglycemic on admission. All Hb a1c 2017 to 2021 5 to 5.4- NOT diabetic No home meds for diabetes either (6) Hypomagnesemia: Plan: Repleted in ER. Watch. Discussed with dietitian Nayely Zambrano this evening. The patient has pill dysphagia nausea after meals and her oral intake has declined. She is probably not taking magnesium at home and we will give her sma ll pills and a pop applesauce here K-Lorrepletestop IV fluids (7) Hypertension: Plan: Poor control today but she was in the ER most of the day and just came up. Watch on current meds (8) Hypothyroidism: Plan: TSH lowreduce levothyroxine to 75 MCG daily from 112 mcg Plan antibiotics tailored to urine culture microbiogram , close follow-up with nutrition, PT OT evaluation Did eat a good lunch today in the ER. Admission and Anticipated Discharge Date Admission Date: September 25, 2022 Subjective seen at 430 pm Roni randall, answering questions appropriately: Well oriented in place and month with good insight. Says she is in hospital because she fell 4 times yesterday. Says she just wants her strength back and has been disoriented. She has been seeing things that were not there. Denies any abdominal pain or dysuria but has noticed increased frequency of urine. No nausea/vomiting/diarrhea or palpitations. She says she has some chest pain yesterday and has had a bypass in the past. When asked about her mood says she is not sad and not happy. Physical Exam Physical Exam: Roni randall, answers question appropriately and good insight Head and neck moist tongue Chest clear to auscultation CVS S1-S2 Abdomen nontender Extremities no edema MERINGUER seen walking with 2 people from the [facility] to her bed Results & Data Results & Data ([facility]) Vital Signs (Past 12 Hours) Vital Signs Temp Pulse Pulse Resp BP Pulse Ox O2 Del Method 11/30/22 16:18 64 09/26/22 16:15 36.5 C 67 14 182/62 H 98 Room Air 09/26/22 09:29 37 C 61 18 160/53 H 96 Room Air Laboratory Results Abnormal lab results 09/25/22 09/25/22 09/26/22 Range/Units 20:42 21:42 04:24 Hgb 11.7 L (12.0-16.0) g/dl RDW Std Deviation 48.0 H (36.4-46.3) fL RDW Coeff of Nathan 14.9 H (11.5-14.5) % Immature Gran # (Auto) 0.03 H (0.00-0.02) K/uL VBG pH 7.31 L (7.36-7.41) Potassium (3.5-5.1) mmol/L Carbon Dioxide (21-32) mmol/L Anion Gap (3-11) POC Glucose (70-99) mg/dl Magnesium (1.7-2.4) mg/dl Urine Protein Trace H (Negative) Urine Ketones 2+ H (Negative) Urine Nitrite Positive A (Negative) Ur Leukocyte Esterase 1+ H (Negative) Urine WBC (Auto) >30 H (0-5) /hpf U Hyaline Cast (Auto) 5-10 H (0-5) /lpf Urine Bacteria (Auto) 4+ H (Negative) 09/26/22 09/26/22 09/26/22 Range/Units 04:24 07:38 16:28 Hgb (12.0-16.0) g/dl RDW Std Deviation (36.4-46.3) fL RDW Coeff of Nathan (11.5-14.5) % Immature Gran # (Auto) (0.00-0.02) K/uL VBG pH (7.36-7.41) Potassium 3.3 L (3.5-5.1) mmol/L Carbon Dioxide 19 L (21-32) mmol/L Anion Gap 15 H (3-11) POC Glucose 66 L* 121 H (70-99) mg/dl Magnesium 1.5 L (1.7-2.4) mg/dl Urine Protein (Negative) Urine Ketones (Negative) Urine Nitrite (Negative) Ur Leukocyte Esterase (Negative) Urine WBC (Auto) (0-5) /hpf U Hyaline Cast (Auto) (0-5) /lpf Urine Bacteria (Auto) (Negative) PG Care Time/CCT Total # of Minutes Spent Total Time Spent with Patient: Total time spent is greater than 50% in coordination of care (as documented) at patient's floor/unit and/or counseling patient: Coding Level of Care Code 71504 Subseq Hosp Care Lvl 3 Diagnoses Acute UTI N39.0 Dementia F03.90 S/P CABG x 4 Z95.1 Recurrent falls R29.6 DM (diabetes mellitus) E11.9 Hypomagnesemia E83.42 Hypertension I10 Hypothyroidism E03.9 Hypothyroidism type: acquired (1) Hypothyroidism Hypothyroidism type: acquired Qualified Code(s): E03.9 - Hypothyroidism, unspecified
[2022-09-26] MEDS: LIDOCAINE 5% 1 PATCH TD SCH (20:57)
[2022-09-26] MEDS: cefTRIAXone SODIUM 1,000 MG in DEXTROSE 5% 50 ML IV SCH (22:18)
[2022-09-26] MEDS ORDERED: hydrALAZINE HCL 20 MG/ML VIAL IV ONE (23:21)
--- NOTE | 2022-09-27 00:29 | Communication Note ---
Date of Service: September 27, 2022 Notified by patient's RN that she was confused and becoming agitative/combative. Her chart was reviewed. Noted she is here for UTI and also has a history of dementia. She did grab her nurse and would not let go shortly before my arrival. At the bedside, she is agitated. She is stating she "has to go" and that she called the state police. When asked where she was, she told me she was in her old house. She also told me my name was Quan. She could not tell me her name. She knew it was night. She was not able to tell me why she is here. Unfortunately she ripped out her IV at this time too. BP has been ranging from SBP 180-210+. Neuro exam - uncooperative but moved all extremities equally. No dysarthria. Delirium. Strongly suspect hospital delirium. She was able to calm down enough to let us retake BP, which returned at ~180/100. Lower suspicion HTN encephalopathy is contributing but considered - likely elevated d/t her agitation. Delirium precautions and frequent reorientation. One-to-one ordered given agitation and hostility. Will attempt to give PO hydralazine x 1. If she represents a danger to herself and/or staff, will put in for Zyprexa IM. Discussed w/ RN.
[2022-09-27] MEDS ORDERED: hydrALAZINE HCL 25 MG TAB PO STA (00:37)
[2022-09-27] MEDS ORDERED: cloNIDine HCL 0.1 MG TAB PO ONE (00:39)
[2022-09-27] MEDS: ACETAMINOPHEN 325 MG TAB PO PRN ×2 (01:51→21:38)
[2022-09-27] MEDS: MELATONIN 3 MG TAB PO PRN ×2 (01:52→20:22)
[2022-09-27] MEDS: ENOXAPARIN INJ 30 MG/0.3 ML SYR SQ SCH (06:11)
[2022-09-27] MEDS: LEVOTHYROXINE SODIUM 75 MCG TABLET PO SCH (06:12)
[2022-09-27 08:11] LABS: Basophils # (auto) 0.03 K/uL (0-0.2); Basophils % (auto) 0.4 %; Eosinophils % (auto) 2.5 %; Hematocrit (blood only) 32.2 % (34.1-44.9); Hemoglobin 10.8 g/dl (12.0-16.0); Immature Granulocytes # (auto) 0.05 K/uL (0.00-0.02); Immature Granulocytes % (auto) 0.6 %; Lymphocytes % (auto) 32.7 %; Mean Corpuscular Hemoglobin 28.6 pg (25.0-34.0); Mean Corpuscular Hgb Conc 33.5 g/dL (32.0-36.0); Mean Corpuscular Volume 85.2 fL (80.0-100.0); Mean Platelet Volume 10.1 fL (9.4-12.3); Monocytes # (auto) 0.63 K/uL (0.24-0.82); Monocytes % (auto) 7.9 %; Neutrophils # (auto) 4.44 K/uL (1.4-6.5); Neutrophils % (auto) 55.9 %; Platelet Count 210 K/uL (130-400); RDW Coefficient of Variation 15.1 % (11.5-14.5); RDW Standard Deviation 46.7 fL (36.4-46.3); Red Blood Count 3.78 M/uL (3.93-5.22); White Blood Count 7.95 K/ul (4.8-10.8)
--- NOTE | 2022-09-27 08:32 | Hospitalist Progress Note ---
Date of Service September 27, 2022 Assessment & Plan (1) Acute UTI: Plan: Had increased frequency. Urine culture growing gram-positive cocci Klebsiella sensitive to Ceftriaxone. Patient on day #1 Ceftriaxone. 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 Currently waiting on determination. (5) Hypomagnesemia: Plan: - Repleted in ER with 4gm IV Magnesium. The patient has pill dysphagia, nausea after meals and her oral intake has declined. She is probably not taking magnesium at home and we will give her small pills and applesauce here. - Continue magnesium BID (6) Hypertension: Plan: -Continue Amlodipine, Lisinopril, metoprolol and isosorbid -Continue to monitor (7) Hypothyroidism: Plan: -TSH lowreduce levothyroxine to 75 MCG daily from 112 mcg -Will need to have a follow up TSH level as outpatient with Primary Care Physician (8) Nausea: Plan: - Nausea and pill dysphagia - recommend to take pills with applesauce - Discontinued the fish oil which may be contributing to nausea and decreased appetite secondary to GI upset (Continue on ASA and Plavix) - Zofran ordered as needed Plan Discussed patient with Dr Ashraf who assisted in the treatment and plan for this patient. Admission and Anticipated Discharge Date Admission Date: September 25, 2022 Subjective Patient seen in rounds this AM. Patient had some increased delirium yesterday and was given one dose of hydralazine. Patient only complains of some mild left sided rib discomfort that she says is from when she fell and she was helped up. Patient denies any abdominal pain, chest pain, SOB or any urinary complaints. She tells me that she does not have much of an appetite but is trying to eat. She states she had a normal bowel movement this morning. Review of Systems Constitutional: + fatigue and + anorexia; no fever, no body aches and no insomnia Eyes: no blind spots, no eye pain and no problem reported Ear, Nose, Mouth, Throat: no nasal congestion, no post nasal drip and no sinus pain/pressure Respiratory: no cough, no chest congestion and no dyspnea Cardiovascular: no chest pain, no dyspnea and no edema Gastrointestinal: no abdominal pain, no nausea, no vomiting and no constipation Genitourinary: no dysuria, no difficulty urinating, no urinary hesitancy and no flank pain Musculoskeletal: mild discomfort left ribs under left arm (per patient was from being lifted up after a fall) Integumentary: no rash, no lesions and no pruritus Neurologic: + falls; no numbness and no syncope Physical Exam Constitutional: WD/WN, vitals as above Patient is awake and sitting up in recliner in NAD ENMT: external ear and nose normal, oropharynx normal Neck: trachea midline, no thyromegaly Respiratory: normal respiratory effort, lungs clear to auscultation Cardiovascular: RRR, no murmur, no edema Gastrointestinal (Abdomen): normal bowel sounds, soft, nontender, no hepatosplenomegaly Results & Data Results & Data ([facility]) Vital Signs (Past 12 Hours) Vital Signs Temp Pulse Pulse Resp BP Pulse Ox O2 Del Method 09/27/22 08:05 36.6 C 61 16 152/72 H 96 Room Air 09/27/22 07:43 59 L 09/27/22 03:27 66 16 158/62 H 95 Room Air 09/27/22 02:31 58 L 197/66 H 95 Room Air 09/27/22 01:16 61 200/71 H 96 Room Air 09/26/22 22:08 63 09/26/22 23:43 56 L 212/74 H 09/26/22 22:39 36.6 C 58 L 18 95 Room Air Laboratory Results Abnormal lab results 09/26/22 09/26/22 09/27/22 Range/Units 16:28 20:24 07:38 RBC (3.93-5.22) M/uL Hgb (12.0-16.0) g/dl Hct (34.1-44.9) % RDW Std Deviation (36.4-46.3) fL RDW Coeff of Nathan (11.5-14.5) % Immature Gran # (Auto) (0.00-0.02) K/uL Chloride (98-107) mmol/L BUN/Creatinine Ratio (10-20) POC Glucose 121 H 103 H 101 H (70-99) mg/dl Calcium (8.5-10.1) mg/dl Magnesium (1.7-2.4) mg/dl Folate (>5.38) ng/ml 09/27/22 09/27/22 09/27/22 Range/Units 07:54 07:54 07:54 RBC 3.78 L (3.93-5.22) M/uL Hgb 10.8 L (12.0-16.0) g/dl Hct 32.2 L (34.1-44.9) % RDW Std Deviation 46.7 H (36.4-46.3) fL RDW Coeff of Nathan 15.1 H (11.5-14.5) % Immature Gran # (Auto) 0.05 H (0.00-0.02) K/uL Chloride 112 H (98-107) mmol/L BUN/Creatinine Ratio 21.9 H (10-20) POC Glucose (70-99) mg/dl Calcium 8.2 L (8.5-10.1) mg/dl Magnesium 1.2 L (1.7-2.4) mg/dl Folate 2.77 L (>5.38) ng/ml PG Care Time/CCT Total # of Minutes Spent Total Time Spent with Patient: Total time spent is greater than 50% in coordination of care (as documented) at patient's floor/unit and/or counseling patient: Coding Level of Care Code 32035 Subseq Hosp Care Lvl 3 Diagnoses Acute UTI N39.0 Dementia F03.90 S/P CABG x 4 Z95.1 Recurrent falls R29.6 Hypomagnesemia E83.42 Hypertension I10 Hypothyroidism E03.9 Hypothyroidism type: acquired Nausea R11.0 Time Spent (min) 35 (1) Hypothyroidism Hypothyroidism type: acquired Qualified Code(s): E03.9 - Hypothyroidism, unspecified
[2022-09-27 08:37] LABS: BUN Creatinine Ratio 21.9 (10-20); Calcium 8.2 mg/dl (8.5-10.1); Est GFR (African American) 100.5 ml/min; Est GFR (Non-African American) 86.7 ml/min; Magnesium 1.2 mg/dl (1.7-2.4); Potassium 3.8 mmol/L (3.5-5.1)
[2022-09-27] MEDS: LIDOCAINE 5% 1 PATCH TD SCH (08:49)
[2022-09-27] MEDS: SERTRALINE HCL 100 MG TABLET PO SCH (08:50)
[2022-09-27] MEDS: MAGNESIUM CHLORIDE W/CALCIUM 64MG DELAYED REL TAB PO SCH ×2 (08:50→20:23)
[2022-09-27] MEDS: CALCITRIOL 0.25 MCG CAPSULE PO SCH (08:50)
[2022-09-27] MEDS: FAMOTIDINE 20 MG TAB PO SCH (08:50)
[2022-09-27] MEDS: ISOSORBIDE MONO EXTENDED REL 60 MG TABCR PO SCH (08:50)
[2022-09-27] MEDS: CLOPIDOGREL BISULFATE 75 MG TAB PO SCH (08:51)
[2022-09-27] MEDS: SUCRALFATE 1 GM TAB PO SCH ×3 (08:51→17:17)
[2022-09-27] MEDS: amLODIPine BESYLATE 5 MG TAB PO SCH (08:51)
[2022-09-27] MEDS: ASPIRIN 81 MG ECTAB PO SCH (08:51)
[2022-09-27] MEDS: METOPROLOL SUCC 50MG EXT REL TAB PO SCH (08:51)
[2022-09-27] MEDS: CINACALCET HCL 30 MG TAB PO SCH (08:52)
[2022-09-27] MEDS: FLUTICASONE/VILANTEROL 200/25MCG 14 PUFFS/INHALER INH SCH (08:52)
[2022-09-27] MEDS: SERTRALINE HCL 50 MG TABLET PO SCH (08:52)
[2022-09-27] MEDS: OMEGA-3 (PURIFIED FISH OIL) 1 GM CAP PO SCH (08:52)
[2022-09-27] MEDS: CHOLECALCIFEROL 1,000 UNITS 25 MCG TAB PO SCH (08:52)
[2022-09-27] MEDS: PANTOprazole 40 MG TAB PO SCH ×2 (08:52→20:23)
[2022-09-27] MEDS: CETIRIZINE HCL 10 MG TABLET PO SCH (08:52)
[2022-09-27] MEDS: FOLIC ACID 1 MG TAB PO SCH (10:48)
[2022-09-27] MEDS: MAGNESIUM SULFATE / D5W 1 GM/100 ML BAG IV SCH ×2 (17:17→18:40)
[2022-09-27] MEDS: ATORVASTATIN 40 MG TAB PO SCH (20:22)
[2022-09-27] MEDS: lisinopril 40 MG TAB PO SCH (20:23)
[2022-09-27] MEDS: cefTRIAXone SODIUM 1,000 MG in DEXTROSE 5% 50 ML IV SCH (20:45)
[2022-09-28] MEDS ORDERED: hydrALAZINE HCL 20 MG/ML VIAL IV ONE ×2 (04:00→23:43)
[2022-09-28] MEDS: LEVOTHYROXINE SODIUM 75 MCG TABLET PO SCH (05:13)
[2022-09-28] MEDS: ENOXAPARIN INJ 30 MG/0.3 ML SYR SQ SCH (05:13)
[2022-09-28 07:16] LABS: Hematocrit (blood only) 33.8 % (34.1-44.9); Hemoglobin 11.5 g/dl (12.0-16.0); Mean Corpuscular Volume 85.1 fL (80.0-100.0); Mean Platelet Volume 10.8 fL (9.4-12.3); Platelet Count 211 K/uL (130-400); RDW Coefficient of Variation 15.5 % (11.5-14.5); RDW Standard Deviation 47.3 fL (36.4-46.3); Red Blood Count 3.97 M/uL (3.93-5.22); White Blood Count 7.31 K/ul (4.8-10.8)
[2022-09-28 07:41] LABS: Calcium 8.6 mg/dl (8.5-10.1); Creatinine Clr Calc Pharmacy 55.5 ml/min; Est GFR (African American) 102.1 ml/min; Est GFR (Non-African American) 88.1 ml/min; Magnesium 1.4 mg/dl (1.7-2.4); Potassium 3.5 mmol/L (3.5-5.1)
[2022-09-28] MEDS: SUCRALFATE 1 GM TAB PO SCH ×3 (07:54→15:53)
[2022-09-28] MEDS: PANTOprazole 40 MG TAB PO SCH ×2 (07:54→21:03)
[2022-09-28] MEDS: CHOLECALCIFEROL 1,000 UNITS 25 MCG TAB PO SCH (07:54)
[2022-09-28] MEDS: MAGNESIUM CHLORIDE W/CALCIUM 64MG DELAYED REL TAB PO SCH ×2 (07:54→21:02)
[2022-09-28] MEDS: METOPROLOL SUCC 50MG EXT REL TAB PO SCH (07:55)
[2022-09-28] MEDS: ISOSORBIDE MONO EXTENDED REL 60 MG TABCR PO SCH (07:55)
[2022-09-28] MEDS: amLODIPine BESYLATE 5 MG TAB PO SCH (07:55)
[2022-09-28] MEDS: SERTRALINE HCL 100 MG TABLET PO SCH (07:55)
[2022-09-28] MEDS: ASPIRIN 81 MG ECTAB PO SCH (07:56)
[2022-09-28] MEDS: CINACALCET HCL 30 MG TAB PO SCH (07:56)
[2022-09-28] MEDS: SERTRALINE HCL 50 MG TABLET PO SCH (07:56)
[2022-09-28] MEDS: CETIRIZINE HCL 10 MG TABLET PO SCH (07:56)
[2022-09-28] MEDS: FAMOTIDINE 20 MG TAB PO SCH (07:57)
[2022-09-28] MEDS: FOLIC ACID 1 MG TAB PO SCH (07:57)
[2022-09-28] MEDS: CLOPIDOGREL BISULFATE 75 MG TAB PO SCH (07:57)
[2022-09-28] MEDS: FLUTICASONE/VILANTEROL 200/25MCG 14 PUFFS/INHALER INH SCH (08:00)
[2022-09-28] MEDS: LIDOCAINE 5% 1 PATCH TD SCH (08:02)
--- NOTE | 2022-09-28 12:05 | Hospitalist Progress Note ---
Date of Service September 28, 2022 Assessment & Plan (1) Acute UTI: Plan: Had increased frequency. Urine culture growing gram-positive cocci Klebsiella sensitive to Ceftriaxone n most other ab. Patient on day #1 Ceftriaxone. Stop an start bactrim totAL 3 DAYS TREATMENT (2) Dementia: Plan: B12 AND FOLATE DEF - NEW DX- STARTED BOTH-1000mcg im cyanocobalamin for a week after which she can get monthly shots (3) Dysphagia: Plan: Swallowing evaluation pending. Has noticed this only the last few days. Today was choking on her banana but really ate the rest of the meal fine. (4) S/P CABG x 4: Plan: Stable Continue aspirin, metoprolol, atorvastatin and Plavix (5) Recurrent falls: Plan: PT and OT are recommending discharge to SNF for additional therapy and to determine prison needs CM spoke with patient's daughter Alexus who wanted a referral made to [facility] and [facility]. Currently waiting on determination. (6) Hypomagnesemia: Plan: - Repleted in ER with 4gm IV Magnesium. The patient has pill dysphagia, nausea after meals and her oral intake has declined. She is probably not taking magnesium at home and we will give her small pills and applesauce here. - Continue magnesium BID Given to gram IV today as well. Also got IV replacement yesterday. (7) Hypertension: Plan: -Continue Amlodipine, Lisinopril, metoprolol and isosorbid -Continue to monitor (8) Hypothyroidism: Plan: -TSH lowreduce levothyroxine to 75 MCG daily from 112 mcg -Will need to have a follow up TSH level as outpatient with Primary Care Physician (9) Nausea: Plan: - Nausea and pill dysphagia - recommend to take pills with applesauce - Discontinued the fish oil which may be contributing to nausea and decreased appetite secondary to GI upset (Continue on ASA and Plavix) - Zofran ordered as needed (10) B12 deficiency: (11) Folate deficiency: Plan Plan is SNF discharge once electrolytes stabilized. Continue to follow magnesium, telemetry ongoing, speech evaluation today Admission and Anticipated Discharge Date Admission Date: September 25, 2022 Subjective Seen at 9:40 AM. No complaints except for having choked on her banana. She says she feels cold here. Denied nausea/vomiting/abdominal pain. States she is here because she was falling which is quite consistent Two-person assist to the bathroom. Using a walker at home she says her walker was at the bedside today. Physical Exam Physical Exam: Lying in bed and messaging someone on phone, well looking Oriented to place with good insight Head and neck moist tongue, no thyromegaly Chest clear to station [facility] S1-S2- NSR on telemetry Gait not assessed CONTROL SYSTEMS ENG grossly intact Results & Data Results & Data ([facility]) Vital Signs (Past 12 Hours) Vital Signs Temp Pulse Pulse Resp BP Pulse Ox O2 Del Method 09/28/22 10:26 36.6 C 68 18 151/66 H 98 Room Air 09/28/22 09:36 Room Air 09/28/22 09:00 62 09/28/22 07:49 36.5 C 63 18 209/65 H 96 Room Air 09/28/22 05:02 67 186/67 H 97 Room Air 09/28/22 04:00 36.4 C L 61 18 200/63 H 97 Room Air 09/28/22 03:54 60 215/70 H 97 Room Air Laboratory Results Abnormal lab results 09/27/22 09/28/22 09/28/22 Range/Units 20:20 06:19 06:19 Hgb 11.5 L (12.0-16.0) g/dl Hct 33.8 L (34.1-44.9) % RDW Std Deviation 47.3 H (36.4-46.3) fL RDW Coeff of Nathan 15.5 H (11.5-14.5) % Chloride 108 H (98-107) mmol/L BUN/Creatinine Ratio 23.0 H (10-20) POC Glucose 113 H (70-99) mg/dl Magnesium 1.4 L (1.7-2.4) mg/dl 09/28/22 Range/Units 11:35 Hgb (12.0-16.0) g/dl Hct (34.1-44.9) % RDW Std Deviation (36.4-46.3) fL RDW Coeff of Nathan (11.5-14.5) % Chloride (98-107) mmol/L BUN/Creatinine Ratio (10-20) POC Glucose 125 H (70-99) mg/dl Magnesium (1.7-2.4) mg/dl Medications Administered Home Medications Medication Instructions Recorded Confirmed Last Taken omega-3 acid ethyl esters 1 gram 1 cap PO BID 06/18/19 09/25/22 03/11/22 capsule hydrocortisone 2.5 % topical cream 1 appln ME DAILY PRN hemorrhoids 05/17/20 09/25/22 Unknown with perineal applicator #30 grams nitroglycerin 0.4 mg sublingual 0.4 mg sublingual Q5M PRN chest 02/10/21 09/25/22 Unknown tablet pain #25 tabs fluticasone furoate 200 1 inh inhalation DAILY #28 ea 09/04/21 09/25/22 03/11/22 mcg-vilanterol 25 mcg/dose inhalation powder (Breo Ellipta) lisinopril 40 mg tablet (Zestril) 40 mg PO HS #90 tabs 02/14/22 09/25/22 03/11/22 atorvastatin 80 mg tablet 80 mg PO HS 03/12/22 09/25/22 03/11/22 clopidogrel 75 mg tablet 75 mg PO QAM 03/12/22 09/25/22 03/11/22 famotidine 20 mg tablet 20 mg PO QAM 03/29/22 09/25/22 Unknown lidocaine 5 % topical patch 1 patch topical DAILY 03/29/22 09/25/22 Unknown (Lidoderm) lactobacillus combination no.4 3 3,000 mmu cells PO DAILY 03/30/22 09/25/22 Unknown billion cell capsule (Probiotic) levothyroxine 112 mcg tablet 112 mcg PO DAILY #90 tabs 04/09/22 09/25/22 Unknown trazodone 150 mg tablet 150 mg PO HS insomnia #90 tabs 05/01/22 09/25/22 Unknown magnesium chloride 71.5 mg 71.5 mg PO BID #180 tabs 05/04/22 09/25/22 Unknown (magnesium chloride) tablet,delayed release (Slow-Mag) omeprazole 20 mg capsule,delayed 20 mg PO BID #180 caps 06/13/22 09/25/22 Unknown release albuterol sulfate 90 mcg/actuation 2 puff inhalation Q6 PRN shortness 06/15/22 09/25/22 Unknown aerosol inhaler of breath or wheezing #18 grams ondansetron 4 mg disintegrating 4 mg translingual TID PRN nausea 06/15/22 09/25/22 Unknown tablet and vomiting #60 tabs sucralfate 1 gram tablet 1 g PO TID #90 tabs 06/15/22 09/25/22 Unknown calcitriol 0.25 mcg capsule 0.25 mcg PO Q2D #45 caps 06/19/22 09/25/22 Unknown cinacalcet 60 mg tablet (Sensipar) 60 mg PO QAM #90 tabs 06/19/22 09/25/22 Unknown amlodipine 10 mg tablet 10 mg PO QAM 07/05/22 09/25/22 Unknown cetirizine 10 mg tablet (Zyrtec) 10 mg PO QAM 07/05/22 09/25/22 Unknown isosorbide mononitrate 120 mg 120 mg PO QAM #90 tabs 08/24/22 09/25/22 Unknown tablet,extended release 24 hr metoprolol succinate 25 mg 50 mg PO DAILY #180 tabs 08/27/22 09/25/22 Unknown tablet,extended release 24 hr (Toprol XL) sertraline 100 mg tablet 100 mg PO DAILY #90 tabs 09/05/22 09/25/22 Unknown sertraline 50 mg tablet 50 mg PO DAILY #90 tabs 09/05/22 09/25/22 Unknown cholecalciferol (vitamin D3) 50 2,000 unit PO QAM #90 caps 09/17/22 09/25/22 Unknown mcg (2,000 unit) capsule aspirin 81 mg tablet,delayed 81 mg PO QAM 09/25/22 09/25/22 Unknown release Active Medications Generic Name Dose Route Start Last Admin Trade Name Barryq PRN Reason Stop Dose Admin Acetaminophen 650 mg 09/26/22 00:19 09/27/22 21:38 Acetaminophen 325 Mg Tab PO 10/26/22 00:18 650 mg Q4H PRN Administration Pain or Fever Amlodipine Besylate 10 mg 09/26/22 09:00 09/28/22 07:55 Amlodipine Besylate 5 Mg Tab PO 10/26/22 08:59 10 mg QAM JANELLE Administration Aspirin 81 mg 09/26/22 09:00 09/28/22 07:56 Aspirin 81 Mg Ectab PO 10/26/22 08:59 81 mg QAM JANELLE Administration Atorvastatin Calcium 80 mg 09/26/22 21:00 09/27/22 20:22 Atorvastatin 40 Mg Tab PO 10/26/22 20:59 80 mg HS JANELLE Administration Calcitriol 0.25 mcg 09/27/22 09:00 09/27/22 08:50 Calcitriol 0.25 Mcg Capsule PO 10/27/22 08:59 0.25 mcg Q48H JANELLE Administration Cetirizine HCl 10 mg 09/26/22 09:00 09/28/22 07:56 Cetirizine Hcl 10 Mg Tablet PO 10/26/22 08:59 10 mg QAM JANELLE Administration Cinacalcet 60 mg 09/26/22 09:00 09/28/22 07:56 Cinacalcet Hcl 30 Mg Tab PO 10/26/22 08:59 60 mg QAM JANELLE Administration Clopidogrel Bisulfate 75 mg 09/26/22 09:00 09/28/22 07:57 Clopidogrel Bisulfate 75 Mg Tab PO 10/26/22 08:59 75 mg QAM JANELLE Administration Enoxaparin Sodium 30 mg 09/26/22 06:00 09/28/22 05:13 Enoxaparin Inj 30 Mg/0.3 Ml Syr SQ 10/26/22 05:59 30 mg Q24H JANELLE Administration Famotidine 20 mg 09/26/22 09:00 09/28/22 07:57 Famotidine 20 Mg Tab PO 10/26/22 08:59 20 mg QAM JANELLE Administration Fluticasone/Vilanterol 1 puffs 09/26/22 09:00 09/28/22 08:00 Fluticasone/Vilanterol 200/25mcg 14 Puffs/Inhaler INH 10/26/22 08:59 1 puffs DAILY JANELLE Administration Folic Acid 1 mg 09/27/22 09:30 09/28/22 07:57 Folic Acid 1 Mg Tab PO 10/27/22 09:29 1 mg QAM JANELLE Administration Isosorbide Mononitrate 120 mg 09/26/22 09:00 09/28/22 07:55 Isosorbide [place] Extended Rel 60 Mg Tabcr PO 10/26/22 08:59 120 mg QAM JANELLE Administration Levothyroxine Sodium 75 mcg 09/27/22 06:30 09/28/22 05:13 Levothyroxine Sodium 75 Mcg Tablet PO 10/27/22 06:29 75 mcg DAILYBB JANELLE Administration Lidocaine 1 patch 09/26/22 19:45 09/28/22 08:02 Lidocaine 5% 1 Patch TD 10/26/22 19:44 1 patch QAM JANELLE Administration Lisinopril 40 mg 09/26/22 21:00 09/27/22 20:23 Lisinopril 40 Mg Tab PO 10/26/22 20:59 40 mg HS JANELLE Administration Magnesium Chloride 64 mg 09/26/22 09:00 09/28/22 07:54 Magnesium Chloride W/Calcium 64mg Delayed Rel Tab PO 10/26/22 08:59 64 mg BID JANELLE Administration Melatonin 3 mg 09/27/22 00:20 09/27/22 20:22 Melatonin 3 Mg Tab PO 10/27/22 00:19 3 mg HS PRN Administration Sleep Metoprolol Succinate 50 mg 09/26/22 09:00 09/28/22 07:55 Metoprolol Succ 50mg Ext Rel Tab PO 10/26/22 08:59 50 mg DAILY JANELLE Administration Miscellaneous 1 each 09/27/22 00:00 09/27/22 20:23 Remove Lidoderm Patch N/A 10/27/22 00:00 1 each DAILY@2100 JANELLE Administration Pantoprazole Sodium 40 mg 09/26/22 09:00 09/28/22 07:54 Pantoprazole 40 Mg Tab PO 10/26/22 08:59 40 mg BID JANELLE Administration Sertraline HCl 100 mg 09/26/22 09:00 09/28/22 07:55 Sertraline Hcl 100 Mg Tablet PO 10/26/22 08:59 100 mg DAILY JANELLE Administration Sertraline HCl 50 mg 09/26/22 09:00 09/28/22 07:56 Sertraline Hcl 50 Mg Tablet PO 10/26/22 08:59 50 mg DAILY JANELLE Administration Sucralfate 1 gm 09/26/22 07:30 09/28/22 11:19 Sucralfate 1 Gm Tab PO 10/26/22 07:29 1 gm AC JANELLE Administration Vitamin D 2,000 units 09/26/22 09:00 09/28/22 07:54 Cholecalciferol 1,000 Units 25 Mcg Tab PO 10/26/22 08:59 2,000 units QAM JANELLE Administration PG Care Time/CCT Total # of Minutes Spent Total Time Spent with Patient: Total time spent is greater than 50% in coordination of care (as documented) at patient's floor/unit and/or counseling patient: Coding Level of Care Code 37303 Subseq Hosp Care Lvl 3 Diagnoses Acute UTI N39.0 Dementia F03.90 Dysphagia R13.10 S/P CABG x 4 Z95.1 Recurrent falls R29.6 Hypomagnesemia E83.42 Hypertension I10 Hypothyroidism E03.9 Hypothyroidism type: acquired Nausea R11.0 B12 deficiency E53.8 Folate deficiency E53.8 (1) Hypothyroidism Hypothyroidism type: acquired Qualified Code(s): E03.9 - Hypothyroidism, unspecified
[2022-09-28] MEDS: MAGNESIUM SULFATE / D5W 1 GM/100 ML BAG IV SCH ×2 (12:10→14:10)
[2022-09-28] MEDS: CYANOCOBALAMIN 1000 MCG/ML VIAL IM SCH (13:40)
[2022-09-28] MEDS: SULFA/TRIMETH 400/80MG TAB PO SCH ×2 (13:40→21:04)
--- NOTE | 2022-09-28 15:42 | Fluoroscopy Report ---
VIDEO SWALLOW STUDY CLINICAL HISTORY: Dysphagia. COMPARISON STUDY: No priors. Fluoroscopy time: 2.7 minutes. FINDINGS: Fluoroscopic guidance is provided to the department of speech pathology performing a video swallow study. The patient consumed barium impregnated pudding, cracker with paste, thickened liquids , and thin barium while the swallowing mechanism was observed in real-time. No penetration or aspirat ion was seen with any of the sampled textures. IMPRESSION: No penetration or aspiration was seen with any of the sampled textures. See dedicated spe ech pathology report for detailed findings and recommendations. Dictated: 09/28/2022 1:55 PM Transcribed: 09/28/2022 3:40 PM Yaneth [id number] [facility] Electronically signed by: Zeferino Paula M.D. 09/28/2022 3:40 PM
[2022-09-28] MEDS: ATORVASTATIN 40 MG TAB PO SCH (21:00)
[2022-09-28] MEDS ORDERED: cefTRIAXone SODIUM 1,000 MG in DEXTROSE 5% AD-VAN 50 ML IV SCH (21:00)
[2022-09-28] MEDS: lisinopril 40 MG TAB PO SCH (21:01)
[2022-09-28] MEDS: ACETAMINOPHEN 325 MG TAB PO PRN (21:05)
[2022-09-29] MEDS: ACETAMINOPHEN 325 MG TAB PO PRN ×2 (03:36→08:11)
[2022-09-29] MEDS: LEVOTHYROXINE SODIUM 75 MCG TABLET PO SCH (05:42)
[2022-09-29] MEDS: ENOXAPARIN INJ 30 MG/0.3 ML SYR SQ SCH (05:43)
[2022-09-29 06:57] LABS: BUN Creatinine Ratio 21.2 (10-20); Calcium 8.4 mg/dl (8.5-10.1); Creatinine Clr Calc Pharmacy 39.8 ml/min; Est GFR (African American) 77.1 ml/min; Est GFR (Non-African American) 66.6 ml/min; Magnesium 1.4 mg/dl (1.7-2.4); Potassium 3.7 mmol/L (3.5-5.1)
[2022-09-29] MEDS: amLODIPine BESYLATE 5 MG TAB PO SCH (07:59)
[2022-09-29] MEDS: SERTRALINE HCL 100 MG TABLET PO SCH (07:59)
[2022-09-29] MEDS: FOLIC ACID 1 MG TAB PO SCH (07:59)
[2022-09-29] MEDS: MAGNESIUM CHLORIDE W/CALCIUM 64MG DELAYED REL TAB PO SCH ×3 (08:00→20:35)
[2022-09-29] MEDS: CALCITRIOL 0.25 MCG CAPSULE PO SCH (08:00)
[2022-09-29] MEDS: SERTRALINE HCL 50 MG TABLET PO SCH (08:00)
[2022-09-29] MEDS: METOPROLOL SUCC 50MG EXT REL TAB PO SCH (08:00)
[2022-09-29] MEDS: CHOLECALCIFEROL 1,000 UNITS 25 MCG TAB PO SCH (08:01)
[2022-09-29] MEDS: SUCRALFATE 1 GM TAB PO SCH ×3 (08:01→16:17)
[2022-09-29] MEDS: CLOPIDOGREL BISULFATE 75 MG TAB PO SCH (08:01)
[2022-09-29] MEDS: CETIRIZINE HCL 10 MG TABLET PO SCH (08:01)
[2022-09-29] MEDS: CINACALCET HCL 30 MG TAB PO SCH (08:01)
[2022-09-29] MEDS: ISOSORBIDE MONO EXTENDED REL 60 MG TABCR PO SCH (08:01)
[2022-09-29] MEDS: PANTOprazole 40 MG TAB PO SCH (08:02)
[2022-09-29] MEDS: SULFA/TRIMETH 400/80MG TAB PO SCH ×2 (08:02→20:36)
[2022-09-29] MEDS: FAMOTIDINE 20 MG TAB PO SCH (08:02)
[2022-09-29] MEDS: CYANOCOBALAMIN 1000 MCG/ML VIAL IM SCH (08:02)
[2022-09-29] MEDS: ASPIRIN 81 MG ECTAB PO SCH (08:02)
[2022-09-29] MEDS: FLUTICASONE/VILANTEROL 200/25MCG 14 PUFFS/INHALER INH SCH (08:03)
[2022-09-29] MEDS: LIDOCAINE 5% 1 PATCH TD SCH (08:03)
--- NOTE | 2022-09-29 08:20 | Hospitalist Progress Note ---
Date of Service September 29, 2022 Assessment & Plan (1) Acute UTI: Plan: Had increased frequency. Urine culture growing gram-positive cocci Klebsiella sensitive to Ceftriaxone. Patient had 2 days of IV ceftriaxone and yesterday was changed to po Bactrim BID for 3 days total treatment. (2) Dementia: Plan: B12 AND FOLATE DEF - NEW DX- STARTED BOTH-1000mcg im cyanocobalamin for a week after which she can get monthly shots (3) Dysphagia: Plan: Yesterday was choking on her banana but really ate the rest of the meal fine. Had a video swallow evaluation and had no aspiration and was recommended an easy to chew diet. (4) S/P CABG x 4: Plan: Stable Continue aspirin, metoprolol, atorvastatin and Plavix (5) Recurrent falls: Plan: PT and OT are recommending discharge to SNF for additional therapy and to determine long-term needs CM spoke with patient's daughter Alexus who wanted a referral made to [facility]. (6) Hypomagnesemia: Plan: - Repleted 2gm IV Magnesium today. - Increased magnesium TID - Decreased Protonix from BID to qd (7) Hypertension: Plan: -Continue Amlodipine, Lisinopril, metoprolol and isosorbid -Continue to monitor (8) Hypothyroidism: Plan: -TSH lowreduce levothyroxine to 75 MCG daily from 112 mcg -Will need to have a follow up TSH level as outpatient with Primary Care Physician (9) Nausea: Plan: - Nausea and pill dysphagia - recommend to take pills with applesauce - Discontinued the fish oil which may be contributing to nausea and decreased appetite secondary to GI upset (Continue on ASA and Plavix) - Zofran ordered as needed may need on a more regular basis (10) B12 deficiency: Plan: was started on 1000mcg IM B12 daily for 1 week and then monthly injections (11) Folate deficiency: Plan: Started on Folic Acid 1mg daily (12) Diarrhea: Plan: - Likely secondary to the Magnesium - If patient is having 3+ loose stools per day will get stool studies Plan Plan is SNF discharge once electrolytes stabilized. Continue to follow magnesium, telemetry ongoing Admission and Anticipated Discharge Date Admission Date: September 25, 2022 Subjective Patient seen this afternoon. She is awake sitting up in recliner. She states she had an episode of diarrhea and also an incontinent smear earlier. Magnesium remains low and has another 2gm of IV Magnesium ordered today. Patient had some mild nausea this AM. She is alert and oriented x 2 Review of Systems Constitutional: + fatigue and + anorexia; no fever, no body aches and no insomnia Eyes: no blind spots, no eye pain and no problem reported Ear, Nose, Mouth, Throat: no nasal congestion, no post nasal drip and no sinus pain/pressure Respiratory: no cough, no chest congestion and no dyspnea Cardiovascular: no chest pain, no dyspnea and no edema Gastrointestinal: no abdominal pain, no nausea, no vomiting and no constipation Genitourinary: no dysuria, no difficulty urinating, no urinary hesitancy and no flank pain Musculoskeletal: mild discomfort left ribs under left arm (per patient was from being lifted up after a fall) Integumentary: no rash, no lesions and no pruritus Neurologic: + falls; no numbness and no syncope Physical Exam Constitutional: WD/WN, vitals as above ENMT: external ear and nose normal, oropharynx normal Neck: trachea midline, no thyromegaly Respiratory: normal respiratory effort, lungs clear to auscultation Cardiovascular: RRR, no murmur, no edema Gastrointestinal (Abdomen): normal bowel sounds, soft, nontender, no hepatosplenomegaly Results & Data Results & Data ([facility]) Vital Signs (Past 12 Hours) Vital Signs Temp Pulse Pulse Resp BP Pulse Ox O2 Del Method 09/29/22 04:00 36.8 C 73 20 167/70 H 98 Room Air 09/29/22 00:28 183/63 H 09/29/22 00:04 201/69 H 09/28/22 23:15 36.8 C 67 20 191/67 H 94 Room Air 09/28/22 23:11 68 09/28/22 21:58 Room Air Laboratory Results Abnormal lab results 09/28/22 09/29/22 09/29/22 Range/Units 20:14 05:33 12:13 Chloride 108 H (98-107) mmol/L BUN/Creatinine Ratio 21.2 H (10-20) Glucose 103 H (70-99(Fasting)) mg/dl POC Glucose 110 H 108 H (70-99) mg/dl Calcium 8.4 L (8.5-10.1) mg/dl Magnesium 1.4 L (1.7-2.4) mg/dl Diagnostic Findings Videofluoroscopic Swallow 09/28/22 13:00 VIDEO SWALLOW STUDY CLINICAL HISTORY: Dysphagia. COMPARISON STUDY: No priors. Fluoroscopy time: 2.7 minutes. FINDINGS: Fluoroscopic guidance is provided to the department of speech pathology performing a video swallow study. The patient consumed barium impregnated pudding, cracker with paste, thickened liquids, and thin barium while the swallowing mechanism was observed in real-time. No penetration or aspiration was seen with any of the sampled textures. IMPRESSION: No penetration or aspiration was seen with any of the sampled textures. See dedicated speech pathology report for detailed findings and recommendations. Dictated: 09/28/2022 1:55 PM Transcribed: 09/28/2022 3:40 PM Yaneth [id number] [facility] Electronically signed by: Zeferino Paula M.D. 09/28/2022 3:40 PM PG Care Time/CCT Total # of Minutes Spent Total Time Spent with Patient: Total time spent is greater than 50% in coordination of care (as documented) at patient's floor/unit and/or counseling patient: Coding [place] [address] Subseq Hosp Care Lvl 3 Patient Type Established Medical Decision Making Moderate Complexity Diagnoses Acute UTI N39.0 Dementia F03.90 Dysphagia R13.10 S/P CABG x 4 Z95.1 Recurrent falls R29.6 Hypomagnesemia E83.42 Hypertension I10 Hypothyroidism E03.9 Hypothyroidism type: acquired Nausea R11.0 B12 deficiency E53.8 Folate deficiency E53.8 Diarrhea R19.7 Time Spent (min) 25 (1) Hypothyroidism Hypothyroidism type: acquired Qualified Code(s): E03.9 - Hypothyroidism, unspecified
[2022-09-29] MEDS: SACCHAROMYCES BOULARDII 250 MG CAP PO SCH (10:03)
[2022-09-29] MEDS: MAGNESIUM SULFATE / D5W 1 GM/100 ML BAG IV SCH ×2 (10:04→12:02)
[2022-09-29] MEDS: ATORVASTATIN 40 MG TAB PO SCH (20:37)
[2022-09-29] MEDS: lisinopril 40 MG TAB PO SCH (20:37)
[2022-09-30] MEDS: ENOXAPARIN INJ 30 MG/0.3 ML SYR SQ SCH (05:33)
[2022-09-30] MEDS: LEVOTHYROXINE SODIUM 75 MCG TABLET PO SCH (05:33)
[2022-09-30 06:47] LABS: Calcium 8.2 mg/dl (8.5-10.1); Creatinine Clr Calc Pharmacy 42.1 ml/min; Est GFR (Non-African American) 71.6 ml/min; Magnesium 1.4 mg/dl (1.7-2.4); Potassium 3.5 mmol/L (3.5-5.1)
[2022-09-30] MEDS: CHOLECALCIFEROL 1,000 UNITS 25 MCG TAB PO SCH (07:25)
[2022-09-30] MEDS: PANTOprazole 40 MG TAB PO SCH (07:26)
[2022-09-30] MEDS: amLODIPine BESYLATE 5 MG TAB PO SCH (07:26)
[2022-09-30] MEDS: METOPROLOL SUCC 50MG EXT REL TAB PO SCH (07:26)
[2022-09-30] MEDS: SERTRALINE HCL 50 MG TABLET PO SCH (07:26)
[2022-09-30] MEDS: SACCHAROMYCES BOULARDII 250 MG CAP PO SCH (07:26)
[2022-09-30] MEDS: FOLIC ACID 1 MG TAB PO SCH (07:26)
[2022-09-30] MEDS: ISOSORBIDE MONO EXTENDED REL 60 MG TABCR PO SCH (07:27)
[2022-09-30] MEDS: CYANOCOBALAMIN 1000 MCG/ML VIAL IM SCH (07:27)
[2022-09-30] MEDS: ASPIRIN 81 MG ECTAB PO SCH (07:27)
[2022-09-30] MEDS: CLOPIDOGREL BISULFATE 75 MG TAB PO SCH (07:27)
[2022-09-30] MEDS: CINACALCET HCL 30 MG TAB PO SCH (07:27)
[2022-09-30] MEDS: CETIRIZINE HCL 10 MG TABLET PO SCH (07:27)
[2022-09-30] MEDS: FAMOTIDINE 20 MG TAB PO SCH (07:28)
[2022-09-30] MEDS: SUCRALFATE 1 GM TAB PO SCH ×3 (07:28→16:58)
[2022-09-30] MEDS: SULFA/TRIMETH 400/80MG TAB PO SCH ×2 (07:28→19:56)
[2022-09-30] MEDS: SERTRALINE HCL 100 MG TABLET PO SCH (07:28)
[2022-09-30] MEDS: FLUTICASONE/VILANTEROL 200/25MCG 14 PUFFS/INHALER INH SCH (07:30)
[2022-09-30] MEDS: MAGNESIUM CHLORIDE W/CALCIUM 64MG DELAYED REL TAB PO SCH ×3 (07:31→19:57)
[2022-09-30] MEDS: LIDOCAINE 5% 1 PATCH TD SCH (07:31)
--- NOTE | 2022-09-30 08:40 | Hospitalist Progress Note ---
Date of Service September 30, 2022 Assessment & Plan (1) Acute UTI: Plan: Had increased frequency. Urine culture growing gram-positive cocci Klebsiella sensitive to Ceftriaxone. Patient had 2 days of IV ceftriaxone and yesterday was changed to po Bactrim BID for 3 days total treatment. Last dose will be today. (2) CKD (chronic kidney disease): Plan: -Uncontrolled Hypertension -added Chlorthalidone 12.5mg daily then discontinued after Nephrology added HCTZ/Spironolactone 25/25 -U/S Duplex Kidneys - negative for JURGEN -Consulted nephrology (3) Dementia: Plan: B12 AND FOLATE DEF - NEW DX- STARTED BOTH-1000mcg im cyanocobalamin for a week after which she can get monthly shots (4) Hypertension: Plan: -Continue Amlodipine, Lisinopril, metoprolol and isosorbide -Continue to monitor -Consulted Nephrology and they started HCTZ/Spironolactone 25/25 daily (5) Dysphagia: Plan: 09/28/22 was choking on her banana but really ate the rest of the meal fine. Had a video swallow evaluation and had no aspiration and was recommended an easy to chew diet. (6) S/P CABG x 4: Plan: Stable Continue aspirin, metoprolol, atorvastatin and Plavix (7) Recurrent falls: Plan: PT and OT are recommending discharge to SNF for additional therapy and to determine fdc needs CM spoke with patient's daughter Alexus who wanted a referral made to [facility]. (8) Hypomagnesemia: Plan: - Repleted 2gm IV Magnesium IV yesterday - Continue magnesium TID - Decreased Protonix from BID to qd (9) Hypothyroidism: Plan: -TSH lowreduce levothyroxine to 75 MCG daily from 112 mcg -Will need to have a follow up TSH level as outpatient with Primary Care Physician (10) Nausea: Plan: Improved - Nausea and pill dysphagia - recommend to take pills with applesauce - Discontinued the fish oil which may be contributing to nausea and decreased appetite secondary to GI upset (Continue on ASA and Plavix) - Zofran ordered as needed may need on a more regular basis (11) B12 deficiency: Plan: was started on 1000mcg IM B12 daily for 1 week and then monthly injections (12) Folate deficiency: Plan: Started on Folic Acid 1mg daily (13) Diarrhea: Plan: - Patient tells me her stools are soft not liquid - Likely secondary to the Magnesium - If patient is having 3+ loose stools per day will get stool studies Plan Plan is SNF discharge once electrolytes and BP stabilized. Continue to follow magnesium, telemetry ongoing Spoke with patient's daughter today via the phone and updated her Admission and Anticipated Discharge Date Admission Date: September 25, 2022 Subjective Patient seen today and she was in bed in [facility]. Patient continues to have uncontrolled BP readings. Consulted nephrology and ordered U/S duplex of kidneys. She had U/S duplex of her kidneys that revealed no hydronephrosis, borderline stenosis distal right renal artery, no stenosis left renal artery. Patient tells me she feels slightly anxious today and was asking if she was on all her home medications for anxiety. She was ordered the sertraline 150mg daily. She was on Trazadone 150mg at night at home and confirmed this with her daughter Alexus via the phone. She denies any chest pain, SOB, nausea, vomiting or abdominal pain. She tells me she is now having soft stools and no diarrhea. Nephrology added HCTZ/Spironolactone 25/25 and suggested placing a vascular consult for >70% stenosis L ICA seen on doppler in February 2022. Review of Systems Constitutional: + fatigue and + anorexia; no fever, no body aches and no insomnia Eyes: no blind spots, no eye pain and no problem reported Ear, Nose, Mouth, Throat: no nasal congestion, no post nasal drip and no sinus pain/pressure Respiratory: no cough, no chest congestion and no dyspnea Cardiovascular: no chest pain, no dyspnea and no edema Gastrointestinal: no abdominal pain, no nausea, no vomiting and no constipation Genitourinary: no dysuria, no difficulty urinating, no urinary hesitancy and no flank pain Musculoskeletal: mild discomfort left ribs under left arm (per patient was from being lifted up after a fall) Integumentary: no rash, no lesions and no pruritus Neurologic: + falls; no numbness and no syncope Physical Exam Constitutional: WD/WN, vitals as above ENMT: external ear and nose normal, oropharynx normal Neck: trachea midline, no thyromegaly Respiratory: normal respiratory effort, lungs clear to auscultation Cardiovascular: RRR, no murmur, no edema Gastrointestinal (Abdomen): normal bowel sounds, soft, nontender, no hepatosplenomegaly Results & Data Results & Data ([facility]) Vital Signs (Past 12 Hours) Vital Signs Temp Pulse Pulse Resp BP BP Pulse Ox 09/30/22 07:49 36.6 C 65 20 218/65 H 207/65 H 96 09/30/22 03:00 36.6 C 80 20 187/70 H 95 09/30/22 00:22 60 09/29/22 22:00 36.8 C 62 20 154/52 H 95 O2 Del Method 09/30/22 07:49 Room Air 09/30/22 03:00 Room Air 09/30/22 00:22 09/29/22 22:00 Room Air Laboratory Results Abnormal lab results 09/29/22 09/29/22 09/30/22 Range/Units 12:13 20:36 05:31 Chloride 108 H (98-107) mmol/L POC Glucose 108 H 141 H (70-99) mg/dl Calcium 8.2 L (8.5-10.1) mg/dl Magnesium 1.4 L (1.7-2.4) mg/dl PG Care Time/CCT Total # of Minutes Spent Total Time Spent with Patient: Total time spent is greater than 50% in coordination of care (as documented) at patient's floor/unit and/or counseling patient: Coding Level of Care Code 90072 Subseq Hosp Care Lvl 3 Diagnoses Acute UTI N39.0 CKD (chronic kidney disease) N18.9 Dementia F03.90 Hypertension I10 Dysphagia R13.10 S/P CABG x 4 Z95.1 Recurrent falls R29.6 Hypomagnesemia E83.42 Hypothyroidism E03.9 Hypothyroidism type: acquired Nausea R11.0 B12 deficiency E53.8 Folate deficiency E53.8 Diarrhea R19.7 Time Spent (min) 20 (1) Hypothyroidism Hypothyroidism type: acquired Qualified Code(s): E03.9 - Hypothyroidism, unspecified
--- NOTE | 2022-09-30 08:52 | Nephrology Consultation ---
Date of Consultation September 30, 2022 Assessment & Plan (1) Hypertension: * Elevated blood pressure despite CCB, ACEi, betablocker and nitrate * Preserved kidney function. 09/30/22 renal artery doppler negative for JURGEN * Hypothyroidism - on replacement therapy * 11 mm L adrenal adenoma * Current medical regimen lacks a diuretic. Will add Aldactazide 25/25 mg and monitor BP, PRP (2) S/P CABG x 4: * Requires Metoprolol and nitrate therapy (3) Cystitis: * On Bactrim therapy as per primary service (4) Peripheral vascular disease: * > 70% stenosis of L ICA on 03/18 doppler. Consider Vascular Surgery evaluation History of Present Illness Reason for Consultation: Hypertension Attending Physician: Jesús Ashraf History of Present Illness Ms. Bui is a 77 year old white female who is seen at the request of Dr. Ashraf for evaluation of hypertension. Medical records in the EMR were reviewed today and are summarized as follows: Ms. Bui has a longstanding history of hypertension. Despite taking amlodipine, lisinopril, metoprolol and imdur her SBP has been recorded as 170 - 200 mm Hg since 01/14. Ms. Bui has no CKD. She is hypothyroid and takes replacement therapy. Ms. Bui has a history or prior tobacco use and suffers from ASCVD and PVD. 03/[address] has revealed an 11 mm L adrenal gland adenoma. Ms. Bui's medical history is also significant for COPD, LULI, IDPMN and anemia. She presented to the [facility] 09/25/22 following a mechanical fall at home and mental status changes. She did not suffer any fracture. Humerus x-ray was negative for fracture and head CT was negative for CVA. Mental status has improved following IV hydration and Mg replacement. Clean catch urine was + for Klebsiella. Allergies Allergy/AdvReac Type Severity Reaction Status Date / Time nickel Allergy Unknown RASH Verified 09/25/22 20:18 rosuvastatin AdvReac Mild Pain Verified 09/25/22 20:18 salicylates AdvReac Mild GI UPSET Verified 09/25/22 20:18 adhesive AdvReac Unknown ITCHING Verified 09/25/22 20:18 lactose AdvReac Unknown Gastrointestinal Verified 09/26/22 17:51 Upset Home Medications Medication Instructions Recorded Confirmed Type omega-3 acid ethyl esters 1 gram 1 cap PO BID 06/18/19 09/25/22 History capsule hydrocortisone 2.5 % topical cream 1 appln KS DAILY PRN hemorrhoids 05/17/20 09/25/22 Rx with perineal applicator #30 grams nitroglycerin 0.4 mg sublingual 0.4 mg sublingual Q5M PRN chest 02/10/21 09/25/22 Rx tablet pain #25 tabs fluticasone furoate 200 1 inh inhalation DAILY #28 ea 09/04/21 09/25/22 Rx mcg-vilanterol 25 mcg/dose inhalation powder (Breo Ellipta) lisinopril 40 mg tablet (Zestril) 40 mg PO HS #90 tabs 02/14/22 09/25/22 Rx atorvastatin 80 mg tablet 80 mg PO HS 03/12/22 09/25/22 History clopidogrel 75 mg tablet 75 mg PO QAM 03/12/22 09/25/22 History famotidine 20 mg tablet 20 mg PO QAM 03/29/22 09/25/22 History lidocaine 5 % topical patch 1 patch topical DAILY 03/29/22 09/25/22 History (Lidoderm) lactobacillus combination no.4 3 3,000 mmu cells PO DAILY 03/30/22 09/25/22 History billion cell capsule (Probiotic) levothyroxine 112 mcg tablet 112 mcg PO DAILY #90 tabs 04/09/22 09/25/22 Rx trazodone 150 mg tablet 150 mg PO HS insomnia #90 tabs 05/01/22 09/25/22 Rx magnesium chloride 71.5 mg 71.5 mg PO BID #180 tabs 05/04/22 09/25/22 Rx (magnesium chloride) tablet,delayed release (Slow-Mag) omeprazole 20 mg capsule,delayed 20 mg PO BID #180 caps 06/13/22 09/25/22 Rx release albuterol sulfate 90 mcg/actuation 2 puff inhalation Q6 PRN shortness 06/15/22 09/25/22 Rx aerosol inhaler of breath or wheezing #18 grams ondansetron 4 mg disintegrating 4 mg translingual TID PRN nausea 06/15/22 09/25/22 Rx tablet and vomiting #60 tabs sucralfate 1 gram tablet 1 g PO TID #90 tabs 06/15/22 09/25/22 Rx calcitriol 0.25 mcg capsule 0.25 mcg PO Q2D #45 caps 06/19/22 09/25/22 Rx cinacalcet 60 mg tablet (Sensipar) 60 mg PO QAM #90 tabs 06/19/22 09/25/22 Rx amlodipine 10 mg tablet 10 mg PO QAM 07/05/22 09/25/22 History cetirizine 10 mg tablet (Zyrtec) 10 mg PO QAM 07/05/22 09/25/22 History isosorbide mononitrate 120 mg 120 mg PO QAM #90 tabs 08/24/22 09/25/22 Rx tablet,extended release 24 hr metoprolol succinate 25 mg 50 mg PO DAILY #180 tabs 08/27/22 09/25/22 Rx tablet,extended release 24 hr (Toprol XL) sertraline 100 mg tablet 100 mg PO DAILY #90 tabs 09/05/22 09/25/22 Rx sertraline 50 mg tablet 50 mg PO DAILY #90 tabs 09/05/22 09/25/22 Rx cholecalciferol (vitamin D3) 50 2,000 unit PO QAM #90 caps 09/17/22 09/25/22 Rx mcg (2,000 unit) capsule aspirin 81 mg tablet,delayed 81 mg PO QAM 09/25/22 09/25/22 History release Patient History Medical History Adrenal adenoma Asthma Cholelithiasis CKD (chronic kidney disease) stage 3, GFR 30-59 ml/min Coronary artery disease Depression DKA (diabetic ketoacidosis) DM (diabetes mellitus) History of heart disease Hypertension Hypothyroidism IPMN (intraductal papillary mucinous neoplasm) Pancreas cyst SDAT (senile dementia of Alzheimer's type) Urinary incontinence Weakness Surgical History History of appendectomy History of bilateral salpingo-oophorectomy (BSO) History of hysterectomy History of tubal ligation S/P bypass graft of extremity S/P CABG x 4 S/P cataract surgery Family History Sister Myocardial infarction Emphysema, unspecified Brother Myocardial infarction Diabetes Father Cerebral artery occlusion with cerebral infarction Mother Cerebral artery occlusion with cerebral infarction Diabetes Denies family history of Ovarian cancer Prostate cancer Kidney disease Breast cancer Colorectal cancer Social History Smoking Status: Former smoker Tobacco Type: Cigarettes Age Started Using Tobacco: 31; Age Quit Using Tobacco: 54; packs per day: 4; Second Hand Exposure: No; Hx Alcohol Use: No Hx Substance Use: No Preferred Language: [place] Islander Communication Ability: Effective Visual Impairment: No Limitations Hearing Ability: Use of Hearing Aid Gun Fitter Required: No Beliefs That Will Affect Care: None marital status: Current Living Situation: Alone Current Living Situation Comment: [facility] current occupational status: retired 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, 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, 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 [employer] Feels Safe at Home: Yes Safety Concerns Comment: Patient is afraid of falling while home alone, has railings on bed Childhood Exposure to Second-Hand Smoke: Yes caffeine: Yes (mixes decaf and reg coffee) Dental Care, Regularly: No Physical Activity Frequency: Does not Exercise Physical Activity Frequency Comment: Exercise limited by physical condition Seatbelt Use: always Sunscreen Use: No (doesn't go outside ) Assistive Devices: Cane, Walker and Wheelchair Review of Systems Constitutional: no fever Eyes: no worsening vision Ear, Nose, Mouth, Throat: no problem reported Respiratory: no cough and no dyspnea Cardiovascular: no chest pain Gastrointestinal: no abdominal pain, no vomiting and no diarrhea/loose stools Neurologic: no problem reported Physical Exam Constitutional: + frail appearing; not in distress Eyes: PERRL, conjunctivae normal, anicteric sclerae ENMT: external ear and nose normal, oropharynx normal Neck: trachea midline, no thyromegaly L carotid bruit present Respiratory: normal respiratory effort, lungs clear to auscultation Cardiovascular: RRR, no murmur, no edema Gastrointestinal (Abdomen): normal bowel sounds, soft, nontender, no hepatosplenomegaly No renal artery bruit Neurologic: awake; not confused Results & Data ([facility]) Vital Signs (Past 12 Hours) Vital Signs Temp Pulse Pulse Resp BP BP Pulse Ox 09/30/22 08:00 09/30/22 07:49 36.6 C 65 20 218/65 H 207/65 H 96 09/30/22 03:00 36.6 C 80 20 187/70 H 95 09/30/22 00:22 60 09/29/22 22:00 36.8 C 62 20 154/52 H 95 O2 Del Method 09/30/22 08:00 Room Air 09/30/22 07:49 Room Air 09/30/22 03:00 Room Air 09/30/22 00:22 09/29/22 22:00 Room Air Laboratory Results Laboratory Tests 09/25/22 09/30/22 21:42 05:31 Sodium 140 Potassium 3.5 Chloride 108 H Carbon Dioxide 25 BUN 16 Creatinine 0.80 Glucose 95 Calcium 8.2 L Magnesium 1.4 L Urine Color Yellow Urine Appearance Clear Ur Specific [place] 1.018 Urine Protein Trace H Urine Glucose (UA) Negative Urine Nitrite Positive A Urine WBC (Auto) >30 H U Hyaline Cast (Auto) 5-10 H U Epithel Cells (Auto) 0-5 Urine Bacteria (Auto) 4+ H Diagnostic Findings 03/[address]: The heart is mildly enlarged. Mild subsegmental bibasilar atelectasis. No pneumatosis or pneumoperitoneum. The spleen and right adrenal gland are unremarkable. 11 mm left adrenal gland adenoma. There are a few cystic foci noted within the pancreatic body and tail measuring up to 10 mm which are indeterminate and may represent a sidebranch IPMN's, new from 2016. No pancreatic ductal dilation. Probable adenomyomatosis of the gallbladder fundus. There are numerous water attenuating lesions noted throughout the liver measuring up to 3.1 cm and the left hepatic lobe suggestive of probable cysts. Several of the foci are too small to characterize. Patency of the hepatic and portal veins. Cortical thinning of the kidneys. There are a few left-sided renal vascular calcifications noted. There is no hydronephrosis. Partial distention of the urinary bladder with moderate anterior wall thickening and mild mucosal hyperemia. Hysterectomy. No adnexal mass lesions. Extensive atherosclerosis of the abdominal aorta which appears to result in multifocal stenosis of the branch vessels. No lymphadenopathy is identified. Renal artery duplex 09/30/22: The right kidney measures 9.3 cm and the left kidney measures 9.4 cm. No hydronephrosis. Bilateral renal veins are patent. Peak systolic velocity within the distal right renal artery was 194 cm/s. However, the renal aortic ratio is only 0.9. Elevated resistive indices within the renal arcuate arteries measuring up to 0.9. No significant stenosis within the left renal artery. Elevated resistive indices within the left renal arcuate arteries of up to 0.8. There is mild bilateral cortical renal thinning/scarring. This is likely age-related. Carotid doppler 03/18: 1. Atherosclerotic plaque with evidence of 50-69% stenosis of the proximal right internal carotid artery by velocity criteria. 2. There is evidence of greater than 70% stenosis of the proximal left internal carotid artery by velocity criteria. 3. Antegrade flow is shown in the vertebral arteries PG Care Time/CCT Total # of Minutes Spent Total Time Spent with Patient: Total time spent is greater than 50% in coordination of care (as documented) at patient's floor/unit and/or counseling patient: Coding Level of Care Code 84708 Inpt Consult Level 5 Diagnoses Hypertension I10 S/P CABG x 4 Z95.1 Cystitis N30.90 Peripheral vascular disease I73.9
[2022-09-30] MEDS ORDERED: CHLORTHALIDONE 25 MG TAB PO SCH (09:00)
--- NOTE | 2022-09-30 10:49 | Ultrasound Report ---
US duplex renal artery CLINICAL HISTORY: hypertension COMPARISON STUDY: Abdomen and pelvis CT 03/12/2022. FINDINGS: The right kidney measures 9.3 cm and the left kidney measures 9.4 cm. No hydronephrosis. Bi lateral renal veins are patent. Peak systolic velocity within the distal right renal artery was 194 c m/s. However, the renal aortic ratio is only 0.9. Elevated resistive indices within the renal arcuate arteries measuring up to 0.9. No significant stenosis within the left renal artery. Elevated resisti ve indices within the left renal arcuate arteries of up to 0.8. There is mild bilateral cortical klaus l thinning/scarring. This is likely age-related. IMPRESSION: 1. Borderline stenosis of the distal right renal artery. 2. No significant stenosis within the left renal artery. 3. No hydronephrosis. ACT 112: Negative or not required by law. Electronically signed by: Quentin Caldwell M.D. 09/30/2022 10:48 AM
[2022-09-30] MEDS: SPIRONOLACTONE/HCTZ 25-25 PO SCH (14:32)
[2022-09-30] MEDS: ACETAMINOPHEN 325 MG TAB PO PRN (19:54)
[2022-09-30] MEDS: traZODone HCL 50 MG TAB PO SCH (19:54)
[2022-09-30] MEDS: ATORVASTATIN 40 MG TAB PO SCH (19:56)
[2022-09-30] MEDS: lisinopril 40 MG TAB PO SCH (19:56)
[2022-10-01] MEDS: LEVOTHYROXINE SODIUM 75 MCG TABLET PO SCH (05:37)
[2022-10-01] MEDS: ENOXAPARIN INJ 30 MG/0.3 ML SYR SQ SCH (05:37)
[2022-10-01] MEDS: SPIRONOLACTONE/HCTZ 25-25 PO SCH (06:09)
[2022-10-01] MEDS: ISOSORBIDE MONO EXTENDED REL 60 MG TABCR PO SCH (06:09)
[2022-10-01] MEDS: METOPROLOL SUCC 50MG EXT REL TAB PO SCH (06:10)
[2022-10-01] MEDS: SUCRALFATE 1 GM TAB PO SCH ×3 (07:18→18:06)
[2022-10-01 07:42] LABS: Calcium 8.9 mg/dl (8.5-10.1); Creatinine Clr Calc Pharmacy 32.3 ml/min; Est GFR (African American) 59.7 ml/min; Est GFR (Non-African American) 51.5 ml/min; Magnesium 1.2 mg/dl (1.7-2.4); Potassium 3.8 mmol/L (3.5-5.1)
--- NOTE | 2022-10-01 07:57 | Hospitalist Progress Note ---
Date of Service October 01, 2022 Assessment & Plan (1) Acute UTI: Plan: Had increased frequency. Urine culture growing gram-positive cocci Klebsiella sensitive to Ceftriaxone. Patient had 2 days of IV ceftriaxone and then was changed to po Bactrim BID for 3 days total treatment. Finished course of Bactrim. (2) CKD (chronic kidney disease): Plan: -Uncontrolled Hypertension -added Chlorthalidone 12.5mg daily then discontinued after Nephrology added HCTZ/Spironolactone 25/25 -U/S Duplex Kidneys - negative for JURGEN -Nephrology checking VMA/metanephrine, renin/aldosterone and AM cortisol level -Repeat BMP in AM (3) Dementia: Plan: B12 AND FOLATE DEF - NEW DX- STARTED BOTH-1000mcg im cyanocobalamin for a week after which she can get monthly shots Will eventually need repeat labs as outpatient (4) Hypertension: Plan: -Continue Amlodipine, Lisinopril, metoprolol and isosorbide -Continue to monitor -Consulted Nephrology and they started HCTZ/Spironolactone 25/25 daily -Nephrology checking AM labs as above (5) Dysphagia: Plan: 09/28/22 was choking on her banana but really ate the rest of the meal fine. Had a video swallow evaluation and had no aspiration and was recommended an easy to chew diet. Resolved and tolerating easy to chew (6) S/P CABG x 4: Plan: Stable Continue aspirin, metoprolol, atorvastatin and Plavix (7) Recurrent falls: Plan: PT and OT are recommending discharge to SNF for additional therapy and to determine terminal makeup operator needs CM spoke with patient's daughter Alexus who wanted a referral made to [facility]. Patient will be discharged to [facility] when stable (8) Hypomagnesemia: Plan: - Repleted 4gm IV Magnesium today - Continue magnesium TID - Decreased Protonix from BID to qd - Recheck AM Magnesium level (9) Hypothyroidism: Plan: -TSH lowreduce levothyroxine to 75 MCG daily from 112 mcg -Will need to have a follow up TSH level as outpatient with Primary Care Physician (10) Nausea: Plan: Improved - Nausea and pill dysphagia - recommend to take pills with applesauce - Discontinued the fish oil which may be contributing to nausea and decreased appetite secondary to GI upset (Continue on ASA and Plavix) - Zofran ordered as needed may need on a more regular basis (11) B12 deficiency: Plan: was started on 1000mcg IM B12 daily for 1 week and then monthly injections (12) Folate deficiency: Plan: Started on Folic Acid 1mg daily (13) Diarrhea: Plan: - Patient tells me her diarrhea has resolved and she is having formed stools (14) Carotid artery stenosis: Plan: -Patient is known to vascular surgery -Patient is asymptomatic and per vascular she is to keep her follow up in November 2022 (15) Depression: Plan: Depression and anxiety: -Continue Sertraline 150 mg daily -Continue Trazadone q hs Plan Plan is SNF discharge once electrolytes and BP stabilized. Continue to follow magnesium, telemetry ongoing Spoke with patient's daughter today via the phone and updated her Admission and Anticipated Discharge Date Admission Date: September 25, 2022 Subjective Patient seen today, she was awake resting in bed. She denies any pain or any other complaints. Her diarrhea has resolved. She denies any abdominal pain or nausea. Review of Systems Constitutional: + fatigue and + anorexia; no fever, no body aches and no insomnia Eyes: no blind spots, no eye pain and no problem reported Ear, Nose, Mouth, Throat: no nasal congestion, no post nasal drip and no sinus pain/pressure Respiratory: no cough, no chest congestion and no dyspnea Cardiovascular: no chest pain, no dyspnea and no edema Gastrointestinal: no abdominal pain, no nausea, no vomiting and no constipation Genitourinary: no dysuria, no difficulty urinating, no urinary hesitancy and no flank pain Musculoskeletal: mild discomfort left ribs under left arm (per patient was from being lifted up after a fall) Integumentary: no rash, no lesions and no pruritus Neurologic: + falls; no numbness and no syncope Psychiatric: + anxiety and + panic attacks Physical Exam Constitutional: WD/WN, vitals as above ENMT: external ear and nose normal, oropharynx normal Neck: trachea midline, no thyromegaly Respiratory: normal respiratory effort, lungs clear to auscultation Cardiovascular: RRR, no murmur, no edema Gastrointestinal (Abdomen): normal bowel sounds, soft, nontender, no hepatosplenomegaly Results & Data Results & Data ([facility]) Vital Signs (Past 12 Hours) Vital Signs Temp Pulse Pulse Resp BP BP Pulse Ox 10/01/22 07:47 36.5 C 57 L 18 181/51 H 94 10/01/22 05:50 200/52 H 10/01/22 02:54 36.4 C L 58 L 18 180/42 H 97 09/30/22 23:23 36.6 C 57 L 18 180/60 H 95 09/30/22 22:09 77 O2 Del Method 10/01/22 07:47 Room Air 10/01/22 05:50 10/01/22 02:54 Room Air 09/30/22 23:23 Room Air 09/30/22 22:09 Laboratory Results Abnormal lab results 09/30/22 09/30/22 09/30/22 Range/Units 11:52 16:55 20:01 POC Glucose 105 H 106 H 108 H (70-99) mg/dl Magnesium (1.7-2.4) mg/dl 10/01/22 Range/Units 06:33 POC Glucose (70-99) mg/dl Magnesium 1.2 L (1.7-2.4) mg/dl PG Care Time/CCT Total # of Minutes Spent Total Time Spent with Patient: Total time spent is greater than 50% in coordination of care (as documented) at patient's floor/unit and/or counseling patient: Coding Level of Care Code 00216 Subseq Hosp Care Lvl 3 Diagnoses Acute UTI N39.0 CKD (chronic kidney disease) N18.9 Dementia F03.90 Hypertension I10 Dysphagia R13.10 S/P CABG x 4 Z95.1 Recurrent falls R29.6 Hypomagnesemia E83.42 Hypothyroidism E03.9 Hypothyroidism type: acquired Nausea R11.0 B12 deficiency E53.8 Folate deficiency E53.8 Diarrhea R19.7 Carotid artery stenosis I65.29 Depression F32.9 Time Spent (min) 20 (1) Hypothyroidism Hypothyroidism type: acquired Qualified Code(s): E03.9 - Hypothyroidism, unspecified
[2022-10-01] MEDS: CYANOCOBALAMIN 1000 MCG/ML VIAL IM SCH (08:00)
[2022-10-01] MEDS: MAGNESIUM CHLORIDE W/CALCIUM 64MG DELAYED REL TAB PO SCH ×3 (08:01→19:39)
[2022-10-01] MEDS: FAMOTIDINE 20 MG TAB PO SCH (08:01)
[2022-10-01] MEDS: PANTOprazole 40 MG TAB PO SCH (08:01)
[2022-10-01] MEDS: ASPIRIN 81 MG ECTAB PO SCH (08:01)
[2022-10-01] MEDS: SERTRALINE HCL 50 MG TABLET PO SCH (08:01)
[2022-10-01] MEDS: CLOPIDOGREL BISULFATE 75 MG TAB PO SCH (08:01)
[2022-10-01] MEDS: SULFA/TRIMETH 400/80MG TAB PO SCH (08:01)
[2022-10-01] MEDS: CETIRIZINE HCL 10 MG TABLET PO SCH (08:01)
[2022-10-01] MEDS: amLODIPine BESYLATE 5 MG TAB PO SCH (08:01)
[2022-10-01] MEDS: CALCITRIOL 0.25 MCG CAPSULE PO SCH (08:02)
[2022-10-01] MEDS: SACCHAROMYCES BOULARDII 250 MG CAP PO SCH (08:02)
[2022-10-01] MEDS: SERTRALINE HCL 100 MG TABLET PO SCH (08:02)
[2022-10-01] MEDS: FLUTICASONE/VILANTEROL 200/25MCG 14 PUFFS/INHALER INH SCH (08:02)
[2022-10-01] MEDS: CINACALCET HCL 30 MG TAB PO SCH (08:02)
[2022-10-01] MEDS: LIDOCAINE 5% 1 PATCH TD SCH (08:02)
[2022-10-01] MEDS: FOLIC ACID 1 MG TAB PO SCH (08:02)
[2022-10-01] MEDS: CHOLECALCIFEROL 1,000 UNITS 25 MCG TAB PO SCH (08:26)
[2022-10-01] MEDS: MAGNESIUM SULFATE / D5W 1 GM/100 ML BAG IV SCH ×4 (08:27→14:27)
--- NOTE | 2022-10-01 08:45 | Nephrology Progress Note ---
Date of Service October 01, 2022 Assessment & Plan (1) Hypertension: Plan: * Elevated blood pressure despite CCB, ACEi, betablocker and nitrate * Preserved kidney function. 09/30/22 renal artery doppler negative for JURGEN * Hypothyroidism - on replacement therapy * 11 mm L adrenal adenoma * Continue Aldactazide 25/25 mg and monitor BP, PRP * Will order VMA/metanephrine, renin/aldosterone and am cortisol level (2) S/P CABG x 4: Plan: * Requires Metoprolol and nitrate therapy (3) Cystitis: Plan: * On Bactrim therapy as per primary service (4) Peripheral vascular disease: Plan: * > 70% stenosis of L ICA on 03/18 doppler. * Await Vascular Surgery evaluation Admission and Anticipated Discharge Date Admission Date: September 25, 2022 Subjective Ms. Bui was evaluated in her hospital room this morning. She c/o fatigue but denies BRANDT, visual change, angina or dyspnea. Aldactazide added to medical regimen yesterday. She has not yet had a dose this am Review of Systems Constitutional: no fever Eyes: no worsening vision Ear, Nose, Mouth, Throat: no problem reported Respiratory: no cough and no dyspnea Cardiovascular: no chest pain Gastrointestinal: no abdominal pain, no vomiting and no diarrhea/loose stools Neurologic: no problem reported Physical Exam Constitutional: + frail appearing; not in distress Eyes: PERRL, conjunctivae normal, anicteric sclerae ENMT: external ear and nose normal, oropharynx normal Neck: trachea midline, no thyromegaly Respiratory: normal respiratory effort, lungs clear to auscultation Cardiovascular: RRR, no murmur, no edema Gastrointestinal (Abdomen): normal bowel sounds, soft, nontender, no hepatosplenomegaly Neurologic: awake; not confused Results & Data ([facility]) Vital Signs (Past 12 Hours) Vital Signs Temp Pulse Pulse Resp BP BP Pulse Ox 10/01/22 07:47 36.5 C 57 L 18 181/51 H 94 10/01/22 05:50 200/52 H 10/01/22 02:54 36.4 C L 58 L 18 180/42 H 97 09/30/22 23:23 36.6 C 57 L 18 180/60 H 95 09/30/22 22:09 77 O2 Del Method 10/01/22 07:47 Room Air 10/01/22 05:50 10/01/22 02:54 Room Air 09/30/22 23:23 Room Air 09/30/22 22:09 Laboratory Results Laboratory Tests 10/01/22 06:33 Sodium 138 Potassium 3.8 Chloride 107 Carbon Dioxide 27 Anion Gap 4 BUN 20 Creatinine 1.05 Glucose 96 Calcium 8.9 Magnesium 1.2 L PG Care Time/CCT Total # of Minutes Spent Total Time Spent with Patient: Total time spent is greater than 50% in coordination of care (as documented) at patient's floor/unit and/or counseling patient: Coding Level of Care Code 63936 Subseq Hosp Care Lvl 3 Diagnoses Hypertension I10 S/P CABG x 4 Z95.1 Cystitis N30.90 Peripheral vascular disease I73.9
--- NOTE | 2022-10-01 10:11 | Consultation ---
Date of Consultation October 01, 2022 Assessment & Plan (1) Carotid artery stenosis: Pt with known BL ICA stenosis, followed regularly. She is asymptomatic at this time. WIll continue routine follow up in Nov 2022 as scheduled. Please call if needed. History of Present Illness Reason for Consultation: carotid stenosis Attending Physician: Jesús Ashraf History of Present Illness 77 yo f with hx of HTN, CKD, CAD with cabg x4, IPMN, dementia, DMII, hypothyroidism, anemia, hyperlipidemia, osteopenia, depression/anxiety, admitted with AMS/confusion and found to have hypomagnesemia and UTI, seen in consultation today for carotid stenosis. Pt known to Dr Flores for CAMILLA, was last seen in April 2022, at which time she was to follow up in 6 months with a new carotid US. Her carotid US from 03/18 was reviewed at her 05/18 visit and was without significant changes and felt to be about 70% stenosis of BL carotids. Per pt, she denies amaurosis, unilateral weakness numbness or tingling, slurred speech. States she was feeling "not herself" but is feeling better now. Denies BRANDT, fever, chest pain, SOB, N/V, abd pain, rest pain, claudication, nonhealing ulcers, other complaints. No new carotid studies performed this admission. Allergies Allergy/AdvReac Type Severity Reaction Status Date / Time nickel Allergy Unknown RASH Verified 09/25/22 20:18 rosuvastatin AdvReac Mild Pain Verified 09/25/22 20:18 salicylates AdvReac Mild GI UPSET Verified 09/25/22 20:18 adhesive AdvReac Unknown ITCHING Verified 09/25/22 20:18 lactose AdvReac Unknown Gastrointestinal Verified 09/26/22 17:51 Upset Home Medications Medication Instructions Recorded Confirmed Type omega-3 acid ethyl esters 1 gram 1 cap PO BID 06/18/19 09/25/22 History capsule hydrocortisone 2.5 % topical cream 1 appln DE DAILY PRN hemorrhoids 05/17/20 09/25/22 Rx with perineal applicator #30 grams nitroglycerin 0.4 mg sublingual 0.4 mg sublingual Q5M PRN chest 02/10/21 09/25/22 Rx tablet pain #25 tabs fluticasone furoate 200 1 inh inhalation DAILY #28 ea 09/04/21 09/25/22 Rx mcg-vilanterol 25 mcg/dose inhalation powder (Breo Ellipta) lisinopril 40 mg tablet (Zestril) 40 mg PO HS #90 tabs 02/14/22 09/25/22 Rx atorvastatin 80 mg tablet 80 mg PO HS 03/12/22 09/25/22 History clopidogrel 75 mg tablet 75 mg PO QAM 03/12/22 09/25/22 History famotidine 20 mg tablet 20 mg PO QAM 03/29/22 09/25/22 History lidocaine 5 % topical patch 1 patch topical DAILY 03/29/22 09/25/22 History (Lidoderm) lactobacillus combination no.4 3 3,000 mmu cells PO DAILY 03/30/22 09/25/22 Hi story billion cell capsule (Probiotic) levothyroxine 112 mcg tablet 112 mcg PO DAILY #90 tabs 04/09/22 09/25/22 Rx trazodone 150 mg tablet 150 mg PO HS insomnia #90 tabs 05/01/22 09/25/22 Rx magnesium chloride 71.5 mg 71.5 mg PO BID #180 tabs 05/04/22 09/25/22 Rx (magnesium chloride) tablet,delayed release (Slow-Mag) omeprazole 20 mg capsule,delayed 20 mg PO BID #180 caps 06/13/22 09/25/22 Rx release albuterol sulfate 90 mcg/actuation 2 puff inhalation Q6 PRN shortness 06/15/22 09/25/22 Rx aerosol inhaler of breath or wheezing #18 grams ondansetron 4 mg disintegrating 4 mg translingual TID PRN nausea 06/15/22 09/25/22 Rx tablet and vomiting #60 tabs sucralfate 1 gram tablet 1 g PO TID #90 tabs 06/15/22 09/25/22 Rx calcitriol 0.25 mcg capsule 0.25 mcg PO Q2D #45 caps 06/19/22 09/25/22 Rx cinacalcet 60 mg tablet (Sensipar) 60 mg PO QAM #90 tabs 06/19/22 09/25/22 Rx amlodipine 10 mg tablet 10 mg PO QAM 07/05/22 09/25/22 History cetirizine 10 mg tablet (Zyrtec) 10 mg PO QAM 07/05/22 09/25/22 History isosorbide mononitrate 120 mg 120 mg PO QAM #90 tabs 08/24/22 09/25/22 Rx tablet,extended release 24 hr metoprolol succinate 25 mg 50 mg PO DAILY #180 tabs 08/27/22 09/25/22 Rx tablet,extended release 24 hr (Toprol XL) sertraline 100 mg tablet 100 mg PO DAILY #90 tabs 09/05/22 09/25/22 Rx sertraline 50 mg tablet 50 mg PO DAILY #90 tabs 09/05/22 09/25/22 Rx cholecalciferol (vitamin D3) 50 2,000 unit PO QAM #90 caps 09/17/22 09/25/22 Rx mcg (2,000 unit) capsule aspirin 81 mg tablet,delayed 81 mg PO QAM 09/25/22 09/25/22 History release Patient History Medical History Adrenal adenoma Asthma Cholelithiasis CKD (chronic kidney disease) stage 3, GFR 30-59 ml/min Coronary artery disease Depression DKA (diabetic ketoacidosis) DM (diabetes mellitus) History of heart disease Hypertension Hypothyroidism IPMN (intraductal papillary mucinous neoplasm) Pancreas cyst SDAT (senile dementia of Alzheimer's type) Urinary incontinence Weakness Surgical History History of appendectomy History of bilateral salpingo-oophorectomy (BSO) History of hysterectomy History of tubal ligation S/P bypass graft of extremity S/P CABG x 4 S/P cataract surgery Family History Sister Myocardial infarction Emphysema, unspecified Brother Myocardial infarction Diabetes Father Cerebral artery occlusion with cerebral infarction Mother Cerebral artery occlusion with cerebral infarction Diabetes Denies family history of Ovarian cancer Prostate cancer Kidney disease Breast cancer Colorectal cancer Social History Smoking Status: Former smoker Tobacco Type: Cigarettes Age Started Using Tobacco: 31; Age Quit Using Tobacco: 54; packs per day: 4; Second Hand Exposure: No; Hx Alcohol Use: No Hx Substance Use: No Preferred Language: Polish Communication Ability: Effective Visual Impairment: No Limitations Hearing Ability: Use of Hearing Aid Digital Strategy Specialist Required: No Beliefs That Will Affect Care: None marital status: Current Living Situation: Alone Current Living Situation Comment: [place] current occupational status: retired 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, 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, 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 [employer] Feels Safe at Home: Yes Safety Concerns Comment: Patient is afraid of falling while home alone, has railings on bed Childhood Exposure to Second-Hand Smoke: Yes caffeine: Yes (mixes decaf and reg coffee) Dental Care, Regularly: No Physical Activity Frequency: Does not Exercise Physical Activity Frequency Comment: Exercise limited by physical condition Seatbelt Use: always Sunscreen Use: No (doesn't go outside ) Assistive Devices: Cane, Walker and Wheelchair Review of Systems Review of Systems: All systems reviewed & are unremarkable except as noted in HPI & below Physical Exam Constitutional: WD/WN, vitals as above cooperative and comfortable; not in distress ENMT: Ears: no hearing impairment Neck: trachea midline Respiratory: normal respiratory effort Auscultation: lungs clear to auscultation bilaterally and + diminished lung sounds Cardiovascular: Rate/Rhythm: regular rate and regular rhythm Vessels: + carotid bruit, femoral pulses present, posterior tibial pulses present, dorsalis pedis pulses present and radial pulses present; + abnormal peripheral pulses Extremities: normal capillary refill Gastrointestinal (Abdomen): Inspection/Auscultation: abdomen normal to inspection and normal bowel sounds Percussion/Palpation: abdomen soft; abdomen nontender Musculoskeletal: no cyanosis or clubbing, extremities motor strength 5/5 Skin: no rashes, warm and dry Neurologic: moves all extremities and awake; no focal motor deficits Psychiatric: Orientation: alert, oriented to person and oriented to place; + not oriented to time Eye Contact: good eye contact Results & Data ([facility]) Vital Signs (Past 12 Hours) Vital Signs Temp Pulse Pulse Resp BP BP Pulse Ox 10/01/22 07:47 36.5 C 57 L 18 181/51 H 94 10/01/22 05:50 200/52 H 10/01/22 02:54 36.4 C L 58 L 18 180/42 H 97 09/30/22 23:23 36.6 C 57 L 18 180/60 H 95 09/30/22 22:09 77 O2 Del Method 10/01/22 07:47 Room Air 12/05/22 05:50 10/01/22 02:54 Room Air 09/30/22 23:23 Room Air 09/30/22 22:09
[2022-10-01] MEDS: ATORVASTATIN 40 MG TAB PO SCH (19:38)
[2022-10-01] MEDS: MELATONIN 3 MG TAB PO PRN (19:38)
[2022-10-01] MEDS: lisinopril 40 MG TAB PO SCH (19:38)
[2022-10-01] MEDS: traZODone HCL 50 MG TAB PO SCH (19:39)
[2022-10-02] MEDS: LEVOTHYROXINE SODIUM 75 MCG TABLET PO SCH (06:05)
[2022-10-02] MEDS: SUCRALFATE 1 GM TAB PO SCH ×3 (06:05→16:28)
[2022-10-02] MEDS: ISOSORBIDE MONO EXTENDED REL 60 MG TABCR PO SCH (06:05)
[2022-10-02] MEDS: SPIRONOLACTONE/HCTZ 25-25 PO SCH (06:06)
[2022-10-02] MEDS: METOPROLOL SUCC 50MG EXT REL TAB PO SCH (06:06)
[2022-10-02] MEDS: CYANOCOBALAMIN 1000 MCG/ML VIAL IM SCH (07:17)
[2022-10-02] MEDS: SACCHAROMYCES BOULARDII 250 MG CAP PO SCH (07:18)
[2022-10-02] MEDS: ASPIRIN 81 MG ECTAB PO SCH (07:18)
[2022-10-02] MEDS: MAGNESIUM CHLORIDE W/CALCIUM 64MG DELAYED REL TAB PO SCH ×3 (07:18→19:51)
[2022-10-02] MEDS: CHOLECALCIFEROL 1,000 UNITS 25 MCG TAB PO SCH (07:18)
[2022-10-02] MEDS: FOLIC ACID 1 MG TAB PO SCH (07:18)
[2022-10-02] MEDS: SERTRALINE HCL 50 MG TABLET PO SCH (07:18)
[2022-10-02] MEDS: SERTRALINE HCL 100 MG TABLET PO SCH (07:18)
[2022-10-02] MEDS: CINACALCET HCL 30 MG TAB PO SCH (07:18)
[2022-10-02] MEDS: FAMOTIDINE 20 MG TAB PO SCH (07:19)
[2022-10-02] MEDS: amLODIPine BESYLATE 5 MG TAB PO SCH (07:19)
[2022-10-02] MEDS: CETIRIZINE HCL 10 MG TABLET PO SCH (07:19)
[2022-10-02] MEDS: PANTOprazole 40 MG TAB PO SCH (07:19)
[2022-10-02] MEDS: CLOPIDOGREL BISULFATE 75 MG TAB PO SCH (07:20)
[2022-10-02] MEDS: LIDOCAINE 5% 1 PATCH TD SCH (07:20)
[2022-10-02] MEDS: FLUTICASONE/VILANTEROL 200/25MCG 14 PUFFS/INHALER INH SCH (07:20)
[2022-10-02 08:19] LABS: BUN Creatinine Ratio 22.7 (10-20); Calcium 9.1 mg/dl (8.5-10.1); Creatinine Clr Calc Pharmacy 25.9 ml/min; Est GFR (African American) 45.3 ml/min; Est GFR (Non-African American) 39.1 ml/min; Magnesium 1.5 mg/dl (1.7-2.4); Potassium 4.2 mmol/L (3.5-5.1)
--- NOTE | 2022-10-02 08:40 | Nephrology Progress Note ---
Date of Service October 02, 2022 Assessment & Plan (1) Hypertension: Plan: * BP has been 150 - 170 mm Hg overnight * Patient has documented carotid arterial disease and reports a h/o orthostasis w/ near syncope * Target SBP ~ 150 mm Hg due to carotid disease * Continue Aldactazide, Amlodipine, Lisinopril, Metoprolol and Isosorbide * Preserved kidney function. 09/30/22 renal artery doppler negative for JURGEN * Hypothyroidism - on replacement therapy * 11 mm L adrenal adenoma * AM cortisol - wnl * VMA/metanephrine, renin/aldosterone - pending * Cr has risen on thiazide therapy. Will monitor. AM PRP ordered (2) S/P CABG x 4: Plan: * Requires Metoprolol and nitrate therapy (3) Cystitis: Plan: * On Bactrim therapy as per primary service (4) Peripheral vascular disease: Plan: * > 70% stenosis of L ICA on 03/18 doppler. * Vascular surgery monitoring on an outpatient basis Admission and Anticipated Discharge Date Admission Date: September 25, 2022 Subjective Ms. Bui was evaluated in her hospital room this morning. She c/o fatigue but denies BRANDT, visual change, angina or dyspnea. Aldactazide added to medical regimen yesterday. She is tolerating this without GI upset. Review of Systems Constitutional: no fever Eyes: no worsening vision Ear, Nose, Mouth, Throat: no problem reported Respiratory: no cough and no dyspnea Cardiovascular: no chest pain Gastrointestinal: no abdominal pain, no vomiting and no diarrhea/loose stools Neurologic: no problem reported Physical Exam Constitutional: + frail appearing; not in distress Eyes: PERRL, conjunctivae normal, anicteric sclerae ENMT: external ear and nose normal, oropharynx normal Neck: trachea midline, no thyromegaly Respiratory: normal respiratory effort, lungs clear to auscultation Cardiovascular: RRR, no murmur, no edema Gastrointestinal (Abdomen): normal bowel sounds, soft, nontender, no hepatosplenomegaly Neurologic: awake; not confused Results & Data ([facility]) Vital Signs (Past 12 Hours) Vital Signs Temp Pulse Pulse Resp BP BP Pulse Ox 10/02/22 08:05 37.1 C 51 L 18 168/67 H 97 10/02/22 06:08 65 150/72 H 94 10/02/22 03:37 36.9 C 55 L 18 174/64 H 94 10/01/22 23:52 95 10/01/22 22:59 36.7 C 67 20 106/62 93 10/01/22 23:10 68 10/01/22 22:03 O2 Del Method 10/02/22 08:05 Room Air 10/02/22 06:08 Room Air 10/02/22 03:37 Room Air 10/01/22 23:52 Room Air 10/01/22 22:59 Room Air 10/01/22 23:10 10/01/22 22:03 Room Air Laboratory Results Laboratory Tests 09/28/22 10/02/22 06:19 07:21 WBC 7.31 Hgb 11.5 L Hct 33.8 L Plt Count 211 Sodium 135 L Potassium 4.2 Chloride 105 Carbon Dioxide 25 BUN 30 H Creatinine 1.32 H Laboratory Tests 10/01/22 10/01/22 10/02/22 10:18 10:18 07:21 Renin Activity Pending Aldosterone Pending Cortisol AM Sample 14.81 Plasma Metanephrine Pending Plasma Normetanephrine Pending Plas Total Metaneph Pending PG Care Time/CCT Total # of Minutes Spent Total Time Spent with Patient: Total time spent is greater than 50% in coordination of care (as documented) at patient's floor/unit and/or counseling patient: Coding Level of Care Code 06128 Subseq Hosp Care Lvl 3 Diagnoses Hypertension I10 S/P CABG x 4 Z95.1 Cystitis N30.90 Peripheral vascular disease I73.9
[2022-10-02] MEDS: ENOXAPARIN INJ 30 MG/0.3 ML SYR SQ SCH (09:25)
--- NOTE | 2022-10-02 12:20 | Hospitalist Progress Note ---
Date of Service October 02, 2022 Assessment & Plan (1) Acute UTI: Plan: Had increased frequency on admission and resolved now. Urine culture growing gram-positive cocci Klebsiella sensitive to Ceftriaxone. Patient had 2 days of IV ceftriaxone and then was changed to po Bactrim BID for 3 days total treatment. Finished course of Bactrim. (2) CKD (chronic kidney disease): Plan: -Uncontrolled Hypertension -added Chlorthalidone 12.5mg daily then discontinued after Nephrology added HCTZ/Spironolactone 25/25 -U/S Duplex Kidneys - negative for JURGEN -Nephrology checking VMA/metanephrine, renin/aldosterone which are pending -AM cortisol was WNL -Repeat BMP in AM -Dr. Lopez with Nephrology continues to follow patient and stated her target systolic BP is approximately 150 due to her carotid disease and if her systolic BP continues to range 150-160 and the creatinine remains stable then she could be discharged to [facility] possibly tomorrow or (3) Dementia: Plan: B12 AND FOLATE DEF - NEW DX- STARTED BOTH-1000mcg im cyanocobalamin for a week after which she can get monthly shots Will eventually need repeat labs as outpatient (4) Hypertension: Plan: -Continue Amlodipine, Lisinopril, metoprolol and isosorbide -Continue to monitor -Consulted Nephrology and they started HCTZ/Spironolactone 25/25 daily -Nephrology checking AM labs as above (5) Dysphagia: Plan: 09/28/22 was choking on her banana but really ate the rest of the meal fine. Had a video swallow evaluation and had no aspiration and was recommended an easy to chew diet. Resolved and tolerating easy to chew (6) S/P CABG x 4: Plan: Stable Continue aspirin, metoprolol, atorvastatin and Plavix (7) Recurrent falls: Plan: PT and OT are recommending discharge to SNF for additional therapy and to determine ad terminal makeup operator needs CM spoke with patient's daughter Alexus who wanted a referral made to [facility]. Patient will be discharged to [facility] when stable (anticipate 10/03/22 or 10/04/22) (8) Hypomagnesemia: Plan: - Repleted 4gm IV Magnesium yesterday (improved to 1.5 from 1.2) - Continue magnesium TID - Decreased Protonix from BID to qd - Recheck AM Magnesium level (9) Hypothyroidism: Plan: -TSH lowreduce levothyroxine to 75 MCG daily from 112 mcg -Will need to have a follow up TSH level as outpatient with Primary Care Physician (10) Nausea: Plan: Improved - Nausea and pill dysphagia - recommend to take pills with applesauce - Discontinued the fish oil which may be contributing to nausea and decreased appetite secondary to GI upset (Continue on ASA and Plavix) - Zofran ordered as needed may need on a more regular basis (11) B12 deficiency: Plan: was started on 1000mcg IM B12 daily for 1 week and then monthly injections (12) Folate deficiency: Plan: Started on Folic Acid 1mg daily (13) Diarrhea: Plan: - Patient tells me her diarrhea has resolved and she is having formed stools (14) Carotid artery stenosis: Plan: -Patient is known to vascular surgery -Patient is asymptomatic and per vascular she is to keep her follow up in November 2022 (15) Depression: Plan: Depression and anxiety: -Continue Sertraline 150 mg daily -Continue Trazadone q hs Plan Plan is SNF discharge once electrolytes and BP stabilized. Continue to follow magnesium, telemetry ongoing Spoke with patient's daughter today via the phone and updated her Admission and Anticipated Discharge Date Admission Date: September 25, 2022 Subjective Patient was seen this afternoon in rounds and she was awake sitting up in bed. She states she feels well but is tired due to her roommate keeping her up last night. She denies having any chest pain, SOB, abdominal pain urine or bowel symptoms. Review of Systems Constitutional: + fatigue and + anorexia; no fever, no body aches and no insomnia Eyes: no blind spots, no eye pain and no problem reported Ear, Nose, Mouth, Throat: no nasal congestion, no post nasal drip and no sinus pain/pressure Respiratory: no cough, no chest congestion and no dyspnea Cardiovascular: no chest pain, no dyspnea and no edema Gastrointestinal: no abdominal pain, no nausea, no vomiting and no constipation Genitourinary: no dysuria, no difficulty urinating, no urinary hesitancy and no flank pain Musculoskeletal: mild discomfort left ribs under left arm (per patient was from being lifted up after a fall) Integumentary: no rash, no lesions and no pruritus Neurologic: + falls; no numbness and no syncope Psychiatric: + anxiety and + panic attacks Physical Exam Constitutional: WD/WN, vitals as above ENMT: external ear and nose normal, oropharynx normal Neck: trachea midline, no thyromegaly Respiratory: normal respiratory effort, lungs clear to auscultation Cardiovascular: RRR, no murmur, no edema Gastrointestinal (Abdomen): normal bowel sounds, soft, nontender, no hepatosplenomegaly Results & Data Results & Data ([place]) Vital Signs (Past 12 Hours) Vital Signs Temp Pulse Resp BP BP Pulse Ox O2 Del Method 10/02/22 11:01 36.4 C L 52 L 16 112/67 95 Room Air 10/02/22 08:00 Room Air 10/02/22 08:05 37.1 C 51 L 18 168/67 H 97 Room Air 10/02/22 06:08 65 150/72 H 94 Room Air 10/02/22 03:37 36.9 C 55 L 18 174/64 H 94 Room Air PG Care Time/CCT Total # of Minutes Spent Total Time Spent with Patient: Total time spent is greater than 50% in coordination of care (as documented) at patient's floor/unit and/or counseling patient: Coding Level of Care Code 13009 Subseq Hosp Care Lvl 3 Diagnoses Acute UTI N39.0 CKD (chronic kidney disease) N18.9 Dementia F03.90 Hypertension I10 Dysphagia R13.10 S/P CABG x 4 Z95.1 Recurrent falls R29.6 Hypomagnesemia E83.42 Hypothyroidism E03.9 Hypothyroidism type: acquired Nausea R11.0 B12 deficiency E53.8 Folate deficiency E53.8 Diarrhea R19.7 Carotid artery stenosis I65.29 Depression F32.9 Time Spent (min) 20 (1) Hypothyroidism Hypothyroidism type: acquired Qualified Code(s): E03.9 - Hypothyroidism, unspecified
[2022-10-02] MEDS: MELATONIN 3 MG TAB PO PRN (19:51)
[2022-10-02] MEDS: traZODone HCL 50 MG TAB PO SCH (19:52)
[2022-10-02] MEDS: lisinopril 40 MG TAB PO SCH (19:52)
[2022-10-02] MEDS: ATORVASTATIN 40 MG TAB PO SCH (19:52)
[2022-10-03] MEDS: SUCRALFATE 1 GM TAB PO SCH ×2 (05:32→12:04)
[2022-10-03] MEDS: ENOXAPARIN INJ 30 MG/0.3 ML SYR SQ SCH (05:32)
[2022-10-03] MEDS: LEVOTHYROXINE SODIUM 75 MCG TABLET PO SCH (05:32)
[2022-10-03 07:32] LABS: BUN Creatinine Ratio 24.8 (10-20); Calcium 9.3 mg/dl (8.5-10.1); Est GFR (African American) 52.4 ml/min; Est GFR (Non-African American) 45.2 ml/min
--- NOTE | 2022-10-03 08:20 | Hospitalist Progress Note ---
Date of Service October 03, 2022 Assessment & Plan (1) CKD (chronic kidney disease): Plan: -Uncontrolled Hypertension -added Chlorthalidone 12.5mg daily then discontinued after Nephrology added HCTZ/Spironolactone 25/25 -U/S Duplex Kidneys - negative for JURGEN -AM cortisol was WNL -Repeat BMP this AM revealed a stable and improved Creatinine 1.17 -Dr. Lopez with Nephrology stated her target systolic BP is approximately 150 due to her carotid disease and if her systolic BP continues to range 150-160 -Dr. Lopez stated patient is ok to be discharged later today to [facility], but he wanted orthostatic BPs today. Patient's nurse is aware. BP has been fluctuating as high as 170s systolic and as low as 100 systolic . With patient's carotid disease there is a concern for syncope with lower systolic BPs. -VMA/metanephrine, renin/aldosterone are pending and patient can follow up with her PCP to review final results. -Leave nephrology outpatient follow up to the discretion of her primary care physician (2) Acute UTI: Plan: Had increased frequency on admission and resolved now. Urine culture growing gram-positive cocci Klebsiella sensitive to Ceftriaxone. Patient had 2 days of IV ceftriaxone and then was changed to po Bactrim BID for 3 days total treatment. Finished course of Bactrim. (3) Dementia: Plan: B12 AND FOLATE DEF - NEW DX- STARTED BOTH-1000mcg im cyanocobalamin for a week after which she can get monthly shots Will eventually need repeat labs as outpatient Had B12 injections while here over the past week and can start monthly B12 injections (4) Hypertension: Plan: -Continue Amlodipine, Lisinopril, metoprolol, isosorbide -Continue to monitor -Consulted Nephrology and they started HCTZ/Spironolactone 25/25 daily -Nephrology checking orthostatic BPs (5) Dysphagia: Plan: 09/28/22 was choking on her banana but really ate the rest of the meal fine. Had a video swallow evaluation and had no aspiration and was recommended an easy to chew diet. Resolved and tolerating easy to chew (6) S/P CABG x 4: Plan: Stable Continue aspirin, metoprolol, atorvastatin and Plavix (7) Recurrent falls: Plan: PT and OT are recommending discharge to SNF for additional therapy and to determine skilled nursing needs CM spoke with patient's daughter Alexus who wanted a referral made to [facility]. Patient will be discharged to [facility] today (8) Hypomagnesemia: Plan: - Repleted 4gm IV Magnesium yesterday (improved to 1.5 from 1.2) - Continue magnesium TID - Decreased Protonix from BID to qd (possibly decreasing the GI absorption of her po magnesium) - Possibly discontinue, will leave this up to her PCP on follow up (9) Hypothyroidism: Plan: -TSH lowreduce levothyroxine to 75 MCG daily from 112 mcg -Will need to have a follow up TSH level as outpatient with Primary Care Physician (10) Nausea: Plan: Improved - Nausea and pill dysphagia - recommend to take pills with applesauce - Discontinued the fish oil which may be contributing to nausea and decreased appetite secondary to GI upset (Continue on ASA and Plavix) - Zofran ordered as needed may need on a more regular basis (11) B12 deficiency: Plan: was started on 1000mcg IM B12 daily for 1 week and then monthly injections Can start monthly injections November 03 2022 will be the first monthly cycle of B12 (12) Folate deficiency: Plan: Started on Folic Acid 1mg daily (13) Diarrhea: Plan: - Patient tells me her diarrhea has resolved and she is having formed stools (14) Carotid artery stenosis: Plan: -Patient is known to vascular surgery -Patient is asymptomatic and per vascular she is to keep her follow up in November 2022 (15) Depression: Plan: Depression and anxiety: -Continue Sertraline 150 mg daily -Continue Trazadone q hs Plan Spoke with patient's daughter today via the phone and updated her that patient is being dicharged to [facility] this afternoon Admission and Anticipated Discharge Date Admission Date: September 25, 2022 Subjective Patient was seen this AM and she was fatigued. She said she ate all her breakfast and wanted to take a nap. She denies any chest pain, SOB or dyspnea. Review of Systems Constitutional: + fatigue and + anorexia; no fever, no body aches and no insomnia Eyes: no blind spots, no eye pain and no problem reported Ear, Nose, Mouth, Throat: no nasal congestion, no post nasal drip and no sinus pain/pressure Respiratory: no cough, no chest congestion and no dyspnea Cardiovascular: no chest pain, no dyspnea and no edema Gastrointestinal: no abdominal pain, no nausea, no vomiting and no constipation Genitourinary: no dysuria, no difficulty urinating, no urinary hesitancy and no flank pain Musculoskeletal: mild discomfort left ribs under left arm (per patient was from being lifted up after a fall) Integumentary: no rash, no lesions and no pruritus Neurologic: + falls; no numbness and no syncope Psychiatric: + anxiety and + panic attacks Physical Exam Constitutional: WD/WN, vitals as above ENMT: external ear and nose normal, oropharynx normal Neck: trachea midline, no thyromegaly Respiratory: normal respiratory effort, lungs clear to auscultation Cardiovascular: RRR, no murmur, no edema Gastrointestinal (Abdomen): normal bowel sounds, soft, nontender, no hepatosplenomegaly Results & Data Results & Data ([facility]) Vital Signs (Past 12 Hours) Vital Signs Temp Pulse Pulse Resp BP BP Pulse Ox 10/03/22 07:52 36.6 C 46 L 20 178/64 H 96 10/03/22 07:16 44 L 10/03/22 03:49 36.5 C 63 16 103/59 L 92 10/02/22 22:41 62 10/02/22 22:32 36.8 C 58 L 18 127/73 94 10/02/22 22:00 O2 Del Method 10/03/22 07:52 Room Air 10/03/22 07:16 10/03/22 03:49 Room Air 10/02/22 22:41 10/02/22 22:32 Room Air 10/02/22 22:00 Room Air Laboratory Results Abnormal lab results 10/03/22 Range/Units 06:08 BUN 29 H (6-23) mg/dl BUN/Creatinine Ratio 24.8 H (10-20) PG Care Time/CCT Total # of Minutes Spent Total Time Spent with Patient: Total time spent is greater than 50% in coordination of care (as documented) at patient's floor/unit and/or counseling patient: Coding Diagnoses CKD (chronic kidney disease) N18.9 Acute UTI N39.0 Dementia F03.90 Hypertension I10 Dysphagia R13.10 S/P CABG x 4 Z95.1 Recurrent falls R29.6 Hypomagnesemia E83.42 Hypothyroidism E03.9 Hypothyroidism type: acquired Nausea R11.0 B12 deficiency E53.8 Folate deficiency E53.8 Diarrhea R19.7 Carotid artery stenosis I65.29 Depression F32.9 (1) Hypothyroidism Hypothyroidism type: acquired Qualified Code(s): E03.9 - Hypothyroidism, unspecified
[2022-10-03] MEDS: FLUTICASONE/VILANTEROL 200/25MCG 14 PUFFS/INHALER INH SCH (08:42)
[2022-10-03] MEDS: ISOSORBIDE MONO EXTENDED REL 60 MG TABCR PO SCH (08:43)
[2022-10-03] MEDS: CALCITRIOL 0.25 MCG CAPSULE PO SCH (08:43)
[2022-10-03] MEDS: CETIRIZINE HCL 10 MG TABLET PO SCH (08:43)
[2022-10-03] MEDS: SPIRONOLACTONE/HCTZ 25-25 PO SCH (08:43)
[2022-10-03] MEDS: SACCHAROMYCES BOULARDII 250 MG CAP PO SCH (08:43)
[2022-10-03] MEDS: MAGNESIUM CHLORIDE W/CALCIUM 64MG DELAYED REL TAB PO SCH ×2 (08:43→14:22)
[2022-10-03] MEDS: METOPROLOL SUCC 50MG EXT REL TAB PO SCH (08:43)
[2022-10-03] MEDS: CYANOCOBALAMIN 1000 MCG/ML VIAL IM SCH (08:44)
[2022-10-03] MEDS: SERTRALINE HCL 100 MG TABLET PO SCH (08:44)
[2022-10-03] MEDS: amLODIPine BESYLATE 5 MG TAB PO SCH (08:44)
[2022-10-03] MEDS: CHOLECALCIFEROL 1,000 UNITS 25 MCG TAB PO SCH (08:44)
[2022-10-03] MEDS: CINACALCET HCL 30 MG TAB PO SCH (08:44)
[2022-10-03] MEDS: FAMOTIDINE 20 MG TAB PO SCH (08:44)
[2022-10-03] MEDS: SERTRALINE HCL 50 MG TABLET PO SCH (08:44)
[2022-10-03] MEDS: FOLIC ACID 1 MG TAB PO SCH (08:45)
[2022-10-03] MEDS: ASPIRIN 81 MG ECTAB PO SCH (08:45)
[2022-10-03] MEDS: CLOPIDOGREL BISULFATE 75 MG TAB PO SCH (08:45)
[2022-10-03] MEDS: PANTOprazole 40 MG TAB PO SCH (08:45)
--- NOTE | 2022-10-03 08:52 | Nephrology Progress Note ---
Date of Service October 03, 2022 Assessment & Plan (1) Hypertension: Plan: * BP has markedly improved * Patient has documented carotid arterial disease and reports a h/o orthostasis w/ near syncope * Target SBP ~ 150 mm Hg due to carotid disease * Continue Aldactazide, Amlodipine, Lisinopril, Metoprolol and Isosorbide * Preserved kidney function. 09/30/22 renal artery doppler negative for JURGEN * Hypothyroidism - on replacement therapy * 11 mm L adrenal adenoma * AM cortisol - wnl * VMA/metanephrine, renin/aldosterone - pending * Serum sodium and kidney function are stable on current medical regimen. OK to transfer to [facility] from Nephrology perspective. Recommend close follow up w/ PCP for monitoring of BP (2) S/P CABG x 4: Plan: * Requires Metoprolol and nitrate therapy (3) Cystitis: Plan: * On Bactrim therapy as per primary service (4) Peripheral vascular disease: Plan: * > 70% stenosis of L ICA on 03/18 doppler. * Vascular surgery monitoring on an outpatient basis Admission and Anticipated Discharge Date Admission Date: September 25, 2022 Subjective Ms. Bui was evaluated in her hospital room this morning. She c/o fatigue but denies BRANDT, visual change, angina or dyspnea. Aldactazide added to medical regimen yesterday. She is tolerating this without GI upset. RN notes document no orthostasis with current medical regimen. BP appropriately increases upon standing Review of Systems Constitutional: no fever Eyes: no worsening vision Ear, Nose, Mouth, Throat: no problem reported Respiratory: no cough and no dyspnea Cardiovascular: no chest pain Gastrointestinal: no abdominal pain, no vomiting and no diarrhea/loose stools Neurologic: no problem reported Physical Exam Constitutional: + frail appearing; not in distress Eyes: PERRL, conjunctivae normal, anicteric sclerae ENMT: external ear and nose normal, oropharynx normal Neck: trachea midline, no thyromegaly Respiratory: normal respiratory effort, lungs clear to auscultation Cardiovascular: RRR, no murmur, no edema Gastrointestinal (Abdomen): normal bowel sounds, soft, nontender, no hepatosplenomegaly Neurologic: awake; not confused Results & Data ([facility]) Vital Signs (Past 12 Hours) Vital Signs Temp Pulse Pulse Resp BP BP Pulse Ox 10/03/22 07:52 36.6 C 46 L 20 178/64 H 96 10/03/22 07:16 44 L 10/03/22 03:49 36.5 C 63 16 103/59 L 92 10/02/22 22:41 62 10/02/22 22:32 36.8 C 58 L 18 127/73 94 10/02/22 22:00 O2 Del Method 10/03/22 07:52 Room Air 10/03/22 07:16 10/03/22 03:49 Room Air 10/02/22 22:41 10/02/22 22:32 Room Air 10/02/22 22:00 Room Air Laboratory Results Laboratory Tests 09/25/22 10/01/22 10/02/22 18:45 10:18 07:21 Sodium Potassium Chloride Carbon Dioxide BUN Creatinine Glucose Calcium TSH 0.121 L Cortisol AM Sample 14.81 Plasma Metanephrine Pending Plasma Normetanephrine Pending Plas Total Metaneph Pending 10/03/22 06:08 Sodium 138 Potassium 4.0 Chloride 106 Carbon Dioxide 26 BUN 29 H Creatinine 1.17 Glucose 92 Calcium 9.3 TSH Cortisol AM Sample Plasma Metanephrine Plasma Normetanephrine Plas Total Metaneph PG Care Time/CCT Total # of Minutes Spent Total Time Spent with Patient: Total time spent is greater than 50% in coordination of care (as documented) at patient's floor/unit and/or counseling patient: Coding Level of Care Code 64764 Subseq Hosp Care Lvl 3 Diagnoses Hypertension I10 S/P CABG x 4 Z95.1 Cystitis N30.90 Peripheral vascular disease I73.9
[2022-10-03] MEDS: LIDOCAINE 5% 1 PATCH TD SCH (09:26)
--- NOTE | 2022-10-03 13:32 | Discharge Summary ---
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 Majority of the history is obtained from family and emergency department notes as patient is demented/confused. It seems that since , the family has noticed that her confusion has been worsening to the point where she had laid in bed all day today without speaking. Also noted by family that she has been more weak to the point that she has fallen 4 times today. There does seem to be a history of hallucinations as well which include seeing a cat yesterday in her home which she does not own a cat. Patient is also had a decreased appetite and not been eating regular amounts of food since this all started 5 days ago. Patient typically lives on her own. At this time patient does deny any fever, chills, chest pain, nausea, vomiting, shortness of breath, or headache. She does report that there is some left shoulder pain but family believes that this is from picking her up after she had fallen. Additionally it seems that the patient has not been taking her meds appropriately per discussion with the family. Discussed with family and she is a DNR/DNI. No other complaints at this time. ED course: Patient was transferred to the emergency department via ambulance. After initial evaluation, patient had blood work and imaging done. Blood work was significant for hypomagnesemia at 1.1. Otherwise COVID was negative, imaging was negative, and other blood work was grossly normal. Of note she did have a anion gap of 15 and a VBG consistent with mild acidemia at 7.31. Patient was started on IV fluids as well as given 4 g of magnesium in the ED. She has initially shown some improvement in her cognition with just this alone. Urinalysis was not obtained as of yet by the time I had arrived for consultation. Admission Exam Per Admitting Provider On exam she is elderly and frail, resting comfortably in bed. Oriented to self, hospital and August. Also knows who the President is Skin intact HEENT -MMM, Neck supple Heart - +S1/S2, regular, no m/r/g Lungs - CTA Abd - soft, NT/ND Principal Diagnosis UTI with confusion and falls Discharge Exam Constitutional WD/WN, vitals as above ENMT external ear and nose normal, oropharynx normal Neck trachea midline, no thyromegaly Respiratory normal respiratory effort, lungs clear to auscultation Cardiovascular RRR, no murmur, no edema Gastrointestinal (Abdomen) normal bowel sounds, soft, nontender, no hepatosplenomegaly Skin no rashes, warm and dry Psychiatric A+Ox3, euthymic affect Discharge Data Allergies Allergy/AdvReac Type Severity Reaction Status Date / Time nickel Allergy Unknown RASH Verified 09/25/22 20:18 rosuvastatin AdvReac Mild Pain Verified 09/25/22 20:18 salicylates AdvReac Mild GI UPSET Verified 09/25/22 20:18 adhesive AdvReac Unknown ITCHING Verified 09/25/22 20:18 lactose AdvReac Unknown Gastrointestinal Verified 09/26/22 17:51 Upset Consultations 09/25/22 19:43 ED Decision to Admit Stat 09/30/22 08:20 Consult Nephrology Routine 09/30/22 13:39 Consult Vascular Surgery Routine Ordered Studies 09/25/22 18:37 CT head/brain wo con Stat CT OF THE HEAD WITHOUT CONTRAST CLINICAL HISTORY: weak, falls, confusion COMPARISON STUDY: Head CT January 14, 2014. MRI of the brain May 10, 2016. CT DOSE: 1074.96 mGy.cm TECHNIQUE: Helical axial images of the head were obtained without IV contrast. Automated exposure control was utilized for the study. A dose lowering technique was utilized adhering to the principles of ALARA. FINDINGS: No acute intracranial hemorrhage, midline shift or mass effect is present. Ventricular system is unremarkable. White matter hypodensity suggests small vessel disease. There are no findings to suggest acute dural sinus thrombosis or acute territorial infarct. There is no acute calvarial fracture. Sphenoid sinuses are partially opacified. IMPRESSION: No acute intracranial findings 09/28/22 13:00 FL video swallow Routine IMPRESSION: No penetration or aspiration was seen with any of the sampled textures. See dedicated speech pathology report for detailed findings and recommendations. 09/30/22 08:20 US duplex renal artery Routine US duplex renal artery CLINICAL HISTORY: hypertension COMPARISON STUDY: Abdomen and pelvis CT 03/12/2022. FINDINGS: The right kidney measures 9.3 cm and the left kidney measures 9.4 cm. No hydronephrosis. Bilateral renal veins are patent. Peak systolic velocity within the distal right renal artery was 194 cm/s. However, the renal aortic ratio is only 0.9. Elevated resistive indices within the renal arcuate arteries measuring up to 0.9. No significant stenosis within the left renal artery. Elevated resistive indices within the left renal arcuate arteries of up to 0.8. There is mild bilateral cortical renal thinning/scarring. This is likely age-related. IMPRESSION: 1. Borderline stenosis of the distal right renal artery. 2. No significant stenosis within the left renal artery. 3. No hydronephrosis. Hospital Course (1) CKD (chronic kidney disease): -Uncontrolled Hypertension -added Chlorthalidone 12.5mg daily then discontinued after Nephrology added HCTZ/Spironolactone 25/25 -U/S Duplex Kidneys - negative for JURGEN -AM cortisol was WNL -Repeat BMP this AM revealed a stable and improved Creatinine 1.17 -Dr. Lopez with Nephrology stated her target systolic BP is approximately 150 due to her carotid disease and if her systolic BP continues to range 150-160 -Dr. Lopez stated patient is ok to be discharged later today to [facility], but he wanted orthostatic BPs today. Patient's nurse is aware. BP has been fluctuating as high as 170s systolic and as low as 100 systolic . With patient's carotid disease there is a concern for syncope with lower systolic BPs. -VMA/metanephrine, renin/aldosterone are pending and patient can follow up with her PCP to review final results. -Leave nephrology outpatient follow up to the discretion of her primary care physician (2) Acute UTI: Had increased frequency on admission and resolved now. Urine culture growing gram-positive cocci Klebsiella sensitive to Ceftriaxone. Patient had 2 days of IV ceftriaxone and then was changed to po Bactrim BID for 3 days total treatment. Finished course of Bactrim. (3) Dementia: B12 AND FOLATE DEF - NEW DX- STARTED BOTH-1000mcg im cyanocobalamin for a week after which she can get monthly shots Will eventually need repeat labs as outpatient (4) Hypertension: -Continue Amlodipine, Lisinopril, metoprolol, isosorbide and HCTZ/Spirinolactone Orthostatic BPs revealed Laying - 114/74 with HR 59 Sitting - 138/52 with HR 56 Standing - 167/66 with HR 68 (5) Dysphagia: 09/28/22 was choking on her banana but really ate the rest of the meal fine. Had a video swallow evaluation and had no aspiration and was recommended an easy to chew diet. Resolved and tolerating easy to chew (6) S/P CABG x 4: Stable Continue aspirin, metoprolol, atorvastatin and Plavix (7) Recurrent falls: PT and OT are recommending discharge to SNF for additional therapy and to determine group home needs CM spoke with patient's daughter Alexus who wanted a referral made to [facility]. Patient will be discharged to [facility] today (8) Hypomagnesemia: - Repleted 4gm IV Magnesium yesterday (improved to 1.5 from 1.2) - Continue magnesium TID - Decreased Protonix from BID to qd (possibly decreasing the GI absorption of her po magnesium) - Possibly discontinue, will leave this up to her PCP on follow up (9) Hypothyroidism: -TSH lowreduce levothyroxine to 75 MCG daily from 112 mcg -Will need to have a follow up TSH level as outpatient with Primary Care Physician (10) Nausea: Improved - Nausea and pill dysphagia - recommend to take pills with applesauce - Discontinued the fish oil which may be contributing to nausea and decreased appetite secondary to GI upset (Continue on ASA and Plavix) - Zofran ordered as needed may need on a more regular basis (11) B12 deficiency: was started on 1000mcg IM B12 daily for 1 week and then monthly injections Can start monthly injections November 03 2022 will be the first monthly cycle of B12 (12) Folate deficiency: Started on Folic Acid 1mg daily (13) Diarrhea: - Patient tells me her diarrhea has resolved and she is having formed stools (14) Carotid artery stenosis: -Patient is known to vascular surgery -Patient is asymptomatic and per vascular she is to keep her follow up in November 2022 (15) Depression: Depression and anxiety: -Continue Sertraline 150 mg daily -Continue Trazadone q hs Plan Discharge to [facility] today Patient will need follow up with PCP Total Time Total Time Spent Total Time Spent (In Minutes): 32 Discharge Plan Discharge Items Patient Disposition: Transfer Inpatient Rehab Fac Reason For Visit: CONFUSION / FALLS Discharge Diagnosis: CKD, UTI, Dementia, B12 and folate deficiency and hypothryoidism Activity: Resume your previous activity Weightbearing: Full weightbearing Non-emergency contact: Primary Care Provider Call non-emergency contact if: you have any medication questions Follow-up/Referrals: Tye Sneed MD [Primary Care Provider] - Dietitian Info: soft easy to chew, low sodium and lactose free Diet: Other - See Diet Comment Diet Texture: Easy to Chew Diet Comment: soft easy to chew and low sodium and lactose free Addtl Attending Provider Instructions: Patient was admitted with confusion and falls. She was found to have a Urinary tract infections and was treated with IV antibiotics and then Bactrim One two times per day for 3 days. You also were found to have a low TSH level and your synthroid dose was decreased from 112mcg to 75 mcg and you will need to have a repeat TSH level in approximately 6-8 weeks or at the discretion of your pcp. You also were found to have B12 and folate deficiency. You were started on B12 injections. You had one daily for 1 week and now will start on monthly injections starting November 03. You will need to contiue Folate 1mg pill daily You were also started on a new BP medication HCTZ/Spirinilactone 25/25 and need to continue this along with all your other home/previous medications. Keep your follow up appt with Vascular surgery in Nov 2022 in regards to your carotid artery stenosis. VMA/metanephrine, renin/aldosterone labwork is still pending and nephrology recommended for you to follow up with your primary care doctor and if needed they could have you follow up with Dr Lopez as needed. Pending Studies at Discharge: Yes Studies:: VMA/metanephrine, renin/aldosterone Stand-Alone Forms: My [facility] Skilled Items Patient informed of condition?: Yes DNR: Yes Discharge Level of Care: Skilled Communicable Disease: No Discharge Prognosis: Stable Lines: None Urinary Catheter: No Medications and DC Order Prescriptions: New folic acid 1 mg Tablet 1 mg PO QAM Qty: 30 1RF spironolacton-hydrochlorothiaz 25-25 mg Tablet 1 tab PO DAILY Qty: 30 0RF cyanocobalamin (vitamin B-12) 1,000 mcg/mL Solution 1,000 mcg IM MONTHLY Qty: 1 0RF Continued nitroglycerin 0.4 mg tablet, sublingual 0.4 mg SL Q5M PRN (Reason: chest pain) Qty: 25 0RF Breo Ellipta 200-25 mcg/dose blister with device 1 inh inhalation DAILY Qty: 28 11RF lisinopril [Zestril] 40 mg tablet 40 mg PO HS Qty: 90 3RF trazodone 150 mg tablet 150 mg PO HS Qty: 90 3RF Slow-Mag 71.5 mg tablet,delayed release (DR/EC) 71.5 mg PO BID Qty: 180 3RF sucralfate 1 gram tablet 1 g PO TID Qty: 90 5RF albuterol sulfate 90 mcg/actuation HFA aerosol inhaler 2 puff inhalation Q6 PRN (Reason: shortness of breath or wheezing) Qty: 18 0RF Label Comments: 2 puff inhalation every 4-6 hours prn ondansetron 4 mg tablet,disintegrating 4 mg translingual TID PRN (Reason: nausea and vomiting) Qty: 60 1RF cinacalcet [Sensipar] 60 mg tablet 60 mg PO QAM Qty: 90 3RF calcitriol 0.25 mcg capsule 0.25 mcg PO Q2D Qty: 45 3RF isosorbide mononitrate 120 mg tablet extended release 24 hr 120 mg PO QAM Qty: 90 3RF metoprolol succinate [Toprol XL] 25 mg tablet extended release 24 hr 50 mg PO DAILY Qty: 180 3RF sertraline 100 mg tablet 100 mg PO DAILY MDD 150mg Qty: 90 3RF Rx Instructions: take with 50mg = 150mg daily sertraline 50 mg tablet 50 mg PO DAILY MDD 150mg Qty: 90 3RF Rx Instructions: take with 100mg to equal 150mg daily cholecalciferol (vitamin D3) 50 mcg (2,000 unit) capsule 2,000 unit PO QAM Qty: 90 3RF cetirizine [Zyrtec] 10 mg tablet 10 mg PO QAM hydrocortisone 2.5 % cream with perineal applicator 1 appln PA DAILY PRN (Reason: hemorrhoids) Qty: 30 2RF amlodipine 10 mg tablet 10 mg PO QAM Probiotic 3 billion cell capsule 3,000 mmu cells PO DAILY Rx Instructions: administer with a meal famotidine 20 mg tablet 20 mg PO QAM lidocaine [Lidoderm] 5 % adhesive patch,medicated 1 patch topical DAILY Rx Instructions: leave on most painful area for up to 12 hrs omega-3 acid ethyl esters 1 gram capsule 1 cap PO BID atorvastatin 80 mg tablet 80 mg PO HS clopidogrel 75 mg tablet 75 mg PO QAM aspirin 81 mg tablet,delayed release (DR/EC) 81 mg PO QAM Changed levothyroxine 112 mcg tablet 75 mcg PO DAILY Qty: 90 3RF omeprazole 20 mg capsule,delayed release(DR/EC) 20 mg PO 1XD Qty: 180 3RF Discharge Orders: Discharge Order (Routine); Ordered 10/03/22 Ordered By: Fartun Acosta Admission Data Admit Date/Time: 09/25/22 21:20 Attending Provider: Jesús Ashraf Admit Provider: Donato Cope Primary Care Provider: Tye Sneed Other Providers: Ewa Friedman ; [facility] ; [place] ; Thierno Lopez ; Ron Flores Other Interventions: Discharge Summary Assessment (RN) Last Done: 10/03/22 13:55 Supervising Physician Co-Signing Physician Notes During face to face encounter with patient. I discussed the hospital course and obtained a physical examination. I discussed discharge plan with patient and KATIE Acosta. I reviewed above note and agree with it. Patient treated for uncontrolled hypertension, added spirinolactone and HCTZ. Patient will followup with PCP Coding Level of Care Code D/C DAY MANAGEMENT >30 MINS Diagnoses CKD (chronic kidney disease) N18.9 Acute UTI N39.0 Dementia F03.90 Hypertension I10 Dysphagia R13.10 S/P CABG x 4 Z95.1 Recurrent falls R29.6 Hypomagnesemia E83.42 Hypothyroidism E03.9 Hypothyroidism type: acquired Nausea R11.0 B12 deficiency E53.8 Folate deficiency E53.8 Diarrhea R19.7 Carotid artery stenosis I65.29 Depression F32.9 Time Spent (min) 40
[2022-10-06 14:03] LABS: Metanephrine, Plasma 29 pg/mL (<=57); Normetanephrine Plasma 151 pg/mL (<=148); Total Metanephrine Plasma 180 pg/mL (<=205)
== END 2022-10-03 15:30 | DRG 690 ==
LOC: ED 18:16 → EDINP 21:20 → SUATTDRO 21:20 → 2N 09-26 00:20

== ENCOUNTER 2024-08-14 01:17 | Inpatient (IN) ==
--- NOTE | 2024-08-14 01:25 | Emergency Department Note ---
Impression & Plan Fracture of ankle, left, open, Ground-level fall, Closed head injury, CAROLINA (acute kidney injury) ED Provider Note Name: NIRAJ WILKINSON Age: 79 Sex: Female Arrives Via: Ambulance Informant: Patient, EMS, patient's daughter ED Provider: Juwan Shearer MD Chief Complaint: Ankle injury Impression: As per impressions above Medical Decision Makin-year-old female with extensive past medical history on aspirin Plavix arrives as a trauma alert following a fall with head injury and ankle fracture. Primary survey completed by me and team followed by secondary survey as per ATLS protocol. Patient awake alert oriented answering all questions. Remained in cervical collar awaiting CT of head and cervical spine and cleared following normal imaging. Lungs clear chest x-ray pelvis x-ray are unremarkable. She has soft nontender abdomen. There is no indication for CT imaging of chest and pelvis at this time. On arrival left ankle clearly fractured and unstable. Pulses and sensation intact. She was placed in a bulky posterior and stirrup dressing following covering of wound. She had already received Ancef by EMS. Adacel (tetanus vaccination) given per protocol. X-ray of the ankle reveals trimalleolar fracture with displacement/subluxation. Orthopedics made aware and they note patient should be admitted to hospitalist service with planned operative repair later this morning. Patient and daughter are on board with this plan. Hospitalist consulted for further management as patient with multiple medical comorbidities as well as findings of CAROLINA. Patient was given some IV hydration. Throughout stay pain was controlled with several rounds of IV fentanyl, Dilaudid, acetaminophen. Triage/Nursing Notes reviewed by Me Differential:Fracture, dislocation, contusion, intra-abdominal, pneumothorax, intrathoracic, intracranial, neurologic, compartment syndrome, rhabdomyolysis, as well as other pathologies. Vital Signs: reviewed and remarkable for hypertensive on arrival Interventions: Dilaudid IV x 3, fentanyl IV x 1, Zofran IV x 1, normal saline bolus, acetaminophen IV, Adacel IM Labs:ED labs Reviewed by me and remarkable for mildly elevated CK and BUN Imaging: CT of the head without contrast as per my informal interpretation reveals no intracranial hemorrhage or mass effect. Confirmed by radiologist. CT of the cervical spine as per my informal interpretation reveals no fracture or dislocation there is moderate arthritic findings. Confirmed by radiologist. 1 view chest x-ray as per my interpretation no infiltrate, no effusion no pneumothorax or clear evidence of rib fractures. 1 view pelvis x-ray as per my interpretation no fracture or dislocation appreciated. 2 view tib-fib left x-ray as per my interpretation distal trimalleolar fracture with subluxation. Left ankle x-ray 3 view as per my interpretation. Trimalleolar fracture with subluxation. EKG:As per my interpretation. Indication preoperative evaluation. Normal sinus rhythm with a right bundle branch block at 89 bpm QTc of 476. No ectopy nor ischemia. Similar to EKG from November 27, 2022 however heart rate has increased. Cardiac/Tele Monitoring: Cardiac Monitoring: An Order was placed for continuous cardiac monitoring. The monitor shows a rate of 80 with a normal sinus rhythm. Consults: Discussed with Dr. العراقي orthopedic surgery who notes plan for operative repair morning and hospital should evaluate for admission. Discussed with Dr. River of the [facility]ist service for inpatient management. Plan: Disposition:Hospitalization. Condition: Good History of Present Illness: 79-year-old female arrives for evaluation of trauma. Patient notes she was in her kitchen when she tripped and fell this evening. [place] a loud crack of her left ankle. Also notes she did hit the back of her head as well as landed on her buttocks. Denies any significant headache or neck pain. Notes severe pain in left ankle especially with any movement. Denies any chest pain, shortness of breath, abdominal pain, back pain. Denies frequent falls. Patient is on aspirin and Plavix without other blood thinner use for history of CAD status post CABG. States she was not having any palpitations or lightheadedness prior to fall. Received Ancef 2 g prior to arrival IV Past Medical History:See Below Home Medications:See Below Allergies:See Below Vitals:Blood Pressure: 199/91, Pulse 81, RR 20, T 36.9C, O2 94% on RA Physical Exam: GENERAL: Patient is uncomfortable appearing and in moderate distress. HEAD: AT/NC without scalp hematoma. FACE: No deformity/bruising, no tenderness. EYES: Pupils equal and reactive. No scleral icterus. Normal EOM. ENT: moist mucous membranes, no nasal congestion/hematoma. NECK: CCollar in placeNo stridor, no tenderness or step-off of the posterior C- spine, trachea is midline. CHEST: Non-tender, equal chest rise with breath. Clavicles stable/non-tender. LUNGS: Clear to auscultation bilaterally, no wheeze, no rhonchi, breath sounds equal. No dyspnea. HEART: Regular rate and rhythm. No murmurs/gallops/rhonchi appreciated. ABDOMEN: Soft, nontender, bowel sounds positive, no peritonitis. No masses appreciated. PELVIS: Stable. Non-tender EXTREMITIES: Deformity of the left ankle with puncture wound just proximal to the medial malleolus and some dried blood around it. Distal pulses sensation cap refill intact. Severe pain with any movement of the ankle. No tenderness palpation of her knee. No cyanosis or edema, full range of motion of all the joints without pain or difficulty, no signs for acute trauma. Distal pulses intact. SKIN: No rash, no jaundice, no diaphoresis. NEUROLOGIC: GCS 15. Oriented x 3, no acute motor or sensory deficits, no focal weakness. ED Course: Times/Reassessments: Episodes of increased pain multiple repeat evaluations. Good cap refill and foot. Juwan Shearer MD Past Med/Surg History Problem List (Updated 08/14/24 @ 20:32 by Juwan Shearer MD) CAROLINA (acute kidney injury) (Acute) Closed head injury (Acute) Ground-level fall (Acute) Fracture of ankle, left, open (Acute) Encounter for pre-operative examination Open left ankle fracture (08/14/24) Acute left trimalleolar ankle fracture with tibiotalar subluxation from a fall Hypomagnesemia Asthma Osteoporosis Folate deficiency B12 deficiency Recurrent falls IPMN (intraductal papillary mucinous neoplasm) Bilateral carotid artery stenosis Hyperlipidemia Pulmonary nodule CAD, multiple vessel (Acute) Pancreas cyst Medical History (Updated 08/14/24 @ 20:32 by Juwan Shearer MD) CKD (chronic kidney disease) stage 3, GFR 30-59 ml/min Anemia Acute kidney injury superimposed on CKD Peripheral vascular disease Hypertension SDAT (senile dementia of Alzheimer's type) Hyperparathyroidism Hypothyroidism DM (diabetes mellitus) Dysphagia Adrenal adenoma Urinary incontinence Coronary artery disease Surgical History S/P CABG x 4 History of tubal ligation History of bilateral salpingo-oophorectomy (BSO) History of appendectomy S/P bypass graft of extremity S/P cataract surgery History of hysterectomy Family History Sister Myocardial infarction Emphysema, unspecified Brother Myocardial infarction Diabetes Father Cerebral artery occlusion with cerebral infarction Mother Cerebral artery occlusion with cerebral infarction Diabetes Denies family history of Ovarian cancer Prostate cancer Kidney disease Breast cancer Colorectal cancer Social History Smoking Status: Former smoker Tobacco Type: Cigarettes Age Started Using Tobacco: 31; Age Quit Using Tobacco: 54; packs per day: 4; Second Hand Exposure: No; Do You Dip or Chew Tobacco: No; Hx Alcohol Use: No Hx Substance Use: No Preferred Language: Kyrgyz Communication Ability: Effective Visual Impairment: No Limitations Hearing Ability: Use of Hearing Aid Loom Operator Required: No Beliefs That Will Affect Care: None marital status: Current Living Situation: Alone Current Living Situation Comment: 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 [employer] Feels Safe at Home: Yes Safety Concerns Comment: afraid of falling while home alone, has railings on bed, has med alert now Childhood Exposure to Second-Hand Smoke: Yes Diet: regular caffeine: Yes (mixes decaf and reg coffee) Dental Care, Regularly: No Physical Activity Frequency: Does not Exercise Physical Activity Frequency Comment: Exercise limited by physical condition Seatbelt Use: always Sunscreen Use: No (doesn't go outside ) Do you think of yourself as: straight/heterosexual Gender Identity: Female Assistive Devices: Cane, Walker and Wheelchair Allergies Allergies Allergy/AdvReac Type Severity Reaction Status Date / Time nystatin Allergy Intermediate "POWDER"--- Verified 08/14/24 04:07 BLISTER/JURGEN H nickel Allergy Unknown RASH Verified 07/28/24 13:56 rosuvastatin AdvReac Mild Pain Verified 07/28/24 13:56 salicylates AdvReac Mild GI UPSET Verified 07/28/24 13:56 adhesive AdvReac Unknown ITCHING Verified 07/28/24 13:56 Home Meds Home Medications Medication Instructions Recorded Confirmed cetirizine 10 mg tablet (Zyrtec) 10 mg PO QAM 07/05/22 08/14/24 lidocaine 5 % topical patch 1 patch topical DAILY PRN back pain 06/10/23 08/14/24 (Lidoderm) melatonin 10 mg sublingual tablet 15 mg sublingual DAILY 07/28/24 08/14/24 albuterol sulfate 90 mcg/actuation 2 puff inhalation .EVERY 4-6 HOURS 08/14/24 08/14/24 aerosol inhaler PRN shortness of breath or wheezing clotrimazole-betamethasone 1 1 applic topical BID PRN Rash 08/14/24 08/14/24 %-0.05 % topical cream donepezil 5 mg tablet 5 mg PO QAM 08/14/24 08/14/24 fluoride (sodium) 1.1 % dental 1 applic dental BID 08/14/24 08/14/24 cream (Denta 5000 Plus) magnesium chloride 71.5 mg 71.5 mg PO TID 08/14/24 08/14/24 (magnesium chloride) tablet,delayed release (Slow-Mag) omeprazole 20 mg capsule,delayed 20 mg PO QAM 08/14/24 08/14/24 release sertraline 100 mg tablet 100 mg PO QPM 08/14/24 08/14/24 sertraline 50 mg tablet 50 mg PO QPM 08/14/24 08/14/24 trazodone 150 mg tablet 75 mg PO HS 08/14/24 08/14/24 Previous Rx's Medication Instructions Recorded hydrocortisone 2.5 % topical cream 1 appln [place] DAILY PRN hemorrhoids 05/17/20 with perineal applicator #30 grams nitroglycerin 0.4 mg sublingual 0.4 mg sublingual Q5M PRN chest 02/10/21 tablet pain #25 tabs ondansetron 4 mg disintegrating 4 mg translingual TID PRN nausea 11/14/22 tablet and vomiting #60 tabs meclizine 12.5 mg tablet 12.5 mg PO TID PRN dizziness #30 06/28/23 tabs aspirin 81 mg tablet,delayed 81 mg PO QAM #90 tabs 11/06/23 release budesonide 160 mcg-glycopyr 9 2 inh inhalation BID #5.9 grams 01/10/24 mcg-formot 4.8 mcg/actuation HFA inhaler (Breztri Aerosphere) amlodipine 10 mg tablet 10 mg PO QAM #90 tabs 01/23/24 atorvastatin 80 mg tablet 80 mg PO HS #90 tabs 01/23/24 clopidogrel 75 mg tablet 75 mg PO QAM #90 tabs 01/23/24 cholecalciferol (vitamin D3) 50 2,000 unit PO QAM #90 caps 03/24/24 mcg (2,000 unit) capsule levothyroxine 88 mcg tablet 88 mcg PO DAILY #90 tabs 03/31/24 calcitriol 0.25 mcg capsule 0.25 mcg PO Q2D #45 caps 05/26/24 denosumab 60 mg/mL subcutaneous 60 mg subcut .[id number] #1 mL 07/03/24 syringe (Prolia) folic acid 1 mg tablet 1 mg PO QAM #90 tabs 07/20/24 isosorbide mononitrate 120 mg 120 mg PO QAM #90 tabs 07/20/24 tablet,extended release 24 hr Results & Data (ED) Vital Signs Vital Signs - 24 hr 08/14/24 01:03 08/14/24 01:03 08/14/24 01:03 Temperature 36.6 C 36.6 C Temperature Source Oral Pulse Rate 90 Pulse Rate [Left Finger] Pulse Rate from SpO2 Sensor Respiratory Rate 24 24 Respiratory Effort / Characteristics Respiratory Depth Respiratory Pattern Blood Pressure 228/131 H Blood Pressure [Left Arm] 228/131 H Blood Pressure Mean Blood Pressure Mean [Left Arm] 163 Blood Pressure Position [Left Arm] Lying Pulse Oximetry 94 94 Oxygen Delivery Method Room Air Room Air Sepsis Recent Fever Within 48 Hours No Sepsis New/Unexplained Change in Mental Status No Sepsis Action Taken by Nursing No Action Required 08/14/24 01:25 08/14/24 01:37 08/14/24 01:54 Temperature Temperature Source Pulse Rate 82 75 Pulse Rate [Left Finger] Pulse Rate from SpO2 Sensor 76 Respiratory Rate 22 Respiratory Effort / Characteristics Respiratory Depth Respiratory Pattern Blood Pressure 167/77 H Blood Pressure [Left Arm] Blood Pressure Mean 107 Blood Pressure Mean [Left Arm] Blood Pressure Position [Left Arm] Pulse Oximetry 94 94 Oxygen Delivery Method Room Air Room Air Sepsis Recent Fever Within 48 Hours Sepsis New/Unexplained Change in Mental Status Sepsis Action Taken by Nursing 08/14/24 02:00 08/14/24 02:30 08/14/24 03:00 Temperature 36.9 C 36.6 C Temperature Source Oral Oral Pulse Rate 81 Pulse Rate [Left Finger] 81 74 Pulse Rate from SpO2 Sensor Respiratory Rate 20 20 20 Respiratory Effort / Characteristics Non-Labored Spontaneous Non-Labored Spontaneous Respiratory Depth Normal Normal Respiratory Pattern Regular Regular Blood Pressure 158/119 H Blood Pressure [Left Arm] 199/91 H 185/61 H Blood Pressure Mean 124 Blood Pressure Mean [Left Arm] 127 102 Blood Pressure Position [Left Arm] Lying Pulse Oximetry 94 94 95 Oxygen Delivery Method Room Air Room Air Room Air Sepsis Recent Fever Within 48 Hours Sepsis New/Unexplained Change in Mental Status Sepsis Action Taken by Nursing Laboratory Data 08/14/24 01:31 08/14/24 01:31 Lab Results 08/14/24 08/14/24 Range/Units 01:31 01:37 WBC 9.76 (4.8-10.8) K/ul RBC 3.74 L (4.20-5.40) M/uL Hgb 10.2 L (12.0-16.0) g/dl POC Hgb 10.2 L (12.0-16.0) g/dl Hct 32.3 L (37.0-47.0) % POC Hct 30 L (37-47) % MCV 86.4 (80.0-100.0) fL MCH 27.3 (25.0-34.0) pg MCHC 31.6 L (32.0-36.0) g/dL RDW Std Deviation 50.1 H (36.4-46.3) fL RDW Coeff of Nathan 16.2 H (11.5-14.5) % Plt Count 257 (130-400) K/uL MPV 9.3 L (9.4-12.4) fL Immature Gran % (Auto) 0.5 % Neut % (Auto) 60.8 % Lymph % (Auto) 28.7 % Dillon % (Auto) 7.2 % Eos % (Auto) 2.5 % Baso % (Auto) 0.3 % Neut # (Auto) 5.94 (1.40-6.50) K/uL Lymph # (Auto) 2.80 (1.20-3.40) K/uL Dillon # (Auto) 0.70 H (0.11-0.59) K/uL Eos # (Auto) 0.24 (0.00-0.50) K/uL Baso # (Auto) 0.03 (0.00-0.20) K/uL Immature Gran # (Auto) 0.05 (0.01-0.20) K/uL PT 10.0 (9.0-12.0) Seconds INR 0.9 (0.9-1.1) POC Sodium 140 (135-144) mmol/L Sodium 140 (136-145) mmol/L POC Potassium 4.5 (3.3-5.0) mmol/L Potassium 4.6 (3.5-5.1) mmol/L POC Chloride 104 (101-112) mmol/L Chloride 105 (98-107) mmol/L Carbon Dioxide 30 (21-32) mmol/L POC Total CO2 27 (24-31) mmol/L Anion Gap 5 (3-11) POC Anion Gap 15.0 L (16-25) mmol/L POC BUN 26 H (7-18) mg/dl BUN 29 H (6-23) mg/dl Creatinine 1.96 H (0.6-1.2) mg/dl POC Creatinine 2.0 H (0.6-1.3) mg/dl Est Cr Clr Drug Dosing 19.4 ml/min eGFR 25.72 BUN/Creatinine Ratio 14.8 (10-20) Glucose 103 H (70-99(Fasting)) mg/dl POC Glucose (other) 105 H (70-99) mg/dl Calcium 10.6 H (8.6-10.3) mg/dl POC Ioniz Calcium Meryl 1.42 H (1.12-1.32) mmol/l Magnesium 1.9 (1.7-2.4) mg/dl Total Bilirubin 0.2 (0.2-1.0) mg/dl AST 22 (13-39) U/L ALT 22 (7-52) U/L Alkaline Phosphatase 64 (34-104) U/L Total Creatine Kinase 74 (26-192) U/L Total Protein 6.7 (6.0-8.3) gm/dl Albumin 4.1 (3.4-5.0) gm/dl Globulin 2.6 (2.5-4.0) gm/dl Albumin/Globulin Ratio 1.6 (0.9-2) Administered Medications Amlodipine Besylate (Amlodipine Besylate 5 Mg Tab) [facility] [place] Stop: 09/13/24 08:59 Last Admin: 08/14/24 06:20 Dose: 10 mg Documented By: MLM Hydralazine HCl (Hydralazine Hcl 20 Mg/Ml Vial) 10 mg IV Q4H PRN PRN Reason: SBP above 160 Stop: 09/13/24 05:19 Last Admin: 08/14/24 07:38 Dose: 10 mg Documented By: ALEX Pantoprazole Sodium (Protonix) 40 mg in 10 mls @ 5 mls/min IV BID JANELLE Stop: 09/13/24 08:59 Last Admin: 08/14/24 07:38 Dose: 5 mls/min Documented By: ALEX Cefazolin Sodium (Ancef 2000mg) 2,000 mg in 15 mls @ 3.75 mls/min IV Q12H JANELLE Stop: 09/25/24 17:59 Last Admin: 08/14/24 17:44 Dose: Not Given Documented By: ALEX Isosorbide Mononitrate (Isosorbide Dillon Extended Rel 60 Mg Tabcr) 120 mg PO QAM JANELLE Stop: 09/13/24 08:59 Last Admin: 08/14/24 06:20 Dose: 120 mg Documented By: BLAYNE Levothyroxine Sodium (Levothyroxine Sodium 88 Mcg Tablet) 88 mcg PO DAILYBB JANELLE Stop: 09/13/24 06:29 Last Admin: 08/14/24 05:48 Dose: Not Given Documented By: BLAYNE Magnesium Chloride (Magnesium Chloride W/Calcium 64mg Delayed Rel Tab) 64 mg PO TID JANELLE Stop: 09/13/24 08:59 Last Admin: 08/14/24 13:31 Dose: Not Given Documented By: Admin: 08/14/24 08:26 Dose: Not Given Documented By: ALEX Discontinued Medications Cefazolin Sodium (Cefazolin 2,000 Mg/15 Ml Iv Push) Confirm Administered Dose 2,000 mg IV .STK-MED ONE Stop: 08/14/24 13:55 Last Admin: 08/14/24 18:42 Dose: Not Given Documented By: ALEX Diphtheria/Pertussis/Tetanus Vacc (Diphther/Tetan/Pertus Vaccine (Tdap, Adol/Adult) 0.5ml) 0.5 ml IM .ONCE ONE Stop: 08/14/24 01:26 Last Admin: 08/14/24 03:20 Dose: 0.5 ml Documented By: EVA Famotidine (Famotidine/Pf 20 Mg/2 Ml Vial) Confirm Administered Dose 20 mg IV .STK-MED ONE Stop: 08/14/24 14:40 Last Admin: 08/14/24 18:42 Dose: Not Given Documented By: ALEX Fentanyl Citrate (Fentanyl Citrate Pf 100 Mcg/2 Ml Vial) 25 mcg IV NOW STA Stop: 08/14/24 01:24 Last Admin: 08/14/24 01:35 Dose: 25 mcg Documented By: EVA Hydromorphone HCl (Hydromorphone Inj 0.5 Mg/0.5 Ml Syr) 0.25 mg IV NOW STA Stop: 08/14/24 02:26 Last Admin: 08/14/24 02:34 Dose: 0.25 mg Documented By: EVA Hydromorphone HCl (Hydromorphone Inj 0.5 Mg/0.5 Ml Syr) 0.25 mg IV Q30M PRN PRN Reason: Pain Stop: 08/28/24 02:24 Last Admin: 08/14/24 03:25 Dose: 0.25 mg Documented By: EVA Hydromorphone HCl (Hydromorphone Inj 0.5 Mg/0.5 Ml Syr) 0.5 mg IV NOW STA Stop: 08/14/24 03:06 Last Admin: 08/14/24 04:02 Dose: 0.5 mg Documented By: EVA Hydromorphone HCl (Hydromorphone Inj 0.5 Mg/0.5 Ml Syr) 0.5 mg IV Q3H PRN PRN Reason: Severe Pain (Scale 7, 8, 9,10) Stop: 08/28/24 05:19 Last Admin: 08/14/24 11:42 Dose: 0.5 mg Documented By: Admin: 08/14/24 07:53 Dose: 0.5 mg Documented By: ALEX Sodium Chloride (Nss) 500 mls @ 999 mls/hr IV .Q31M ONE Stop: 08/14/24 03:35 Last Infusion: 08/14/24 03:57 Dose: Infused Documented By: Admin: 08/14/24 03:26 Dose: 999 mls/hr Documented By: EVA Acetaminophen (Ofirmev) 1,000 mg in 100 mls @ 400 mls/hr IV NOW STA Stop: 08/14/24 03:19 Last Infusion: 08/14/24 05:41 Dose: Infused Documented By: Admin: 08/14/24 03:22 Dose: 400 mls/hr Documented By: EVA Sodium Chloride (Nss) 1,000 mls @ 80 mls/hr IV .[id number] STA Stop: 08/14/24 16:34 Last Infusion: 08/14/24 18:41 Dose: Infused Documented By: Admin: 08/14/24 05:47 Dose: 80 mls/hr Documented By: BLAYNE Cefazolin Sodium (Ancef 1000mg) 1,000 mg in 7.5 mls @ 2.5 mls/min IV Q8H JANELLE Stop: 09/25/24 07:59 Last Admin: 08/14/24 07:38 Dose: 2.5 mls/min Documented By: ALEX Cefazolin Sodium (Ancef 2000mg) 2,000 mg in 15 mls @ 3.75 mls/min IV PREOP ONE; Protocol Stop: 08/14/24 13:52 Last Admin: 08/14/24 14:29 Dose: 3.75 mls/min Documented By: TIMOTHY Ondansetron HCl (Ondansetron Inj 2 Mg/Ml 2 Ml Vial) 4 mg IV NOW STA Stop: 08/14/24 01:24 Last Admin: 08/14/24 02:03 Dose: 4 mg Documented By: EVA Imaging Data Radiologist's Impression: Chest X-Ray 08/14/24 01:23 XR chest 1V portable CLINICAL HISTORY: trauma TECHNIQUE: Single frontal radiograph of the chest was obtained. Comparison: Comparison is made to chest radiographs 02/28/2024 FINDINGS: No lines and tubes are seen. Calcified aortic knob is seen. The lungs are clear. No evidence of pleural effusion or pneumothorax. IMPRESSION: No acute chest disease. ACT 112: Negative or not required by law. Electronically signed by: Ervin Metcalf M.D. 08/14/2024 8:31 AM Tibia/Fibula X-Ray 08/14/24 01:23 XR tibia fibula LT 2V CLINICAL HISTORY: trauma TECHNIQUE: 2 radiographic views of the left leg were obtained. Comparison: Comparison is made to radiographs 08/14/2024 FINDINGS: No fracture in the proximal tibia and fibula, ankle fracture is partially visualized. Osteophyte formation and joint space narrowing is seen. Postsurgical changes in the soft tissues as well as small calcific fragments are noted. IMPRESSION: Degenerative changes are seen. Please see dedicated ankle radiograph for findings of ankle fracture. ACT 112: Negative or not required by law. Electronically signed by: Ervin Metcalf M.D. 08/14/2024 8:44 AM Discharge Plan Visit Data Chief Complaint: Trauma Stated Complaint: Fall, L Open Ankle Fracture, On Thinners ED Provider: Juwan Shearer Discharge Problem: Fracture of ankle, left, open, Ground-level fall, Closed head injury, [place]OL[place] (acute kidney injury) Patient Disposition: Admitted As Inpatient Discharge Instructions Interventions: ED Discharge Assessment Last Done: 08/14/24 05:02 Discharge Problem: Fracture of ankle, left, open Qualifiers: Encounter type: initial encounter Open fracture type: open type I or II Q ualified Code(s): S82.892B - Other fracture of left lower leg, initial encounter for open fracture type I or II Closed head injury Qualifiers: Encounter type: initial encounter Qualified Code(s): S09.90XA - Unspecified injury of head, initial encounter
[2024-08-14] MEDS: fentaNYL citrate PF 100 MCG/2 ML VIAL IV STA (01:35)
[2024-08-14 01:49] LABS: iSTAT Hemoglobin 10.2 g/dl (12.0-16.0); iSTAT Ionized Calcium 1.42 mmol/l (1.12-1.32); iSTAT Potassium 4.5 mmol/L (3.3-5.0)
[2024-08-14 01:55] LABS: Basophils # (auto) 0.03 K/uL (0.00-0.20); Basophils % (auto) 0.3 %; Eosinophils # (auto) 0.24 K/uL (0.00-0.50); Eosinophils % (auto) 2.5 %; Hematocrit (blood only) 32.3 % (37.0-47.0); Hemoglobin 10.2 g/dl (12.0-16.0); Immature Granulocytes # (auto) 0.05 K/uL (0.01-0.20); Immature Granulocytes % (auto) 0.5 %; Lymphocytes % (auto) 28.7 %; Mean Corpuscular Hemoglobin 27.3 pg (25.0-34.0); Mean Corpuscular Hgb Conc 31.6 g/dL (32.0-36.0); Mean Corpuscular Volume 86.4 fL (80.0-100.0); Mean Platelet Volume 9.3 fL (9.4-12.4); Monocytes % (auto) 7.2 %; Neutrophils # (auto) 5.94 K/uL (1.40-6.50); Neutrophils % (auto) 60.8 %; Platelet Count 257 K/uL (130-400); RDW Coefficient of Variation 16.2 % (11.5-14.5); RDW Standard Deviation 50.1 fL (36.4-46.3); Red Blood Count 3.74 M/uL (4.20-5.40); White Blood Count 9.76 K/ul (4.8-10.8)
[2024-08-14] MEDS: ONDANSETRON INJ 2 MG/ML 2 ML VIAL IV STA (02:03)
[2024-08-14 02:09] LABS: Albumin Globulin Ratio 1.6 (0.9-2); Albumin Level 4.1 gm/dl (3.4-5.0); BUN Creatinine Ratio 14.8 (10-20); Bilirubin,Total 0.2 mg/dl (0.2-1.0); Calcium 10.6 mg/dl (8.6-10.3); Creatinine Clr Calc Pharmacy 19.4 ml/min; Globulin 2.6 gm/dl (2.5-4.0); Magnesium 1.9 mg/dl (1.7-2.4); Potassium 4.6 mmol/L (3.5-5.1); Total Protein 6.7 gm/dl (6.0-8.3)
[2024-08-14 02:20] LABS: INR 0.9 (0.9-1.1)
--- NOTE | 2024-08-14 02:26 | CT Scan Report ---
Exam(s): CT HEAD Without Contrast EXAM: CT Head Without Intravenous Contrast CLINICAL HISTORY: Reason for exam: Trauma. TECHNIQUE: Axial computed tomography images of the head/brain without intravenous contrast. CTDI is 37.32 mGy and DLP is 624.41 mGy-cm. Automated exposure control was utilized for the study. A dose lowering technique was utilized adhering to the principles of ALARA. COMPARISON: CT head: 09/25/2022 FINDINGS: Diagnostic sensitivity is reduced and artifact. Brain: No acute intracranial hemorrhage, mass-effect or midline shift noted. No abnormal extra-axial fluid collections. Ventricles: Age-related cerebral atrophy with widening of the extra- axial spaces and ventricular dilatation. There are periventricular/subcortical areas of decreased attenuation, likely from chronic microvascular disease Bones/joints: Unremarkable. No acute fracture. Soft tissues: Unremarkable. Sinuses: Left sphenoid sinusitis. Mild right maxillary mucosal thickening. No air-fluid levels. Mastoid air cells: Unremarkable as visualized. No mastoid effusion. Other findings: Intracranial arterial atherosclerosis. . IMPRESSION: No acute intracranial abnormality noted. Chronic involutional and ischemic changes of the brain. Moderate left sphenoid sinusitis . Electronically signed by: Tommy Ruiz MD, DABR 08/14/24 02:25 AM
[2024-08-14] MEDS: HYDROmorphone INJ 0.5 MG/0.5 ML SYR IV STA ×2 (02:34→04:02)
--- NOTE | 2024-08-14 02:59 | CT Scan Report ---
Exam(s): CT C SPINE EXAM: CT Cervical Spine Without Intravenous Contrast CLINICAL HISTORY: Reason for exam: Trauma. TECHNIQUE: Axial computed tomography images of the cervical spine without intravenous contrast. CTDI is 26.55 mGy and DLP is 408.51 mGy-cm. Automated exposure control was utilized for the study. A dose lowering technique was utilized adhering to the principles of ALARA. COMPARISON: None. FINDINGS: Diagnostic sensitivity of the exam is reduced by motion artifact. Vertebrae: C3 vertebral minimal anterolisthesis. No acute fracture. Discs/spinal canal/neural foramina: Multilevel uncovertebral/facet arthrosis. C4-C7 levels moderately advanced degenerative spondylitic changes seen with variable degrees of foraminal and central canal stenosis.. Soft tissues: Unremarkable. Other findings: Bilaterally extensive densely calcified carotid arterial atherosclerosis. . IMPRESSION: No significant cervical vertebral abnormalities noted post trauma . . Electronically signed by: Tommy Ruiz MD, SANDRAR 08/14/24 02:58 AM
[2024-08-14] MEDS: HYDROmorphone INJ 0.5 MG/0.5 ML SYR IV PRN ×2 (03:19→07:53)
[2024-08-14] MEDS: DIPHTHER/TETAN/PERTUS Vaccine (Tdap, Adol/Adult) 0.5mL IM ONE (03:20)
[2024-08-14] MEDS: ACETAMINOPHEN 1,000 MG/100 ML VIAL IV STA (03:22)
[2024-08-14] MEDS: SODIUM CHLORIDE 0.9% 500 ML IV ONE (03:26)
[2024-08-14] MEDS ORDERED: ALBUTEROL HFA 8 GM INHALER INH PRN ×2 (04:10→05:20)
--- NOTE | 2024-08-14 04:14 | History & Physical Report ---
Date of Service August 14, 2024 Assessment & Plan (1) Open left ankle fracture: (2) Peripheral vascular disease: (3) Asthma: (4) Recurrent falls: (5) S/P CABG x 4: (6) SDAT (senile dementia of Alzheimer's type): (7) CKD (chronic kidney disease) stage 3, GFR 30-59 ml/min: (8) Acute kidney injury superimposed on CKD: (9) CAD, multiple vessel: (10) DM (diabetes mellitus): Plan Open left ankle fracture- NPO Ancef 1 g IV every 8 hours per Ortho Acetaminophen 1 g IV every 8 hours as needed for mild pain or fever Dilaudid 0.25 mg IV every 3 hours as needed for moderate pain Dilaudid 0.5 mg IV every 3 hours as needed for severe pain Pantoprazole 40 mg IV daily Zofran 4 mg IV every 6 hours as needed NSS at 80 mL/h x 1 Acute kidney injury superimposed on CKD stage III- Creatinine 1.96 on admission with base 1.28 Status post 500 mL normal saline from the ED NSS at 80 mL/h x 1 L Repeat laboratories in a.m. Hypertension/Status post CABG x 4/multivessel CAD- Hold amlodipine, aspirin, clopidogrel Continue isosorbide mononitrate Hydralazine 10 mg IV every 4 hours as needed for systolic blood pressure greater than 160 COPD- Patient rarely takes Breztri since it makes her mouth too dry Albuterol HFA 2 puffs 4 times daily as needed Duonebs every 2 hours as needed History of Present Illness Chief Complaint: The patient presents to the emergency department after she lost her balance when she turned to walk away from being in the kitchen. She has developed severe left ankle pain, and reports that she has some minor pain in her left shoulder. She reports that she did hit the back of her head, and also landed on her buttocks, without significant pain in either area. Primary Care Provider: Tye Sneed MD The patient is a 79-year-old female with a past medical history including peripheral vascular disease, hypertension, folate deficiency, B12 deficiency, recurrent falls with no previous fractures, IPMN, SDAT, CKD stage III, bilateral carotid artery stenosis, hyperlipidemia, multivessel CAD, hyperparathyroidism, hypothyroidism, and diabetes mellitus. Patient reports that she was walking out of her kitchen, lost her balance, slipped and fell and heard a loud crack in her left ankle area. She also reports some minor left shoulder discomfort, and she did fall hitting her head and buttocks with no significant pain to the area. She Allergies Allergy/AdvReac Type Severity Reaction Status Date / Time nystatin Allergy Intermediate "POWDER"--- Verified 08/14/24 04:07 BLISTER/JURGEN H nickel Allergy Unknown RASH Verified 07/28/24 13:56 rosuvastatin AdvReac Mild Pain Verified 07/28/24 13:56 salicylates AdvReac Mild GI UPSET Verified 07/28/24 13:56 adhesive AdvReac Unknown ITCHING Verified 07/28/24 13:56 Home Medications Medication Instructions Recorded Confirmed Type hydrocortisone 2.5 % topical cream 1 appln RI DAILY PRN hemorrhoids 05/17/20 08/14/24 Rx with perineal applicator #30 grams nitroglycerin 0.4 mg sublingual 0.4 mg sublingual Q5M PRN chest 02/10/21 08/14/24 Rx tablet pain #25 tabs cetirizine 10 mg tablet (Zyrtec) 10 mg PO QAM 07/05/22 08/14/24 History ondansetron 4 mg disintegrating 4 mg translingual TID PRN nausea 11/14/22 08/14/24 Rx tablet and vomiting #60 tabs lidocaine 5 % topical patch 1 patch topical DAILY PRN back pain 06/10/23 08/14/24 History (Lidoderm) meclizine 12.5 mg tablet 12.5 mg PO TID PRN dizziness #30 06/28/23 08/14/24 Rx tabs aspirin 81 mg tablet,delayed 81 mg PO QAM #90 tabs 11/06/23 08/14/24 Rx release budesonide 160 mcg-glycopyr 9 2 inh inhalation BID #5.9 grams 01/10/24 08/14/24 Rx mcg-formot 4.8 mcg/actuation HFA inhaler (Breztri Aerosphere) amlodipine 10 mg tablet 10 mg PO QAM #90 tabs 01/23/24 08/14/24 Rx atorvastatin 80 mg tablet 80 mg PO HS #90 tabs 01/23/24 08/14/24 Rx clopidogrel 75 mg tablet 75 mg PO QAM #90 tabs 01/23/24 08/14/24 Rx cholecalciferol (vitamin D3) 50 2,000 unit PO QAM #90 caps 03/24/24 08/14/24 Rx mcg (2,000 unit) capsule levothyroxine 88 mcg tablet 88 mcg PO DAILY #90 tabs 03/31/24 08/14/24 Rx calcitriol 0.25 mcg capsule 0.25 mcg PO Q2D #45 caps 05/26/24 08/14/24 Rx denosumab 60 mg/mL subcutaneous 60 mg subcut .n8vinsas #1 mL 07/03/24 08/14/24 Rx syringe (Prolia) folic acid 1 mg tablet 1 mg PO QAM #90 tabs 07/20/24 08/14/24 Rx isosorbide mononitrate 120 mg 120 mg PO QAM #90 tabs 07/20/24 08/14/24 Rx tablet,extended release 24 hr melatonin 10 mg sublingual tablet 15 mg sublingual DAILY 07/28/24 08/14/24 History albuterol sulfate 90 mcg/actuation 2 puff inhalation .EVERY 4-6 HOURS 08/14/24 08/14/24 History aerosol inhaler PRN shortness of breath or wheezing clotrimazole-betamethasone 1 1 applic topical BID PRN Rash 08/14/24 08/14/24 History %-0.05 % topical cream donepezil 5 mg tablet 5 mg PO QAM 08/14/24 08/14/24 History fluoride (sodium) 1.1 % dental 1 applic dental BID 08/14/24 08/14/24 History cream (Denta 5000 Plus) magnesium chloride 71.5 mg 71.5 mg PO TID 08/14/24 08/14/24 History (magnesium chloride) tablet,delayed release (Slow-Mag) omeprazole 20 mg capsule,delayed 20 mg PO QAM 08/14/24 08/14/24 History release sertraline 100 mg tablet 100 mg PO QPM 08/14/24 08/14/24 History sertraline 50 mg tablet 50 mg PO QPM 08/14/24 08/14/24 History trazodone 150 mg tablet 75 mg PO HS 08/14/24 08/14/24 History Past Med/Surg History Problem List (Updated 08/14/24 @ 04:07 by Carlos River MD) Open left ankle fracture Acute kidney injury superimposed on CKD Hypomagnesemia Asthma Osteoporosis Peripheral vascular disease Hypertension Folate deficiency B12 deficiency Recurrent falls S/P CABG x 4 IPMN (intraductal papillary mucinous neoplasm) SDAT (senile dementia of Alzheimer's type) CKD (chronic kidney disease) stage 3, GFR 30-59 ml/min Bilateral carotid artery stenosis Hyperlipidemia Pulmonary nodule CAD, multiple vessel (Acute) Pancreas cyst Hyperparathyroidism Hypothyroidism (Chronic) DM (diabetes mellitus) Medical History (Updated 08/14/24 @ 04:07 by Carlos River MD) Dysphagia Adrenal adenoma Urinary incontinence Coronary artery disease Surgical History History of tubal ligation History of bilateral salpingo-oophorectomy (BSO) History of appendectomy S/P bypass graft of extremity S/P cataract surgery History of hysterectomy Family History Sister Myocardial infarction Emphysema, unspecified Brother Myocardial infarction Diabetes Father Cerebral artery occlusion with cerebral infarction Mother Cerebral artery occlusion with cerebral infarction Diabetes Denies family history of Ovarian cancer Prostate cancer Kidney disease Breast cancer Colorectal cancer Social History Smoking Status: Former smoker Tobacco Type: Cigarettes Age Started Using Tobacco: 31; Age Quit Using Tobacco: 54; packs per day: 4; Second Hand Exposure: No; Do You Dip or Chew Tobacco: No; Hx Alcohol Use: No Hx Substance Use: No Preferred Language: Guatemalan Communication Ability: Effective Visual Impairment: No Limitations Hearing Ability: Use of Hearing Aid Disability Case Manager Required: No Beliefs That Will Affect Care: None marital status: Current Living Situation: Alone Current Living Situation Comment: [facility] current occupational status: retired 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, 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, 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 [employer] ering Feels Safe at Home: Yes Safety Concerns Comment: afraid of falling while home alone, has railings on bed, has med alert now Childhood Exposure to Second-Hand Smoke: Yes Diet: regular caffeine: Yes (mixes decaf and reg coffee) Dental Care, Regularly: No Physical Activity Frequency: Does not Exercise Physical Activity Frequency Comment: Exercise limited by physical condition Seatbelt Use: always Sunscreen Use: No (doesn't go outside ) Do you think of yourself as: straight/heterosexual Gender Identity: Female Assistive Devices: Cane, Walker and Wheelchair Review of Systems Review of Systems: The patient denies chest pain, palpitations, shortness of breath, dyspnea on exertion, cough, lower extremity swelling, sore throat, fevers, chills, sweats, weight change, fatigue, nausea, vomiting, diarrhea , constipation, abdominal pain, pelvic pain, blood in urine or stool, dysuria, urinary frequency or urgency, lightheadedness, dizziness, headache, memory loss, loss of consciousness, rash, abnormal bruising or bleeding, focal weakness, numbness or tingling in arms or right leg, generalized arthralgias or myalgias, back or neck pain, or night sweats. The review of systems is otherwise negative other than for that already noted above, and at least 10 systems have been reviewed. Physical Exam Physical Exam: The patient is awake, alert and oriented 3, well developed and well nourished, normocephalic and atraumatic, lying in bed and in no acute distress. HEENT--PERRL, EOMI, mucous membranes and oropharynx normal Neck--supple. No JVD. No bruits. Thyroid normal, trachea midline, no adenopathy. Heart--normal S1 and S2. No murmurs, rubs or gallops. Lungs--clear bilaterally, no respiratory distress, no accessory muscle use. Abdomen--normal bowel sounds and soft. Nontender. Nondistended, no hernias or masses, no organomegaly. Extremities--no cyanosis or clubbing. No edema. Left lower extremity in splint Dermatologic--right lower extremity with normal skin turgor, normal color, no abnormal lymph nodes, no rash. Neurologic--cranial nerves II through XII grossly intact. Rheumatologic--normal range of motion except for left lower extremity Psychiatric--normal affect. Results & Data Results & Data Vital Signs (Past 12 Hours) Vital Signs Temp Pulse Pulse Resp BP BP Pulse Ox 08/14/24 03:00 36.6 C 74 20 185/61 H 95 08/14/24 02:30 81 20 158/119 H 94 08/14/24 02:00 36.9 C 81 20 199/91 H 94 08/14/24 01:54 75 22 167/77 H 94 08/14/24 01:37 82 08/14/24 01:25 94 08/14/24 01:03 36.6 C 24 228/131 H 94 08/14/24 01:03 36.6 C 90 24 228/131 H 94 O2 Del Method 08/14/24 03:00 Room Air 08/14/24 02:30 Room Air 08/14/24 02:00 Room Air 08/14/24 01:54 Room Air 08/14/24 01:37 08/14/24 01:25 Room Air 08/14/24 01:03 Room Air 08/14/24 01:03 Room Air Laboratory Results Laboratory Results WBC 9.76 K/ul (4.8-10.8) 08/14/24 01:31 RBC 3.74 M/uL (4.20-5.40) L 08/14/24 01:31 Hgb 10.2 g/dl (12.0-16.0) L 08/14/24 01:31 POC Hgb 10.2 g/dl (12.0-16.0) L 08/14/24 01:37 Hct 32.3 % (37.0-47.0) L 08/14/24 01:31 POC Hct 30 % (37-47) L 08/14/24 01:37 MCV 86.4 fL (80.0-100.0) 08/14/24 01:31 MCH 27.3 pg (25.0-34.0) 08/14/24 01:31 MCHC 31.6 g/dL (32.0-36.0) L 08/14/24 01:31 RDW Std Deviation 50.1 fL (36.4-46.3) H 08/14/24 01:31 RDW Coeff of Nathan 16.2 % (11.5-14.5) H 08/14/24 01:31 Plt Count 257 K/uL (130-400) 08/14/24 01:31 MPV 9.3 fL (9.4-12.4) L 08/14/24 01:31 Immature Gran % (Auto) 0.5 % 08/14/24 01:31 Neut % (Auto) 60.8 % 08/14/24 01:31 Lymph % (Auto) 28.7 % 08/14/24 01:31 [place] % (Auto) 7.2 % 08/14/24 01:31 Eos % (Auto) 2.5 % 08/14/24 01:31 Baso % (Auto) 0.3 % 08/14/24 01:31 Neut # (Auto) 5.94 K/uL (1.40-6.50) 08/14/24 01:31 Lymph # (Auto) 2.80 K/uL (1.20-3.40) 08/14/24 01:31 [place] # (Auto) 0.70 K/uL (0.11-0.59) H 08/14/24 01:31 Eos # (Auto) 0.24 K/uL (0.00-0.50) 08/14/24 01:31 Baso # (Auto) 0.03 K/uL (0.00-0.20) 08/14/24 01:31 Immature Gran # (Auto) 0.05 K/uL (0.01-0.20) 08/14/24 01:31 PT 10.0 Seconds (9.0-12.0) 08/14/24 01:31 INR 0.9 (0.9-1.1) 08/14/24 01:31 POC Sodium 140 mmol/L (135-144) 08/14/24 01:37 Sodium 140 mmol/L (136-145) 08/14/24 01:31 POC Potassium 4.5 mmol/L (3.3-5.0) 08/14/24 01:37 Potassium 4.6 mmol/L (3.5-5.1) 08/14/24 01:31 POC Chloride 104 mmol/L (101-112) 08/14/24 01:37 Chloride 105 mmol/L (98-107) 08/14/24 01:31 Carbon Dioxide 30 mmol/L (21-32) 08/14/24 01:31 POC Total CO2 27 mmol/L (24-31) 08/14/24 01:37 Anion Gap 5 (3-11) 08/14/24 01:31 POC Anion Gap 15.0 mmol/L (16-25) L 08/14/24 01:37 POC BUN 26 mg/dl (7-18) H 08/14/24 01:37 BUN 29 mg/dl (6-23) H 08/14/24 01:31 Creatinine 1.96 mg/dl (0.6-1.2) H 08/14/24 01:31 POC Creatinine 2.0 mg/dl (0.6-1.3) H 08/14/24 01:37 Est Cr Clr Drug Dosing 19.4 ml/min 08/14/24 01:31 eGFR 25.72 08/14/24 01:31 BUN/Creatinine Ratio 14.8 (10-20) 08/14/24 01:31 Glucose 103 mg/dl (70-99(Fasting)) H 08/14/24 01:31 POC Glucose (other) 105 mg/dl (70-99) H 08/14/24 01:37 Calcium 10.6 mg/dl (8.6-10.3) H 08/14/24 01:31 POC Ioniz Calcium Meryl 1.42 mmol/l (1.12-1.32) H 08/14/24 01:37 Magnesium 1.9 mg/dl (1.7-2.4) 08/14/24 01:31 Total Bilirubin 0.2 mg/dl (0.2-1.0) 08/14/24 01:31 AST 22 U/L (13-39) 08/14/24 01:31 ALT 22 U/L (7-52) 08/14/24 01:31 Alkaline Phosphatase 64 U/L (34-104) 08/14/24 01:31 Total Creatine Kinase 74 U/L (26-192) 08/14/24 01:31 Total Protein 6.7 gm/dl (6.0-8.3) 08/14/24 01:31 Albumin 4.1 gm/dl (3.4-5.0) 08/14/24 01:31 Globulin 2.6 gm/dl (2.5-4.0) 08/14/24 01:31 Albumin/Globulin Ratio 1.6 (0.9-2) 08/14/24 01:[address] 08/14/24 01:23 Exam(s): CT C SPINE EXAM: CT Cervical Spine Without Intravenous Contrast CLINICAL HISTORY: Reason for exam: Trauma. TECHNIQUE: Axial computed tomography images of the cervical spine without intravenous contrast. CTDI is 26.55 mGy and DLP is 408.51 mGy-cm. Automated exposure control was utilized for the study. A dose lowering technique was utilized adhering to the principles of ALARA. COMPARISON: None. FINDINGS: Diagnostic sensitivity of the exam is reduced by motion artifact. Vertebrae: C3 vertebral minimal anterolisthesis. No acute fracture. Discs/spinal canal/neural foramina: Multilevel uncovertebral/facet arthrosis. C4-C7 levels moderately advanced degenerative spondylitic changes seen with variable degrees of foraminal and central canal stenosis.. Soft tissues: Unremarkable. Other findings: Bilaterally extensive densely calcified carotid arterial atherosclerosis. . IMPRESSION: No significant cervical vertebral abnormalities noted post trauma . . Electronically signed by: Tommy Ruiz MD, SANDRAR 08/14/24 02:[address] 08/14/24 01:23 Exam(s): CT HEAD Without Contrast EXAM: CT Head Without Intravenous Contrast CLINICAL HISTORY: Reason for exam: Trauma. TECHNIQUE: Axial computed tomography images of the head/brain without intravenous contrast. CTDI is 37.32 mGy and DLP is 624.41 mGy-cm. Automated exposure control was utilized for the study. A dose lowering technique was utilized adhering to the principles of ALARA. COMPARISON: CT head: 09/25/2022 FINDINGS: Diagnostic sensitivity is reduced and artifact. Brain: No acute intracranial hemorrhage, mass-effect or midline shift noted. No abnormal extra-axial fluid collections. Ventricles: Age-related cerebral atrophy with widening of the extra- axial spaces and ventricular dilatation. There are periventricular/subcortical areas of decreased attenuation, likely from chronic microvascular disease Bones/joints: Unremarkable. No acute fracture. Soft tissues: Unremarkable. Sinuses: Left sphenoid sinusitis. Mild right maxillary mucosal thickening. No air-fluid levels. Mastoid air cells: Unremarkable as visualized. No mastoid effusion. Other findings: Intracranial arterial atherosclerosis. . IMPRESSION: No acute intracranial abnormality noted. Chronic involutional and ischemic changes of the brain. Moderate left sphenoid sinusitis . Electronically signed by: Tommy Ruiz MD, DABR 08/14/24 02:25 AM Code Status & VTE Plan Code Status DNR/DNI VTE Prophylaxis Plan VTE Prophylaxis will be ordered: Yes PG Care Time/CCT Total # of Minutes Spent Total Time Spent with Patient: Total time spent is greater than 50% in coordination of care (as documented) at patient's floor/unit and/or counseling patient: Coding Level of Care Code 22313 INT INP/OBS CARE MIN Diagnoses Open left ankle fracture S82.892B Peripheral vascular disease I73.9 Mild intermittent asthma with acute exacerbation J45.21 Asthma severity: mild Asthma persistence: intermittent Asthma complication type: with acute exacerbation Recurrent falls R29.6 S/P CABG x 4 Z95.1 SDAT (senile dementia of Alzheimer's type) G30.1; F02.80 CKD (chronic kidney disease) stage 3, GFR 30-59 ml/min N18.30 Acute kidney injury superimposed on CKD N17.9; N18.9 CAD, multiple vessel I25.10 DM (diabetes mellitus) E11.9 (3) Asthma Asthma severity: mild Asthma persistence: intermittent Asthma complication type: with acute exacerbation Qualified Code(s): J45.21 - Mild intermittent asthma with (acute) exacerbation
[2024-08-14] MEDS ORDERED: HYDROmorphone INJ 0.5 MG/0.5 ML SYR IV PRN (05:20)
[2024-08-14] MEDS ORDERED: ONDANSETRON INJ 2 MG/ML 2 ML VIAL IV PRN (05:20)
[2024-08-14] MEDS ORDERED: ACETAMINOPHEN 1000 MG/100 ML IV IV PRN (05:20)
[2024-08-14] MEDS: SODIUM CHLORIDE 0.9% 1,000 ML IV STA (05:47)
[2024-08-14] MEDS: LEVOTHYROXINE SODIUM 88 MCG TABLET PO SCH (05:48)
[2024-08-14] MEDS: amLODIPine BESYLATE 5 MG TAB PO SCH (06:20)
[2024-08-14] MEDS: ISOSORBIDE MONO EXTENDED REL 60 MG TABCR PO SCH (06:20)
--- NOTE | 2024-08-14 07:10 | XRay Report ---
XR ankle LT min 3V routine HISTORY: 79 years-old Female trauma acute trauma the left ankle COMPARISON: Tibia and fibula radiographs of same day TECHNIQUE: 2 views of the left ankle FINDINGS: Demineralized appearance of the bones. Mild to moderate multifocal osteoarthritis. Arterial calcifica tions. Surgical clips and soft tissue calcifications of the calf. There is an acute trimalleolar ankl e fracture. Distal fibular metaphyseal oblique fracture demonstrates 2 mm lateral displacement. The t ransverse medial malleolar fracture demonstrates 8 mm lateral displacement. There is no significant displacement involving the posterior malleolar fracture. Mild tibiotalar subl uxation. Degenerative spurring of the calcaneus. Moderate soft tissue swelling. IMPRESSION: Acute trimalleolar ankle fracture with tibiotalar subluxation. ACT 112: Negative or not required by law. The above report was generated using voice recognition software. It may contain grammatical, syntax o r spelling errors. Electronically signed by: Sawyer Ortiz M.D. 08/14/2024 7:08 AM
--- NOTE | 2024-08-14 07:13 | XRay Report ---
XR pelvis 1-2V routine HISTORY: 79 years-old Female trauma acute pelvic trauma COMPARISON: CT 03/12/2022 TECHNIQUE: AP view the pelvis FINDINGS: Arterial calcifications. Mild osteoarthritis of the hips. Vascular graft in the left medial upper thi gh with an adjacent overlying 6.3 cm metallic density wire which is partially imaged. There is no acu te fracture, dislocation or avascular necrosis. IMPRESSION: No acute fracture. ACT 112: Negative or not required by law. The above report was generated using voice recognition software. It may contain grammatical, syntax o r spelling errors. Electronically signed by: Sawyer Ortiz M.D. 08/14/2024 7:12 AM
[2024-08-14] MEDS: PANTOprazole 40 MG/10 ML SYR IV SCH (07:38)
[2024-08-14] MEDS: ceFAZolin 1000MG 1,000 MG/7.5 ML SYR IV SCH (07:38)
[2024-08-14] MEDS: hydrALAZINE HCL 20 MG/ML VIAL IV PRN (07:38)
--- NOTE | 2024-08-14 07:56 | Electrocardiogram Report ---
Test Reason : Blood Pressure : */* mmHG Vent. Rate : 89 BPM Atrial Rate : 89 BPM P-R Int : 174 ms QRS Dur : 102 ms QT Int : 392 ms P-R-T Axes : 63 78 57 degrees QTcB Int : 476 ms Normal sinus rhythm Incomplete right bundle branch block Possible Old Septal infarct Nonspecific T wave abnormality Anteroseptal leads Abnormal ECG When compared with ECG of 27-Nov-2022 13:33, Vent. rate has increased by 33 bpm Borderline Criteria for Septal infarct is now Present Confirmed by Rogers Lay ([id number]) on 08/14/2024 7:56:09 AM Referred By: Confirmed By: Rogers Lay
[2024-08-14] MEDS: MAGNESIUM CHLORIDE W/CALCIUM 64MG DELAYED REL TAB PO SCH (08:26)
--- NOTE | 2024-08-14 08:33 | XRay Report ---
XR chest 1V portable CLINICAL HISTORY: trauma TECHNIQUE: Single frontal radiograph of the chest was obtained. Comparison: Comparison is made to chest radiographs 02/28/2024 FINDINGS: No lines and tubes are seen. Calcified aortic knob is seen. The lungs are clear. No evidence of pleur al effusion or pneumothorax. IMPRESSION: No acute chest disease. ACT 112: Negative or not required by law. Electronically signed by: Ervin Metcalf M.D. 08/14/2024 8:31 AM
--- NOTE | 2024-08-14 08:46 | XRay Report ---
XR tibia fibula LT 2V CLINICAL HISTORY: trauma TECHNIQUE: 2 radiographic views of the left leg were obtained. Comparison: Comparison is made to radiographs 08/14/2024 FINDINGS: No fracture in the proximal tibia and fibula, ankle fracture is partially visualized. Osteophyte form ation and joint space narrowing is seen. Postsurgical changes in the soft tissues as well as small ca lcific fragments are noted. IMPRESSION: Degenerative changes are seen. Please see dedicated ankle radiograph for findings of ankle fracture. ACT 112: Negative or not required by law. Electronically signed by: Ervin Metcalf M.D. 08/14/2024 8:44 AM
--- NOTE | 2024-08-14 08:53 | Orthopedic Consultation ---
Date of Consultation August 14, 2024 Assessment & Plan (1) Open left ankle fracture: (2) Acute kidney injury superimposed on CKD: (3) Osteoporosis: (4) Peripheral vascular disease: (5) Hypertension: (6) S/P CABG x 4: (7) CKD (chronic kidney disease) stage 3, GFR 30-59 ml/min: (8) Bilateral carotid artery stenosis: Plan This is a medically frail 79-year-old female who presented to the emergency department last evening for evaluation of her left ankle after she tripped and fell in her kitchen. Upon presentation to the emergency department, the patient had already received 2 g of Ancef IV and in the emergency department she had her tetanus updated due to concern for open fracture. X-rays did in fact straight a bimalleolar ankle fracture with a Sky B distal fibula associated medial malleolus. Dr. العراقي was on-call last evening and was initially contacted, but he contacted me this morning and asked if I would help manage this patient. I had a long discussion with the patient regarding the nature of her injury. She has sustained an open ankle fracture. I explained the most important first step was to receive IV antibiotics and it appears that that occurred. I am unsure as to the timing of the first dose of IV antibiotics, however it is good that she is on that now. I did call and speak with the inpatient pharmacist about appropriate dosing due to her history of kidney disease and they recommended 2 g every 12 hours. I contacted the medicine department and discussed this with them as well. They will change her dosing as appropriate. Additionally, in discussing the patient's care with the medical team, their assessment of her preoperative risk is a Chopra preoperative risk of 2.9 and do not recommend delaying surgery for this. I explained to the patient that an operative plan for her left ankle would include an irrigation and debridement of nonviable tissue and to hopefully control any potential contamination from the open nature of this injury followed by open reduction internal fixation versus closed reduction and external fixation depending on the soft tissue envelope. I explained to the patient that she is a very high risk candidate for surgery due to her litany of medical comorbidities, but also her surgery is more high risk from an orthopaedic standpoint due to the open nature of this fracture. She is at a very high risk of infection, need for additional surgery, and even potentially an amputation in the future if an infection is unable to be cleared. The patient expressed understanding to all of this. No outcome was stated or implied to the patient. Additionally, the patient would likely benefit from referral to the osteoporosis clinic which I will make for her when she follows up with me in clinic postoperatively. Vitamin D labs have been drawn. I did also explain the patient that it is very common for a severe injury such as she has sustained to mask additional injuries that she may have sustained during her fall. Despite the fact we do not know about the now, we asked her to keep close tabs on any additional areas that may become painful and we would be happy to image these additional areas as needed. She expressed understanding. She has been n.p.o. since midnight. We will proceed to the OR this afternoon upon OR availability. Surgical plan left ankle irrigation and debridement with open versus closed reduction internal versus external fixation. History of Present Illness Reason for Consultation: Open left ankle fracture Requesting Physician: Dr Brant العراقي Attending Physician: Dr Jesús Ashraf History of Present Illness This is a 79-year-old female who presented to the emergency department last evening via EMS after a fall in her home. The patient notes that she was in her kitchen when she rolled her ankle, felt a crack and fell onto her backside. Upon EMS arrival, she was given 2 g of Ancef and transported to the [facility]. On arrival to the emergency department she had a trauma workup which demonstrated a left ankle bimalleolar fracture. This was an open injury. Reportedly, she received antibiotics, and updated tetanus shot. Upon my evaluation this morning, the patient notes that she has pain in her left ankle. She does not endorse any additional areas of pain. She notes that she had some shoulder pain last night but this is improved. Patient has a significant past medical history including peripheral vascular disease, hypertension, folate deficiency, B12 deficiency, recurrent falls with no previous fractures, IPMN, SDAT, CKD stage III, bilateral carotid artery stenosis, hyperlipidemia, multivessel CAD, hyperparathyroidism, hypothyroidism, and diabetes mellitus. at baseline she is mostly a household ambulator with assistive devices. The patient has been receiving 1g ancef q 8hr due to her CKD history. Dr. العراقي contacted me this morning and asked me to take over the care of this patient. He provided me with pictures of the patient's ankle. Allergies Allergy/AdvReac Type Severity Reaction Status Date / Time nystatin Allergy Intermediate "POWDER"--- Verified 08/14/24 04:07 BLISTER/JURGEN H nickel Allergy Unknown RASH Verified 07/28/24 13:56 rosuvastatin AdvReac Mild Pain Verified 07/28/24 13:56 salicylates AdvReac Mild GI UPSET Verified 07/28/24 13:56 adhesive AdvReac Unknown ITCHING Verified 07/28/24 13:56 Home Medications Medication Instructions Recorded Confirmed Type hydrocortisone 2.5 % topical cream 1 appln [place] DAILY PRN hemorrhoids 05/17/20 08/14/24 Rx with perineal applicator #30 grams nitroglycerin 0.4 mg sublingual 0.4 mg sublingual Q5M PRN chest 02/10/21 08/14/24 Rx tablet pain #25 tabs cetirizine 10 mg tablet (Zyrtec) 10 mg PO QAM 07/05/22 08/14/24 History ondansetron 4 mg disintegrating 4 mg translingual TID PRN nausea 11/14/22 08/14/24 Rx tablet and vomiting #60 tabs lidocaine 5 % topical patch 1 patch topical DAILY PRN back pain 06/10/23 08/14/24 History (Lidoderm) meclizine 12.5 mg tablet 12.5 mg PO TID PRN dizziness #30 06/28/23 08/14/24 Rx tabs aspirin 81 mg tablet,delayed 81 mg PO QAM #90 tabs 11/06/23 08/14/24 Rx release budesonide 160 mcg-glycopyr 9 2 inh inhalation BID #5.9 grams 01/10/24 08/14/24 Rx mcg-formot 4.8 mcg/actuation HFA inhaler (Breztri Aerosphere) amlodipine 10 mg tablet 10 mg PO QAM #90 tabs 01/23/24 08/14/24 Rx atorvastatin 80 mg tablet 80 mg PO HS #90 tabs 01/23/24 08/14/24 Rx clopidogrel 75 mg tablet 75 mg PO QAM #90 tabs 01/23/24 08/14/24 Rx cholecalciferol (vitamin D3) 50 2,000 unit PO QAM #90 caps 03/24/24 08/14/24 Rx mcg (2,000 unit) capsule levothyroxine 88 mcg tablet 88 mcg PO DAILY #90 tabs 03/31/24 08/14/24 Rx calcitriol 0.25 mcg capsule 0.25 mcg PO Q2D #45 caps 05/26/24 08/14/24 Rx denosumab 60 mg/mL subcutaneous 60 mg subcut .[id number] #1 mL 07/03/24 08/14/24 Rx syringe (Prolia) folic acid 1 mg tablet 1 mg PO QAM #90 tabs 07/20/24 08/14/24 Rx isosorbide mononitrate 120 mg 120 mg PO QAM #90 tabs 07/20/24 08/14/24 Rx tablet,extended release 24 hr melatonin 10 mg sublingual tablet 15 mg sublingual DAILY 07/28/24 08/14/24 History albuterol sulfate 90 mcg/actuation 2 puff inhalation .EVERY 4-6 HOURS 08/14/24 08/14/24 History aerosol inhaler PRN shortness of breath or wheezing clotrimazole-betamethasone 1 1 applic topical BID PRN Rash 08/14/24 08/14/24 History %-0.05 % topical cream donepezil 5 mg tablet 5 mg PO QAM 08/14/24 08/14/24 History fluoride (sodium) 1.1 % dental 1 applic dental BID 08/14/24 08/14/24 History cream (Denta 5000 Plus) magnesium chloride 71.5 mg 71.5 mg PO TID 08/14/24 08/14/24 History (magnesium chloride) tablet,delayed release (Slow-Mag) omeprazole 20 mg capsule,delayed 20 mg PO QAM 08/14/24 08/14/24 History release sertraline 100 mg tablet 100 mg PO QPM 08/14/24 08/14/24 History sertraline 50 mg tablet 50 mg PO QPM 08/14/24 08/14/24 History trazodone 150 mg tablet 75 mg PO HS 08/14/24 08/14/24 History Patient History Medical History (Updated 08/14/24 @ 04:07 by Carlos River MD) Dysphagia Adrenal adenoma Urinary incontinence Coronary artery disease Surgical History History of tubal ligation History of bilateral salpingo-oophorectomy (BSO) History of appendectomy S/P bypass graft of extremity S/P cataract surgery History of hysterectomy Family History Sister Myocardial infarction Emphysema, unspecified Brother Myocardial infarction Diabetes Father Cerebral artery occlusion with cerebral infarction Mother Cerebral artery occlusion with cerebral infarction Diabetes Denies family history of Ovarian cancer Prostate cancer Kidney disease Breast cancer Colorectal cancer Social History Smoking Status: Former smoker Tobacco Type: Cigarettes Age Started Using Tobacco: 31; Age Quit Using Tobacco: 54; packs per day: 4; Second Hand Exposure: No; Do You Dip or Chew Tobacco: No; Hx Alcohol Use: No Hx Substance Use: No Preferred Language: Uzbek Communication Ability: Effective Visual Impairment: No Limitations Hearing Ability: Use of Hearing Aid Special Police Required: No Beliefs That Will Affect Care: None marital status: Current Living Situation: Alone Current Living Situation Comment: [facility] current occupational status: retired 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, 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, 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 [employer] Feels Safe at Home: Yes Safety Concerns Comment: afraid of falling while home alone, has railings on bed, has med alert now Childhood Exposure to Second-Hand Smoke: Yes Diet: regular caffeine: Yes (mixes decaf and reg coffee) Dental Care, Regularly: No Physical Activity Frequency: Does not Exercise Physical Activity Frequency Comment: Exercise limited by physical condition Seatbelt Use: always Sunscreen Use: No (doesn't go outside ) Do you think of yourself as: straight/heterosexual Gender Identity: Female Assistive Devices: Glasses and Hearing Aid - Bilateral Physical Exam 2 Physical Exam: Patients left lower extremity is splinted. She demonstrates active EHL and FHL function. She has intact sensation in DPN and SPN nerve distributions. Her splint was not taken down, but pictures that were sent to me by Dr. العراقي were reviewed. She seems to have a small poke hole open injury on her medial malleolus with significant ecchymosis. Results & Data Vital Signs (Past 12 Hours) Vital Signs Temp Pulse Pulse Resp BP BP BP 08/14/24 08:18 84 157/68 H 08/14/24 08:00 08/14/24 07:14 36.5 C 84 18 198/75 H 203/71 H 08/14/24 05:24 08/14/24 05:24 36.4 C L 90 16 213/81 H 08/14/24 05:00 36.6 C 78 20 193/69 H 08/14/24 04:16 08/14/24 04:00 36.7 C 70 16 208/81 H 08/14/24 03:00 36.6 C 74 20 185/61 H 08/14/24 02:30 81 20 158/119 H 08/14/24 02:00 36.9 C 81 20 199/91 H 08/14/24 01:54 75 22 167/77 H 08/14/24 01:37 82 08/14/24 01:25 08/14/24 01:03 36.6 C 24 228/131 H 08/14/24 01:03 36.6 C 90 24 228/131 H Pulse Ox O2 Del Method O2 Flow Rate 08/14/24 08:18 08/14/24 08:00 Nasal Cannula 2 08/14/24 07:14 99 Nasal Cannula 2 08/14/24 05:24 Nasal Cannula 2 08/14/24 05:24 98 Nasal Cannula 2 08/14/24 05:00 99 Nasal Cannula 2 08/14/24 04:16 88 L Room Air 08/14/24 04:00 95 Room Air 08/14/24 03:00 95 Room Air 08/14/24 02:30 94 Room Air 08/14/24 02:00 94 Room Air 08/14/24 01:54 94 Room Air 08/14/24 01:37 08/14/24 01:25 94 Room Air 08/14/24 01:03 94 Room Air 08/14/24 01:03 94 Room Air Laboratory Results 08/14/24 08/14/24 01:37 01:31 WBC 9.76 RBC 3.74 L Hgb 10.2 L POC Hgb 10.2 L Hct 32.3 L POC Hct 30 L MCV 86.4 MCH 27.3 MCHC 31.6 L RDW Std Deviation 50.1 H RDW Coeff of Nathan 16.2 H Plt Count 257 MPV 9.3 L Immature Gran % (Auto) 0.5 Neut % (Auto) 60.8 Lymph % (Auto) 28.7 [place] % (Auto) 7.2 Eos % (Auto) 2.5 Baso % (Auto) 0.3 Neut # (Auto) 5.94 Lymph # (Auto) 2.80 [place] # (Auto) 0.70 H Eos # (Auto) 0.24 Baso # (Auto) 0.03 Immature Gran # (Auto) 0.05 PT 10.0 INR 0.9 POC Sodium 140 Sodium 140 POC Potassium 4.5 Potassium 4.6 POC Chloride 104 Chloride 105 Carbon Dioxide 30 POC Total CO2 27 Anion Gap 5 POC Anion Gap 15.0 L POC BUN 26 H BUN 29 H Creatinine 1.96 H POC Creatinine 2.0 H Est Cr Clr Drug Dosing 19.4 eGFR 25.72 BUN/Creatinine Ratio 14.8 Glucose 103 H POC Glucose (other) 105 H Calcium 10.6 H POC Ioniz Calcium Meryl 1.42 H Magnesium 1.9 Total Bilirubin 0.2 AST 22 ALT 22 Alkaline Phosphatase 64 Total Creatine Kinase 74 Total Protein 6.7 Albumin 4.1 Globulin 2.6 Albumin/Globulin Ratio 1.6 Diagnostic Findings X-rays of the pelvis, tib-fib, left ankle were personally interpreted and reviewed. These demonstrate a bimalleolar left ankle fracture Sky B distal fibula with a medial malleolus associated patient does already have underlying degenerative changes of her ankle. No additional osseous abnormalities are noted. Of note, the patient does have peripheral vascular disease and soft tissue calcifications seen on imaging.
--- NOTE | 2024-08-14 12:28 | Communication Note ---
Date of Service: August 14, 2024 Open left ankle fracture- NPO Ancef 2 g IV every 8 hours Acetaminophen 1 g IV every 8 hours as needed for mild pain or fever Dilaudid 0.25 mg IV every 3 hours as needed for moderate pain Dilaudid 0.5 mg IV every 3 hours as needed for severe pain Pantoprazole 40 mg IV daily Zofran 4 mg IV every 6 hours as needed NSS at 80 mL/h x 1 Ortho consulted, patient to go to OR later today. perioperative risk 2.9% Acute kidney injury superimposed on CKD stage III- Creatinine 1.96 on admission with base 1.28 Status post 500 mL normal saline from the ED NSS at 80 mL/h x 1 L Repeat laboratories in a.m. Hypertension/Status post CABG x 4/multivessel CAD- Hold amlodipine, aspirin, clopidogrel Continue isosorbide mononitrate Hydralazine 10 mg IV every 4 hours as needed for systolic blood pressure greater than 160 COPD- Patient rarely takes Breztri since it makes her mouth too dry Albuterol HFA 2 puffs 4 times daily as needed Duonebs every 2 hours as needed
--- NOTE | 2024-08-14 13:18 | Anesthesiology Consultation ---
Date of Service August 14, 2024 Assessment & Plan (1) Encounter for pre-operative examination: Chart Review Chart Review: Acceptable Risk for Surgery History Surgery Operation Date: 08/14/24 07:00 Proposed Procedures p Left Ankle Irrigation and Debridement, Open versus Closed Reduction, Internal versus External Fixation - Ck Mcdonald DO Height/Weight Height: 4 ft 9 in Weight: 69.6 kg Allergies Allergy/AdvReac Type Severity Reaction Status Date / Time nystatin Allergy Intermediate "POWDER"--- Verified 08/14/24 04:07 BLISTER/JURGEN H nickel Allergy Unknown RASH Verified 07/28/24 13:56 rosuvastatin AdvReac Mild Pain Verified 07/28/24 13:56 salicylates AdvReac Mild GI UPSET Verified 07/28/24 13:56 adhesive AdvReac Unknown ITCHING Verified 07/28/24 13:56 Medications Home Medications Medication Instructions Recorded Confirmed Last Taken hydrocortisone 2.5 % topical cream 1 appln [place] DAILY PRN hemorrhoids 05/17/20 08/14/24 Unknown with perineal applicator #30 grams nitroglycerin 0.4 mg sublingual 0.4 mg sublingual Q5M PRN chest 02/10/21 08/14/24 Unknown tablet pain #25 tabs cetirizine 10 mg tablet (Zyrtec) 10 mg PO QAM 07/05/22 08/14/24 Unknown ondansetron 4 mg disintegrating 4 mg translingual TID PRN nausea 11/14/22 08/14/24 Unknown tablet and vomiting #60 tabs lidocaine 5 % topical patch 1 patch topical DAILY PRN back pain 06/10/23 08/14/24 Unknown (Lidoderm) meclizine 12.5 mg tablet 12.5 mg PO TID PRN dizziness #30 06/28/23 08/14/24 Unknown tabs aspirin 81 mg tablet,delayed 81 mg PO QAM #90 tabs 11/06/23 08/14/24 Unknown release budesonide 160 mcg-glycopyr 9 2 inh inhalation BID #5.9 grams 01/10/24 08/14/24 Unknown mcg-formot 4.8 mcg/actuation HFA inhaler (Breztri Aerosphere) amlodipine 10 mg tablet 10 mg PO QAM #90 tabs 01/23/24 08/14/24 Unknown atorvastatin 80 mg tablet 80 mg PO HS #90 tabs 01/23/24 08/14/24 Unknown clopidogrel 75 mg tablet 75 mg PO QAM #90 tabs 01/23/24 08/14/24 Unknown cholecalciferol (vitamin D3) 50 2,000 unit PO QAM #90 caps 03/24/24 08/14/24 Unknown mcg (2,000 unit) capsule levothyroxine 88 mcg tablet 88 mcg PO DAILY #90 tabs 03/31/24 08/14/24 Unknown calcitriol 0.25 mcg capsule 0.25 mcg PO Q2D #45 caps 05/26/24 08/14/24 Unknown denosumab 60 mg/mL subcutaneous 60 mg subcut .[id number] #1 mL 07/03/24 08/14/24 08/12/24 syringe (Prolia) folic acid 1 mg tablet 1 mg PO QAM #90 tabs 07/20/24 08/14/24 Unknown isosorbide mononitrate 120 mg 120 mg PO QAM #90 tabs 07/20/24 08/14/24 Unknown tablet,extended release 24 hr melatonin 10 mg sublingual tablet 15 mg sublingual DAILY 07/28/24 08/14/24 Unknown albuterol sulfate 90 mcg/actuation 2 puff inhalation .EVERY 4-6 HOURS 08/14/24 08/14/24 Unknown aerosol inhaler PRN shortness of breath or wheezing clotrimazole-betamethasone 1 1 applic topical BID PRN Rash 08/14/24 08/14/24 Unknown %-0.05 % topical cream donepezil 5 mg tablet 5 mg PO QAM 08/14/24 08/14/24 Unknown fluoride (sodium) 1.1 % dental 1 applic dental BID 08/14/24 08/14/24 Unknown cream (Denta 5000 Plus) magnesium chloride 71.5 mg 71.5 mg PO TID 08/14/24 08/14/24 Unknown (magnesium chloride) tablet,delayed release (Slow-Mag) omeprazole 20 mg capsule,delayed 20 mg PO QAM 08/14/24 08/14/24 Unknown release sertraline 100 mg tablet 100 mg PO QPM 08/14/24 08/14/24 Unknown sertraline 50 mg tablet 50 mg PO QPM 08/14/24 08/14/24 Unknown trazodone 150 mg tablet 75 mg PO HS 08/14/24 08/14/24 Unknown Active Medications Generic Name Dose Route Start Last Admin Trade Name Freq PRN Reason Stop Dose Admin Amlodipine Besylate 10 mg 08/14/24 09:00 08/14/24 06:20 Amlodipine Besylate 5 Mg Tab PO 09/13/24 08:59 10 mg QAM JANELLE Administration Hydralazine HCl 10 mg 08/14/24 05:20 08/14/24 07:38 Hydralazine Hcl 20 Mg/Ml Vial IV 09/13/24 05:19 10 mg Q4H PRN Administration SBP above 160 Hydromorphone HCl 0.25 mg 08/14/24 02:25 08/14/24 03:25 Hydromorphone Inj 0.5 Mg/0.5 Ml Syr IV 08/28/24 02:24 0.25 mg Q30M PRN Administration Pain Hydromorphone HCl 0.5 mg 08/14/24 05:20 08/14/24 11:42 Hydromorphone Inj 0.5 Mg/0.5 Ml Syr IV 08/28/24 05:19 0.5 mg Q3H PRN Administration Severe Pain (Scale 7, 8, 9,10) Sodium Chloride 1,000 mls @ 80 mls/hr 08/14/24 04:05 08/14/24 05:47 Nss IV 08/14/24 16:34 80 mls/hr .[id number] STA Administration Pantoprazole Sodium 40 mg in 10 mls @ 5 mls/min 08/14/24 09:00 08/14/24 07:38 Protonix IV 09/13/24 08:59 5 mls/min BID JANELLE Administration Isosorbide Mononitrate 120 mg 08/14/24 09:00 08/14/24 06:20 Isosorbide [place] Extended Rel 60 Mg Tabcr PO 09/13/24 08:59 120 mg QAM JANELLE Administration Levothyroxine Sodium 88 mcg 08/14/24 06:30 08/14/24 05:48 Levothyroxine Sodium 88 Mcg Tablet PO 09/13/24 06:29 Not Given DAILYBB JANELLE Magnesium Chloride 64 mg 08/14/24 09:00 08/14/24 08:26 Magnesium Chloride W/Calcium 64mg Delayed Rel Tab PO 09/13/24 08:59 Not Given TID JANELLE Past Medical History Medical History (Updated 08/14/24 @ 13:18 by Milton Gaytan MD) Anemia Acute kidney injury superimposed on CKD Peripheral vascular disease Hypertension SDAT (senile dementia of Alzheimer's type) Hyperparathyroidism Hypothyroidism DM (diabetes mellitus) Dysphagia Adrenal adenoma Urinary incontinence Coronary artery disease Past Family History Family History Sister Myocardial infarction Emphysema, unspecified Brother Myocardial infarction Diabetes Father Cerebral artery occlusion with cerebral infarction Mother Cerebral artery occlusion with cerebral infarction Diabetes Denies family history of Ovarian cancer Prostate cancer Kidney disease Breast cancer Colorectal cancer Past Surgical History Surgical History S/P CABG x 4 History of tubal ligation History of bilateral salpingo-oophorectomy (BSO) History of appendectomy S/P bypass graft of extremity S/P cataract surgery History of hysterectomy Social History Smoking Status: Former smoker tobacco type: cigarettes Do You Dip or Chew Tobacco: No Hx Alcohol Use: No Hx Substance Use: No Physical Exam Vital Signs Last Vital Signs Temp 36.5 C 08/14/24 07:14 Pulse 84 08/14/24 08:18 Resp 18 08/14/24 07:14 BP 160/66 H 08/14/24 11:57 Pulse Ox 99 08/14/24 07:14 O2 Del Method Nasal Cannula 08/14/24 08:00 O2 Flow Rate 2 08/14/24 08:00 Testing Laboratory Results 08/14/24 01:31 08/14/24 01:31 PT 10.0 Seconds (9.0-12.0) 08/14/24 01:31 INR 0.9 (0.9-1.1) 08/14/24 01:31 08/14/24 01:37 POC Glucose (other) 105 H Electrocardiogram Date: 08/14/24 Findings: + NSR @ (89), + NSST changes, + poor R wave progression and + RBBB (incomplete) Chest X-Ray Date: 08/14/24 Findings: + NAD
[2024-08-14] MEDS ORDERED: PROPOFOL IV EMULSION 10 MG/ML 20 ML VIAL IV ONE ×2 (13:23→14:05)
[2024-08-14] MEDS ORDERED: ONDANSETRON INJ 2 MG/ML 2 ML VIAL ONE (13:23)
[2024-08-14] MEDS ORDERED: fentaNYL citrate PF 100 MCG/2 ML VIAL ONE ×3 (13:23→16:02)
[2024-08-14] MEDS ORDERED: LIDOCAINE 2% 2 ML VIAL/AMP(20MG/ML) INFIL ONE (13:23)
[2024-08-14] MEDS ORDERED: ROPIVACAINE 0.5% 5 MG/ML 30 ML VIAL ONE (13:46)
[2024-08-14] MEDS ORDERED: SODIUM CHLORIDE 0.9% PF INJ 10 ML VIAL ONE (13:46)
--- NOTE | 2024-08-14 14:02 | History & Physical Bridge Note ---
Date of Service August 14, 2024 History & Physical Bridge Note I have examined the patient, reviewed the History & Physical and in the interval since the performance of the History & Physical I have noted the following changes of clinical significance: no changes noted I met with the patient and her daughter who is the power of communications marketing intern in the preoperative holding area. I discussed once again in great detail the nature of this injury. We discussed the pathoanatomy, pathophysiology, and treatment options. I explained that since this is an open fracture, my recommendation is for an urgent irrigation and debridement with open versus closed reduction internal versus external fixation to be completed as soon as possible. The operating room had space available this afternoon for us to proceed. I discussed in great detail with the patient and her daughter the great risks associated with this case. There are risks of infection, loss of life or limb, DVT, wound healing complications, need for additional surgery are much higher in this patient considering her myriad of comorbid medical conditions including CKD, history of nicotine abuse, peripheral arterial disease, history of diabetes. The benefits of proceeding with surgery are to decrease the bacterial burden and improve the alignment of the fractures to hopefully improve the patient's pain. The patient's daughter her power of communications marketing intern signed consent form today. Questions were answered to their satisfaction. We will proceed to the OR now.
[2024-08-14] MEDS: ceFAZolin 2000MG 2,000 MG/15 ML SYR IV ONE (14:29)
--- OUTSIDE RECORDS SUMMARY | 2024-08-14 15:39 | External Medical Summary | Continuity of Care Document ---
Author Name Unknown Organization [facility] [address] Address [address] [facility] [place] [address] [phone] Care Team Providers Care Entry Level Finance Name Role Phone Nedra Baldemartatyanabasia Cid Primary Care Physician [phone] Encounter [facility] [id number] Date(s): 08/11/24 - 08/11/24 [facility] [address] [phone] Encounter Diagnosis Keratoacanthoma of skin(Discharge Diagnosis) - 08/11/24 Discharge Disposition: Home or Self Care Attending Physician: MD Griffin Cassandra Referring Physician: MD Griffin Cassandra Allergies, Adverse Reactions, Alerts Substance Criticality Severity Reaction Reaction Severity Status Adhesive bandage bandaids ar e allergy itchy rash Active Nickel itchy rash Active Tape Nickel itchy rash Active Statins (HMG-CoA reductase inhibitors) Myalgia Arthralgia Active Assessment and Plan Extracted from: Title:Dermatology Office Visit Note Author:Krish davidson MD, Tricia Date:08/11/24 1.Keratoacanthoma of skin - chronic, 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 Alternative therapies were discussed, and education on healing, risk of atrophy, dyspigmentation, infection were performed. Patient tolerated procedure well without complication. Site: L upper arm x1, R forearm x2 Quantity/concentration: 0.5 mL of 40 mg/mL - Wrap applied to right upper extremity: Vaseline, Unna wrap, Kerlix and tubular net dressing, elbow left open F/u 1 week, will reach out to Dr. Smart re: f/u in [place] Medications albuterol 0.083% for nebulization Start: 03/09/24 3:15:00 PM EDT, 75 mL, 0 Refill(s), INHALE 1 VIAL VIA NEBULIZER EVERY 4 HOURS NEEDED FOR SHORTNESS OF BREATH OR WHEEZING Start Date: 03/09/24 Status: Ordered albuterol CFC free 90 mcg/inh MDI Start: 11/05/22 4:05:00 PM EST, 2 puff, inhaled, qid, PRN: as needed for wheezing Start Date: 11/05/22 Status: Ordered atorvastatin 80 mg oral tablet Start: 08/03/21 10:35:00 AM EDT, 1 tab, PO, Daily Start Date: 08/03/21 Status: Ordered betamethasone dipropionate 0.05% topical ointment Start: 06/07/24 10:01:00 PM EDT, See Instructions, Disp# 45 g, Refills: 1, APPLY TO AFFECTED AREAS ON ARMS AND CHEST TWICE DAILY NEEDED FOR 30 DAYS, Pharmacy: [id number] Start Date: 06/07/24 Status: Ordered betamethasone-clotrimazole 0.05%-1% topical cream Start: 01/09/24 2:25:00 PM EDT Start Date: 01/09/24 Status: Ordered Breztri Aerosphere Start: 01/09/24 2:24:00 PM EDT Start Date: 01/09/24 Status: Ordered calcitriol 0.25 mcg oral capsule Start: 11/07/18 10:17:00 AM EST, 1 cap, PO, q48h Start Date: 11/07/18 Status: Ordered donepezil 5 mg oral tablet Start: 12/09/23 4:03:00 PM EST, 1 tab, PO, Daily Start Date: 12/09/23 Status: Ordered Ecotrin Adult Low Strength 81 mg oral delayed release tablet Start: 08/20/17 10:18:00 AM EDT, 1 tab, PO, Daily Start Date: 08/20/17 Status: Ordered folic acid 1 mg oral tablet Start: 11/05/22 4:05:00 PM EST, 1 tab, PO, Daily Start Date: 11/05/22 Status: Ordered hydrocortisone 2.5% rectal cream with applicator Start: 11/05/22 4:06:00 PM EST, 1 appl, CA, bid Start Date: 11/05/22 Status: Ordered Imdur 60 mg oral tablet, extended release Start: 08/20/17 10:19:00 AM EDT, 2 tab, PO, qAM Start Date: 08/20/17 Status: Ordered levothyroxine Start: 05/02/22 10:00:00 AM EDT, 88 mcg =, PO, Daily Start Date: 05/02/22 Status: Ordered Lidoderm 5% topical patch Start: 11/05/22 4:06:00 PM EST, 1 patch, topical, Daily Start Date: 11/05/22 Status: Ordered Magnesium Chloride With Calcium 64 mg-112 mg oral delayed release tablet Start: 08/03/21 11:31:00 AM EDT, See Instructions, 1 tab po tid Start Date: 08/03/21 Status: Ordered melatonin 10 mg oral tablet Start: 12/09/23 4:02:00 PM EST, See Instructions, 1.5 tab po q HS Start Date: 12/09/23 Status: Ordered metoprolol succinate 25 mg oral tablet, extended release Start: 08/03/21 11:30:00 AM EDT, 0.5 tab, PO, Daily Start Date: 08/03/21 Status: Ordered Nitrostat 0.4 mg sublingual tablet Start: 08/20/17 10:24:00 AM EDT, 1 tab, SL, q5min, PRN: as needed for chest pain Start Date: 08/20/17 Status: Ordered Norvasc 5 mg oral tablet Start: 08/20/17 10:19:00 AM EDT, 2 tab, PO, Daily Start Date: 08/20/17 Status: Ordered omeprazole 20 mg oral delayed release capsule Start: 08/20/17 10:21:00 AM EDT, 1 cap, PO, Daily Start Date: 08/20/17 Status: Ordered Plavix 75 mg oral tablet Start: 08/20/17 10:21:00 AM EDT, 1 tab, PO, Daily Start Date: 08/20/17 Status: Ordered Prolia 60 mg syringe - PROVIDER injection Start: 12/04/23 3:52:00 PM EST Start Date: 12/04/23 Status: Ordered Sensipar 60 mg oral tablet Start: 11/07/18 10:16:00 AM EST, 1 tab, PO, Daily Start Date: 11/07/18 Status: Ordered traZODone Start: 01/09/24 2:24:00 PM EDT Start Date: 01/09/24 Status: Ordered Vitamin D3 Start: 08/20/17 10:24:00 AM EDT, 50 mcg =, PO, Daily Start Date: 08/20/17 Status: Ordered Zofran 4 mg oral tablet Start: 08/20/17 10:24:00 AM EDT, 2 tab, PO, bid, PRN: as needed for nausea/vomiting Start Date: 08/20/17 Status: Ordered Zoloft Start: 08/20/17 10:20:00 AM EDT, 150 mg =, PO, Daily Start Date: 08/20/17 Status: Ordered ZyrTEC 10 mg oral tablet Start: 08/20/17 10:22:00 AM EDT, 1 tab, PO, Daily Start Date: 08/20/17 Status: Ordered Mental Status 08/11/24 Barriers to Learning one year None evide nt Mandatory Health Literacy Documentation Yes Health Literacy Communication Barriers N ever Primary Language Bel[place]ian Problem List Condition Confirmation Course Effective Dates Status H ealth Status Informant Bilateral carotid artery stenosis Confirmed Active Carotid stenosis Confirmed Active Hx of arterial bypass of lower limb Confirmed Active Keratoacanthoma of skin Confirmed Active Peripheral arterial disease Confirmed Active Diagnosis Diagnosis Type Effective Dates Health Status Clinical Service Informant Keratoacanthoma of skin Discharge Diagnosis 08/11/24 Procedures Procedure Date Related Diagnosis Body Site Status Excision 1 05/12/24 Completed Shave biopsy and cauterizati on of skin 2 01/09/24 Completed 1Biopsy 21- R shoulder, 2- R upper arm proximal, 3- R upper arm mid, 4- R upper arm distal, & 5- Left shoulder Social History Social History Type Response Smoking Status Never smoked cigaret britta Sex Female Sex Representation Female (finding) Dermatology Outpatient Note * MD Gaby, Tricia: PERFORM, MODIFY Event Display: Dermatology Outpt Note Authored Date: [id number] Chief Complaint f/u efudex wraps, removed wrap on right arm d/t burning History of Present Illness Patient is a 79 yo CF, here with her daughter for f/u multiple keratoacanthomas (component ofprurigo)at B/L arms Patient notes that she had to remove that wrap that was placed last week after only 2 days. [place] itwas too hot and then got itchyandburning. States"couldn't doit,had tocomeoff". Thinksthatwhenher nerves "getactivated" she getsitchyeverywhereandthisnegatively impactsher sleep.Thinks the Coban doesn't breathe and wonders if wraps can be done without it. Has been applying betamethasone and calamine location which she thinks has been helpful. Notes 2 new spots Chan upper arm and R forearm.No longer scratching forehead and chest. Saw Dr. Smart 07/27/24 in [place], discussed treatment options, patient notes that they discussed alot, was a little overwhelming. She states she does not recall an any allergy to 5-FU that is listed in her records but still states methotrexate was what really worked for her in the past. Physical Exam A&O x 3, well-appearing, well-groomed, pleasant Focused skin exam ofB/L arms reveals multiplepink hyperkeratotic papules on R upper extremity, L upper arm inferior to bruise from recent fall - all lesions treated with ILK by Dr. 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 Alternative therapies were discussed, and education on healing, risk of atrophy, dyspigmentation, infection were performed. Patient tolerated procedure well without complication. Site: L upper arm x1, R forearm x2 Quantity/concentration: 0.5 mL of 40 mg/mL - Wrap applied to right upper extremity: Vaseline, Unna wrap, Kerlix and tubular net dressing, elbow left open F/u 1 week, will reach out to Dr. Smart re: f/u in [place] Problem List/Past Medical History Ongoing Bilateral carotid artery stenosis Carotid stenosis Hx of arterial bypass of lower limb Keratoacanthoma of skin Peripheral arterial disease Procedure/Surgical History Excision| Service Date: 05/12/2024Shave biopsy and cauterization of skin| Service Date: 01/09/2024 Medications albuterol(albuterol CFC free 90 mcg/inh MDI), 2 puff, inhaled, qid, PRN albuterol(albuterol 0.083% for nebulization) amLODIPine(Norvasc 5 mg oral tablet), 10 mg= 2 tab, PO, Daily aspirin(Ecotrin Adult Low Strength 81 mg oral delayed release tablet), 81 mg= 1 tab, PO, Daily atorvastatin(atorvastatin 80 mg oral tablet), 80 mg= 1 tab, PO, Daily betamethasone topical(betamethasone dipropionate 0.05% topical ointment), See Instructions betamethasone-clotrimazole topical(betamethasone-clotrimazole 0.05%-1% topical cream) budesonide/formoterol/glycopyrrolate(Breztri Aerosphere) calcitriol(calcitriol 0.25 mcg oral capsule), 0.25 mcg= 1 cap, PO, q48h calcium carbonate-magnesium chloride(Magnesium Chloride With Calcium 64 mg-112 mg oral delayed release tablet), See Instructions cetirizine(ZyrTEC 10 mg oral tablet), 10 mg= 1 tab, PO, Daily cholecalciferol(Vitamin D3), 50 mcg, PO, Daily cinacalcet(Sensipar 60 mg oral tablet), 60 mg= 1 tab, PO, Daily clopidogrel(Plavix 75 mg oral tablet), 75 mg= 1 tab, PO, Daily denosumab - AMB Provider Charge(Prolia 60 mg syringe - PROVIDER injection) donepezil(donepezil 5 mg oral tablet), 5 mg= 1 tab, PO, Daily folic acid(folic acid 1 mg oral tablet), 1 mg= 1 tab, PO, Daily hydrocortisone topical(hydrocortisone 2.5% rectal cream with applicator), 1 appl, CA, bid isosorbide mononitrate(Imdur 60 mg oral tablet, extended release), 120 mg= 2 tab, PO, qAM levothyroxine, 88 mcg, PO, Daily lidocaine topical(Lidoderm 5% topical patch), 1 patch, topical, Daily melatonin(melatonin 10 mg oral tablet), See Instructions metoprolol(metoprolol succinate 25 mg oral tablet, extended release), 12.5 mg= 0.5 tab, PO, Daily nitroglycerin(Nitrostat 0.4 mg sublingual tablet), 0.4 mg= 1 tab, SL, q5min, PRN omeprazole(omeprazole 20 mg oral delayed release capsule), 20 mg= 1 cap, PO, Daily ondansetron(Zofran 4 mg oral tablet), 8 mg= 2 tab, PO, bid, PRN sertraline(Zoloft), 150 mg, PO, Daily traZODone triamcinolone(Kenalog-40 injectable suspension), 40 mg= 1 mL, intralesional, ONCE Allergies Adhesive bandagebandaids are allergy, itchy rash Nickelitchy rash Statins (HMG-CoA reductase inhibitors)Myalgia, Arthralgia TapeNickel, itchy rash Social History Smoking Status Never smoked cigarettes Electronic Signature on File CC: Fartun Smart MD [address] [place] [address] [place] [id number] Electronically Reviewed/Signed by: Tricia Griffin MD Author Signature Dt/Tm:08/13/2024 08:48 AM Department of Dermatology CS Patient Care team information Care Team Personnel Name: MD Nedra, Tye Cid Position: Referring DIRECT Member Role: Primary Care Provider Address: [address] [place] [id number] [place] Name: DIONI Arora Lynn Position: Physician Lathe Operator Contact Lens Exempt - Vasc Surg Member Role: Lifetime Relationship Address: [address] [place] [id number] [place] Care Team Related Persons Name: BRIAN MORFIN Name: HARINDER WILKINSON
--- NOTE | 2024-08-14 17:02 | Fluoroscopy Report ---
FL ankle LT 2V CLINICAL HISTORY: Left ankle fracture. COMPARISON STUDY: Left ankle radiographs performed earlier today. FLUOROSCOPY TIME: 50 seconds. Ka, r: 1.0342 mGy FLUOROSCOPIC IMAGES: 6 FINDINGS: Fluoroscopy was provided during open reduction and internal fixation of the left ankle frac tures, including plate and screw fixation of the fibular fracture and screw fixation of the medial ma lleolar fracture. Fracture alignment appears anatomic. The hardware is intact. No unexpected radiopaq ue foreign bodies. IMPRESSION: Fluoroscopy provided during open reduction and internal fixation of the left ankle fract ures. ACT 112: Negative or not required by law. Electronically signed by: Jason Cooper M.D. 08/14/2024 5:01 PM
[2024-08-14] MEDS ORDERED: PHENYLEPHRINE 100MCG/ML 10ML SYR IV ONE (17:23)
[2024-08-14] MEDS: ceFAZolin 2000MG 2,000 MG/15 ML SYR IV SCH (17:44)
--- NOTE | 2024-08-14 18:12 | Post Operative Brief Note ---
Immediate Post Op Note Date of Surgery August 14, 2024 Pre & Post Diagnosis Operation Date: 08/14/24 07:00 Pre-Op Diagnosis: Grade I open left bimalleolar ankle fracture Post-Op Diagnosis: Grade I open left bimalleolar ankle fracture I identified the patient and participated in the time-out.: Yes Procedure Operation Date: 08/14/24 07:00 Actual Procedures p Left ankle irrigation and debridement, open reduction, internal fixation.(Left) - Ck Mcdonald DO 1. Left ankle irrigation and debridement for open fracture 2. Open reduction and internal fixation left ankle medial malleolus 3. Open reduction and internal fixation left ankle lateral malleolus 4. Physician directed fluoroscopy greater than one hour 5. Application short leg splint Surgeon Ck Mcdonald DO Director Instrumentation Shonda Ruiz PA-C Estimated Blood Loss 75 Findings See Below Grade I open bimalleolar ankle fracture, left Fluids see anesthesia record Complications none immediately apparent Disposition Accompanied Patient To Recovery: Yes Overlapping Procedure I was present for: the critical portions of procedure. (the entire procedure.)
--- NOTE | 2024-08-14 18:23 | Anesthesiology Progress Note ---
Date of Service August 14, 2024 Anesthesia Post Procedure Vital Signs Vital Signs: Temp Pulse Pulse Pulse Resp BP BP 08/14/24 18:15 36.8 C 100 H 17 165/63 H 08/14/24 18:05 101 H 13 155/64 H 08/14/24 17:55 109 H 17 159/60 H 08/14/24 17:46 37.5 C 100 H 15 169/69 H 08/14/24 13:45 36.5 C 78 20 186/61 H 08/14/24 11:57 08/14/24 08:18 84 08/14/24 08:00 08/14/24 07:14 36.5 C 84 18 198/75 H 08/14/24 05:24 08/14/24 05:24 36.4 C L 90 16 213/81 H 08/14/24 05:00 36.6 C 78 20 193/69 H 08/14/24 04:16 08/14/24 04:00 36.7 C 70 16 208/81 H 08/14/24 03:00 36.6 C 74 20 185/61 H 08/14/24 02:30 81 20 158/119 H 08/14/24 02:00 36.9 C 81 20 199/91 H 08/14/24 01:54 75 22 167/77 H 08/14/24 01:37 82 08/14/24 01:25 08/14/24 01:03 36.6 C 24 228/131 H 08/14/24 01:03 36.6 C 90 24 228/131 H BP Pulse Ox O2 Del Method O2 Flow Rate 08/14/24 18:15 94 Nasal Cannula 2 08/14/24 18:05 94 Nasal Cannula 2 08/14/24 17:55 96 Nasal Cannula 4 08/14/24 17:46 97 Oxymask 8 08/14/24 13:45 94 Room Air 08/14/24 11:57 160/66 H 08/14/24 08:18 157/68 H 08/14/24 08:00 Nasal Cannula 2 08/14/24 07:14 203/71 H 99 Nasal Cannula 2 08/14/24 05:24 Nasal Cannula 2 08/14/24 05:24 98 Nasal Cannula 2 08/14/24 05:00 99 Nasal Cannula 2 08/14/24 04:16 88 L Room Air 08/14/24 04:00 95 Room Air 08/14/24 03:00 95 Room Air 08/14/24 02:30 94 Room Air 08/14/24 02:00 94 Room Air 08/14/24 01:54 94 Room Air 08/14/24 01:37 08/14/24 01:25 94 Room Air 08/14/24 01:03 94 Room Air 08/14/24 01:03 94 Room Air Pain Intensity Back: Pain Intensity: 8 Neck: Pain Intensity: 8 Head: Pain Intensity: 8 Left Ankle: Pain Intensity: 7 Transfer of Care Handoff Completed per policy Notes Mental Status: alert / awake / arousable and participated in evaluation Patient Amnestic to Procedure: Yes Nausea / Vomiting: adequately controlled Pain: adequately controlled Airway Patency, RR, SpO2: stable & adequate BP & HR: stable & adequate Hydration State: stable & adequate Anesthetic Complications: no major complications apparent and Pt Satisfied with anesthetic care
--- NOTE | 2024-08-14 18:32 | Operative Report ---
Post Operative Report Pre & Post Diagnosis Operation Date: 08/14/24 07:00 Pre-Op Diagnosis: Open left ankle with puncture wound. Post-Op Diagnosis: Open left ankle with puncture wound. I identified the patient and participated in the time-out.: Yes Procedure Operation Date: 08/14/24 07:00 Actual Procedures p Left ankle irrigation and debridement, open reduction, internal fixation.(Left) - Ck Mcdonald DO 1. Left ankle irrigation and debridement for open fracture 2. Open reduction and internal fixation left ankle medial malleolus 3. Open reduction and internal fixation left ankle lateral malleolus 4. Physician directed fluoroscopy greater than one hour 5. Application short leg splint Surgeon Ck Mcdonald DO Process Controller Shonda Ruiz PA-C Estimated Blood Loss 75 Findings See Below 1. Grade 1 poke hole open medial malleolus fracture 2. Osteopenia Fluids See anesthesia record Specimens None Drains None Complications None immediately apparent Indications This is a medically frail 79-year-old female who presented to the emergency department last evening for evaluation of her left ankle after she tripped and fell in her kitchen. Upon presentation to the emergency department, the patient had already received 2 g of Ancef IV and in the emergency department she had her tetanus updated due to concern for open fracture. X-rays did in fact straight a bimalleolar ankle fracture with a Sky B distal fibula associated medial malleolus. Dr. العراقي was on-call last evening and was initially contacted, but he contacted me this morning and asked if I would help manage this patient. I had a long discussion with the patient and her daughter regarding the nature of her injury. She sustained an open ankle fracture. Due to the nature of it being an open injury as well as the obvious instability of her ankle, I recommend to proceed with operative management. I explained to the patient that an operative plan for her left ankle would include an irrigation and debridement of her open fracture and to hopefully control any potential contamination from the open nature of this injury followed by open reduction internal fixation versus closed reduction and external fixation depending on the soft tissue envelope. I explained to the patient and her daughter that she is a very high risk candidate for surgery due to her litany of medical comorbidities, but also her surgery is more high risk from an orthopaedic standpoint due to the open nature of this fracture. She is at a very high risk of infection, need for additional surgery, and even potentially an amputation in the future if an infection is unable to be cleared. The patient expressed understanding to all of this. There are additional risks associate with the surgery including DVT, need for additional surgery, irritation from the hardware, iatrogenic injury to bones/nerves/vessels/tendons, incomplete relief of pain. Patient expressed understanding to these as well. No outcome was stated or implied to the patient. Description of Procedure After informed consent was obtained, the patient was correctly identified in the preoperative holding suite, the operative site was marked with the surgeon's initials, the date, and the word yes. The patient was then taken to the operative suite. The department of anesthesia administered general anesthesia The patient was transferred from the [facility] to the operative table. All bony prominences were well-padded. Briefing and timeout was performed. All implants were available and sterile at the time. BRIEFING AND DEBRIEFING: Pre and post operative briefing and debriefing was performed. Introductions were made, goals of the procedure were discussed, questions and concerns were addressed. The operative site markings were identified and appropriate. A time [id number] was performed, the patient's correct identity was confirmed and the correct operative sites were identified. The patients pre-operative antibiotic dosing and administration was confirmed along with other SCIP measures. The team was polled at the completion of the surgery and all team members were in agreement that the procedure was without complication, the counts are correct, the wound class was identified and suggestions for improvement were shared. After the patient was transferred to the operative table and adequate anesthesia was provided, the patient's left lower extremity splint was removed and we placed a tourniquet high on the thigh that was well-padded and placed a bump under her ipsilateral hip. The left lower extremity was then prepped and draped in standard sterile fashion using Betadine scrub and paint due to her open fracture. We exsanguinated the limb, inflated the tourniquet to 250 mmHg. The tourniquet would only be elevated for 20 minutes as we had a venous tourniquet. It was deflated and never reinflated. We began by making a direct medial approach to the medial malleolus and incorporated the small poke hole open injury into our incision. At the beginning of the case, this focal injury measured approximately 1 cm in length. Our total incision length approaching the medial malleolus measured approximately 6 cm in length. We incised through skin and subcutaneous tissue and easily spread to find the fracture. The poke hole open wounds approximately did communicate with the medial malleolus fracture. We then proceeded to thoroughly irrigate and sharply debride using knife, curettes, pituitary rongeur's any nonviable tissue down to the level of bone. We irrigated with 9 L of sterile saline. Following a thorough irrigation and debridement of the entire ankle, we turned our attention towards the lateral side. We marked out bony landmarks and planned for our incision which would be a posterior lateral approach to the fibula. We made our incision approximately 12 cm in length on the posterior lateral edge of the fibula. We incised sharply through skin and subcutaneous tissue until we reached the level of the peroneal fascia. The periosteum of the distal fibula was then incised and elevated both anteriorly and posteriorly. Immediately apparent at this time was the Sky B distal fibular fracture, but additionally, at this time, we did notice some lateral cortical blowout from the anterolateral distal fibula which was essentially a shell of cortex. This bone was so osteoporotic, and such a thin shell of bone that I believed it would not hold any independent fixation, so at this point we made the decision to alter our original plan of using a posterolateral distal fibula plate, and instead use a direct lateral distal fibula plate that could pin this cortical blowout back down underneath of the plate. We first cleared out any hematoma from the Sky B distal fibula fracture and prepared the fracture ends. We used lobster-claw reduction clamps in order to reduce this and checked our reduction using fluoroscopy to ensure appropriate fibular length. At this point, a 3.5 mm lag screw was placed using a "lag by technique" fashion. This achieved excellent purchase. This was 16 mm in length. We then used K wires to supplement this fixation and remove the lobster-claw clamps. We selected a 6 hole Synthes 2.5 mm / 3.5 mm lateral distal fibular periarticular locking plate. We placed this on the bone where it sat most appropriately, and first started by placing one 3.5 mm cortical screw in the shaft. This contained enough purchase to approximate the plate to bone, however was not robust enough, so at this point we placed another screw in the shaft, however this time we used a 3.5 mm locking screw. We then turned our attention distally and placed a single 2.7 mm cor tical screw within the distal aspect of the plate in order to approximated down to bone. This did have good purchase. We then drilled, measured, and placed appropriately sized 2.7 mm locking screws distally and every hole that was available. We then replaced our 1 cortical screw with a locking screw 2 mm shorter as this was bicortical and may have caused talus irritation. After completing our work on the lateral side, we turned our attention back medially and examined our fracture fragments. Using dental picks, the medial malleolus was reduced such that the shoulder was anatomic. This was easily visualized. We then held this in place using K wires for the 3.5 mm cannulated screw set. We placed these in appropriate location and ensured appropriate trajectory in order to be perpendicular to the fracture as well as safe trajectory to be out of the medial shoulder using fluoroscopy. Once we are happy with the placement of the guidewires, we drilled and placed 2 x 3.5 x 44 mm partially-threaded cancellous screws from the Synthes set. These obtained excellent purchase. At this point, we were satisfied with our fixation and proceeded to perform an external rotation stress exam under anesthesia using fluoroscopy. No medial gapping was noted and as such no syndesmotic fixation was added. We then thoroughly irrigated all wounds and closed the periosteal layer with 3-0 Monocryl in a running fashion. We then used 4-0 nylon suture in vertical Allgower-Donati fashion to close the skin. And we applied Steri-Strips. Betadine soaked Adaptic, sterile fluffs, sterile Webril were then applied followed by unsterile Webril and a well-padded trilaminar below-knee splint. This was then held with the ankle in neutral dorsiflexion until fully cured. The patient tolerated this procedure well and was transferred to the PACU in stable condition. Prior to transportation to PACU, all counts were correct. Physician-directed fluoroscopy for greater than one hour was performed by myself to verify fracture alignment and the safe placement of all fixation. The final images saved to PACs showed views demonstrating satisfactory alignment of the fracture and stable fixation. Implant verification was performed by myself by reading and confirming the implant information on the packaging with the team before the sterile implants were opened. Postoperative plan: - Open fracture antibiotics (Ancef 2 g every 12 hours due to her renal function) will continue for 48 hours following definitive closure (this occurred this evening) - Patient is remain nonweightbearing on the left lower extremity - Patient should keep the splint and dressing in place. - Patient should keep her limb elevated with the heel floated at all times when in bed - Out of bed to chair 3 times daily with all meals - Multimodal pain control avoiding anti-inflammatory medications - DVT prophylaxis: Patient takes Plavix and this can resume tomorrow - Vitamin D labs pending - She should be seen by physical therapy and Occupational Therapy so an appropriate discharge plan can be made - She will follow-up with me in clinic in 2 weeks I attest to the content of the Intraoperative Record and any orders documented therein. Any exceptions are noted below.
[2024-08-14] MEDS: ceFAZolin 2,000 MG/15 ML IV PUSH IV ONE (18:42)
[2024-08-14] MEDS: FAMOTIDINE/PF 20 MG/2 ML VIAL IV ONE (18:42)
[2024-08-14] MEDS: ATORVASTATIN 40 MG TAB PO SCH (21:28)
[2024-08-14] MEDS: SERTRALINE HCL 100 MG TABLET PO SCH (21:28)
[2024-08-14] MEDS: traZODone HCL 50 MG TAB PO SCH (21:29)
[2024-08-14] MEDS: SERTRALINE HCL 50 MG TABLET PO SCH (21:31)
[2024-08-14 21:37] LABS: Appearance Urine Clear (Clear); Bacteria Urine Automated None Seen (None Seen); Bilirubin Urine Negative (Negative); Blood Urine Negative (Negative); Cast Urine Automated 0-2 /lpf (0-2); Color Urine Yellow; Epithelial Cell Urine Auto 0-2 /hpf (0-2); Glucose Urine UA Negative (Negative); Ketones Urine Trace (Negative); Leukocyte Esterase Urine Negative (Negative); Nitrite Urine Negative (Negative); Protein Urine 2+ (Negative); RBC Urine Automated 0-2 /hpf (0-2); Specific Gravity Urine 1.025 (1.000-1.030); Urobilinogen Urine Negative (Negative); WBC Urine Automated 0-5 /hpf (0-5)
[2024-08-15] MEDS: CLOTRIMAZOLE/BETAMETHASONE CR 15 GM TUBE EXT PRN (00:15)
[2024-08-15] MEDS: oxyCODONE HCL IR 5 MG TAB (IMMEDIATE RELEASE) PO PRN (02:48)
[2024-08-15 02:52] LABS: Basophils # (auto) 0.02 K/uL (0.00-0.20); Basophils % (auto) 0.2 %; Hematocrit (blood only) 28.3 % (37.0-47.0); Hemoglobin 8.8 g/dl (12.0-16.0); Immature Granulocytes # (auto) 0.21 K/uL (0.01-0.20); Immature Granulocytes % (auto) 1.8 %; Lymphocytes # (auto) 1.58 K/uL (1.20-3.40); Lymphocytes % (auto) 13.6 %; Mean Corpuscular Hemoglobin 27.4 pg (25.0-34.0); Mean Corpuscular Hgb Conc 31.1 g/dL (32.0-36.0); Mean Corpuscular Volume 88.2 fL (80.0-100.0); Mean Platelet Volume 9.2 fL (9.4-12.4); Monocytes # (auto) 0.87 K/uL (0.11-0.59); Monocytes % (auto) 7.5 %; Neutrophils # (auto) 8.97 K/uL (1.40-6.50); Neutrophils % (auto) 76.9 %; Platelet Count 213 K/uL (130-400); RDW Coefficient of Variation 16.3 % (11.5-14.5); RDW Standard Deviation 52.7 fL (36.4-46.3); Red Blood Count 3.21 M/uL (4.20-5.40); White Blood Count 11.65 K/ul (4.8-10.8)
[2024-08-15 03:08] LABS: Albumin Globulin Ratio 1.6 (0.9-2); Albumin Level 3.6 gm/dl (3.4-5.0); BUN Creatinine Ratio 16.7 (10-20); Bilirubin,Total 0.3 mg/dl (0.2-1.0); Creatinine Clr Calc Pharmacy 24.9 ml/min; Globulin 2.3 gm/dl (2.5-4.0); Magnesium 1.7 mg/dl (1.7-2.4); Potassium 4.5 mmol/L (3.5-5.1); Total Protein 5.9 gm/dl (6.0-8.3)
[2024-08-15 03:14] LABS: Troponin I High Sensitivity 11.9 pg/ml (0-14)
--- NOTE | 2024-08-15 04:19 | Communication Note ---
Date of Service: August 15, 2024 Notified by nursing of episode of chest pain. EKG was obtained and when compared with prior largely unchanged. Evaluated pt and bedside and she states chest pain had resolved. Vital signs stable and appears in no acute distress. Was unable to qualify what part of chest or if any associated symptoms. Given history of CAD- troponin ordered and =11.9.
[2024-08-15] MEDS: ACETAMINOPHEN 1,000 MG/100 ML VIAL IV PRN (05:42)
[2024-08-15] MEDS: ACETAMINOPHEN 500 MG TAB PO SCH (10:52)
--- NOTE | 2024-08-15 11:19 | Orthopedic Progress Note ---
Date of Service August 15, 2024 Assessment & Plan (1) Fracture of ankle, left, open: Plan patient doing well POD 1 s/p I+D and ORIF grade I open left ankle fracture. NWB LLE Okay for plavix from orthopaedic standpoint Open fx antibiotics to continue for 48 hrs following closure (2g ancef q 12 hrs due to her renal disease) Will follow up with me in 2 weeks in clinic Vit D labs pending PT/OT for discharge planning Admission and Anticipated Discharge Date Admission Date: August 15, 2024 Subjective POD1 s/p I+D and ORIF open left ankle fracture. patient resting comfortably upon my entering the room. notes her block has started to wear off. Physical Exam Physical Exam: LLE splinted appropriately. EHL/FHL function. SILT SPN, DPN. brisk cap refill Results & Data Vital Signs (Past 12 Hours) Vital Signs Temp Pulse Pulse Resp BP BP Pulse Ox 08/15/24 07:24 36.9 C 91 H 18 117/60 92 08/15/24 03:43 36.4 C 98 H 18 152/68 H 93 08/15/24 01:49 160/74 H 08/15/24 00:12 170/60 H O2 Del Method O2 Flow Rate 08/15/24 07:24 Room Air 08/15/24 03:43 Nasal Cannula 2 08/15/24 01:49 08/15/24 00:12 (1) Fracture of ankle, left, open Encounter type: initial encounter Open fracture type: open type I or II Qualified Code(s): S82.892B - Other fracture of left lower leg, initial encounter for open fracture type I or II
[2024-08-15] MEDS: ALBUT/IPRATROP 3MG/0.5MG NEB 3 ML VIAL NEB PRN (23:06)
[2024-08-16 06:09] LABS: Basophils # (auto) 0.02 K/uL (0.00-0.20); Basophils % (auto) 0.2 %; Eosinophils # (auto) 0.09 K/uL (0.00-0.50); Eosinophils % (auto) 0.9 %; Hematocrit (blood only) 23.2 % (37.0-47.0); Hemoglobin 7.6 g/dl (12.0-16.0); Immature Granulocytes # (auto) 0.08 K/uL (0.01-0.20); Immature Granulocytes % (auto) 0.8 %; Lymphocytes # (auto) 1.63 K/uL (1.20-3.40); Lymphocytes % (auto) 16.4 %; Mean Corpuscular Hemoglobin 28.6 pg (25.0-34.0); Mean Corpuscular Hgb Conc 32.8 g/dL (32.0-36.0); Mean Corpuscular Volume 87.2 fL (80.0-100.0); Mean Platelet Volume 9.2 fL (9.4-12.4); Monocytes # (auto) 0.91 K/uL (0.11-0.59); Monocytes % (auto) 9.2 %; Neutrophils # (auto) 7.18 K/uL (1.40-6.50); Neutrophils % (auto) 72.5 %; Platelet Count 187 K/uL (130-400); RDW Coefficient of Variation 16.7 % (11.5-14.5); Red Blood Count 2.66 M/uL (4.20-5.40); White Blood Count 9.91 K/ul (4.8-10.8)
[2024-08-16 06:30] LABS: Polychromasia 1+
[2024-08-16 06:37] LABS: Albumin Globulin Ratio 1.5 (0.9-2); Albumin Level 3.4 gm/dl (3.4-5.0); BUN Creatinine Ratio 15.1 (10-20); Bilirubin,Total 0.3 mg/dl (0.2-1.0); Calcium 8.7 mg/dl (8.6-10.3); Creatinine Clr Calc Pharmacy 25.6 ml/min; Globulin 2.3 gm/dl (2.5-4.0); Potassium 4.4 mmol/L (3.5-5.1); Total Protein 5.7 gm/dl (6.0-8.3)
--- NOTE | 2024-08-16 09:31 | Orthopedic Progress Note ---
Date of Service August 16, 2024 Assessment & Plan (1) Fracture of ankle, left, open: Plan patient doing well POD 2 s/p I+D and ORIF grade I open left ankle fracture. NWB LLE Okay for plavix from orthopaedic standpoint Open fx antibiotics to continue for 48 hrs following closure (2g ancef q 12 hrs due to her renal disease) Will follow up with me in 2 weeks in clinic 25-OH Vit D 34.3 PT/OT for discharge planning Admission and Anticipated Discharge Date Admission Date: August 15, 2024 Subjective POD2 s/p I+D and ORIF open left ankle fracture. patient resting comfortably. no acute events overnight. Physical Exam Physical Exam: LLE splinted appropriately. EHL/FHL function. SILT SPN, DPN. brisk cap refill Results & Data Vital Signs (Past 12 Hours) Vital Signs Temp Pulse Resp BP Pulse Ox O2 Del Method O2 Flow Rate 08/16/24 07:05 36.7 C 83 18 156/67 H 94 Room Air 08/16/24 00:12 Nasal Cannula 2 08/15/24 23:08 95 H 18 92 Nasal Cannula 2 08/15/24 22:58 92 H 96 Nasal Cannula 2 08/15/24 22:45 97 H 88 L Room Air (1) Fracture of ankle, left, open Encounter type: initial encounter Open fracture type: open type I or II Qualified Code(s): S82.892B - Other fracture of left lower leg, initial encounter for open fracture type I or II
[2024-08-16] MEDS: PANTOprazole 40 MG TAB PO SCH (10:11)
[2024-08-16 14:16] LABS: Hematocrit (blood only) 24.2 % (37.0-47.0); Hemoglobin 7.6 g/dl (12.0-16.0); Mean Corpuscular Hemoglobin 27.7 pg (25.0-34.0); Mean Corpuscular Hgb Conc 31.4 g/dL (32.0-36.0); Mean Corpuscular Volume 88.3 fL (80.0-100.0); Mean Platelet Volume 9.4 fL (9.4-12.4); Platelet Count 181 K/uL (130-400); RDW Coefficient of Variation 16.7 % (11.5-14.5); RDW Standard Deviation 54.3 fL (36.4-46.3); Red Blood Count 2.74 M/uL (4.20-5.40); White Blood Count 10.18 K/ul (4.8-10.8)
[2024-08-16] MEDS ORDERED: SODIUM CHLORIDE 0.9% 1,000 ML IV SCH (15:45)
--- NOTE | 2024-08-16 15:47 | Hospitalist Progress Note ---
Date of Service August 16, 2024 Assessment & Plan (1) Open left ankle fracture: Plan: Patient presented to the ED on 08/14 after sustaining at fall at her home. Patient with open left ankle fracture s/p Left ankle ORIF 08/[address] Mcdonald. Tylenol 1000mg every 8 hours Oxycodone prn for pain PT/OT recommending rehab. Patient is to remain on abx x 48h following her operation. CBC reviewed 08/16: hgb low at 7.6, repeat stable at 7.6. plan to recheck H&H in 6 hours. BMP reviewed 08/16: creatinine 1.46 AM CBC, BMP (2) Acute kidney injury superimposed on CKD: Plan: Creatinine 1.96 on admission with base 1.28 Status post 500 mL normal saline from the ED NSS at 80 mL/h x 1 L BMP reviewed 08/16: creatinine 1.46 Encourage PO intake. Plan Chronic conditions: HTN: amlodipine, hydralazine IV prn if SBP >160 CAD: Isosorbide mononitrate. COPD: Albuterol prn GERD: PPI Mental health: Zoloft, trazodone HLD: statin Disposition: medical Diet: regular Code status: DNR Admission and Anticipated Discharge Date Admission Date: August 15, 2024 Subjective Patient seen and examined this afternoon. Patient resting comfortably at time of encounter. She stated she was not in any pain at time of evaluation. Denied any additional complaints. Physical Exam 2 Constitutional: WD/WN, vitals as above Eyes: PERRL, conjunctivae normal, anicteric sclerae Respiratory: normal respiratory effort, lungs clear to auscultation Cardiovascular: RRR, no murmur, no edema Skin: no rashes, warm and dry Results & Data Results & Data Vital Signs (Past 12 Hours) Vital Signs Temp Pulse Resp BP Pulse Ox O2 Del Method 08/16/24 14:30 36.9 C 96 H 16 157/72 H 92 Room Air 08/16/24 10:51 Room Air 08/16/24 07:05 36.7 C 83 18 156/67 H 94 Room Air Laboratory Results 08/16/24 13:57 08/16/24 05:43 PG Care Time/CCT Total # of Minutes Spent Total Time Spent with Patient: Total time spent is greater than 50% in coordination of care (as documented) at patient's floor/unit and/or counseling patient: Coding Level of Care Code 60440 SUB INP/OBS CARE MIN Diagnoses Open left ankle fracture S82.892B Acute kidney injury superimposed on CKD N17.9; N18.9
--- NOTE | 2024-08-16 15:48 | Hospitalist Progress Note ---
Date of Service August 15, 2024 Assessment & Plan (1) Open left ankle fracture: Plan: Patient presented to the ED on 08/14 after sustaining at fall at her home. Patient with open left ankle fracture s/p Left ankle ORIF 08/[address] Mcdonald. Tylenol 1000mg every 8 hours Oxycodone prn for pain PT/OT recommending rehab. Patient is to remain on abx x 48h following her operation. CBC reviewed 08/16: hgb low at 7.6, repeat stable at 7.6. plan to recheck H&H in 6 hours. BMP reviewed 08/16: creatinine 1.46 AM CBC, BMP (2) Acute kidney injury superimposed on CKD: Plan: Creatinine 1.96 on admission with base 1.28 Status post 500 mL normal saline from the ED NSS at 80 mL/h x 1 L BMP reviewed 08/16: creatinine 1.46 Encourage PO intake. Plan Chronic conditions: HTN: amlodipine, hydralazine IV prn if SBP >160 CAD: Isosorbide mononitrate. COPD: Albuterol prn GERD: PPI Mental health: Zoloft, trazodone HLD: statin Disposition: medical Diet: regular Code status: DNR Admission and Anticipated Discharge Date Admission Date: August 15, 2024 Results & Data Results & Data Vital Signs (Past 12 Hours) Vital Signs Temp Pulse Resp BP Pulse Ox O2 Del Method 08/16/24 14:30 36.9 C 96 H 16 157/72 H 92 Room Air 08/16/24 10:51 Room Air 08/16/24 07:05 36.7 C 83 18 156/67 H 94 Room Air PG Care Time/CCT Total # of Minutes Spent Total Time Spent with Patient: Total time spent is greater than 50% in coordination of care (as documented) at patient's floor/unit and/or counseling patient: Coding Diagnoses Open left ankle fracture S82.892B Acute kidney injury superimposed on CKD N17.9; N18.9
--- NOTE | 2024-08-16 16:27 | Hospitalist Progress Note ---
Date of Service August 15, 2024 - LATE ENTRY Assessment & Plan (1) Open left ankle fracture: Plan: Patient presented to the ED on 08/14 after sustaining a fall at home. Patient w/ open left ankle fracture. s/p left ankle ORIF with Dr. Mcdonald 08/14 switched tylenol to 1000mg PO q8h 08/15 Oxycodone prn for pain CBC reviewed: leukocytosis 11.65. BMP reviewed: creatinine improved to 1.50, BUN 25. Continue Ancef x 48 hours from closure of surgery per orthopedics. Orthopedic operative note reviewed, they are following along with her care. PT/OT consulted, appreciate recommendations. AM CBC, BMP (2) Acute kidney injury superimposed on CKD: Plan: creatinine on admission 1.96 with baseline 1.28 s/p 500mL normal saline from ED NSS x 80mL x 1. Creatinine with improvement to 1.50 Plan Chronic conditions: HTN: amlodipine, hydralazine IV prn if SBP >160 CAD: Isosorbide mononitrate. COPD: Albuterol prn GERD: PPI Mental health: Zoloft, trazodone HLD: statin Disposition: medical Diet: regular Code status: DNR Updated daughter via phone 08/15. Admission and Anticipated Discharge Date Admission Date: August 15, 2024 Subjective Patient seen and examined. Daughter on phone at time of encounter. patient complained of pain in her left ankle. She was grimacing in pain. She did have an episode of chest pain overnight. She has chronic chest pain at baseline. EKG done and was unrevealing Physical Exam Constitutional: WD/WN, vitals as above Eyes: PERRL, conjunctivae normal, anicteric sclerae Respiratory: normal respiratory effort, lungs clear to auscultation Cardiovascular: RRR, no murmur, no edema Skin: no rashes, warm and dry Results & Data Results & Data Vital Signs (Past 12 Hours) Vital Signs Temp Pulse Resp BP Pulse Ox O2 Del Method 08/16/24 14:30 36.9 C 96 H 16 157/72 H 92 Room Air 08/16/24 10:51 Room Air 08/16/24 07:05 36.7 C 83 18 156/67 H 94 Room Air PG Care Time/CCT Total # of Minutes Spent Total Time Spent with Patient: Total time spent is greater than 50% in coordination of care (as documented) at patient's floor/unit and/or counseling patient: Coding Level of Care Code 15834 SUB INP/OBS CARE MIN Diagnoses Open left ankle fracture S82.892B Acute kidney injury superimposed on CKD N17.9; N18.9
[2024-08-16] MEDS: SODIUM CHLORIDE 0.9% 500 ML IV SCH (17:29)
[2024-08-16 22:13] LABS: Hemoglobin 6.9 g/dl (12.0-16.0)
[2024-08-16] MEDS ORDERED: SODIUM CHLORIDE 0.9% 100 ML IV PRN (22:44)
--- NOTE | 2024-08-16 22:54 | Communication Note ---
Date of Service: August 16, 2024 Notified by nursing that patient had critical lab value with Hgb 6.9. Upon chart review, patient had Hgb of 7.6 on the morning of 08/16 and later this afternoon however she is now down ~3 points from her baseline Hgb of about 10.2. No transfusion threshold specifically mentioned in documentation, but considering she is now <7 I will order type/cross and transfuse 1u PRBCs (with one additional unit of PRBCs on hold). Consent signed by patient for her surgery on 08/14 includes consent for blood transfusion, no additional consent forms indicated. Plan for repeat CBC in a.m. At approximately 23:00, nursing notified me that the patient was endorsing chest discomfort. I ordered an EKG and nursing gave patient her PRN nitro. The initial EKG was reported as "poor data quality" but the automatic computer read listed as "acute VT". I ordered a troponin and asked nursing to repeat the EKG to see if a better quality reading could be obtained. The second EKG was better quality, the automatic read from the computer interpreted it as "normal sinus rhythm, incomplete RBB. anteroseptal infarct age undetermined". I reviewed this EKG and did not see any acute ST changes per my interpretation. At bedside, patient endorses pain below right breast/RUQ region. Patient asked nursing if she had gravy with her dinner, as this causes her reflux to act up as she has a hiatal hernia. When asked about location of pain, patient points to epigastric area and RUQ. Patient reported to nursing that the sensation "feels like something is stuck there". On exam, patient has reproducible pain to palpation of RUQ. Nursing reports that patient initially complained of pain a bit higher/more localized to chest than epigastric/RUQ region. Patient unable to describe the type of discomfort she is currently feeling nor how with compared to prior cardiac events. Considering patient's history significant for hiatal hernia and persistent GERD, I ordered a dose of pepcid plus Tums which patient reports is typically what she takes for reflux symptoms. Upon further chart review, patient had episodes of chest pain during the afternoon of 08/16 as well as overnight on 08/15. Daytime hospitalist note from 08/16 mentions chronic episodes of chest pain. Initial troponin slightly elevated at 31.9, however this test was inadvertently run off of blood work from from prior to the evening episode of chest pain at approximately 22:00 at which time blood bank labs were completed. I ordered an additional STAT troponin level for ~2 hours from time of original blood sample, result was 36.5 which was barely higher than the prior troponin. Will continue to monitor troponin and trend to peak. Of note, patient typically takes Plavix and aspirin daily but these medications have not been resumed since her recent surgery on 08/14. BP has been stable, HR mild tachycardia (mid 90s), SPO2 98% on 2LNC (has been on and off supplemental oxygen throughout her admission). Could consider imaging to rule out PE if patient becomes significantly more tachycardia or hypoxic, but with waxing and waning symptoms I suspect it less likely. Will monitor vital signs and repeat CBC, troponin in morning labs to assess response to blood transfusion as she currently is currently anemic secondary to blood loss from her recent surgery. At about 01:00 after receiving TUMS and Pepcid, patient was receiving the above 1u PRBCs and resting comfortably without symptoms. If chest pain episodes continues to occur, consider cardiology consultation in the setting of her significant cardiac history. Resident Activity Tracking Resident Involvement: Resident Care Provided Care Provided: Adult Hospital Medicine
[2024-08-16] MEDS: NITROGLYCERIN SL 0.4 MG/TAB TAB SL PRN (23:00)
[2024-08-17] MEDS: FAMOTIDINE 20MG IV PUSH 20 MG/5 ML SYR IV ONE (00:27)
[2024-08-17] MEDS: CALCIUM CARBONATE 500 MG CHEWABLE TAB PO ONE (00:32)
[2024-08-17 07:54] LABS: Hematocrit (blood only) 28.1 % (37.0-47.0); Hemoglobin 9.3 g/dl (12.0-16.0); Mean Corpuscular Hemoglobin 28.3 pg (25.0-34.0); Mean Corpuscular Hgb Conc 33.1 g/dL (32.0-36.0); Mean Corpuscular Volume 85.4 fL (80.0-100.0); Mean Platelet Volume 9.4 fL (9.4-12.4); Platelet Count 179 K/uL (130-400); RDW Coefficient of Variation 16.3 % (11.5-14.5); RDW Standard Deviation 51.4 fL (36.4-46.3); Red Blood Count 3.29 M/uL (4.20-5.40); White Blood Count 9.45 K/ul (4.8-10.8)
[2024-08-17 08:19] LABS: BUN Creatinine Ratio 16.7 (10-20); Calcium 8.3 mg/dl (8.6-10.3); Potassium 4.6 mmol/L (3.5-5.1)
[2024-08-17 08:29] LABS: Troponin I High Sensitivity 40.3 pg/ml (0-14)
[2024-08-17] MEDS ORDERED: ALUMINUM/MAGNESIUM SUSP 30 ML UDC PO PRN (11:26)
--- NOTE | 2024-08-17 15:22 | XCELERA ---
[id number]
--- NOTE | 2024-08-17 16:43 | Hospitalist Progress Note ---
Date of Service August 17, 2024 Assessment & Plan (1) Open left ankle fracture: Plan: Patient presented to the ED on 08/14 after sustaining a fall at home. Patient w/ open left ankle fracture. s/p left ankle ORIF with Dr. Mcdonald 08/14 switched Tylenol to 1000mg PO q8h 08/15 Oxycodone prn for pain CBC reviewed 08/17: hgb 9.3 overnight, patient hgb dropped to 6.9 and required 1 unit PRBC's. FOBT ordered, pending BMP reviewed 08/17: creatinine 1.38, electrolytes stable. . Continue Ancef x 48 hours from closure of surgery per orthopedics. Orthopedic operative note reviewed, they are following along with her care. PT/OT consulted, appreciate recommendations. AM CBC, BMP (2) Acute kidney injury superimposed on CKD: Plan: creatinine on admission 1.96 with baseline 1.28 s/p 500mL normal saline from ED NSS x 80mL x 1. Creatinine with improvement to 1.38 AM BMP (3) Chest pain: Plan: Patient with multiple encounters complaining of chest pain. Troponin mildly elevated in the 40 range. Repeat EKG 08/16: normal sinus rhythm, RBBB Patient has hx of chronic CP on examination pt has pain in epigastric region - likely from hiatal hernia continue PPI BID added Maalox prn for symptoms. - seems she improved from Pepcid/Tums overnight. Reviewed cardiology outpatient visit from 07/28/24 - metoprolol d/c at that visit due to lightheadedness and several falls. Patient refused stress test but was agreeable to echo. Echo reviewed 08/17: EF 60-65%. sclerotic aortic valve w/o significant stenosis. Consider further imaging of hiatal hernia if symptoms persist. Plan Chronic conditions: HTN: amlodipine, hydralazine IV prn if SBP >160 CAD: Isosorbide mononitrate. COPD: Albuterol prn GERD: PPI Mental health: Zoloft, trazodone HLD: statin Disposition: medical Diet: regular Code status: DNR Updated daughter via phone 08/16. Admission and Anticipated Discharge Date Admission Date: August 15, 2024 Supervising Physician Co-Signing Physician Notes Attending Attestation - Chart reviewed, care plan d/w CHANCE Evans. I agree w/ the lance components of her documentation. Overnight events noted; had chest discomfort once again. EKG (my reading) with anterolateral ST segment depression. These changes are chronic. Mild troponin elevation noted (40). She self-reports h/o hiatal hernia, but prior CT chest imaging did not show such. Pt with known CAD. CARDIAC CATHETERIZATION January 2011: -- LMCA -- 80% Stenosis. -- LAD --80% Midvessel stenosis. -- RI -- 100% Stenosis of the ramus. -- LCx -- Serial 70% stenoses in her circumflex. -- RCA -- 100% Occluded. -- Bypass grafts were patent, however her NETTLES to LAD anastomosis site had a 70% narrowing. GERD covered with PPI twice daily. If she continues with chest symptoms VERY LOW THRESHOLD for cardiology consultation. Cont all cardiac meds. Echo findings from today noted. Thuan Bustamante MD Subjective Patient seen and examined this morning. patient reporting epigastric pain overnight and into this morning. States after she took her AM medications she felt something "get stuck" in her epigastric area. Patient has hx of hiatal hernia. Denied SOB or chest pain at time of encounter. reports her ankle pain has improved and she is looking forward to sitting in a chair this morning. Physical Exam 2 Constitutional: WD/WN, vitals as above Respiratory: normal respiratory effort, lungs clear to auscultation Cardiovascular: RRR, no murmur, no edema Gastrointestinal (Abdomen): +epigastric tenderness on palpation Skin: no rashes, warm and dry Results & Data Results & Data Vital Signs (Past 12 Hours) Vital Signs Temp Pulse Resp BP Pulse Ox O2 Del Method O2 Flow Rate 08/17/24 15:03 36.5 C 85 18 157/68 H 97 Room Air 08/17/24 07:09 36.7 C 88 18 172/71 H 97 Nasal Cannula 2 Laboratory Results 08/17/24 07:26 08/17/24 07:26 PG Care Time/CCT Total # of Minutes Spent Total Time Spent with Patient: Total time spent is greater than 50% in coordination of care (as documented) at patient's floor/unit and/or counseling patient: Coding Level of Care Code 26081 SUB INP/OBS CARE 3/50MIN Diagnoses Open left ankle fracture S82.892B Acute kidney injury superimposed on CKD N17.9; N18.9 Chest pain R07.9
--- NOTE | 2024-08-18 05:37 | Electrocardiogram Report ---
Test Reason : Blood Pressure : */* mmHG Vent. Rate : 97 BPM Atrial Rate : 97 BPM P-R Int : 174 ms QRS Dur : 104 ms QT Int : 378 ms P-R-T Axes : 60 95 28 degrees QTcB Int : 480 ms Normal sinus rhythm Incomplete right bundle branch block Septal infarct (cited on or before 14-Aug-2024) T wave abnormality, consider anterior ischemia Abnormal ECG When compared with ECG of 14-Aug-2024 01:25, Questionable change in initial forces of Septal leads T wave inversion more evident in Anterior leads Confirmed by Kenneth Pastrana ([id number]) on 08/18/2024 5:37:07 AM Referred By: REFERRED SELF Confirmed By: Kenneth Pastrana
--- NOTE | 2024-08-18 05:40 | Electrocardiogram Report ---
Test Reason : Blood Pressure : */* mmHG Vent. Rate : 91 BPM Atrial Rate : 91 BPM P-R Int : 180 ms QRS Dur : 110 ms QT Int : 352 ms P-R-T Axes : 58 73 107 degrees QTcB Int : 432 ms Poor data quality, interpretation may be adversely affected Normal sinus rhythm Incomplete right bundle branch block Septal infarct (cited on or before 14-Aug-2024) Nonspecific ST and T wave abnormality Abnormal ECG When compared with ECG of 15-Aug-2024 02:01, No significant change Confirmed by Kenneth Pastrana ([id number]) on 08/18/2024 5:39:41 AM Referred By: REFERRED SELF Confirmed By: Kenneth Pastrana
--- NOTE | 2024-08-18 05:41 | Electrocardiogram Report ---
Test Reason : Blood Pressure : */* mmHG Vent. Rate : 97 BPM Atrial Rate : 97 BPM P-R Int : 168 ms QRS Dur : 106 ms QT Int : 360 ms P-R-T Axes : 57 66 101 degrees QTcB Int : 457 ms Normal sinus rhythm Incomplete right bundle branch block Anteroseptal infarct (cited on or before 14-Aug-2024) Possible Inferior infarct Nonspecific ST and T wave abnormality Abnormal ECG When compared with ECG of 16-Aug-2024 23:11, No significant change Confirmed by Kenneth Pastrana ([id number]) on 08/18/2024 5:40:34 AM Referred By: REFERRED SELF Confirmed By: Kenneth Pastrana
[2024-08-18 08:53] LABS: Hematocrit (blood only) 27.8 % (37.0-47.0); Hemoglobin 9.1 g/dl (12.0-16.0); Mean Corpuscular Hemoglobin 28.1 pg (25.0-34.0); Mean Corpuscular Hgb Conc 32.7 g/dL (32.0-36.0); Mean Corpuscular Volume 85.8 fL (80.0-100.0); Platelet Count 195 K/uL (130-400); RDW Coefficient of Variation 16.7 % (11.5-14.5); RDW Standard Deviation 52.1 fL (36.4-46.3); Red Blood Count 3.24 M/uL (4.20-5.40); White Blood Count 8.89 K/ul (4.8-10.8)
[2024-08-18 09:01] LABS: BUN Creatinine Ratio 16.5 (10-20); Calcium 8.1 mg/dl (8.6-10.3); Creatinine Clr Calc Pharmacy 26.9 ml/min; Potassium 4.7 mmol/L (3.5-5.1)
--- NOTE | 2024-08-18 12:48 | Hospitalist Progress Note ---
Date of Service August 18, 2024 Assessment & Plan (1) Open left ankle fracture: Plan: Patient presented to the ED on 08/14 after sustaining a fall at home. Patient w/ open left ankle fracture. s/p left ankle ORIF with Dr. Mcdonald 08/14 switched Tylenol to 1000mg PO q8h 08/15 Oxycodone prn for pain Acute blood loss anemia secondary to surgery requiring 1 unit PRBC on 08/17 > Hgb augmented appropriately and remaining stable post-transfusion Received Ancef postop until 08/18 PT/OT recommending rehab 3 hours combined therapy daily > Completed P2P for [facility] --> denied (2) Acute kidney injury superimposed on CKD: Plan: creatinine on admission 1.96 with baseline 1.28 Received total of 1.5 L IV fluid Creatinine with improvement to 1.39 Avoid nephrotoxic agents when possible AM BMP (3) Chest pain: Plan: Patient with multiple encounters complaining of chest pain. Troponin mildly elevated in the 40 range. Repeat EKG 08/16: normal sinus rhythm, RBBB Patient has hx of chronic CP on examination pt has pain in epigastric region - likely from hiatal hernia continue PPI BID added Maalox prn for symptoms. - seems she improved from Pepcid/Tums overnight. Reviewed cardiology outpatient visit from 07/28/24 - metoprolol d/c at that visit due to lightheadedness and several falls. Patient refused stress test but was agreeable to echo. Echo reviewed 08/17: EF 60-65%. sclerotic aortic valve w/o significant stenosis. Consider further imaging of hiatal hernia if symptoms persist Low threshold for cardiology consult if chest pain returns/persists Plan Discontinued Ancef Completed P2P for rehab --> denied Chronic conditions: HTN: amlodipine, hydralazine IV prn if SBP >160 CAD: Isosorbide mononitrate. COPD: Albuterol prn GERD: PPI Mental health: Zoloft, trazodone HLD: statin Code status: DNR Updated daughter via phone 08/16. Admission and Anticipated Discharge Date Admission Date: August 15, 2024 Supervising Physician Co-Signing Physician Notes Attending Attestation - Chart reviewed, care plan d/w CHANCE Whyte. I agree w/ the lance components of her documentation. Thuan Bustamante MD Subjective Patient seen and evaluated in bedside chair. She reports that her pain is well- controlled. She denies any chest pain, pressure, or palpitations today. She denies any shortness of breath, lightheadedness, dizziness. She notes that she is tired. Continue to wait for rehab placement. No additional complaints or concerns at this time. Physical Exam Physical Exam: General: No acute distress, nondiaphoretic, well-developed, well-nourished. Skin: The skin was without rashes, erythema, edema, or bruising. Cardiac: Regular rate and rhythm without murmurs gallops or rubs. Pulm: Clear to auscultation bilaterally without wheezes, rales or rhonchi. No respiratory distress. 97% on room air. Abdominal: Soft, nontender, nondistended. Bowel sounds present. Neuro: A&O x3. No focal neurological deficits. Extremities: Left lower extremity in split. Cap refill <3 seconds. Results & Data Results & Data Vital Signs (Past 12 Hours) Vital Signs Temp Pulse Resp BP Pulse Ox O2 Del Method O2 Flow Rate 08/18/24 07:13 98.4 F 78 18 145/79 H 96 Room Air 08/18/24 02:27 85 160/70 H 94 Nasal Cannula 2 Laboratory Results Reviewed CBC Reviewed BMP PG Care Time/CCT Total # of Minutes Spent Total Time Spent with Patient: Total time spent is greater than 50% in coordination of care (as documented) at patient's floor/unit and/or counseling patient: Coding Level of Care Code 43858 SUB INP/OBS CARE 3/50MIN Diagnoses Open left ankle fracture S82.892B Acute kidney injury superimposed on CKD N17.9; N18.9 Chest pain R07.9
[2024-08-19] MEDS: hydrOXYzine HCl 10 MG TAB PO ONE (04:56)
[2024-08-19] MEDS: FIRST - Mouthwash BLM 119 ML PO PRN (05:46)
[2024-08-19 05:55] VITALS: RESP 17; TEMP 98.4; O2SAT 93
[2024-08-19 06:42] LABS: BUN Creatinine Ratio 18.3 (10-20); Calcium 8.2 mg/dl (8.6-10.3); Creatinine Clr Calc Pharmacy 29.6 ml/min; Potassium 4.7 mmol/L (3.5-5.1)
[2024-08-19 13:16] VITALS: BP 159/52; PULSE 98
--- NOTE | 2024-08-19 18:58 | Discharge Summary ---
Discharge Summary Date of Service August 19, 2024 Principal Dx & Hospital Course #1 = Principal Diagnosis (1) Open left ankle fracture: Patient presented to the ED on 08/14 after sustaining a fall at home. Patient w/ open left ankle fracture. s/p left ankle ORIF with Dr. Mcdonald 08/14 switched Tylenol to 1000mg PO q8h 08/15 Oxycodone prn for pain Acute blood loss anemia secondary to surgery requiring 1 unit PRBC on 08/17 > Hgb augmented appropriately and remaining stable post-transfusion Received Ancef postop until 08/18 Discharged to [facility] for skilled rehab (2) Acute kidney injury superimposed on CKD: creatinine on admission 1.96 with baseline 1.28 Received total of 1.5 L IV fluid [place] resolved with creatinine of 1.26 on day of discharge Avoid nephrotoxic agents when possible (3) Chest pain: Patient with multiple encounters complaining of chest pain. Troponin mildly elevated in the 40 range. Repeat EKG 08/16: normal sinus rhythm, RBBB Patient has hx of chronic CP on examination pt has pain in epigastric region - likely from hiatal hernia continue PPI BID added Maalox prn for symptoms. - seems she improved from Pepcid/Tums overnight. Reviewed cardiology outpatient visit from 07/28/24 - metoprolol d/c at that visit due to lightheadedness and several falls. Patient refused stress test but was agreeable to echo. Echo reviewed 08/17: EF 60-65%. sclerotic aortic valve w/o significant stenosis. Consider further imaging of hiatal hernia if symptoms persist Plan Chronic conditions: HTN: amlodipine, hydralazine IV prn if SBP >160 CAD: Isosorbide mononitrate. COPD: Albuterol prn GERD: PPI Mental health: Zoloft, trazodone HLD: statin Code status: DNR Admission HPI Per Admitting Provider The patient is a 79-year-old female with a past medical history including peripheral vascular disease, hypertension, folate deficiency, B12 deficiency, recurrent falls with no previous fractures, IPMN, SDAT, CKD stage III, bilateral carotid artery stenosis, hyperlipidemia, multivessel CAD, hyperparathyroidism, hypothyroidism, and diabetes mellitus. Patient reports that she was walking out of her kitchen, lost her balance, slipped and fell and heard a loud crack in her left ankle area. She also reports some minor left shoulder discomfort, and she did fall hitting her head and buttocks with no significant pain to the area. She Discharge Exam General: No acute distress, nondiaphoretic, well-developed, well-nourished. Skin: The skin was without rashes, erythema, edema, or bruising. Cardiac: Regular rate and rhythm without murmurs gallops or rubs. Pulm: Clear to auscultation bilaterally without wheezes, rales or rhonchi. No respiratory distress. 97% on room air. Abdominal: Soft, nontender, nondistended. Bowel sounds present. Neuro: A&O x3. No focal neurological deficits. Extremities: Left lower extremity in split. Cap refill <3 seconds. Discharge Plan Discharge Items Patient Disposition: Transfer Assisted Fac Reason For Visit: OPEN LEFT ANKLE FX W/ PUNCTURE WOUND Discharge Diagnosis: Open left ankle fracture s/p left ankle ORIF Activity: Per Instructions section Lifting Comment: Nonweightbearing to left lower extremity Weightbearing: Left non-weightbearing Non-emergency contact: Primary Care Provider and Surgeon Call non-emergency contact if: you have any medication questions, your symptoms worsen, your pain is not controlled, you have a fever, your wound has increased redness and your wound has increased drainage Follow-up/Referrals: Tye Sneed MD [Primary Care Provider] - Ck Mcdonald DO [Surgeon] - (Follow-up in clinic 2 weeks postop. Surgery date 08/14/2024.) Diet: Heart Healthy Addtl Attending Provider Instructions: Colt Gatica were admitted to the hospital with an open left ankle fracture after sustaining a fall at home. You had left ankle surgery with Dr. Mcdonald on 08/14/2024. You required one unit of blood postoperatively, and fortunately you r hemoglobin has remained stable since. You will follow-up with Dr. Mcdonald in 2 weeks from your surgery in the outpatient clinic. You are being discharged to [facility] for skilled rehab. Your medications are listed below for [facility]. I wish you the best of luck in your postoperative recover! It was a pleasure taking care of you while you were in the hospital, Shanelle Whyte PA-C Pending Studies at Discharge: No Stand-Alone Forms: My [facility] Skilled Items Patient informed of condition?: Yes DNR: Yes Discharge Level of Care: Skilled Communicable Disease: No Discharge Prognosis: Stable Lines: None Urinary Catheter: No Medications and DC Order Prescriptions: New oxycodone 5 mg Tablet 5 - 10 mg PO Q4 PRN (Reason: pain) Qty: 15 0RF acetaminophen [Tylenol Extra Strength] 500 mg Tablet 1,000 mg PO Q8H Qty: 60 0RF miconazole 50 mg muco-adhesive buccal tablet 50 mg buccal DAILY 10 Days Qty: 10 0RF Continued nitroglycerin 0.4 mg tablet, sublingual 0.4 mg SL Q5M PRN (Reason: chest pain) Qty: 25 0RF ondansetron 4 mg tablet,disintegrating 4 mg translingual TID PRN (Reason: nausea and vomiting) Qty: 60 1RF meclizine 12.5 mg tablet 12.5 mg PO TID PRN (Reason: dizziness) Qty: 30 2RF aspirin 81 mg tablet,delayed release (DR/EC) 81 mg PO QAM Qty: 90 3RF Breztri Aerosphere 160-9-4.8 mcg/actuation HFA aerosol inhaler 2 inh inhalation BID Qty: 5.9 2RF clopidogrel 75 mg tablet 75 mg PO QAM Qty: 90 3RF amlodipine 10 mg tablet 10 mg PO QAM Qty: 90 3RF atorvastatin 80 mg tablet 80 mg PO HS Qty: 90 3RF cholecalciferol (vitamin D3) 50 mcg (2,000 unit) capsule 2,000 unit PO QAM Qty: 90 3RF levothyroxine 88 mcg tablet 88 mcg PO DAILY Qty: 90 3RF calcitriol 0.25 mcg capsule 0.25 mcg PO Q2D Qty: 45 3RF Prolia 60 mg/mL syringe 60 mg subcut .n1mkonzy Qty: 1 1RF Rx Instructions: Please deliver to Dr. Steiner [address] [address] isosorbide mononitrate 120 mg tablet extended release 24 hr 120 mg PO QAM Qty: 90 3RF folic acid 1 mg tablet 1 mg PO QAM Qty: 90 3RF cetirizine [Zyrtec] 10 mg tablet 10 mg PO QAM hydrocortisone 2.5 % cream with perineal applicator 1 appln ME DAILY PRN (Reason: hemorrhoids) Qty: 30 2RF lidocaine [Lidoderm] 5 % adhesive patch,medicated 1 patch topical DAILY PRN (Reason: back pain) Rx Instructions: leave on most painful area for up to 12 hrs melatonin 10 mg tablet, sublingual 15 mg sublingual DAILY albuterol sulfate 90 mcg/actuation HFA aerosol inhaler 2 puff inhalation .EVERY 4-6 HOURS PRN (Reason: shortness of breath or wheezing) Patient Comments: 2 puff inhalation every 4-6 hours prn donepezil 5 mg tablet 5 mg PO QAM omeprazole 20 mg capsule,delayed release(DR/EC) 20 mg PO QAM fluoride (sodium) [Denta 5000 Plus] 1.1 % cream 1 applic dental BID Slow-Mag 71.5 mg tablet,delayed release (DR/EC) 71.5 mg PO TID clotrimazole-betamethasone 1-0.05 % cream 1 applic topical BID PRN (Reason: Rash) Rx Instructions: USE FOR 2 WEEKS NEEDED trazodone 150 mg tablet 75 mg PO HS Rx Instructions: 1/2 TABLET DOSE sertraline 100 mg tablet 100 mg PO QPM Rx Instructions: take with 50mg = 150mg daily sertraline 50 mg tablet 50 mg PO QPM MDD 150mg Rx Instructions: take with 100mg to equal 150mg daily Discharge Orders: Discharge Order (Routine); Ordered 08/19/24 Ordered By: Shanelle Whyte Admission Data Admit Date/Time: 08/15/24 08:22 Attending Provider: Thuan Bustamante Admit Provider: Jesús Ashraf Primary Care Provider: Tye Sneed Other Providers: [place]; Brant العراقي; [facility]; [facility] Other Interventions: Discharge Summary Assessment (RN) Last Done: 08/19/24 13:15 Hospital Stay Data Consultations 08/14/24 03:05 Consult Orthopedic Surgery Routine ED Decision to Admit Stat Procedures Performed Operation Date: 08/14/24 07:00 Actual Procedures p Left ankle open reduction, internal fixation.(Left) - Ck Mcdonald DO s Left ankle irrigation and debridement,(Left) - Ck Mcdonald DO Diagnostic Imagining Performed 08/14/24 01:23 CT cervical spine wo con Stat CT head/brain wo con Stat 08/14/24 13:30 FL ankle LT 2V Routine 08/14/24 14:03 US - OR guided needle placemen Routine Pending Results Patient Have Any Pending Studies at Discharge: No Discharge Instructions Given to Patient (Per Discharging Provider) Colt Gatica were admitted to the hospital with an open left ankle fracture after sustaining a fall at home. You had left ankle surgery with Dr. Mcdonald on 08/14/2024. You required one unit of blood postoperatively, and fortunately your hemoglobin has remained stable since. You will follow-up with Dr. Mcdonald in 2 weeks from your surgery in the outpatient clinic. You are being discharged to [facility] for skilled rehab. Your medications are listed below for [facility]. I wish you the best of luck in your postoperative recover! It was a pleasure taking care of you while you were in the hospital, Shanelle Whyte PA-C Total Time Total Time Spent Total Time Spent (In Minutes): Greater than 30 minutes spent completing this discharge process including direct patient care, medication reconciliation, documentation, review of labs and images, and coordination of care. Coding Level of Care Code 07255 INP/OBS DISCH >30 MIN Diagnoses Open left ankle fracture S82.892B Acute kidney injury superimposed on CKD N17.9; N18.9 Chest pain R07.9
== END 2024-08-19 14:09 | DRG 493 ==
LOC: 3W 01:17 → ED 01:17 → SUATTDRO 03:56 → 3W 05:02 → SUATTDRO 08-15 08:22